=== PATIENT | female | born 1965 | race Caucasian/White ===

== ENCOUNTER 2019-03-18 19:48 | Inpatient (IN) | payer OTHER ==
[2019-03-18] MEDS ORDERED: ONDANSETRON 4 MG/2 ML VIAL IVP STA (20:11)
[2019-03-18] MEDS ORDERED: SODIUM CHLORIDE 0.9% 1,000 ML IV STA ×2 (20:11→22:42)
[2019-03-18] MEDS ORDERED: KETOROLAC 30 MG/ML 1 ML VIAL IVP STA (20:11)
--- NOTE | 2019-03-18 20:14 | ED ---
General Adult HPI - General Chief complaint: Fever Stated complaint: Fever Time Seen by Provider: 03/18/19 20:02 Source: patient, family Mode of arrival: ambulatory Limitations: no limitations - History of Present Illness Initial comments: Dictation was produced using [employer] dictation software. please excuse any grammatical, word or spelling errors. Chief Complaint: 53-year-old female past medical history of hypertension presents with right flank pain and fevers. History of Present Illness: 53-year-old female she presents today with right flank pain, fevers and shortness of breath. Patient states her symptoms of annalee vering really third to get worse today. Her symptoms slowly progress until coming to the emergency department. She complained of some mild right flank pain. Denies any abdominal surgery. Patient denies any abdominal pain. States the pain is in her right flank area. Complains of nausea however no vomiting. Patient is complaining of some urinary symptoms denies any dysuria. Denies any sore throat. No neck pain. No altered mental status. No runny nose. The ROS documented in this emergency department record has been reviewed and confirmed by me. Those systems with pertinent positive or negative responses have been documented in the HPI. All other systems are other negative and/or noncontributory. PHYSICAL EXAM: General Impression: Alert and oriented x3, not in acute distress HEENT: Normocephalic atraumatic, extra-ocular movements intact, pupils equal and reactive to light bilaterally, mucous membranes moist, no pharyngeal erythema or tonsillar exudates Cardiovascular: Heart regular rate and rhythm, S1&S2 audible, no murmurs, rubs or gallops Chest: Lungs clear to auscultation bilaterally, no rhonchi, no wheeze, no rales Abdomen: Bowel sounds present, abdomen soft, non-tender, non-distended, no organomegaly, no right lower quadrant abdominal tenderness, no tenderness. Upper quadrant, negative Cobb sign, no abdominal tenderness whatsoever Musculoskeletal: Pulses present and equal in all extremities, no peripheral edema Motor: no focal deficits noted Neurological: CN II-XII grossly intact, no focal motor or sensory deficits noted, negative Kernig's, negative Brudzinski's Skin: Intact with no visualized rashes Psych: Normal affect and mood ED course: 53-year-old female presents with fevers and right flank pain. Vital signs upon arrival shows temperature 101.8, heart rate 116, rest of vital signs are within acceptable limits. Laboratory evaluation obtained. Mild leukocytosis of 11.8. Metabolic panel shows anion gap acidosis with a lactic acidosis of 5.2. Urinalysis consistent with urinary tract infection. Clinical presentation concerning for pyelo nephritis with sepsis. Patient's blood pressure is borderline however she is not shocky. Patient given intravenous fluids. Discussed with patient that it's in her best interest to be admitted to the hospital for sepsis secondary to pyelonephritis. Patient is agreeable for admission. She requested a nicotine patch. Discussed patient case with son physician group was went except patient's care. Patient be admitted to cardiac telemetry. Patient given 1 g Rocephin. Pending urine cultures and blood cultures. - Related Data Home Medications Medication Instructions Recorded Confirmed Losartan/Hydrochlorothiazide 1 tab PO DAILY 03/18/19 03/18/19 [Losartan-Hctz 100-25 mg Tab] Multivitamins, Thera [Multivitamin 1 tab PO DAILY 03/18/19 03/18/19 (formulary)] Venlafaxine HCl ER [Effexor Xr] 37.5 mg PO DAILY 03/18/19 03/18/19 amLODIPine [Norvasc] 5 mg PO DAILY 03/18/19 03/18/19 Allergies Allergy/AdvReac Type Severity Reaction Status Date / Time Penicillins Allergy Rash/Hives Verified 03/18/19 20:14 Review of Systems ROS Statement: Those systems with pertinent positive or pertinent negative responses have been documented in the HPI. ROS Other: All systems not noted in ROS Statement are negative. Past Medical History Past Medical History: Hypertension History of Any Multi-Drug Resistant Organisms: None Reported Past Surgical History: Section, Tonsillectomy Past Psychological History: No Psychological Hx Reported Smoking Status: Current every day smoker Past Alcohol Use History: None Reported Past Drug Use History: None Reported General Exam Limitations: no limitations Course Vital Signs 03/18/19 03/18/19 03/18/19 19:52 21:39 22:24 Temperature 101.8 F H 102.3 F H 100.3 F H Pulse Rate 116 H 104 H Respiratory 24 20 Rate Blood Pressure 186/89 104/46 O2 Sat by Pulse 100 97 Oximetry Medical Decision Making - Lab Data Result diagrams: 03/18/19 20:22 03/18/19 20:22 Lab Results 03/18/19 03/18/19 03/18/19 Range/Units 20:22 20:22 20:22 WBC 11.8 H (3.8-10.6) k/uL RBC 4.91 (3.80-5.40) m/uL Hgb 15.8 (11.4-16.0) gm/dL Hct 46.3 H (34.0-46.0) % MCV 94.4 (80.0-100.0) fL MCH 32.1 (25.0-35.0) pg MCHC 34.0 (31.0-37.0) g/dL RDW 15.2 (11.5-15.5) % Plt Count 216 (150-450) k/uL Neutrophils % (Manual) 88 % Band Neutrophils % 4 % Lymphocytes % (Manual) 7 % Monocytes % (Manual) 1 % Neutrophils # (Manual) 10.80 H (1.3-7.7) k/uL Lymphocytes # (Manual) 0.83 L (1.0-4.8) k/uL Monocytes # (Manual) 0.12 (0-1.0) k/uL Nucleated RBCs 0 (0-0) /100 WBC Manual Slide Review Performed RBC Morphology Normal Sodium 135 L (137-145) mmol/L Potassium 4.3 (3.5-5.1) mmol/L Chloride 100 (98-107) mmol/L Carbon Dioxide 19 L (22-30) mmol/L Anion Gap 16 mmol/L BUN 18 H (7-17) mg/dL Creatinine 0.99 (0.52-1.04) mg/dL Est GFR (CKD-EPI)AfAm 77 (>60 ml/min/1.73 sqM) Est GFR (CKD-EPI)NonAf 66 (>60 ml/min/1.73 sqM) Glucose 165 H (74-99) mg/dL Plasma Lactic Acid Bryn (0.7-2.0) mmol/L Calcium 10.2 (8.4-10.2) mg/dL Urine Color Yellow Urine Appearance Cloudy H (Clear) Urine pH 5.5 (5.0-8.0) Ur Specific [place] 1.026 (1.001-1.035) Urine Protein 2+ H (Negative) Urine Glucose (UA) Negative (Negative) Urine Ketones Negative (Negative) Urine Blood Moderate H (Negative) Urine Nitrite Negative (Negative) Urine Bilirubin Negative (Negative) Urine Urobilinogen <2.0 (<2.0) mg/dL Ur Leukocyte Esterase Large H (Negative) Urine RBC 34 H (0-5) /hpf Urine WBC >182 H (0-5) /hpf Urine WBC Clumps Few H (None) /hpf Ur Squamous Epith Cells 9 H (0-4) /hpf Urine Bacteria Occasional H (None) /hpf Urine Mucus Occasional H (None) /hpf 03/18/19 Range/Units 20:22 WBC (3.8-10.6) k/uL RBC (3.80-5.40) m/uL Hgb (11.4-16.0) gm/dL Hct (34.0-46.0) % MCV (80.0-100.0) fL MCH (25.0-35.0) pg MCHC (31.0-37.0) g/dL RDW (11.5-15.5) % Plt Count (150-450) k/uL Neutrophils % (Manual) % Band Neutrophils % % Lymphocytes % (Manual) % Monocytes % (Manual) % Neutrophils # (Manual) (1.3-7.7) k/uL Lymphocytes # (Manual) (1.0-4.8) k/uL Monocytes # (Manual) (0-1.0) k/uL Nucleated RBCs (0-0) /100 WBC Manual Slide Review RBC Morphology Sodium (137-145) mmol/L Potassium (3.5-5.1) mmol/L Chloride (98-107) mmol/L Carbon Dioxide (22-30) mmol/L Anion Gap mmol/L BUN (7-17) mg/dL Creatinine (0.52-1.04) mg/dL Est GFR (CKD-EPI)AfAm (>60 ml/min/1.73 sqM) Est GFR (CKD-EPI)NonAf (>60 ml/min/1.73 sqM) Glucose (74-99) mg/dL Plasma Lactic Acid Bryn 5.2 H* (0.7-2.0) mmol/L Calcium (8.4-10.2) mg/dL Urine Color Urine Appearance (Clear) Urine pH (5.0-8.0) Ur Specific [place] (1.001-1.035) Urine Protein (Negative) Urine Glucose (UA) (Negative) Urine Ketones (Negative) Urine Blood (Negative) Urine Nitrite (Negative) Urine Bilirubin (Negative) Urine Urobilinogen (<2.0) mg/dL Ur Leukocyte Esterase (Negative) Urine RBC (0-5) /hpf Urine WBC (0-5) /hpf Urine WBC Clumps (None) /hpf Ur Squamous Epith Cells (0-4) /hpf Urine Bacteria (None) /hpf Urine Mucus (None) /hpf Disposition Clinical Impression: UTI (urinary tract infection), Sepsis, Sepsis secondary to UTI Disposition: ADMITTED IP TO THIS HOSP Condition: Fair Referrals: Linden Dejesus MD [Primary Care Provider] - 1-2 days Decision Time: 22:44
[2019-03-18 20:44] LABS: HCT 46.3 % (34.0-46.0); HGB 15.8 gm/dL (11.4-16.0); MCH 32.1 pg (25.0-35.0); MCV 94.4 fL (80.0-100.0); Mean Platelet Volume 9.4; Platelet Count 216 k/uL (150-450); RBC 4.91 m/uL (3.80-5.40); RDW 15.2 % (11.5-15.5); WBC 11.8 k/uL (3.8-10.6)
--- NOTE | 2019-03-18 20:48 | XR ---
EXAMINATION TYPE: XR chest 2V DATE OF EXAM: 03/18/2019 COMPARISON: 12/16/2009 HISTORY: Fever TECHNIQUE: Frontal and lateral views of the chest are obtained. FINDINGS: Heart and mediastinum are normal. Lungs are clear of infiltrate. There is no pleural effus ion. Bony thorax is intact. IMPRESSION: No active cardiopulmonary disease. Normal heart. No change.
[2019-03-18 20:50] LABS: Appearance,Urine Cloudy (Clear); Bacteria,Urine Occasional /hpf; Bilirubin,Urine Negative (Negative); Blood,Urine Moderate (Negative); Color,Urine Yellow; Glucose,Urine (UA) Negative (Negative); Ketones,Urine Negative (Negative); Leukocyte Esterase,Urine Large (Negative); Mucus,Urine Occasional /hpf; Nitrite,Urine Negative (Negative); PH, Urine 5.5 (5.0-8.0); Protein,Urine 2+ (Negative); RBC,Urine 34 /hpf (0-5); Specific Gravity,Urine 1.026 (1.001-1.035); Squamous Epithelial Cell,Urine 9 /hpf (0-4); Urobilinogen,Urine <2.0 mg/dL (<2.0); WBC,Urine >182 /hpf (0-5)
[2019-03-18 20:54] LABS: Band Neutrophils % 4 %; Lymphocytes # (M) 0.83 k/uL (1.0-4.8); Monocytes # (M) 0.12 k/uL (0-1.0); Neutrophils % (M) 88 %; Nucleated Red Blood Cells 0 /100 WBC (0-0); Total Cells Counted 100
[2019-03-18 20:56] LABS: Calcium 10.2 mg/dL (8.4-10.2); Potassium 4.3 mmol/L (3.5-5.1)
[2019-03-18] MEDS ORDERED: cefTRIAXone IN SWFI 1,000 MG/10 ML SYRINGE IVP STA (21:12)
[2019-03-18] MEDS ORDERED: ACETAMINOPHEN TAB 500 MG TAB PO STA (21:40)
[2019-03-18] MEDS ORDERED: NICOTINE 21MG/24HR PATCH TRANSDERM STA (22:41)
[2019-03-18] MEDS: SODIUM CHLORIDE 0.9% 1,000 ML IV SCH (23:13)
--- NOTE | 2019-03-19 01:41 | P.HPIM ---
History of Present Illness H&P Date: 03/19/19 Patient is a 53-year-old female with a PMH of hypertension who presented to the ED with a complaint of right flank pain. The patient notes that for the past 1 week she's been having dysuria along with some suprapubic pain which recently worsened earlier today and moved to the right flank. She notes that the pain is a 6 out of 10, radiating from the right flank to the suprapubic region, and cramping in nature. Patient also notes that she had fever and chills earlier today. She denied any prior history of UTIs. She denied any additional complaints including cough, chest pain, shortness of breath, nausea, vomiting, or diarrhea. She underwent an extensive regimen the ED with a WBC count of 11.8, lactate of 5.2, BUN 18, UA consistent with UTI, and chest x-ray unremarkable. The patient was given a dose of IV ceftriaxone along with IV fluids and is being admitted to medicine service for further management of sepsis secondary to pyelonephritis. Review of Systems Pertinent positives and negatives as discussed in HPI, a complete review of systems was performed and all other systems are negative. Past Medical History Past Medical History: Hypertension History of Any Multi-Drug Resistant Organisms: None Reported Past Surgical History: Section, Tonsillectomy Past Psychological History: No Psychological Hx Reported Smoking Status: Current every day smoker Past Alcohol Use History: None Reported Past Drug Use History: None Reported Medications and Allergies Home Medications Medication Instructions Recorded Confirmed Type Losartan/Hydrochlorothiazide 1 tab PO DAILY 03/18/19 03/18/19 History [Losartan-Hctz 100-25 mg Tab] Multivitamins, Thera [Multivitamin 1 tab PO DAILY 03/18/19 03/18/19 History (formulary)] Venlafaxine HCl ER [Effexor Xr] 37.5 mg PO DAILY 03/18/19 03/18/19 History amLODIPine [Norvasc] 5 mg PO DAILY 03/18/19 03/18/19 History Allergies Allergy/AdvReac Type Severity Reaction Status Date / Time Penicillins Allergy Rash/Hives Verified 03/18/19 20:14 Physical Exam Vitals: Vital Signs Temp Pulse Resp BP Pulse Ox 03/19/19 01:00 101.0 F H 87 16 100/51 95 03/19/19 00:00 90 18 103/55 95 03/18/19 23:00 92 18 120/63 96 03/18/19 22:24 100.3 F H 03/18/19 22:00 104/46 97 03/18/19 21:39 102.3 F H 104 H 20 104/46 97 03/18/19 21:00 125/65 97 03/18/19 20:31 97 03/18/19 19:52 101.8 F H 116 H 24 186/89 100 Intake and Output 03/18/19 03/18/19 03/19/19 14:59 22:59 06:59 Other: Weight 99.79 kg General: non toxic, no distress, appears at stated age, obese Derm: no unusual rashes/lesions no unusual ecchymoses, warm, dry Head: atraumatic, normocephalic, symmetric Eyes: EOMI, no lid lag, anicteric sclera, pupils equal round reactive to light ENT: Nose and ears atraumatic, no thrush, no pharyngeal erythema Neck: No thyromegaly, no cervical lymphadenopathy, trachea midline, supple Mouth: no lip lesion, mucus membranes moist Cardiovascular: S1S2 reg, no murmur, positive posterior tibial pulse bilateral, no edema, capillary refill less than 2 seconds Lungs: CTA bilateral, no rhonchi, no rales , no accessory muscle use Abdominal: soft, R CVA tenderness, no guarding, no appreciable organomegaly, normal bowel sounds Ext: no gross muscle atrophy, muscle strength 5 out of 5 in all 4 extremities grossly, no contractures, Neuro: CN II-XI grossly intact, light touch intact all 4 extremities, finger to nose within normal limits, Psych: Alert, oriented, appropriate affect Results CBC & Chem 7: 03/18/19 20:22 03/18/19 20:22 Labs: Abnormal Lab Results - Last 24 Hours (Table) 03/18/19 03/18/19 03/18/19 Range/Units 20:22 20:22 20:22 WBC 11.8 H (3.8-10.6) k/uL Hct 46.3 H (34.0-46.0) % Neutrophils # (Manual) 10.80 H (1.3-7.7) k/uL Lymphocytes # (Manual) 0.83 L (1.0-4.8) k/uL Sodium 135 L (137-145) mmol/L Carbon Dioxide 19 L (22-30) mmol/L BUN 18 H (7-17) mg/dL Glucose 165 H (74-99) mg/dL Plasma Lactic Acid Bryn (0.7-2.0) mmol/L Urine Appearance Cloudy H (Clear) Urine Protein 2+ H (Negative) Urine Blood Moderate H (Negative) Ur Leukocyte Esterase Large H (Negative) Urine RBC 34 H (0-5) /hpf Urine WBC >182 H (0-5) /hpf Urine WBC Clumps Few H (None) /hpf Ur Squamous Epith Cells 9 H (0-4) /hpf Urine Bacteria Occasional H (None) /hpf Urine Mucus Occasional H (None) /hpf 03/18/19 Range/Units 20:22 WBC (3.8-10.6) k/uL Hct (34.0-46.0) % Neutrophils # (Manual) (1.3-7.7) k/uL Lymphocytes # (Manual) (1.0-4.8) k/uL Sodium (137-145) mmol/L Carbon Dioxide (22-30) mmol/L BUN (7-17) mg/dL Glucose (74-99) mg/dL Plasma Lactic Acid Bryn 5.2 H* (0.7-2.0) mmol/L Urine Appearance (Clear) Urine Protein (Negative) Urine Blood (Negative) Ur Leukocyte Esterase (Negative) Urine RBC (0-5) /hpf Urine WBC (0-5) /hpf Urine WBC Clumps (None) /hpf Ur Squamous Epith Cells (0-4) /hpf Urine Bacteria (None) /hpf Urine Mucus (None) /hpf Assessment and Plan Plan: Severe sepsis secondary to pyelonephritis -Continue with IV ceftriaxone -IV fluids -Follow up cultures Lactic acidosis -Resolved Hypertension -Hold antihypertensives in setting of severe sepsis -Resume as warranted DVT prophylaxis -Heparin The patient is admitted with an anticipated less than 2 midnight stay for evaluation of pyelonephritis. CODE STATUS: Full Code Discussed with: Patient Anticipated discharge date: 03/21/[address]: Home A total of 40 minutes was spent on the care of this complex patient more than 50% of the time was spent in counseling and care coordination.
[2019-03-19] MEDS: ACETAMINOPHEN TAB 325 MG TAB PO PRN ×4 (03:04→22:09)
[2019-03-19] MEDS: SODIUM CHLORIDE 0.9% 1,000 ML IV SCH ×3 (05:38→16:10)
[2019-03-19 06:30] LABS: HCT 35.8 % (34.0-46.0); MCH 32.4 pg (25.0-35.0); MCHC 34.8 g/dL (31.0-37.0); MCV 93.3 fL (80.0-100.0); Mean Platelet Volume 8.8; Platelet Count 183 k/uL (150-450); RBC 3.84 m/uL (3.80-5.40); RDW 14.2 % (11.5-15.5)
[2019-03-19 06:40] LABS: HGB 12.4 gm/dL (11.4-16.0)
[2019-03-19 06:44] LABS: Calcium 8.5 mg/dL (8.4-10.2); Potassium 3.8 mmol/L (3.5-5.1)
[2019-03-19] MEDS: PANTOPRAZOLE 40 MG/10 ML VIAL IV SCH (08:59)
[2019-03-19] MEDS: VENLAFAXINE HCL ER 37.5 MG CAP PO SCH (08:59)
[2019-03-19] MEDS: HEPARIN SODIUM,PORCINE 5,000 UNIT/ML 1 ML VIAL SQ SCH ×3 (08:59→23:05)
--- NOTE | 2019-03-19 11:04 | P.PN ---
Subjective Progress Note Date: 03/19/19 Principal diagnosis: Fevers and right flank pain. Patient is still having intermittent fevers. Also still having right flank pain which is worse when she moves. No nausea or vomiting. Objective - Vital Signs Vital signs: Vital Signs Temp 98.6 F 03/19/19 06:29 Pulse 98 03/19/19 08:00 Resp 16 03/19/19 08:00 BP 110/64 03/19/19 04:00 Pulse Ox 99 03/19/19 04:00 Intake & Output 03/18/19 03/19/19 03/19/19 18:59 06:59 18:59 Intake Total 1100 10 Balance 1100 10 Weight 106.9 kg Intake: IV 10 Invasive Line 1 10 Intake, IV Titration 600 Amount Sodium Chloride 0.9% 1, 600 000 ml @ 150 mls/hr IV . Q6H40M [facility] Rx#:[id number] Oral 500 0 Other: Voiding Method Toilet # Voids 2 - Exam Constitutional: No acute distress, conversant, pleasant Eyes:Anicteric sclerae, moist conjunctiva, no lid-lag, PERRLA, ENMT: Oropharynx clear, no erythema, exudates Neck: Supple, FROM, no masses, or JVD, No carotid bruits, No thyromegaly Lungs: Clear to auscultation, Clear to percussion, Normal respiratory effort, no accessory muscle use Cardiovascular: Heart regular in rate and rhythm, No murmurs, gallops, or rubs, No peripheral edema Abdominal: Right flank tenderness. Soft, no guarding, rebound or rigidity, Normoactive bowel sounds, No hepatomegaly, No splenomegaly, No palpable mass Skin: Normal temperature, tone, texture, turgor, no induration, No subcutaneous nodules, No rash, lesions, No ulcers Extremities: No digital cyanosis, No clubbing, Pedal pulses intact and symmetrical, Radial pulses intact and symmetrical, No calf tenderness Psychiatric: Alert and oriented to person, place and time, appropriate affect, intact judgement Neuro: Muscles Strength 5/5 in all 4 extremities, Sensation to light touch grossly present throughout, Cranial nerves II-XII grossly intact, no focal sensory deficits - Labs CBC & Chem 7: 03/19/19 06:09 03/19/19 06:09 Labs: Abnormal Lab Results - Last 24 Hours (Table) 0803/18/19 03/18/19 Range/Units 20:22 20:22 20:22 WBC 11.8 H (3.8-10.6) k/uL Hct 46.3 H (34.0-46.0) % Neutrophils # (Manual) 10.80 H (1.3-7.7) k/uL Lymphocytes # (Manual) 0.83 L (1.0-4.8) k/uL Sodium 135 L (137-145) mmol/L Carbon Dioxide 19 L (22-30) mmol/L BUN 18 H (7-17) mg/dL Creatinine (0.52-1.04) mg/dL Glucose 165 H (74-99) mg/dL Plasma Lactic Acid Bryn (0.7-2.0) mmol/L Urine Appearance Cloudy H (Clear) Urine Protein 2+ H (Negative) Urine Blood Moderate H (Negative) Ur Leukocyte Esterase Large H (Negative) Urine RBC 34 H (0-5) /hpf Urine WBC >182 H (0-5) /hpf Urine WBC Clumps Few H (None) /hpf Ur Squamous Epith Cells 9 H (0-4) /hpf Urine Bacteria Occasional H (None) /hpf Urine Mucus Occasional H (None) /hpf 03/18/19 03/19/19 03/19/19 Range/Units 20:22 06:09 06:09 WBC 17.0 H (3.8-10.6) k/uL Hct (34.0-46.0) % Neutrophils # (Manual) (1.3-7.7) k/uL Lymphocytes # (Manual) (1.0-4.8) k/uL Sodium 136 L (137-145) mmol/L Carbon Dioxide 20 L (22-30) mmol/L BUN 23 H (7-17) mg/dL Creatinine 1.26 H (0.52-1.04) mg/dL Glucose 153 H (74-99) mg/dL Plasma Lactic Acid Bryn 5.2 H* (0.7-2.0) mmol/L Urine Appearance (Clear) Urine Protein (Negative) Urine Blood (Negative) Ur Leukocyte Esterase (Negative) Urine RBC (0-5) /hpf Urine WBC (0-5) /hpf Urine WBC Clumps (None) /hpf Ur Squamous Epith Cells (0-4) /hpf Urine Bacteria (None) /hpf Urine Mucus (None) /hpf Assessment and Plan Plan: Severe sepsis secondary to pyelonephritis -Continue with IV ceftriaxone -Continue IV fluids -Follow up cultures Hypertension -Hold antihypertensives in setting of severe sepsis DVT prophylaxis -Heparin
[2019-03-19] MEDS: HYDROmorphone 0.5 MG/0.5 ML SYRINGE IVP PRN (17:29)
[2019-03-20] MEDS: SODIUM CHLORIDE 0.9% 1,000 ML IV SCH ×4 (01:17→21:51)
[2019-03-20] MEDS: HYDROmorphone 0.5 MG/0.5 ML SYRINGE IVP PRN ×4 (01:20→21:53)
[2019-03-20] MEDS ORDERED: IBUPROFEN 600 MG TAB PO STA (03:10)
[2019-03-20 07:19] LABS: Basophils % (A) 0 %; Eosinophils # (A) 0.1 k/uL (0-0.7); Eosinophils % (A) 0 %; HCT 35.1 % (34.0-46.0); HGB 11.9 gm/dL (11.4-16.0); Lymphocytes # (A) 1.7 k/uL (1.0-4.8); Lymphocytes % (A) 12 %; MCH 32.3 pg (25.0-35.0); MCHC 33.9 g/dL (31.0-37.0); MCV 95.5 fL (80.0-100.0); Mean Platelet Volume 9.8; Monocytes # (A) 1.5 k/uL (0-1.0); Monocytes % (A) 10 %; Neutrophils # (A) 10.8 k/uL (1.3-7.7); Neutrophils % (A) 76 %; Platelet Count 152 k/uL (150-450); RBC 3.68 m/uL (3.80-5.40); RDW 14.2 % (11.5-15.5); WBC 14.4 k/uL (3.8-10.6)
[2019-03-20 07:24] LABS: Calcium 8.1 mg/dL (8.4-10.2); Potassium 3.8 mmol/L (3.5-5.1)
--- NOTE | 2019-03-20 08:42 | P.PN ---
Subjective Progress Note Date: 03/20/19 Principal diagnosis: Fevers and right flank pain. Patient still having fevers, up to 102. Still having pain in the right flank area. Pain is worse with moving. No nausea or vomiting. No diarrhea. Objective - Vital Signs Vital signs: Vital Signs Temp 98.8 F 03/20/19 04:30 Pulse 87 03/20/19 04:30 Resp 18 03/20/19 04:30 BP 106/57 03/20/19 04:30 Pulse Ox 94 L 03/20/19 04:30 Intake & Output 03/19/19 03/20/19 03/20/19 18:59 06:59 18:59 Intake Total 30 Balance 30 Weight 108.8 kg Intake: IV 30 Invasive Line 1 30 Oral 0 Other: Voiding Method Toilet Toilet # Voids 0 2 1 - Exam Constitutional: No acute distress, conversant, pleasant Eyes:Anicteric sclerae, moist conjunctiva, no lid-lag, PERRLA, ENMT: Oropharynx clear, no erythema, exudates Neck: Supple, FROM, no masses, or JVD, No carotid bruits, No thyromegaly Lungs: Clear to auscultation, Clear to percussion, Normal respiratory effort, no accessory muscle use Cardiovascular: Heart regular in rate and rhythm, No murmurs, gallops, or rubs, No peripheral edema Abdominal: Right flank tenderness. Soft, no guarding, rebound or rigidity, Normoactive bowel sounds, No hepatomegaly, No splenomegaly, No palpable mass Skin: Normal temperature, tone, texture, turgor, no induration, No subcutaneous nodules, No rash, lesions, No ulcers Extremities: No digital cyanosis, No clubbing, Pedal pulses intact and symmetrical, Radial pulses intact and symmetrical, No calf tenderness Psychiatric: Alert and oriented to person, place and time, appropriate affect, intact judgement Neuro: Muscles Strength 5/5 in all 4 extremities, Sensation to light touch grossly present throughout, Cranial nerves II-XII grossly intact, no focal sensory deficits - Labs CBC & Chem 7: 03/20/19 06:17 03/20/19 06:17 Labs: Abnormal Lab Results - Last 24 Hours (Table) 03/20/19 03/20/19 Range/Units 06:17 06:17 WBC 14.4 H (3.8-10.6) k/uL RBC 3.68 L (3.80-5.40) m/uL Sodium 136 L (137-145) mmol/L Carbon Dioxide 21 L (22-30) mmol/L Creatinine 1.09 H (0.52-1.04) mg/dL Glucose 100 H (74-99) mg/dL Calcium 8.1 L (8.4-10.2) mg/dL Microbiology - Last 24 Hours (Table) 03/18/19 20:22 Blood Culture Gram Stain - Preliminary Blood Blood Culture - Preliminary Escherichia coli 03/18/19 20:22 Blood Culture - Final Blood 03/18/19 20:22 Urine Culture - Preliminary Urine,Clean Catch Assessment and Plan Plan: Severe sepsis secondary to pyelonephritis with E. coli bacteremia -Continue with IV ceftriaxone -Continue IV fluids -Follow up sensitivities Hypertension -Hold antihypertensives in setting of severe sepsis DVT prophylaxis -Heparin Disposition: Likely home Anticipated discharge: 03/21
[2019-03-20] MEDS: HEPARIN SODIUM,PORCINE 5,000 UNIT/ML 1 ML VIAL SQ SCH ×2 (09:13→15:37)
[2019-03-20] MEDS: PANTOPRAZOLE 40 MG/10 ML VIAL IV SCH (09:13)
[2019-03-20] MEDS: VENLAFAXINE HCL ER 37.5 MG CAP PO SCH (09:13)
[2019-03-20] MEDS: NICOTINE 21MG/24HR PATCH TRANSDERM SCH (15:37)
[2019-03-20] MEDS: ACETAMINOPHEN TAB 325 MG TAB PO PRN (18:20)
[2019-03-20] MEDS ORDERED: FUROSEMIDE 10 MG/ML 4 ML VIAL IV ONE (23:03)
[2019-03-20 23:10] LABS: Glucose,Whole Blood 156 mg/dL (75-99)
[2019-03-20 23:24] LABS: Basophils % (A) 1 %; Eosinophils # (A) 0.1 k/uL (0-0.7); Eosinophils % (A) 2 %; HCT 40.5 % (34.0-46.0); HGB 13.2 gm/dL (11.4-16.0); Lymphocytes # (A) 1.8 k/uL (1.0-4.8); Lymphocytes % (A) 47 %; MCHC 32.6 g/dL (31.0-37.0); MCV 98.1 fL (80.0-100.0); Mean Platelet Volume 9.8; Monocytes % (A) 1 %; Neutrophils # (A) 1.8 k/uL (1.3-7.7); Neutrophils % (A) 46 %; Platelet Count 166 k/uL (150-450); RBC 4.13 m/uL (3.80-5.40); RDW 13.7 % (11.5-15.5); WBC 3.8 k/uL (3.8-10.6)
[2019-03-20 23:32] LABS: Calcium 8.4 mg/dL (8.4-10.2)
[2019-03-20 23:46] LABS: Glucose,Whole Blood 264 mg/dL (75-99)
[2019-03-20 23:57] LABS: ABG Base Excess -9.6 mmol/L; ABG HCO3 18 mmol/L (21-25); ABG Oxygen Saturation 81.7 % (94-97); ABG PCO2 40 mmHg (35-45); ABG PH 7.25 (7.35-7.45); ABG TCO2 19 mmol/L (19-24); Allen Test Performed? Yes
--- NOTE | 2019-03-20 23:58 | XR ---
INDICATION: Respiratory distress COMPARISON: CXR 03/18/19 FINDINGS: Portable AP view of the chest is submitted for interpretation. Endotracheal tube terminates 5.5 cm above the vinicius. Enteric tube has been placed with distal tip not clearly visualized, probably at the level of the distal esophagus. Heart size is normal. Pulmonary vascularity is increased. There are bilateral mid and lower lung airspace opacities. Small layering effusions are not excluded. There is no pneumothorax. There are no acute osseous findings. IMPRESSION: 1. Bilateral mid and lower lung airspace opacities which may represent pneumonia or alveolar edema. 2. Possible small layering pleural effusions. 3. Endotracheal tube and enteric tube are in place. The distal tip of the enteric tube is not clearly visualized, but most likely is at the level of the distal esophagus.
[2019-03-21] MEDS ORDERED: SODIUM CHLORIDE 0.9% 1,000 ML IV ONE
[2019-03-21 00:02] LABS: ABG PO2 51 mmHg (83-108)
[2019-03-21] MEDS ORDERED: ETOMIDATE 2 MG/ML 10 ML VIAL ONE (00:12)
[2019-03-21] MEDS ORDERED: SUCCINYLCHOLINE CHLORIDE VIAL 200 MG/10 ML VIAL IV ONE (00:12)
[2019-03-21] MEDS ORDERED: CHLORHEXIDINE GLUCONATE 15 ML CUP MUCOUS MEM ONE (00:12)
[2019-03-21] MEDS: fentaNYL (PF) 1,000 MCG in SODIUM CHLORIDE 0.9% 80 ML IV SCH ×2 (00:15→14:34)
[2019-03-21 00:19] LABS: INR 0.8 (<1.2); Partial Thromboplastin Time 22.4 sec (22.0-30.0); Prothrombin Time 9.3 sec (9.0-12.0)
[2019-03-21] MEDS: CISATRACURIUM 200 MG in SODIUM CHLORIDE 0.9% 180 ML IV SCH ×2 (01:09→23:21)
[2019-03-21] MEDS: PROPOFOL 1,000 MG in EMPTY BAG 1 BAG IV SCH ×8 (02:00→23:22)
[2019-03-21] MEDS: HEPARIN SODIUM,PORCINE 5,000 UNIT/ML 1 ML VIAL SQ SCH ×4 (02:13→23:47)
[2019-03-21] MEDS: NOREPINEPHRINE 4 MG in SODIUM CHLORIDE 0.9% 250 ML IV SCH ×2 (03:09→06:46)
[2019-03-21 03:59] LABS: Basophils # (A) 0.1 k/uL (0-0.2); Basophils % (A) 1 %; Eosinophils # (A) 0.1 k/uL (0-0.7); Eosinophils % (A) 1 %; HCT 38.7 % (34.0-46.0); HGB 12.3 gm/dL (11.4-16.0); Lymphocytes # (A) 0.8 k/uL (1.0-4.8); Lymphocytes % (A) 5 %; MCH 31.2 pg (25.0-35.0); MCHC 31.7 g/dL (31.0-37.0); MCV 98.3 fL (80.0-100.0); Mean Platelet Volume 9.4; Monocytes # (A) 0.4 k/uL (0-1.0); Monocytes % (A) 3 %; Neutrophils # (A) 12.9 k/uL (1.3-7.7); Neutrophils % (A) 90 %; Platelet Count 157 k/uL (150-450); RBC 3.94 m/uL (3.80-5.40); RDW 13.7 % (11.5-15.5); WBC 14.4 k/uL (3.8-10.6)
[2019-03-21 04:12] LABS: Calcium 7.7 mg/dL (8.4-10.2); Potassium 3.8 mmol/L (3.5-5.1)
[2019-03-21] MEDS: SODIUM CHLORIDE 0.9% 1,000 ML IV SCH ×2 (04:17→11:26)
[2019-03-21 04:40] LABS: Magnesium 2.1 mg/dL (1.6-2.3); Phosphorus 3.6 mg/dL (2.5-4.5)
[2019-03-21] MEDS ORDERED: Potassium Replacement Protocol 1 EACH MISC MISCELLANE PRN (05:04)
[2019-03-21] MEDS: ACETAMINOPHEN IV (For NPO) 1,000 MG in EMPTY BAG 1 BAG IVPB SCH ×4 (05:17→17:07)
[2019-03-21] MEDS: INSULIN ASPART (NovoLOG) 100 UNIT/ML VIAL SQ SCH ×4 (05:47→23:59)
[2019-03-21 05:53] LABS: Glucose,Whole Blood 236 mg/dL (75-99)
[2019-03-21] MEDS ORDERED: POTASSIUM BICARBONATE/CIT AC 20 MEQ TABLET.EFF NG-TUBE SCH (06:00)
--- NOTE | 2019-03-21 07:12 | XR ---
EXAMINATION TYPE: XR chest 1V portable DATE OF EXAM: 03/21/2019 CLINICAL HISTORY: Difficulty breathing progress study. TECHNIQUE: Single AP portable semiupright view of the chest is obtained. COMPARISON: Chest x-ray from one day earlier FINDINGS: There is persistent bilateral perihilar and lower lung opacities. Cardiac silhouette size is mildly enlarged. An endotracheal tube and orogastric tube are stable in appearance. Multilevel spu rring thoracic spine is redemonstrated. IMPRESSION: Overall stable findings, mild cardiomegaly with mid to lower lung edema and/or infiltra marivel and probable small left pleural effusion are all redemonstrated.
[2019-03-21 07:52] LABS: ABG Base Excess -11.9 mmol/L; ABG HCO3 18 mmol/L (21-25); ABG Oxygen Saturation 97.1 % (94-97); ABG PCO2 54 mmHg (35-45); ABG PO2 109 mmHg (83-108); ABG TCO2 19 mmol/L (19-24); Allen Test Performed? Yes
[2019-03-21 07:55] LABS: ABG PH 7.12 (7.35-7.45)
[2019-03-21] MEDS ORDERED: DEXTROSE 5% IN WATER 1,000 ML with SODIUM BICARB (1 MEQ/ML) 150 ML IV ONE (08:23)
[2019-03-21] MEDS ORDERED: PIPERACILLIN-TAZOBACTAM 3.375 GM in SODIUM CHLORIDE 0.9% 100 ML IVPB SCH (08:30)
[2019-03-21] MEDS ORDERED: SODIUM BICARB 8.4% 50 ML SYR (1 MEQ/ML) IV STA (08:32)
[2019-03-21] MEDS: CHLORHEXIDINE GLUCONATE 15 ML CUP MUCOUS MEM SCH ×2 (08:59→21:44)
[2019-03-21] MEDS: PANTOPRAZOLE 40 MG/10 ML VIAL IV SCH (08:59)
[2019-03-21] MEDS: NICOTINE 21MG/24HR PATCH TRANSDERM SCH (09:00)
[2019-03-21] MEDS: VENLAFAXINE HCL ER 37.5 MG CAP PO SCH (09:00)
[2019-03-21 09:46] LABS: ABG Base Excess -10.6 mmol/L; ABG HCO3 17 mmol/L (21-25); ABG Oxygen Saturation 99.1 % (94-97); ABG PCO2 39 mmHg (35-45); ABG PH 7.24 (7.35-7.45); ABG PO2 183 mmHg (83-108); ABG TCO2 18 mmol/L (19-24)
[2019-03-21 09:48] LABS: Allen Test Performed? no
--- NOTE | 2019-03-21 10:03 | US ---
EXAMINATION TYPE: US kidneys/renal and bladder DATE OF EXAM: 03/21/2019 COMPARISON: NONE CLINICAL HISTORY: pyelonephritis. UTI, exam done portable in ICU EXAM MEASUREMENTS: Right Kidney: 15.9 x 7.3 x 8.5 cm Left Kidney: 14.1 x 6.8 x 6.6 cm Right Kidney: enlarged, 0.7cm echogenic focus medial mid pole, dilated renal pelvis extending into ca lyces Left Kidney: enlarged, multiple echogenic foci superior pole with largest measuring 0.9cm, limited by rib shadowing Bladder: not fully distended, martínez catheter Gallbladder: 2.3cm echogenic stone, wall thickening Mild to moderate right-sided pyelocaliectasis with suspicion for 6 mm collecting system calculus. Inc idental large shadowing mobile gallstone. Poorly distended bladder. Martínez catheter noted. Suspect non obstructing left renal calculi without hydronephrosis. IMPRESSION: Possible bilateral nephrolithiasis. Suspect mild to moderate right-sided hydronephrosis. Consider further imaging workup.
[2019-03-21] MEDS: FUROSEMIDE 10 MG/ML 4 ML VIAL IV SCH ×3 (10:16→23:47)
--- NOTE | 2019-03-21 10:18 | ECHOF ---
Referral Reason:pulm edema MEASUREMENTS -------- HEIGHT: 182.9 cm WEIGHT: 108.4 kg BP: RVIDd: 2.2 cm (< 3.3) IVSd: 1.1 cm (0.6 - 1.1) LVIDd: 4.9 cm (3.9 - 5.3) LVPWd: 1.1 cm (0.6 - 1.1) IVSs: 1.2 cm LVIDs: 4.5 cm LVPWs: 1.1 cm Ao Diam: 3.2 cm (2.0 - 3.7) AV Cusp: 1.6 cm (1.5 - 2.6) LA Diam: 2.5 cm (2.7 - 3.8) MV EXCURSION: 14.056 mm (> 18.000) MV EF SLOPE: 62 mm/s (70 - 150) EPSS: 2.6 cm MV E Flavio: 0.67 m/s MV DecT: 232 ms MV A Flavio: 0.76 m/s MV E/A Ratio: 0.88 AR PHT: 421 ms RAP: 20.00 mmHg RVSP: 38.14 mmHg FINDINGS -------- Sinus rhythm. This was a technically good study. Pt. on a vent. The left ventricular size is normal. Left ventricular wall thickness is normal. There is severe g lobal hypokinesis of LV . Overall left ventricular systolic function is severely impaired with, an EF < 20%. The right ventricle is normal in size. The left atrial size is normal. The right atrial size is normal. Interatrial and interventricular septum intact. Aortic valve is trileaflet and is mildly thickened. There is mild aortic regurgitation. The mitral valve is normal. There is trace mitral regurgitation. The tricuspid valve appears structurally normal. Mild tricuspid regurgitation present. There is m ild pulmonary hypertension. The right ventricular systolic pressure, as measured by Doppler, is 38. 14mmHg. There is no pulmonic regurgitation present. The aortic root size is normal. The inferior vena cava is dilated with no significant inspiratory collapse which is consistent estima sarwat right atrial pressure of >20 mmHg. There is no pericardial effusion. CONCLUSIONS -------- 1. Sinus rhythm. 2. This was a technically good study. 3. Pt. on a vent. 4. The left ventricular size is normal. 5. Left ventricular wall thickness is normal. 6. There is severe global hypokinesis of LV . 7. Overall left ventricular systolic function is severely impaired with, an EF < 20%. 8. The right ventricle is normal in size. 9. The left atrial size is normal. 10. The right atrial size is normal. 11. Interatrial and interventricular septum intact. 12. Aortic valve is trileaflet and is mildly thickened. 13. There is mild aortic regurgitation. 14. The mitral valve is normal. 15. There is trace mitral regurgitation. 16. The tricuspid valve appears structurally normal. 17. Mild tricuspid regurgitation present. 18. There is mild pulmonary hypertension. 19. The right ventricular systolic pressure, as measured by Doppler, is 38.14mmHg. 20. There is no pulmonic regurgitation present. 21. The aortic root size is normal. 22. The inferior vena cava is dilated with no significant inspiratory collapse which is consistent es timated right atrial pressure of >20 mmHg. 23. There is no pericardial effusion. [employer] MANAGER: Elena Mejia RDCS
--- NOTE | 2019-03-21 10:44 | PCN ---
PROCEDURE NOTE PROCEDURE: Right radial arterial line placement. PREOPERATIVE DIAGNOSIS: Septic shock. POSTOPERATIVE DIAGNOSIS: Septic shock. ARTERIAL LINE PLACEMENT: Indications: Hemodynamic monitoring. A time-out was completed verifying correct patient, procedure, site, positioning, and implant(s) or special equipment if applicable. Guy's test was performed to ensure adequate perfusion. The patient's right wrist was prepped and draped in sterile fashion. 1% Lidocaine was used to anesthetize the area. An 18G Arrow arterial line was introduced into the right radial artery. The catheter was threaded over the guide wire and the needle was removed with appropriate pulsatile blood return. Blood loss was minimal. The catheter was then sutured in place to the skin and a sterile dressing applied. Perfusion to the extremity distal to the point of catheter insertion was checked and found to be adequate. The patient tolerated the procedure well and there were no complications. No immediate complications. Good waveform was noted. Line was flushed, sutured in place. Sterile dressing was applied. MMODL / IJN: [id number] /
[2019-03-21] MEDS ORDERED: FUROSEMIDE 10 MG/ML 4 ML VIAL IV STA ×2 (11:25)
--- NOTE | 2019-03-21 11:40 | XR ---
EXAMINATION TYPE: XR chest 1V portable DATE OF EXAM: 03/21/2019 CLINICAL HISTORY: Status post right central line placement. TECHNIQUE: Single AP portable semiupright view of the chest is obtained. COMPARISON: Chest x-ray from earlier today an older studies FINDINGS: Right internal jugular central venous catheter terminates in SVC. Stable appearance of endotracheal a nd orogastric tubes. Cardiac silhouette size is stable and mildly enlarged. Persistent perihilar and bibasilar opacities silhouetting the left hemidiaphragm. Osseous structures are intact. IMPRESSION: New right internal jugular central venous catheter terminating in SVC. No pneumothorax. S table mild cardiomegaly with mid to lower lung edema and/or infiltrates with probable small bilateral pleural effusions and perhaps more focal acute infiltrate retrocardiac region.
[2019-03-21] MEDS: NOREPINEPHRINE 32 MG in SODIUM CHLORIDE 0.9% 218 ML IV SCH (11:41)
[2019-03-21 11:43] LABS: Glucose,Whole Blood 230 mg/dL (75-99)
[2019-03-21] MEDS: ARTIFICIAL TEARS-HYPROMELLOSE DROPS 15 ML BTL BOTH EYES SCH ×4 (11:43→23:20)
--- NOTE | 2019-03-21 12:03 | P.CNPUL ---
History of Present Illness Consult date: 03/21/19 Requesting physician: Harvinder Stein Reason for consult: other (Septic shock) Chief complaint: Right flank pain History of present illness: This is a 53-year-old female with known history of hypertension, depression, presented to the ER on 03/18/2019, and she basically presented with 1 week history of right flank pain, dysuria, along with suprapubic pain. Her pain was described as 6 out of 10, it was mostly in the right flank area and in the suprapubic region. Described as cramping pain. Patient was also complaining of 1 day history of fever and chills. No previous history of urinary tract infection, upon presentation, her urinalysis was consistent with urinary tract infection. Chest x-ray was unremarkable. Patient was admitted placed on ceftriaxone, and on IV fluids. Last night, the rapid response team from the ICU responded to the patient having more shortness of breath, hypotension, and tachycardia. Patient developed worsening respiratory status and she was struggling to breathe. She was given fluid boluses for hypotension and for presumptive sepsis and septic shock, transferred to the ICU, and she was intubated immediately. Her ABG post intubation showed a pO2 of 51. PCO2 of 40 pH of 7.25. Patient was placed on mechanical ventilation, follow-up ABG showed a pO2 of 109 pCO2 of 54 pH of 7.12 early this morning. Hence the patient's respiratory rate was increased to 26, and she was also placed on sodium bicarb drip for metabolic acidosis. Chest x-ray showed evidence of pulmonary edema, felt to be cardiogenic or noncardiogenic however her CVP earlier today was 26. This is more consistent with cardiogenic pulmonary edema. Echocardiogram showed poor LV function. Hence the patient was given diuretics, and a cardiology consultation was initiated. Most recent ABG on 100% FiO2 showed pO2 of 183 pCO2 of 39 pH of 7.24. Presently patient is on mechanical ventilation, FiO2 is down to 50%, she is on tidal volume of 500 assist control rate of 26 and PEEP of 8. She is on levo fed at 0.26 mcg/kg/m, she is also on Nimbex, propofol, fentanyl at 0.5 mcg/kg/h. Considering the difficulty ventilating the patient last night, Nimbex was used. She remains on Nimbex this morning, and after reviewing the chest x-ray and reviewing her echocardiogram, Lasix was given. Antibiotics gonzales, patient is on Rocephin, her blood cultures and urine cultures are all positive for E. coli, sensitive to all antibiotics infectious disease consultation is pending ultrasound of the kidneys showed possible bilateral nephrolithiasis, and suspect mild to moderate right-sided hydronephrosis. Review of Systems ROS unobtainable: due to endotracheal tube (Could not obtain review of systems, however according to some family members, patient has been asymptomatic except for flank pain that she was complaining of and a were made aware of on the weekend.) Past Medical History Past Medical History: Hypertension History of Any Multi-Drug Resistant Organisms: None Reported Past Surgical History: Section, Tonsillectomy Past Anesthesia/Blood Transfusion Reactions: No Reported Reaction Past Psychological History: No Psychological Hx Reported Smoking Status: Heavy tobacco smoker Past Alcohol Use History: None Reported Past Drug Use History: None Reported Medications and Allergies Home Medications Medication Instructions Recorded Confirmed Type Losartan/Hydrochlorothiazide 1 tab PO DAILY 03/18/19 03/18/19 History [Losartan-Hctz 100-25 mg Tab] Multivitamins, Thera [Multivitamin 1 tab PO DAILY 03/18/19 03/18/19 History (formulary)] Venlafaxine HCl ER [Effexor Xr] 37.5 mg PO DAILY 03/18/19 03/18/19 History amLODIPine [Norvasc] 5 mg PO DAILY 03/18/19 03/18/19 History Allergies Allergy/AdvReac Type Severity Reaction Status Date / Time Penicillins Allergy Rash/Hives Verified 03/18/19 20:14 Physical Exam Vitals: Vital Signs Temp Pulse Pulse Resp BP BP Pulse Ox 03/21/19 11:15 86 27 H 100/69 92 L 03/21/19 11:00 90 26 H 100/69 90 L 03/21/19 10:45 74 26 H 100/69 96 03/21/19 10:30 73 26 H 100/69 96 03/21/19 10:15 74 26 H 100/69 96 03/21/19 10:00 75 13 107/68 95 03/21/19 09:45 73 27 H 107/68 99 03/21/19 09:30 75 12 107/68 99 03/21/19 09:15 76 26 H 107/68 99 03/21/19 09:00 78 26 H 102/70 98 03/21/19 08:45 74 26 H 84/54 99 03/21/19 08:30 77 24 87/59 98 03/21/19 08:15 80 28 H 89/63 97 03/21/19 08:00 98.3 F 80 18 93/61 97 03/21/19 07:45 82 18 93/64 97 03/21/19 07:30 83 14 90/61 96 03/21/19 07:15 83 10 L 90/59 96 03/21/19 07:10 83 14 89/59 96 03/21/19 07:00 83 18 90/59 96 03/21/19 06:50 84 18 90/62 95 03/21/19 06:40 84 19 88/60 95 03/21/19 06:30 85 18 89/63 95 03/21/19 06:20 85 18 88/63 95 03/21/19 06:10 85 18 87/61 03/21/19 06:00 86 18 91/64 94 L 03/21/19 05:50 87 18 87/63 94 L 03/21/19 05:40 89 18 95/71 94 L 03/21/19 05:30 91 18 95/67 93 L 03/21/19 05:20 92 18 96/65 93 L 03/21/19 05:10 93 18 93/66 93 L 03/21/19 05:00 92 18 92/65 93 L 03/21/19 04:50 92 18 89/64 93 L 03/21/19 04:40 93 18 91/64 92 L 03/21/19 04:30 93 18 92/65 92 L 03/21/19 04:20 97 18 95/65 92 L 03/21/19 04:10 96 18 87/63 93 L 03/21/19 04:00 98.4 F 99 96 18 87/63 93 L 03/21/19 03:50 96 18 85/62 93 L 03/21/19 03:40 99.5 F 96 18 78/55 92 L 03/21/19 03:30 96 18 73/49 93 L 03/21/19 03:20 98 18 75/51 93 L 03/21/19 03:10 105 H 18 73/49 92 L 03/21/19 03:00 101 H 18 70/49 92 L 03/21/19 02:50 102 H 18 73/46 92 L 03/21/19 02:40 104 H 18 73/50 92 L 03/21/19 02:30 107 H 18 75/53 92 L 03/21/19 02:20 115 H 18 95/68 94 L 03/21/19 02:10 122 H 18 103/69 94 L 03/21/19 02:00 121 H 18 101/68 94 L 03/21/19 01:50 120 H 18 92/65 93 L 03/21/19 01:40 117 H 18 92/63 91 L 03/21/19 01:30 120 H 18 96/68 89 L 03/21/19 01:18 99.8 F H 03/21/19 01:00 129 H 42 H 100/68 90 L 03/21/19 00:48 125 H 43 H 92 L 03/21/19 00:45 98/62 03/21/19 00:37 126 H 43 H 94 L 03/21/19 00:30 94/72 03/21/19 00:27 133 H 44 H 03/21/19 00:25 134 H 45 H 03/21/19 00:23 135 H 36 H 108/68 98 03/21/19 00:22 138 H 41 H 91 L 03/21/19 00:20 145 H 108/68 03/21/19 00:15 104/81 03/21/19 00:13 149 H 38 H 86 L 03/21/19 00:07 35 H 136/101 86 L 03/21/19 00:05 103.2 F H 165 H 40 H 79/44 85 L 03/21/19 00:00 145 H 40 H 03/20/19 23:19 123 H 148/100 89 L 03/20/19 23:14 103 H 167/95 92 L 03/20/19 23:10 162 H 166/115 92 L 03/20/19 23:08 161 H 198/104 94 L 03/20/19 23:04 156 H 203/94 88 L 03/20/19 22:58 137 H 172/120 87 L 03/20/19 22:52 122 H 24 195/102 87 L 03/20/19 22:45 101.9 F H 121 H 24 203/98 79 L 03/20/19 20:24 99.0 F 84 16 119/67 100 03/20/19 16:00 97.6 F 70 18 109/60 95 03/20/19 12:00 98.2 F 70 18 113/64 93 L Intake and Output 03/20/19 03/21/19 03/21/19 22:59 06:59 14:59 Intake Total 220 2344.219 725 Output Total 600 205 Balance 220 1744.219 520 Intake: IV 20 1900 550 Dextrose 5% in Water 1, 100 000 ml @ 100 mls/hr IV . [id number] ONE with Sodium Bicarb (1 Meq/ml) 150 ml Rx#:[id number] Invasive Line 1 20 Sodium Chloride 0.9% 1, 900 450 000 ml @ 150 mls/hr IV . Q6H40M [facility] Rx#:[id number] Sodium Chloride 0.9% 1, 1000 000 ml @ 999 mls/hr IV . Q1H1M ONE Rx#:[id number] Intake, IV Titration 444.219 175 Amount Cisatracurium 200 mg In 33.837 Sodium Chloride 0.9% 180 ml @ 1 MCG/KG/MIN 6.528 mls/hr IV .Q24H [facility] Rx#: [id number] Norepinephrine 4 mg In 250.446 Sodium Chloride 0.9% 250 ml @ 0.05 MCG/KG/MIN 20. 726 mls/hr IV .[id number] [facility] Rx#:[id number] Piperacillin-Tazobactam 3 75 .375 gm In Sodium Chloride 0.9% 100 ml @ 25 mls/hr IVPB Q8HR [facility] Rx# :[id number] Propofol 1,000 mg In 159.936 100 Empty Bag 1 bag @ Titrate IV .Q0M [facility] Rx#: [id number] Oral 200 Output: Urine 600 205 Other: Voiding Method Toilet Indwelling Catheter # Voids 2 ABP, PAP, CO, CI - Last 8 Hours Arterial Blood Pressure 130/73 Arterial Blood Pressure 137/77 Arterial Blood Pressure 102/61 Arterial Blood Pressure 101/65 Arterial Blood Pressure 97/64 Arterial Blood Pressure 97/63 Arterial Blood Pressure 98/64 Arterial Blood Pressure 95/64 Arterial Blood Pressure 78/56 Arterial Blood Pressure 100/66 Arterial Blood Pressure 93/62 General: Revealed a 53-year-old female, obese, on mechanical ventilation, sedated and paralyzed. Head: atraumatic, normocephalic, Eyes: PERRLA, EOMI, no icterus, ENT: Dry mucous membranes, short obese neck. Endotracheal tube is intact. Orogastric tube is intact. Neck: No neck masses, no JVD was appreciated, short obese neck is noted. Trachea is in midline. Mouth: No oral lesions noted. Cardiovascular: Normal S1 and S2, no S3 gallop. No murmur. Lungs: Crackles at the bases no rhonchi and no wheezes. Symmetrical chest expansion. Abdominal: Obese, soft, nontender, positive bowel sounds. Ext: No clubbing edema or cyanosis. Neuro: Cannot be assessed, patient is sedated and paralyzed on mechanical ventilation., Psych: Cannot be assessed. Derm: No rashes or erythema. No ulcers Results - Laboratory Findings CBC and BMP: 03/21/19 03:45 03/21/19 03:45 ABG ABG pH 7.24 (7.35-7.45) L 03/21/19 09:45 ABG pCO2 39 mmHg (35-45) 03/21/19 09:45 ABG pO2 183 mmHg (83-108) H 03/21/19 09:45 ABG O2 Saturation 99.1 % (94-97) H 03/21/19 09:45 PT/INR, D-dimer PT 9.3 sec (9.0-12.0) 03/20/19 23:55 INR 0.8 (<1.2) 03/20/19 23:55 Abnormal lab findings: Abnormal Labs 03/18/19 03/18/19 03/18/19 20:22 20:22 20:22 WBC 11.8 H RBC Hct 46.3 H Neutrophils # Neutrophils # (Manual) 10.80 H Lymphocytes # Lymphocytes # (Manual) 0.83 L Monocytes # ABG pH ABG pCO2 ABG pO2 ABG HCO3 ABG Total CO2 ABG O2 Saturation Sodium 135 L Chloride Carbon Dioxide 19 L BUN 18 H Creatinine Glucose 165 H POC Glucose (mg/dL) Plasma Lactic Acid Bryn Calcium Urine Appearance Cloudy H Urine Protein 2+ H Urine Blood Moderate H Ur Leukocyte Esterase Large H Urine RBC 34 H Urine WBC >182 H Urine WBC Clumps Few H Ur Squamous Epith Cells 9 H Urine Bacteria Occasional H Urine Mucus Occasional H 03/18/19 03/19/19 03/19/19 20:22 06:09 06:09 WBC 17.0 H RBC Hct Neutrophils # Neutrophils # (Manual) Lymphocytes # Lymphocytes # (Manual) Monocytes # ABG pH ABG pCO2 ABG pO2 ABG HCO3 ABG Total CO2 ABG O2 Saturation Sodium 136 L Chloride Carbon Dioxide 20 L BUN 23 H Creatinine 1.26 H Glucose 153 H POC Glucose (mg/dL) Plasma Lactic Acid Bryn 5.2 H* Calcium Urine Appearance Urine Protein Urine Blood Ur Leukocyte Esterase Urine RBC Urine WBC Urine WBC Clumps Ur Squamous Epith Cells Urine Bacteria Urine Mucus 03/20/19 03/20/19 03/20/19 06:17 06:17 22:58 WBC 14.4 H RBC 3.68 L Hct Neutrophils # 10.8 H Neutrophils # (Manual) Lymphocytes # Lymphocytes # (Manual) Monocytes # 1.5 H ABG pH ABG pCO2 ABG pO2 ABG HCO3 ABG Total CO2 ABG O2 Saturation Sodium 136 L Chloride Carbon Dioxide 21 L BUN Creatinine 1.09 H Glucose 100 H POC Glucose (mg/dL) 156 H Plasma Lactic Acid Bryn Calcium 8.1 L Urine Appearance Urine Protein Urine Blood Ur Leukocyte Esterase Urine RBC Urine WBC Urine WBC Clumps Ur Squamous Epith Cells Urine Bacteria Urine Mucus 03/20/19 03/20/19 03/20/19 23:05 23:10 23:34 WBC RBC Hct Neutrophils # Neutrophils # (Manual) Lymphocytes # Lymphocytes # (Manual) Monocytes # ABG pH ABG pCO2 ABG pO2 ABG HCO3 ABG Total CO2 ABG O2 Saturation Sodium 135 L Chloride Carbon Dioxide 16 L BUN Creatinine Glucose 208 H POC Glucose (mg/dL) 264 H Plasma Lactic Acid Bryn 2.2 H* Calcium Urine Appearance Urine Protein Urine Blood Ur Leukocyte Esterase Urine RBC Urine WBC Urine WBC Clumps Ur Squamous Epith Cells Urine Bacteria Urine Mucus 03/20/19 03/21/19 03/21/19 23:55 03:45 03:45 WBC 14.4 H RBC Hct Neutrophils # 12.9 H Neutrophils # (Manual) Lymphocytes # 0.8 L Lymphocytes # (Manual) Monocytes # ABG pH 7.25 L ABG pCO2 ABG pO2 51 L* ABG HCO3 18 L ABG Total CO2 ABG O2 Saturation 81.7 L Sodium 135 L Chloride 109 H Carbon Dioxide 16 L BUN 20 H Creatinine 1.15 H Glucose 190 H POC Glucose (mg/dL) Plasma Lactic Acid Bryn Calcium 7.7 L Urine Appearance Urine Protein Urine Blood Ur Leukocyte Esterase Urine RBC Urine WBC Urine WBC Clumps Ur Squamous Epith Cells Urine Bacteria Urine Mucus 03/21/19 03/21/19 03/21/19 05:41 07:51 09:45 WBC RBC Hct Neutrophils # Neutrophils # (Manual) Lymphocytes # Lymphocytes # (Manual) Monocytes # ABG pH 7.12 L* 7.24 L ABG pCO2 54 H ABG pO2 109 H 183 H ABG HCO3 18 L 17 L ABG Total CO2 18 L ABG O2 Saturation 97.1 H 99.1 H Sodium Chloride Carbon Dioxide BUN Creatinine Glucose POC Glucose (mg/dL) 236 H Plasma Lactic Acid Bryn Calcium Urine Appearance Urine Protein Urine Blood Ur Leukocyte Esterase Urine RBC Urine WBC Urine WBC Clumps Ur Squamous Epith Cells Urine Bacteria Urine Mucus - Diagnostic Findings Chest x-ray: image reviewed (Chest x-ray is suggestive of underlying pulmonary edema, could be cardiogenic or noncardiogenic, however considering the improvement with diuretics, this is felt to be more of a cardiogenic pulmonary edema.) Assessment and Plan Assessment: Impression: 1 acute hypoxic respiratory failure secondary to septic shock secondary to pyelonephritis. 2 acute polynephritis and urinary tract infection. Secondary to E. coli. 3 E. coli bacteremia, source is the urine. 4 severe LV dysfunction and cardiogenic pulmonary edema. This needs to be further investigated by cardiology. 5 acute congestive heart failure, systolic in nature considering her abnormal echocardiogram. 6 acute kidney injury secondary to hypotension and acute tubular necrosis secondary to sepsis and septic shock. 7 history of benign essential hypertension 8 history of depression. Recommendation: Continue ventilatory support Continue hemodynamic support Continue antibiotics Continue diuretics Continue propofol and fentanyl as well as Nimbex Continue GI and DVT prophylaxis Start the nutritional support Initiate consultation with cardiology and infectious disease in the meantime continue Rocephin and continue diuretics. Discussed her condition and her prognosis with all family members including mother and her sisters at bedside. Lines were placed including a right IJ central line and arterial line. Prognosis is definitely guarded. Discussed her condition with different consultants on the case including cardiology. And we'll discuss her condition with infectious disease. Reviewed chest x-ray, and reviewed her labs, reviewed her cultures also reviewed her ultrasound and echocardiogram. We will continue to follow. Time with Patient: Greater than 30
--- NOTE | 2019-03-21 12:08 | PCN ---
PROCEDURE NOTE OPERATIVE REPORT: Placement of a right triple-lumen internal jugular central line catheter. PREOPERATIVE DIAGNOSIS: Acute hypoxic respiratory failure and septic shock. POSTOPERATIVE DIAGNOSIS: Acute hypoxic respiratory failure and septic shock. ANESTHESIA USED: 2 mL of 1% lidocaine. PROCEDURE: The patient was placed in a Trendelenburg position, the area of the right neck was prepared in a sterile fashion and drapes were applied. Using the posterior approach, the area behind the right posterior belly of the sternocleidomastoid was anesthetized. Then a standard needle was inserted behind the posterior belly of the sternocleidomastoid, and the right IJ vein was cannulated easily. A guidewire was placed. The area around the guidewire was dilated with a dilator. Then a triple-lumen catheter was inserted over the guidewire, and the guidewire was removed. Good blood flow was noted in the 3 different ports, adequate placement was noted on the chest x- ray. No evidence of any immediate complications. The procedure was well tolerated. MMODL / IJN: [id number] /
--- NOTE | 2019-03-21 12:38 | CONS ---
CONSULTATION Mrs. Milan is a 53-year-old female who presented with flank discomfort and was diagnosed with pyelonephritis and sepsis. Cardiology consultation was requested because of cardiomyopathy noted on the echocardiogram. The patient is intubated, sedated. The history is obtained from the family. According to them, she had no prior cardiac history and is active physically. She has no significant dyspnea on exertion. No dizziness. No palpitation. No syncope. No PND, orthopnea, or peripheral edema. She has a history of hypertension and chronic tobacco use about a pack a day, but no history of diabetes. MEDICATION: Her medications at home included amlodipine 5 mg daily, venlafaxine, and losartan HCT 100-25 mg daily. She continues to be on Levophed at this time because of low blood pressure. REVIEW OF SYSTEMS: RESPIRATORY SYSTEM: According to the family, she has no documented history of recent wheezing or cough. No history of obstructive lung disease. GI SYSTEM: She has no recent GI bleed. No peptic ulcer disease. SYSTEM: She had the flank discomfort on presentation. NERVOUS SYSTEM: There is a questionable history of stroke versus Lopez's palsy. PHYSICAL EXAMINATION: She is a 53-year-old female, intubated, sedated. Blood pressure 130/70 with the heart rate in the 80s. HEAD: Normocephalic. EYES: Sclerae anicteric. NECK: Good carotid upstroke. An IJ noted on the right side. LUNGS: Clear to auscultation anteriorly. HEART: Regular rate and rhythm. S1, S2. No S3. No rub or gallop. ABDOMEN: Soft. Positive bowel sounds. No organomegaly. EXTREMITIES: No edema. Intact distal pulses. LAB DATA: Lab data revealed a peak white blood cell of 17,000. Her BUN and creatinine on admission 18 and 0.99. Her plasma lactic acid was 5.2. Her pH 7.12 with pCO2 of 54, pO2 of 109. Her NT proBNP of 4260. Her BUN and creatinine are up to 20 and 1.15. Her echocardiogram that was performed today revealed a severely impaired left ventricular systolic function with global hypokinesis with ejection fraction that is reported less than 20%. Her EKG reveals sinus tachycardia with nonspecific ST-T wave changes. Her chest x-ray after fluid resuscitation performed earlier today revealed evidence of lung congestion and pulmonary edema. Subsequent chest x-ray showed improvement in the lungs. IMPRESSION: 1. Sepsis with probable pyelonephritis. 2. Respiratory failure. 3. Septic shock. 4. Cardiomyopathy of unclear etiology. It could be related to the sepsis. According to the history, patient has no prior documented history of cardiomyopathy or ischemic heart disease and had no significant symptoms. 5. History of chronic tobacco use. 6. History of hypertension. RECOMMENDATION: From the cardiac standpoint, the patient continued to be on norepinephrine. She has been started on IV Lasix. We will follow her urine output. Once the norepinephrine is off if her pressure is stable, I will initiate treatment with beta arianna and subsequently RAKAN inhibitor. Once she recovers from her sepsis and she is extubated, then she will require further cardiac workup including probably repeating an echocardiogram to re-evaluate the left ventricular systolic function. In the meantime, we will continue present therapy. The prognosis remains guarded. Those findings were discussed with the family. Thank you for this consult. We will follow with you. CHUN / MYA: [id number] /
[2019-03-21] MEDS: CEFEPIME 2 GM in SODIUM CHLORIDE 0.9% 100 ML IVPB SCH ×2 (14:17→21:42)
--- NOTE | 2019-03-21 15:55 | P.PN ---
Subjective Progress Note Date: 03/21/19 Principal diagnosis: Fevers and right flank pain. Overnight events noted, patient went into acute respiratory failure, was intubated. Currently she is in ICU on mechanical ventilation. An arterial line was placed. Chest x-ray consistent with mid and lower lung opacities consistent with either fluid versus infection. Beginning of ARDS is possible. Objective - Vital Signs Vital signs: Vital Signs Temp 98.6 F 03/21/19 12:00 Pulse 69 03/21/19 15:00 Resp 26 H 03/21/19 15:00 BP 100/69 03/21/19 12:00 Pulse Ox 97 03/21/19 15:00 Intake & Output 03/20/19 03/21/19 03/21/19 18:59 06:59 18:59 Intake Total 580 2344.219 1540.542 Output Total 600 1680 Balance 580 1744.219 -139.458 Weight 108.8 kg Intake: IV 60 1900 1050 Dextrose 5% in Water 1, 600 000 ml @ 100 mls/hr IV . [id number] ONE with Sodium Bicarb (1 Meq/ml) 150 ml Rx#:[id number] Invasive Line 1 60 Sodium Chloride 0.9% 1, 900 450 000 ml @ 150 mls/hr IV . Q6H40M [facility] Rx#:[id number] Sodium Chloride 0.9% 1, 1000 000 ml @ 999 mls/hr IV . Q1H1M ONE Rx#:[id number] Intake, IV Titration 444.219 490.542 Amount Cefepime 2 gm In Sodium 100 Chloride 0.9% 100 ml @ 200 mls/hr IVPB Q12HR [facility] Rx#:[id number] Cisatracurium 200 mg In 33.837 Sodium Chloride 0.9% 180 ml @ 1 MCG/KG/MIN 6.528 mls/hr IV .Q24H [facility] Rx#: [id number] Norepinephrine 32 mg In 29.75 Sodium Chloride 0.9% 218 ml @ 0.05 MCG/KG/MIN 2.55 mls/hr IV .Q24H [facility] Rx#: [id number] Norepinephrine 4 mg In 250.446 Sodium Chloride 0.9% 250 ml @ 0.05 MCG/KG/MIN 20. 726 mls/hr IV .[id number] [facility] Rx#:[id number] Piperacillin-Tazobactam 3 125 .375 gm In Sodium Chloride 0.9% 100 ml @ 25 mls/hr IVPB Q8HR [facility] Rx# :[id number] Propofol 1,000 mg In 159.936 200 Empty Bag 1 bag @ Titrate IV .Q0M [facility] Rx#: [id number] fentaNYL (PF) 1,000 mcg 35.792 In Sodium Chloride 0.9% 80 ml @ 25 MCG/HR 2.5 mls /hr IV .Q24H [facility] Rx#: [id number] Oral 520 Output: Urine 600 1680 Other: Voiding Method Toilet Indwelling Catheter Indwelling Catheter # Voids 2 ABP, PAP, CO, CI - Last Documented Arterial Blood Pressure 95/53 - Exam Constitutional: Intubated, on mechanical ventilation, sedated Eyes:Anicteric sclerae, moist conjunctiva, no lid-lag, PERRLA, ENMT: Oropharynx clear, no erythema, exudates Neck: Supple, FROM, no masses, or JVD, No carotid bruits, No thyromegaly Lungs: Mechanical breath sounds, Clear to percussion, Normal respiratory effort, no accessory muscle use Cardiovascular: Heart regular in rate and rhythm, No murmurs, gallops, or rubs, No peripheral edema Abdominal: Soft, no guarding, rebound or rigidity, Normoactive bowel sounds, No hepatomegaly, No splenomegaly, No palpable mass Skin: Normal temperature, tone, texture, turgor, no induration, No subcutaneous nodules, No rash, lesions, No ulcers Extremities: No digital cyanosis, No clubbing, Pedal pulses intact and symmetrical, Radial pulses intact and symmetrical, No calf tenderness Neuro: Sedated. No focal deficits - Labs CBC & Chem 7: 03/21/19 03:45 03/21/19 03:45 Labs: Abnormal Lab Results - Last 24 Hours (Table) 03/20/19 03/20/19 03/20/19 Range/Units 22:58 23:05 23:10 WBC (3.8-10.6) k/uL Neutrophils # (1.3-7.7) k/uL Lymphocytes # (1.0-4.8) k/uL ABG pH (7.35-7.45) ABG pCO2 (35-45) mmHg ABG pO2 (83-108) mmHg ABG HCO3 (21-25) mmol/L ABG Total CO2 (19-24) mmol/L ABG O2 Saturation (94-97) % Sodium 135 L (137-145) mmol/L Chloride (98-107) mmol/L Carbon Dioxide 16 L (22-30) mmol/L BUN (7-17) mg/dL Creatinine (0.52-1.04) mg/dL Glucose 208 H (74-99) mg/dL POC Glucose (mg/dL) 156 H (75-99) mg/dL Plasma Lactic Acid Bryn 2.2 H* (0.7-2.0) mmol/L Calcium (8.4-10.2) mg/dL 03/20/19 03/20/19 03/21/19 Range/Units 23:34 23:55 03:45 WBC 14.4 H (3.8-10.6) k/uL Neutrophils # 12.9 H (1.3-7.7) k/uL Lymphocytes # 0.8 L (1.0-4.8) k/uL ABG pH 7.25 L (7.35-7.45) ABG pCO2 (35-45) mmHg ABG pO2 51 L* (83-108) mmHg ABG HCO3 18 L (21-25) mmol/L ABG Total CO2 (19-24) mmol/L ABG O2 Saturation 81.7 L (94-97) % Sodium (137-145) mmol/L Chloride (98-107) mmol/L Carbon Dioxide (22-30) mmol/L BUN (7-17) mg/dL Creatinine (0.52-1.04) mg/dL Glucose (74-99) mg/dL POC Glucose (mg/dL) 264 H (75-99) mg/dL Plasma Lactic Acid Bryn (0.7-2.0) mmol/L Calcium (8.4-10.2) mg/dL 03/21/19 03/21/19 03/21/19 Range/Units 03:45 05:41 07:51 WBC (3.8-10.6) k/uL Neutrophils # (1.3-7.7) k/uL Lymphocytes # (1.0-4.8) k/uL ABG pH 7.12 L* (7.35-7.45) ABG pCO2 54 H (35-45) mmHg ABG pO2 109 H (83-108) mmHg ABG HCO3 18 L (21-25) mmol/L ABG Total CO2 (19-24) mmol/L ABG O2 Saturation 97.1 H (94-97) % Sodium 135 L (137-145) mmol/L Chloride 109 H (98-107) mmol/L Carbon Dioxide 16 L (22-30) mmol/L BUN 20 H (7-17) mg/dL Creatinine 1.15 H (0.52-1.04) mg/dL Glucose 190 H (74-99) mg/dL POC Glucose (mg/dL) 236 H (75-99) mg/dL Plasma Lactic Acid Bryn (0.7-2.0) mmol/L Calcium 7.7 L (8.4-10.2) mg/dL 03/21/19 03/21/19 Range/Units 09:45 11:30 WBC (3.8-10.6) k/uL Neutrophils # (1.3-7.7) k/uL Lymphocytes # (1.0-4.8) k/uL ABG pH 7.24 L (7.35-7.45) ABG pCO2 (35-45) mmHg ABG pO2 183 H (83-108) mmHg ABG HCO3 17 L (21-25) mmol/L ABG Total CO2 18 L (19-24) mmol/L ABG O2 Saturation 99.1 H (94-97) % Sodium (137-145) mmol/L Chloride (98-107) mmol/L Carbon Dioxide (22-30) mmol/L BUN (7-17) mg/dL Creatinine (0.52-1.04) mg/dL Glucose (74-99) mg/dL POC Glucose (mg/dL) 230 H (75-99) mg/dL Plasma Lactic Acid Bryn (0.7-2.0) mmol/L Calcium (8.4-10.2) mg/dL Microbiology - Last 24 Hours (Table) 03/21/19 00:25 Gram Stain - Preliminary Sputum Sputum Culture - Preliminary 03/18/19 20:22 Urine Culture - Final Urine,Clean Catch Escherichia coli 03/18/19 20:22 Blood Culture Gram Stain - Final Blood Blood Culture - Final Escherichia coli Assessment and Plan Plan: Severe sepsis secondary to pyelonephritis with E. coli bacteremia -Antibiotics coverage expanded to cefepime although the E. coli is sensitive to all antibiotics tested. -On norepinephrine to support blood pressure Acute hypoxic respiratory failure Could be secondary to pulmonary edema versus sepsis/ARDS Would try to keep on the dry side with Lasix 40 mg IV every 8 hours. Severe metabolic acidosis Likely combination of renal failure, respiratory failure and sepsis On bicarb drip Follow bicarbonate daily Acute severe congestive heart failure Ejection fraction 20% Seen by cardiology No history of heart disease We'll need cardiac workup once recovered DVT prophylaxis -Heparin Disposition: Likely home Anticipated discharge: 03/26 D/W family in details
[2019-03-21 17:59] LABS: Glucose,Whole Blood 165 mg/dL (75-99)
[2019-03-21] MEDS ORDERED: DEXTROSE 5% IN WATER 1,000 ML with SODIUM BICARB (1 MEQ/ML) 150 ML IV SCH (20:15)
[2019-03-21] MEDS ORDERED: fentaNYL (PF) 1,000 MCG in SODIUM CHLORIDE 0.9% 80 ML IV SCH (21:30)
--- NOTE | 2019-03-21 22:36 | P.CONS ---
History of Present Illness - Reason for Consult Consult date: 03/21/19 Sepsis Requesting physician: Lita Holliday - Chief Complaint Right flank pain and respiratory distress - History of Present Illness Patient is a 53-year-old female presenting to the ER at [facility] on 03/18/2019 with right flank pain fevers chills and urinary symptoms, on presentation hospital patient was febrile with a temperature of 10 2F patient was tachycardic with heart rate of 115, she did have a positive UA with the diagnoses of urinary tract infection patient blood and urine culture showing E. coli and the patient will was treated empirically with Rocephin last 1 and the patient become hypotensive short of breath and less responsive, a team was called and the patient was subsequently transferred to the ICU patient did receive fluid boluses for her hypotension and a BiPAP for respiratory distress and hypoxemia the patient ended up getting intubated and is currently being managed by cardiology and pulmonary services patient did received a dose of Zosyn for underlying sepsis however because of her penicillin ALLERGY infectious disease was consulted for further recommendation regarding antibiotic, most information has been obtained from chart review of the chart and talking to the family at the bedside as the patient is currently sedated intubated on the vent and unable to provide any history, patient predominantly has pink frothy sputum at the time of intubation per the RN and no significant purulent secretion through the ET, patient is currently requiring low-dose pressor support to maintain her blood pressure and no diarrhea has been reported by the nursing staff Review of Systems Positive points has been mentioned in HPI complete review could not be obtained because of the patient mental status Past Medical History Past Medical History: Hypertension History of Any Multi-Drug Resistant Organisms: None Reported Past Surgical History: Section, Tonsillectomy Past Anesthesia/Blood Transfusion Reactions: No Reported Reaction Past Psychological History: No Psychological Hx Reported Smoking Status: Heavy tobacco smoker Past Alcohol Use History: None Reported Past Drug Use History: None Reported Medications and Allergies Home Medications Medication Instructions Recorded Confirmed Type Losartan/Hydrochlorothiazide 1 tab PO DAILY 03/18/19 03/18/19 History [Losartan-Hctz 100-25 mg Tab] Multivitamins, Thera [Multivitamin 1 tab PO DAILY 03/18/19 03/18/19 History (formulary)] Venlafaxine HCl ER [Effexor Xr] 37.5 mg PO DAILY 03/18/19 03/18/19 History amLODIPine [Norvasc] 5 mg PO DAILY 03/18/19 03/18/19 History Allergies Allergy/AdvReac Type Severity Reaction Status Date / Time Penicillins Allergy Rash/Hives Verified 03/18/19 20:14 Physical Exam Vitals: Vital Signs Temp Pulse Pulse Resp BP BP Pulse Ox 03/21/19 11:15 86 27 H 100/69 92 L 03/21/19 11:00 90 26 H 100/69 90 L 03/21/19 10:45 74 26 H 100/69 96 03/21/19 10:30 73 26 H 100/69 96 03/21/19 10:15 74 26 H 100/69 96 03/21/19 10:00 75 13 107/68 95 03/21/19 09:45 73 27 H 107/68 99 03/21/19 09:30 75 12 107/68 99 03/21/19 09:15 76 26 H 107/68 99 03/21/19 09:00 78 26 H 102/70 98 03/21/19 08:45 74 26 H 84/54 99 03/21/19 08:30 77 24 87/59 98 03/21/19 08:15 80 28 H 89/63 97 03/21/19 08:00 98.3 F 80 18 93/61 97 03/21/19 07:45 82 18 93/64 97 03/21/19 07:30 83 14 90/61 96 03/21/19 07:15 83 10 L 90/59 96 03/21/19 07:10 83 14 89/59 96 03/21/19 07:00 83 18 90/59 96 03/21/19 06:50 84 18 90/62 95 03/21/19 06:40 84 19 88/60 95 03/21/19 06:30 85 18 89/63 95 03/21/19 06:20 85 18 88/63 95 03/21/19 06:10 85 18 87/61 03/21/19 06:00 86 18 91/64 94 L 03/21/19 05:50 87 18 87/63 94 L 03/21/19 05:40 89 18 95/71 94 L 03/21/19 05:30 91 18 95/67 93 L 03/21/19 05:20 92 18 96/65 93 L 03/21/19 05:10 93 18 93/66 93 L 03/21/19 05:00 92 18 92/65 93 L 03/21/19 04:50 92 18 89/64 93 L 03/21/19 04:40 93 18 91/64 92 L 03/21/19 04:30 93 18 92/65 92 L 03/21/19 04:20 97 18 95/65 92 L 03/21/19 04:10 96 18 87/63 93 L 03/21/19 04:00 98.4 F 99 96 18 87/63 93 L 03/21/19 03:50 96 18 85/62 93 L 03/21/19 03:40 99.5 F 96 18 78/55 92 L 03/21/19 03:30 96 18 73/49 93 L 03/21/19 03:20 98 18 75/51 93 L 03/21/19 03:10 105 H 18 73/49 92 L 03/21/19 03:00 101 H 18 70/49 92 L 03/21/19 02:50 102 H 18 73/46 92 L 03/21/19 02:40 104 H 18 73/50 92 L 03/21/19 02:30 107 H 18 75/53 92 L 03/21/19 02:20 115 H 18 95/68 94 L 03/21/19 02:10 122 H 18 103/69 94 L 03/21/19 02:00 121 H 18 101/68 94 L 03/21/19 01:50 120 H 18 92/65 93 L 03/21/19 01:40 117 H 18 92/63 91 L 03/21/19 01:30 120 H 18 96/68 89 L 03/21/19 01:18 99.8 F H 03/21/19 01:00 129 H 42 H 100/68 90 L 03/21/19 00:48 125 H 43 H 92 L 03/21/19 00:45 98/62 03/21/19 00:37 126 H 43 H 94 L 03/21/19 00:30 94/72 03/21/19 00:27 133 H 44 H 03/21/19 00:25 134 H 45 H 03/21/19 00:23 135 H 36 H 108/68 98 03/21/19 00:22 138 H 41 H 91 L 03/21/19 00:20 145 H 108/68 03/21/19 00:15 104/81 03/21/19 00:13 149 H 38 H 86 L 03/21/19 00:07 35 H 136/101 86 L 03/21/19 00:05 103.2 F H 165 H 40 H 79/44 85 L 03/21/19 00:00 145 H 40 H 03/20/19 23:19 123 H 148/100 89 L 03/20/19 23:14 103 H 167/95 92 L 03/20/19 23:10 162 H 166/115 92 L 03/20/19 23:08 161 H 198/104 94 L 03/20/19 23:04 156 H 203/94 88 L 03/20/19 22:58 137 H 172/120 87 L 03/20/19 22:52 122 H 24 195/102 87 L 03/20/19 22:45 101.9 F H 121 H 24 203/98 79 L 03/20/19 20:24 99.0 F 84 16 119/67 100 03/20/19 16:00 97.6 F 70 18 109/60 95 Intake and Output 03/20/19 03/21/19 03/21/19 22:59 06:59 14:59 Intake Total 220 2344.219 725 Output Total 600 205 Balance 220 1744.219 520 Intake: IV 20 1900 550 Dextrose 5% in Water 1, 100 000 ml @ 100 mls/hr IV . [id number] ONE with Sodium Bicarb (1 Meq/ml) 150 ml Rx#:[id number] Invasive Line 1 20 Sodium Chloride 0.9% 1, 900 450 000 ml @ 150 mls/hr IV . Q6H40M [facility] Rx#:[id number] Sodium Chloride 0.9% 1, 1000 000 ml @ 999 mls/hr IV . Q1H1M [facility] Rx#:[id number] Intake, IV Titration 444.219 175 Amount Cisatracurium 200 mg In 33.837 Sodium Chloride 0.9% 180 ml @ 1 MCG/KG/MIN 6.528 mls/hr IV .Q24H [facility] Rx#: [id number] Norepinephrine 4 mg In 250.446 Sodium Chloride 0.9% 250 ml @ 0.05 MCG/KG/MIN 20. 726 mls/hr IV .[id number] [facility] Rx#:[id number] Piperacillin-Tazobactam 3 75 .375 gm In Sodium Chloride 0.9% 100 ml @ 25 mls/hr IVPB Q8HR [facility] Rx# :[id number] Propofol 1,000 mg In 159.936 100 Empty Bag 1 bag @ Titrate IV .Q0M [facility] Rx#: [id number] Oral 200 Output: Urine 600 205 Other: Voiding Method Toilet Indwelling Catheter # Voids 2 ABP, PAP, CO, CI - Last 8 Hours Arterial Blood Pressure 130/73 Arterial Blood Pressure 137/77 Arterial Blood Pressure 102/61 Arterial Blood Pressure 101/65 Arterial Blood Pressure 97/64 Arterial Blood Pressure 97/63 Arterial Blood Pressure 98/64 Arterial Blood Pressure 95/64 Arterial Blood Pressure 78/56 Arterial Blood Pressure 100/66 Arterial Blood Pressure 93/62 GENERAL DESCRIPTION: Middle-aged female intubated on the vent. No tachypnea or accessory muscle of respiration use. HEENT: Shows Pallor , no scleral icterus. Orally intubated limiting examination of oral cavity NECK: Trachea central, no thyromegaly. LUNGS: Unlabored breathing. Decreased breath sound at the base. No wheeze or crackle. HEART: S1, S2, regular rate and rhythm. No loud murmur ABDOMEN: Soft, no tenderness , guarding or rigidity, no organomegaly EXTREMITIES: No edema of feet. SKIN: No rash, no masses palpable. NEUROLOGICAL: The patient is sedated on the vent Results CBC & Chem 7: 03/21/19 03:45 03/21/19 03:45 Labs: Abnormal Lab Results - Last 24 Hours (Table) 03/20/19 03/20/19 03/20/19 Range/Units 22:58 23:05 23:10 WBC (3.8-10.6) k/uL Neutrophils # (1.3-7.7) k/uL Lymphocytes # (1.0-4.8) k/uL ABG pH (7.35-7.45) ABG pCO2 (35-45) mmHg ABG pO2 (83-108) mmHg ABG HCO3 (21-25) mmol/L ABG Total CO2 (19-24) mmol/L ABG O2 Saturation (94-97) % Sodium 135 L (137-145) mmol/L Chloride (98-107) mmol/L Carbon Dioxide 16 L (22-30) mmol/L BUN (7-17) mg/dL Creatinine (0.52-1.04) mg/dL Glucose 208 H (74-99) mg/dL POC Glucose (mg/dL) 156 H (75-99) mg/dL Plasma Lactic Acid Bryn 2.2 H* (0.7-2.0) mmol/L Calcium (8.4-10.2) mg/dL 03/20/19 03/20/19 03/21/19 Range/Units 23:34 23:55 03:45 WBC 14.4 H (3.8-10.6) k/uL Neutrophils # 12.9 H (1.3-7.7) k/uL Lymphocytes # 0.8 L (1.0-4.8) k/uL ABG pH 7.25 L (7.35-7.45) ABG pCO2 (35-45) mmHg ABG pO2 51 L* (83-108) mmHg ABG HCO3 18 L (21-25) mmol/L ABG Total CO2 (19-24) mmol/L ABG O2 Saturation 81.7 L (94-97) % Sodium (137-145) mmol/L Chloride (98-107) mmol/L Carbon Dioxide (22-30) mmol/L BUN (7-17) mg/dL Creatinine (0.52-1.04) mg/dL Glucose (74-99) mg/dL POC Glucose (mg/dL) 264 H (75-99) mg/dL Plasma Lactic Acid Bryn (0.7-2.0) mmol/L Calcium (8.4-10.2) mg/dL 03/21/19 03/21/19 03/21/19 Range/Units 03:45 05:41 07:51 WBC (3.8-10.6) k/uL Neutrophils # (1.3-7.7) k/uL Lymphocytes # (1.0-4.8) k/uL ABG pH 7.12 L* (7.35-7.45) ABG pCO2 54 H (35-45) mmHg ABG pO2 109 H (83-108) mmHg ABG HCO3 18 L (21-25) mmol/L ABG Total CO2 (19-24) mmol/L ABG O2 Saturation 97.1 H (94-97) % Sodium 135 L (137-145) mmol/L Chloride 109 H (98-107) mmol/L Carbon Dioxide 16 L (22-30) mmol/L BUN 20 H (7-17) mg/dL Creatinine 1.15 H (0.52-1.04) mg/dL Glucose 190 H (74-99) mg/dL POC Glucose (mg/dL) 236 H (75-99) mg/dL Plasma Lactic Acid Bryn (0.7-2.0) mmol/L Calcium 7.7 L (8.4-10.2) mg/dL 03/21/19 03/21/19 Range/Units 09:45 11:30 WBC (3.8-10.6) k/uL Neutrophils # (1.3-7.7) k/uL Lymphocytes # (1.0-4.8) k/uL ABG pH 7.24 L (7.35-7.45) ABG pCO2 (35-45) mmHg ABG pO2 183 H (83-108) mmHg ABG HCO3 17 L (21-25) mmol/L ABG Total CO2 18 L (19-24) mmol/L ABG O2 Saturation 99.1 H (94-97) % Sodium (137-145) mmol/L Chloride (98-107) mmol/L Carbon Dioxide (22-30) mmol/L BUN (7-17) mg/dL Creatinine (0.52-1.04) mg/dL Glucose (74-99) mg/dL POC Glucose (mg/dL) 230 H (75-99) mg/dL Plasma Lactic Acid Bryn (0.7-2.0) mmol/L Calcium (8.4-10.2) mg/dL Microbiology - Last 24 Hours (Table) 03/21/19 00:25 Gram Stain - Preliminary Sputum Sputum Culture - Preliminary 03/18/19 20:22 Urine Culture - Final Urine,Clean Catch Escherichia coli 03/18/19 20:22 Blood Culture Gram Stain - Final Blood Blood Culture - Final Escherichia coli Assessment and Plan Assessment: 1-patient admitted to the hospital with sepsis in this patient did have a fever tachycardia and elevated white count and a positive associated likely urinary tract infection in this patient who did have evidence of complicated UTI with evidence of moderate right-sided hydronephrosis with subsequent worsening respiratory distress questionably related to sepsis versus cardiac etiology underlying pneumonia less likely but not entirely excluded 2-patient with penicillin ALLERGY limiting the number of antibiotic safe to use (1) Pyelonephritis Current Visit: Yes Status: Acute Code(s): N12 - TUBULO-INTERSTITIAL NEPHRITIS, NOT SPCF ACUTE OR CHRONIC SNOMED Code(s): 88270968 (2) Sepsis Current Visit: Yes Status: Acute Code(s): A41.9 - SEPSIS, UNSPECIFIED ORG ANISM SNOMED Code(s): 92479958 Plan: 1-patient will be treated with cefepime 2 g every 12 hours, in view of worsening while on Rocephin and new infiltrate in the right lower lobe with a question of possible gram-negative pneumonitis we will follow on clinical condition and culture to further adjust medication if needed Thank you for this consultation will follow this patient along with you
[2019-03-22 00:01] LABS: Glucose,Whole Blood 204 mg/dL (75-99)
[2019-03-22] MEDS: PROPOFOL 1,000 MG in EMPTY BAG 1 BAG IV SCH ×9 (02:03→19:43)
[2019-03-22] MEDS: ARTIFICIAL TEARS-HYPROMELLOSE DROPS 15 ML BTL BOTH EYES SCH ×4 (03:56→15:29)
[2019-03-22 04:25] LABS: Basophils % (A) 0 %; Eosinophils # (A) 0.1 k/uL (0-0.7); Eosinophils % (A) 1 %; HCT 33.9 % (34.0-46.0); HGB 11.1 gm/dL (11.4-16.0); Lymphocytes # (A) 1.4 k/uL (1.0-4.8); Lymphocytes % (A) 16 %; MCH 30.5 pg (25.0-35.0); MCHC 32.6 g/dL (31.0-37.0); MCV 93.6 fL (80.0-100.0); Mean Platelet Volume 9.4; Monocytes # (A) 0.5 k/uL (0-1.0); Monocytes % (A) 6 %; Neutrophils # (A) 6.4 k/uL (1.3-7.7); Neutrophils % (A) 74 %; Platelet Count 166 k/uL (150-450); RBC 3.62 m/uL (3.80-5.40); RDW 13.7 % (11.5-15.5); WBC 8.6 k/uL (3.8-10.6)
[2019-03-22 04:43] LABS: African American GFR (CKD) >90 (>60 ml/min/1.73 sqM); Anion Gap 8 mmol/L; Blood Urea Nitrogen 19 mg/dL (7-17); Calcium 7.6 mg/dL (8.4-10.2); Carbon Dioxide 25 mmol/L (22-30); Chloride 106 mmol/L (98-107); Glucose 198 mg/dL (74-99); Potassium 3.1 mmol/L (3.5-5.1); Sodium 139 mmol/L (137-145)
[2019-03-22] MEDS: POTASSIUM BICARBONATE/CIT AC 20 MEQ TABLET.EFF NG-TUBE SCH ×6 (05:06→21:44)
[2019-03-22] MEDS: INSULIN ASPART (NovoLOG) 100 UNIT/ML VIAL SQ SCH (06:19)
[2019-03-22 06:26] LABS: Glucose,Whole Blood 224 mg/dL (75-99)
--- NOTE | 2019-03-22 06:59 | XR ---
EXAMINATION TYPE: XR chest 1V portable DATE OF EXAM: 03/22/2019 COMPARISON: 03/21/2019 INDICATION: Tube placement TECHNIQUE: Single frontal view of the chest is obtained. FINDINGS: The heart size is normal. The pulmonary vasculature is normal. Mild left lower lobe infiltrate is present. Small left pleural effusion is present. Endotracheal tube tip is above the vinicius. Nasogastric tube transverses the thorax with tip in left u pper quadrant of the abdomen. Right central venous catheter is present with the tip in the right atri um. EKG leads overlie the chest. IMPRESSION: 1. Small left pleural effusion and a left lower lobe infiltrate. 2. Lines and catheters discussed above.
[2019-03-22 07:08] LABS: ABG Base Excess 3.5 mmol/L; ABG HCO3 27 mmol/L (21-25); ABG Oxygen Saturation 98.4 % (94-97); ABG PCO2 38 mmHg (35-45); ABG PH 7.47 (7.35-7.45); ABG PO2 105 mmHg (83-108); ABG TCO2 28 mmol/L (19-24)
[2019-03-22 07:10] LABS: Allen Test Performed? no
[2019-03-22] MEDS ORDERED: INSULIN REGULAR 100 UNIT in SODIUM CHLORIDE 0.9% 100 ML IV SCH (08:00)
--- NOTE | 2019-03-22 08:30 | PN ---
PROGRESS NOTE Mrs. Milan is a 53-year-old female who presented with sepsis with pyelonephritis requiring mechanical ventilation. Cardiology consultation was requested because of evidence of severe cardiomyopathy on the echocardiogram of unknown etiology or duration. She remains intubated and sedated. Receiving Nimbex. Tolerating feeding tube. She is diuresing well with the intravenous diuretics. Hemodynamically, she remains on low-dose norepinephrine. She has no evidence of atrial tachycardia. She continues to be otherwise on Lasix 40 mg IV q.8 hours. PHYSICAL EXAMINATION: Blood pressure running in the one teens with the heart rate in the 60s. LUNGS: No wheezes appreciated. HEART: Regular rate and rhythm S1, S2. No S3. No rub. ABDOMEN: Soft, obese. Positive bowel sounds. EXTREMITIES: No significant edema. LAB DATA: Lab data revealed a BUN and creatinine of 19 and 0.7, potassium 3.1. The pH 7.47, pO2 of 105. Hemoglobin of 11.1. Her white blood cells are 8.6. IMPRESSION: 1. Urosepsis with septic shock. 2. Cardiomyopathy of unclear etiology and duration. 3. Prior history of smoking. 4. Prior history of hypertension. RECOMMENDATION: I will cut down the dose of her diuretics. I will add to her regimen a beta arianna and low-dose RAKAN inhibitor. Follow her renal function. Once she is stabilized, further cardiac workup will be needed. MMODL / IJN: [id number] /
[2019-03-22] MEDS: CEFEPIME 2 GM in SODIUM CHLORIDE 0.9% 100 ML IVPB SCH ×2 (08:45→21:32)
[2019-03-22] MEDS: CHLORHEXIDINE GLUCONATE 15 ML CUP MUCOUS MEM SCH ×2 (08:48→21:32)
[2019-03-22] MEDS: HEPARIN SODIUM,PORCINE 5,000 UNIT/ML 1 ML VIAL SQ SCH ×2 (08:48→15:18)
[2019-03-22] MEDS: PANTOPRAZOLE 40 MG/10 ML VIAL IV SCH (08:48)
[2019-03-22] MEDS: NICOTINE 21MG/24HR PATCH TRANSDERM SCH (08:50)
[2019-03-22] MEDS: VENLAFAXINE HCL ER 37.5 MG CAP PO SCH ×2 (08:51→09:11)
[2019-03-22] MEDS ORDERED: FUROSEMIDE 10 MG/ML 4 ML VIAL IV SCH (09:00)
[2019-03-22] MEDS ORDERED: LISINOPRIL 2.5 MG TAB PO SCH (09:00)
--- NOTE | 2019-03-22 09:15 | P.PN ---
Subjective Progress Note Date: 03/22/19 Principal diagnosis: Fevers and right flank pain. Patient is still on the ventilator. According to nursing patient was agitated, biting the tube last night and acquired more sedation. Objective - Vital Signs Vital signs: Vital Signs Temp 98.3 F 03/22/19 08:00 Pulse 62 03/22/19 08:15 Resp 26 H 03/22/19 08:15 BP 100/69 03/21/19 12:00 Pulse Ox 97 03/22/19 08:15 Intake & Output 03/21/19 03/22/19 03/22/19 18:59 06:59 18:59 Intake Total 2038.542 2613.976 412 Output Total 1980 2350 180 Balance 58.542 263.976 232 Weight 108.8 kg Intake: IV 1350 1266 206 Dextrose 5% in Water 1, 900 1200 200 000 ml @ 100 mls/hr IV . [id number] ONE with Sodium Bicarb (1 Meq/ml) 150 ml Rx#:[id number] Sodium Chloride 0.9% 1, 450 000 ml @ 150 mls/hr IV . Q6H40M [facility] Rx#:[id number] pressure bags 66 6 Intake, IV Titration 490.542 697.976 100 Amount Cefepime 2 gm In Sodium 100 Chloride 0.9% 100 ml @ 200 mls/hr IVPB Q12HR [facility] Rx#:[id number] Cisatracurium 200 mg In 141.657 Sodium Chloride 0.9% 180 ml @ 1 MCG/KG/MIN 6.528 mls/hr IV .Q24H [facility] Rx#: [id number] Norepinephrine 32 mg In 29.75 125.256 Sodium Chloride 0.9% 218 ml @ 0.05 MCG/KG/MIN 2.55 mls/hr IV .Q24H [facility] Rx#: [id number] Piperacillin-Tazobactam 3 125 .375 gm In Sodium Chloride 0.9% 100 ml @ 25 mls/hr IVPB Q8HR [facility] Rx# :[id number] Propofol 1,000 mg In 200 414.771 100 Empty Bag 1 bag @ Titrate IV .Q0M [facility] Rx#: [id number] fentaNYL (PF) 1,000 mcg 35.792 16.292 In Sodium Chloride 0.9% 80 ml @ 25 MCG/HR 2.5 mls /hr IV .Q24H [facility] Rx#: [id number] Tube Feeding 168 560 76 Other 30 90 30 Output: Urine 1980 2350 180 Other: Voiding Method Indwelling Catheter Indwelling Catheter ABP, PAP, CO, CI - Last Documented Arterial Blood Pressure 101/50 - Exam Constitutional: Intubated, on mechanical ventilation, sedated Eyes:Anicteric sclerae, moist conjunctiva, no lid-lag, PERRLA, ENMT: Oropharynx clear, no erythema, exudates Neck: Supple, FROM, no masses, or JVD, No carotid bruits, No thyromegaly Lungs: Mechanical breath sounds, Clear to percussion, Normal respiratory effort, no accessory muscle use Cardiovascular: Heart regular in rate and rhythm, No murmurs, gallops, or rubs, No peripheral edema Abdominal: Soft, no guarding, rebound or rigidity, Normoactive bowel sounds, No hepatomegaly, No splenomegaly, No palpable mass Skin: Normal temperature, tone, texture, turgor, no induration, No subcutaneous nodules, No rash, lesions, No ulcers Extremities: No digital cyanosis, No clubbing, Pedal pulses intact and symmetrical, Radial pulses intact and symmetrical, No calf tenderness Neuro: Sedated. No focal deficits - Labs CBC & Chem 7: 03/22/19 04:00 03/22/19 08:20 Labs: Abnormal Lab Results - Last 24 Hours (Table) 03/21/19 03/21/19 03/21/19 Range/Units 09:45 11:30 17:47 RBC (3.80-5.40) m/uL Hgb (11.4-16.0) gm/dL Hct (34.0-46.0) % ABG pH 7.24 L (7.35-7.45) ABG pO2 183 H (83-108) mmHg ABG HCO3 17 L (21-25) mmol/L ABG Total CO2 18 L (19-24) mmol/L ABG O2 Saturation 99.1 H (94-97) % Potassium (3.5-5.1) mmol/L BUN (7-17) mg/dL Glucose (74-99) mg/dL POC Glucose (mg/dL) 230 H 165 H (75-99) mg/dL Calcium (8.4-10.2) mg/dL 03/21/19 03/22/19 03/22/19 Range/Units 23:49 04:00 04:00 RBC 3.62 L (3.80-5.40) m/uL Hgb 11.1 L (11.4-16.0) gm/dL Hct 33.9 L (34.0-46.0) % ABG pH (7.35-7.45) ABG pO2 (83-108) mmHg ABG HCO3 (21-25) mmol/L ABG Total CO2 (19-24) mmol/L ABG O2 Saturation (94-97) % Potassium 3.1 L (3.5-5.1) mmol/L BUN 19 H (7-17) mg/dL Glucose 198 H (74-99) mg/dL POC Glucose (mg/dL) 204 H (75-99) mg/dL Calcium 7.6 L (8.4-10.2) mg/dL 03/22/19 03/22/19 03/22/19 Range/Units 06:15 07:05 08:20 RBC (3.80-5.40) m/uL Hgb (11.4-16.0) gm/dL Hct (34.0-46.0) % ABG pH 7.47 H (7.35-7.45) ABG pO2 (83-108) mmHg ABG HCO3 27 H (21-25) mmol/L ABG Total CO2 28 H (19-24) mmol/L ABG O2 Saturation 98.4 H (94-97) % Potassium 3.2 L (3.5-5.1) mmol/L BUN (7-17) mg/dL Glucose (74-99) mg/dL POC Glucose (mg/dL) 224 H (75-99) mg/dL Calcium (8.4-10.2) mg/dL Microbiology - Last 24 Hours (Table) 03/20/19 23:55 Blood Culture - Preliminary Blood No Growth after 24 hours 03/21/19 00:25 Gram Stain - Preliminary Sputum Sputum Culture - Preliminary 03/18/19 20:22 Urine Culture - Final Urine,Clean Catch Escherichia coli Assessment and Plan Plan: Severe sepsis secondary to pyelonephritis with E. coli bacteremia -Antibiotics coverage expanded to cefepime although the E. coli is sensitive to all antibiotics tested. -On norepinephrine Acute hypoxic respiratory failure Could be secondary to pulmonary edema versus sepsis/ARDS Weaning down lasix today Severe metabolic acidosis Likely combination of renal failure, respiratory failure and sepsis On bicarb drip Follow bicarbonate daily Acute severe congestive heart failure Ejection fraction 20% Seen by cardiology No history of heart disease We'll need cardiac workup once recovered Starting lisinopril and metoprolol per cardio. Hyperglycemia: Start insulin gtt. Hypokalemia: Replace and recheck DVT prophylaxis -Heparin Disposition: Likely home Anticipated discharge: 03/26 D/W family in details
[2019-03-22 09:42] LABS: Glucose,Whole Blood 175 mg/dL (75-99)
[2019-03-22] MEDS: METOPROLOL TARTRATE 25 MG TAB PO SCH ×2 (10:22→21:28)
--- NOTE | 2019-03-22 10:26 | XR ---
EXAMINATION TYPE: XR chest 1V DATE OF EXAM: 03/22/2019 COMPARISON: 03/22/2019 INDICATION: Tube placement TECHNIQUE: Single frontal view of the chest is obtained. FINDINGS: The heart size is normal. The pulmonary vasculature is normal. Bibasilar infiltrates are present. This is increasing from comparison. Correlate for atelectasis. Pne umonia could be considered. Endotracheal tube tip is above the vinicius. Nasogastric tube transverses the thorax. Patient is rotate d to the left. A central venous catheter is on the right. The distal tip is not identified. IMPRESSION: 1. Lines and catheters discussed above. The right central venous catheter tip cannot be evaluated on this exam. 2. Developing bibasilar infiltrates. Correlate for atelectasis. Other etiologies are not excluded. Fo llow-up is recommended.
[2019-03-22 10:30] LABS: Glucose,Whole Blood 142 mg/dL (75-99)
[2019-03-22] MEDS ORDERED: POTASSIUM CHLORIDE ER 20 MEQ TAB.ER PO SCH (11:00)
--- NOTE | 2019-03-22 11:28 | P.PN ---
Subjective Progress Note Date: 03/22/19 Principal diagnosis: Septic shock and acute hypoxic respiratory failure This is a 53-year-old female with known history of hypertension, depression, presented to the ER on 03/18/2019, and she basically presented with 1 week history of right flank pain, dysuria, along with suprapubic pain. Her pain was described as 6 out of 10, it was mostly in the right flank area and in the s uprapubic region. Described as cramping pain. Patient was also complaining of 1 day history of fever and chills. No previous history of urinary tract infection, upon presentation, her urinalysis was consistent with urinary tract infection. Chest x-ray was unremarkable. Patient was admitted placed on ceftriaxone, and on IV fluids. Last night, the rapid response team from the ICU responded to the patient having more shortness of breath, hypotension, and tachycardia. Patient developed worsening respiratory status and she was struggling to breathe. She was given fluid boluses for hypotension and for presumptive sepsis and septic shock, transferred to the ICU, and she was intubated immediately. Her ABG post intubation showed a pO2 of 51. PCO2 of 40 pH of 7.25. Patient was placed on mechanical ventilation, follow-up ABG showed a pO2 of 109 pCO2 of 54 pH of 7.12 early this morning. Hence the patient's respiratory rate was increased to 26, and she was also placed on sodium bicarb d rip for metabolic acidosis. Chest x-ray showed evidence of pulmonary edema, felt to be cardiogenic or noncardiogenic however her CVP earlier today was 26. This is more consistent with cardiogenic pulmonary edema. Echocardiogram showed poor LV function. Hence the patient was given diuretics, and a cardiology consultation was initiated. Most recent ABG on 100% FiO2 showed pO2 of 183 pCO2 of 39 pH of 7.24. Presently patient is on mechanical ventilation, FiO2 is down to 50%, she is on tidal volume of 500 assist control rate of 26 and PEEP of 8. She is on levo fed at 0.26 mcg/kg/m, she is also on Nimbex, propofol, fentanyl at 0.5 mcg/kg/h. Considering the difficulty ventilating the patient last night, Nimbex was used. She remains on Nimbex this morning, and after reviewing the chest x-ray and reviewing her echocardiogram, Lasix was given. Antibiotics gonzales, patient is on Rocephin, her blood cultures and urine cultures are all positive for E. coli, sensitive to all antibiotics infectious disease consultation is pending ultrasound of the kidneys showed possible bilateral nephrolithiasis, and suspect mild to moderate right-sided hydronephrosis. Patient was reevaluated today on 03/22/2019, remains on mechanical ventilation, in the intensive care unit. Her ventilator settings presently are tidal volume of 500, assist control rate of 26, FiO2 of 50%, and PEEP of 8. Patient remains on norepinephrine at 0.08 mcg/kg/m, Nimbex which I have just discontinued, fentanyl which I have also discontinued, and propofol at 50 mcg/kg/m. Patient had some cough leak earlier this morning and was not able to ventilate properly, hence I went ahead and changed her endotracheal tube to another endotracheal tube uneventfully. Then patient was placed back on the same ventilator settings. She is off sodium bicarb drip. She remains on Lasix at 40 mg IV push every 8 hours. She was noted to follow simple instructions, and she had an earlier assessment off Nimbex, and a lower dose of fentanyl and propofol. And her mental status was noted to be intact. Hence placed back on propofol, and I went ahead and kept her off Nimbex and kept her off fentanyl for now. Chest x- ray clearly shows evidence of pulmonary edema and she seems to be responding well to Lasix, may even consider a Lasix drip on this patient if she continues to have pulmonary edema. Her airway mechanics was noted, her peak airway pressure is in the 30 range, and plateau pressure is in the 24 range which speaks against noncardiogenic pulmonary edema, this is most likely cardiogenic pulmonary edema and not ARDS. Antibiotics gonzales she is on cefepime, and she was on Rocephin earlier. Objective - Vital Signs Vital signs: Vital Signs Temp 98.3 F 03/22/19 08:00 Pulse 62 03/22/19 11:00 Resp 26 H 03/22/19 11:00 BP 152/89 03/22/19 10:30 Pulse Ox 96 03/22/19 11:00 Intake & Output 03/21/19 03/22/19 03/22/19 18:59 06:59 18:59 Intake Total 2038.542 2613.976 796.054 Output Total 1980 2350 1155 Balance 58.542 263.976 -358.946 Weight 108.8 kg Intake: IV 1350 1266 206 Dextrose 5% in Water 1, 900 1200 200 000 ml @ 100 mls/hr IV . [id number] ONE with Sodium Bicarb (1 Meq/ml) 150 ml Rx#:[id number] Sodium Chloride 0.9% 1, 450 000 ml @ 150 mls/hr IV . Q6H40M [facility] Rx#:[id number] pressure bags 66 6 Intake, IV Titration 490.542 697.976 408.054 Amount Cefepime 2 gm In Sodium 100 100 Chloride 0.9% 100 ml @ 200 mls/hr IVPB Q12HR [facility] Rx#:[id number] Cisatracurium 200 mg In 141.657 95.526 Sodium Chloride 0.9% 180 ml @ 1 MCG/KG/MIN 6.528 mls/hr IV .Q24H [facility] Rx#: [id number] Insulin Regular 100 unit 2.062 In Sodium Chloride 0.9% 100 ml @ Per Protocol IV .Q0M [facility] Rx#:[id number] Norepinephrine 32 mg In 29.75 125.256 18.530 Sodium Chloride 0.9% 218 ml @ 0.05 MCG/KG/MIN 2.55 mls/hr IV .Q24H [facility] Rx#: [id number] Piperacillin-Tazobactam 3 125 .375 gm In Sodium Chloride 0.9% 100 ml @ 25 mls/hr IVPB Q8HR [facility] Rx# :[id number] Propofol 1,000 mg In 200 414.771 191.936 Empty Bag 1 bag @ Titrate IV .Q0M [facility] Rx#: [id number] fentaNYL (PF) 1,000 mcg 35.792 16.292 In Sodium Chloride 0.9% 80 ml @ 25 MCG/HR 2.5 mls /hr IV .Q24H [facility] Rx#: [id number] Tube Feeding 168 560 152 Other 30 90 30 Output: Urine 1979 2350 1155 Other: Voiding Method Indwelling Catheter Indwelling Catheter Indwelling Catheter ABP, PAP, CO, CI - Last Documented Arterial Blood Pressure 116/72 - Exam General: Revealed a 53-year-old female, obese, on mechanical ventilation, sedated, but mental status was assessed off sedation and seems to be intact earlier today. Head: atraumatic, normocephalic, Eyes: PERRLA, EOMI, no icterus, ENT: Moist mucous membranes, short obese neck. Endotracheal tube is intact. Orogastric tube is intact. Neck: No neck masses, no JVD was appreciated, short obese neck is noted. Trachea is in midline. Mouth: No oral lesions noted. Cardiovascular: Normal S1 and S2, no S3 gallop. No murmur. Lungs: Crackles at the bases scattered rhonchi noted, symmetrical chest expansion. Abdominal: Obese, soft, nontender, positive bowel sounds. Ext: No clubbing edema or cyanosis. Neuro: Off propofol, patient was noted to be appropriate, followed simple instructions, no gross focal deficits. Psych: Normal mood, flat affect, overall mental status seems to be intact. And followed instructions Derm: No rashes or erythema. No ulcers - Labs CBC & Chem 7: 03/22/19 04:00 03/22/19 08:20 Labs: Abnormal Lab Results - Last 24 Hours (Table) 03/21/19 03/21/19 03/21/19 Range/Units 11:30 17:47 23:49 RBC (3.80-5.40) m/uL Hgb (11.4-16.0) gm/dL Hct (34.0-46.0) % ABG pH (7.35-7.45) ABG HCO3 (21-25) mmol/L ABG Total CO2 (19-24) mmol/L ABG O2 Saturation (94-97) % Potassium (3.5-5.1) mmol/L BUN (7-17) mg/dL Glucose (74-99) mg/dL POC Glucose (mg/dL) 230 H 165 H 204 H (75-99) mg/dL Calcium (8.4-10.2) mg/dL 03/22/19 03/22/19 03/22/19 Range/Units 04:00 04:00 06:15 RBC 3.62 L (3.80-5.40) m/uL Hgb 11.1 L (11.4-16.0) gm/dL Hct 33.9 L (34.0-46.0) % ABG pH (7.35-7.45) ABG HCO3 (21-25) mmol/L ABG Total CO2 (19-24) mmol/L ABG O2 Saturation (94-97) % Potassium 3.1 L (3.5-5.1) mmol/L BUN 19 H (7-17) mg/dL Glucose 198 H (74-99) mg/dL POC Glucose (mg/dL) 224 H (75-99) mg/dL Calcium 7.6 L (8.4-10.2) mg/dL 03/22/19 03/22/19 03/22/19 Range/Units 07:05 08:20 09:30 RBC (3.80-5.40) m/uL Hgb (11.4-16.0) gm/dL Hct (34.0-46.0) % ABG pH 7.47 H (7.35-7.45) ABG HCO3 27 H (21-25) mmol/L ABG Total CO2 28 H (19-24) mmol/L ABG O2 Saturation 98.4 H (94-97) % Potassium 3.2 L (3.5-5.1) mmol/L BUN (7-17) mg/dL Glucose (74-99) mg/dL POC Glucose (mg/dL) 175 H (75-99) mg/dL Calcium (8.4-10.2) mg/dL 03/22/19 Range/Units 10:19 RBC (3.80-5.40) m/uL Hgb (11.4-16.0) gm/dL Hct (34.0-46.0) % ABG pH (7.35-7.45) ABG HCO3 (21-25) mmol/L ABG Total CO2 (19-24) mmol/L ABG O2 Saturation (94-97) % Potassium (3.5-5.1) mmol/L BUN (7-17) mg/dL Glucose (74-99) mg/dL POC Glucose (mg/dL) 142 H (75-99) mg/dL Calcium (8.4-10.2) mg/dL Microbiology - Last 24 Hours (Table) 03/20/19 23:55 Blood Culture - Preliminary Blood No Growth after 24 hours 03/21/19 00:25 Gram Stain - Preliminary Sputum Sputum Culture - Preliminary 03/18/19 20:22 Urine Culture - Final Urine,Clean Catch Escherichia coli Assessment and Plan Assessment: Impression: 1 acute hypoxic respiratory failure secondary to septic shock secondary to pyelonephritis. Presently on cefepime. 2 acute polynephritis and urinary tract infection. Secondary to E. coli. 3 E. coli bacteremia, source is the urine. 4 severe LV dysfunction and cardiogenic pulmonary edema. Cardiology was consulted. 5 acute congestive heart failure, systolic in nature considering her abnormal echocardiogram. 6 acute kidney injury secondary to hypotension and acute tubular necrosis secondary to sepsis and septic shock. Improving based on the labs today. 7 history of benign essential hypertension 8 history of depression. 9 cough leak requiring reintubation and the changing of the endotracheal tube which was done today. Recommendation: Continue ventilatory support Continue hemodynamic support Continue antibiotics Continue diuretics Continue propofol discontinue Nimbex and fentanyl for now. Continue GI and DVT prophylaxis Continue nutritional support. Continue enteral feeding well tolerated. Discussed her condition and her prognosis with her daughter today, and updated her on her condition. Prognosis is definitely guarded. We'll continue to follow in the ICU. Not ready for any weaning trials at this point, chest x-ray remains quite abnormal. I believe it will likely improve with diuretics and continuation of antibiotics. Critical care time is 40 minutes not including the time spent on procedures/reintubation. Time with Patient: Greater than 30
[2019-03-22 11:32] LABS: Glucose,Whole Blood 159 mg/dL (75-99)
[2019-03-22 12:35] LABS: Glucose,Whole Blood 169 mg/dL (75-99)
--- NOTE | 2019-03-22 12:45 | PCN ---
PROCEDURE NOTE OPERATIVE PROCEDURE: Re-intubation, changing endotracheal tube. PREOPERATIVE DIAGNOSIS: Acute respiratory failure, cuff leak, and significant volume loss through the endotracheal tube. POSTOPERATIVE DIAGNOSIS: Acute respiratory failure, cuff leak, and significant volume loss through the endotracheal tube. ANESTHESIA USED: Patient was already on propofol drip and she was on fentanyl drip. PROCEDURE: Patient was placed in a supine position, she was disconnected from mechanical ventilation and a tube changer was placed in the present endotracheal tube. Over the tube changer, the old endotracheal tube was removed, and a new size 8.0 endotracheal tube was advanced over the changer via Seldinger technique. Then the tube changer was removed, the endotracheal tube was advanced to 24 cm at the lip. Cuff was inflated, and it was connected back to mechanical ventilation. Chest x-ray showed adequate placement of the endotracheal tube. Procedure was well tolerated, and no evidence of any complications. MMODL / IJN: [id number] /
[2019-03-22] MEDS: fentaNYL (PF) 1,000 MCG in SODIUM CHLORIDE 0.9% 80 ML IV SCH (13:43)
[2019-03-22 13:45] LABS: Glucose,Whole Blood 157 mg/dL (75-99)
[2019-03-22] MEDS ORDERED: Potassium Replacement Protocol 1 EACH MISC MISCELLANE PRN (14:37)
[2019-03-22 14:47] LABS: Glucose,Whole Blood 147 mg/dL (75-99)
[2019-03-22] MEDS ORDERED: POTASSIUM BICARBONATE/CIT AC 20 MEQ TABLET.EFF NG-TUBE SCH (15:00)
[2019-03-22] MEDS: FUROSEMIDE 10 MG/ML 4 ML VIAL IV SCH (15:19)
[2019-03-22 15:47] LABS: Glucose,Whole Blood 150 mg/dL (75-99)
[2019-03-22] MEDS: HYDROmorphone 0.5 MG/0.5 ML SYRINGE IVP PRN (16:12)
--- NOTE | 2019-03-22 16:21 | PN ---
PROGRESS NOTE DATE OF SERVICE: 03/22/2019 REASON FOR FOLLOWUP: E coli sepsis secondary to urinary source and possible aspiration pneumonitis. INTERVAL HISTORY: The patient is currently afebrile. The patient's sedation has been slowly cut back. The patient's blood pressure is slightly improved and the pressor is currently being cut back on. Currently on 50% FiO2. No diarrhea reported by the nursing staff. The patient is currently sedated on the vent, unable to provide any history. PHYSICAL EXAMINATION: Blood pressure 119/59 with a pulse of 60, temperature of 99.1. She is 98% on 50% FiO2. General description is a middle-aged female lying in bed in no distress. RESPIRATORY SYSTEM: Unlabored breathing with decreased breath sounds at the base. HEART: S1, S2. Regular rate and rhythm. ABDOMEN: Soft. No tenderness. EXTREMITIES: No edema of the feet. LABS/IMAGING: Hemoglobin is 11.1, white count 8.6. Blood and sputum repeat so far pending. Patient did have a chest x-ray with developing bibasilar infiltrate; correlate for atelectasis. DIAGNOSTIC IMPRESSION AND PLAN: Patient with acute respiratory failure, vent-dependent, in this patient admitted to hospital with Escherichia coli sepsis secondary to urinary source. Ultrasound shows evidence of bilateral nephrolithiasis, moderate right-sided hydronephrosis. Patient with a possible component of aspiration pneumonitis. She is currently covered with cefepime. Will wait for the culture to finalize and monitor clinical course closely. Continue with supportive care. MMODL / IJN: [id number] /
[2019-03-22 16:53] LABS: Glucose,Whole Blood 148 mg/dL (75-99)
[2019-03-22 17:52] LABS: Glucose,Whole Blood 145 mg/dL (75-99)
[2019-03-22 19:28] LABS: Glucose,Whole Blood 143 mg/dL (75-99)
[2019-03-22] MEDS: NOREPINEPHRINE 32 MG in SODIUM CHLORIDE 0.9% 218 ML IV SCH (19:44)
[2019-03-22] MEDS: VENLAFAXINE HCL 37.5 MG TAB PO SCH ×2 (21:32→21:46)
[2019-03-22 21:45] LABS: Glucose,Whole Blood 151 mg/dL (75-99)
[2019-03-22 22:27] LABS: Glucose,Whole Blood 146 mg/dL (75-99)
[2019-03-22 23:12] LABS: Glucose,Whole Blood 129 mg/dL (75-99)
[2019-03-23 00:17] LABS: Glucose,Whole Blood 138 mg/dL (75-99)
[2019-03-23] MEDS: POTASSIUM BICARBONATE/CIT AC 20 MEQ TABLET.EFF NG-TUBE SCH ×3 (01:00→09:20)
[2019-03-23] MEDS: FUROSEMIDE 10 MG/ML 4 ML VIAL IV SCH (01:00)
[2019-03-23] MEDS: HEPARIN SODIUM,PORCINE 5,000 UNIT/ML 1 ML VIAL SQ SCH ×3 (01:01→16:40)
[2019-03-23 01:36] LABS: Glucose,Whole Blood 145 mg/dL (75-99)
[2019-03-23] MEDS: fentaNYL (PF) 1,000 MCG in SODIUM CHLORIDE 0.9% 80 ML IV SCH ×2 (01:37→22:16)
[2019-03-23 02:23] LABS: Glucose,Whole Blood 164 mg/dL (75-99)
[2019-03-23 03:26] LABS: Glucose,Whole Blood 139 mg/dL (75-99)
[2019-03-23 04:25] LABS: Glucose,Whole Blood 128 mg/dL (75-99)
[2019-03-23 04:41] LABS: Basophils # (A) 0.1 k/uL (0-0.2); Basophils % (A) 1 %; Eosinophils # (A) 0.2 k/uL (0-0.7); Eosinophils % (A) 2 %; HCT 31.6 % (34.0-46.0); HGB 10.7 gm/dL (11.4-16.0); Lymphocytes # (A) 2.6 k/uL (1.0-4.8); Lymphocytes % (A) 30 %; MCH 31.6 pg (25.0-35.0); MCHC 33.9 g/dL (31.0-37.0); MCV 93.3 fL (80.0-100.0); Mean Platelet Volume 8.8; Monocytes # (A) 0.4 k/uL (0-1.0); Monocytes % (A) 5 %; Neutrophils # (A) 5.2 k/uL (1.3-7.7); Neutrophils % (A) 60 %; Platelet Count 218 k/uL (150-450); RBC 3.38 m/uL (3.80-5.40); RDW 13.7 % (11.5-15.5); WBC 8.6 k/uL (3.8-10.6)
[2019-03-23 05:11] LABS: Glucose,Whole Blood 140 mg/dL (75-99)
[2019-03-23 05:20] LABS: African American GFR (CKD) >90 (>60 ml/min/1.73 sqM); Anion Gap 7 mmol/L; Blood Urea Nitrogen 19 mg/dL (7-17); Calcium 7.9 mg/dL (8.4-10.2); Carbon Dioxide 30 mmol/L (22-30); Chloride 102 mmol/L (98-107); Glucose 120 mg/dL (74-99); Magnesium 1.8 mg/dL (1.6-2.3); Potassium 3.4 mmol/L (3.5-5.1); Sodium 139 mmol/L (137-145)
[2019-03-23 06:35] LABS: Glucose,Whole Blood 147 mg/dL (75-99)
[2019-03-23] MEDS: MAGNESIUM SULFATE-D5W PMX 1 GM in DEXTROSE/WATER 1 100ML.BAG IVPB SCH ×2 (06:41→08:10)
[2019-03-23 07:12] LABS: Glucose,Whole Blood 153 mg/dL (75-99)
--- NOTE | 2019-03-23 07:52 | XR ---
EXAMINATION TYPE: XR chest 1V portable DATE OF EXAM: 03/23/2019 COMPARISON: 03/22/2019 INDICATION: Tube placement TECHNIQUE: Single frontal view of the chest is obtained. FINDINGS: The heart size is normal. The pulmonary vasculature is normal. Bibasilar infiltrates are present. Left perihilar infiltrate may be present. Follow-up is recommended . Endotracheal tube tip is above the vinicius. Nasogastric tube transverses the thorax. Right central maia ous catheter is present with the tip in the proximal right atrium. IMPRESSION: 1. Bibasilar and left perihilar infiltrates. Follow-up is recommended. 2. Lines and catheters discussed above.
[2019-03-23 07:56] LABS: ABG Base Excess 9.6 mmol/L; ABG HCO3 32 mmol/L (21-25); ABG Oxygen Saturation 98.6 % (94-97); ABG PCO2 36 mmHg (35-45); ABG PO2 112 mmHg (83-108); ABG TCO2 33 mmol/L (19-24); Allen Test Performed? Yes
[2019-03-23 07:58] LABS: ABG PH 7.56 (7.35-7.45)
[2019-03-23] MEDS: PROPOFOL 1,000 MG in EMPTY BAG 1 BAG IV SCH (08:01)
--- NOTE | 2019-03-23 08:07 | PN ---
PROGRESS NOTE Mrs. Milan is a 53-year-old female with history of chronic tobacco use, history of hypertension who presented with a septic shock and pyelonephritis. She has respiratory failure requiring mechanical ventilation. She remains intubated and sedated. She is on low-dose norepinephrine. She continues to be in sinus mechanism. There is no evidence of tachyarrhythmia. Her echocardiogram reveals severe cardiomyopathy. She has no evidence of atrial or ventricular tachyarrhythmia. Her urine output remains stable and she continued to be on Lasix 40 mg IV q.8 hours, metoprolol tartrate 25 mg twice a day, and potassium supplementation. PHYSICAL EXAMINATION: Blood pressure running in the [id number] with the heart rate in the 60s. LUNGS: Clear anteriorly. HEART: Regular rate and rhythm S1, S2. No S3 with a systolic murmur. No diastolic murmur. No rub. ABDOMEN: Soft, obese. Positive bowel sounds. No organomegaly. EXTREMITIES: No significant edema. IMPRESSION: 1. Urosepsis with septic shock requiring mechanical ventilation. The patient continues to be on norepinephrine at a low dose. 2. Severe cardiomyopathy of unclear etiology or duration. 3. Prior history of hypertension. 4. Prior history of smoking. RECOMMENDATION: From the cardiac standpoint, we will continue on the low-dose beta arianna. I am hopeful that we can stop the norepinephrine today and if her pressure remains stable, then add an RAKAN inhibitor. We will continue on the respiratory support. Depending her progress and once she is stable and extubated, then further adjustment of her medical regimen will be done. The patient would require further evaluation of her cardiac status once her infectious process is stabilized. MMODL / IJN: [id number] /
[2019-03-23 08:33] LABS: Glucose,Whole Blood 122 mg/dL (75-99)
[2019-03-23] MEDS: CEFEPIME 2 GM in SODIUM CHLORIDE 0.9% 100 ML IVPB SCH ×2 (09:20→21:47)
--- NOTE | 2019-03-23 09:20 | P.PN ---
Subjective Progress Note Date: 03/23/19 Principal diagnosis: Fevers and right flank pain. Patient is currently weaned off sedation. She was alert and talking during my encounter with her. She was complaining from right flank pain. Her FiO2 on the vent was 70%, blood gases was looking good so this was weaned to 60%. Objective - Vital Signs Vital signs: Vital Signs Temp 98.1 F 03/23/19 08:00 Pulse 68 03/23/19 09:00 Resp 26 H 03/23/19 09:00 BP 122/69 03/23/19 08:30 Pulse Ox 99 03/23/19 09:00 Intake & Output 03/22/19 03/23/19 03/23/19 18:59 06:59 18:59 Intake Total 1629.076 960.749 466.114 Output Total 2805 1285 115 Balance -1175.924 -324.251 351.114 Intake: IV 402 318 242 Cefepime 2 gm In Sodium 100 100 Chloride 0.9% 100 ml @ 200 mls/hr IVPB Q12HR [facility] Rx#:[id number] Dextrose 5% in Water 1, 200 000 ml @ 100 mls/hr IV . [id number] ONE with Sodium Bicarb (1 Meq/ml) 150 ml Rx#:[id number] Magnesium Sulfate-D5w Pmx 100 1 gm In Dextrose/Water 1 100ml.bag @ 100 mls/hr IVPB Q1H [facility] Rx#: [id number] Sodium Chloride 0.9% 130 140 30 carrier pressure bags 72 78 12 Intake, IV Titration 739.076 286.749 58.114 Amount Cefepime 2 gm In Sodium 100 Chloride 0.9% 100 ml @ 200 mls/hr IVPB Q12HR [facility] Rx#:[id number] Cisatracurium 200 mg In 95.526 Sodium Chloride 0.9% 180 ml @ 1 MCG/KG/MIN 6.528 mls/hr IV .Q24H [facility] Rx#: [id number] Insulin Regular 100 unit 16.059 12.465 3.872 In Sodium Chloride 0.9% 100 ml @ Per Protocol IV .Q0M [facility] Rx#:[id number] Norepinephrine 32 mg In 55.913 14.076 25.628 Sodium Chloride 0.9% 218 ml @ 0.05 MCG/KG/MIN 2.55 mls/hr IV .Q24H [facility] Rx#: [id number] Propofol 1,000 mg In 471.578 195.472 28.614 Empty Bag 1 bag @ Titrate IV .Q0M [facility] Rx#: [id number] fentaNYL (PF) 1,000 mcg 64.736 In Sodium Chloride 0.9% 80 ml @ 1 MCG/KG/HR 10.88 mls/hr IV .Q9H12M [facility] Rx #:[id number] Tube Feeding 398 266 76 Other 90 90 90 Output: Urine 2805 1285 115 Other: Voiding Method Indwelling Catheter Indwelling Catheter ABP, PAP, CO, CI - Last Documented Arterial Blood Pressure 115/48 - Exam Constitutional: Intubated, on mechanical ventilation, sedated Eyes:Anicteric sclerae, moist conjunctiva, no lid-lag, PERRLA, ENMT: Oropharynx clear, no erythema, exudates Neck: Supple, FROM, no masses, or JVD, No carotid bruits, No thyromegaly Lungs: Mechanical breath sounds, Clear to percussion, Normal respiratory effort, no accessory muscle use Cardiovascular: Heart regular in rate and rhythm, No murmurs, gallops, or rubs, No peripheral edema Abdominal: Soft, no guarding, rebound or rigidity, Normoactive bowel sounds, No hepatomegaly, No splenomegaly, No palpable mass Skin: Normal temperature, tone, texture, turgor, no induration, No subcutaneous nodules, No rash, lesions, No ulcers Extremities: No digital cyanosis, No clubbing, Pedal pulses intact and symmetrical, Radial pulses intact and symmetrical, No calf tenderness Neuro: Sedated. No focal deficits - Labs CBC & Chem 7: 03/23/19 04:05 03/23/19 04:05 Labs: Abnormal Lab Results - Last 24 Hours (Table) 03/22/19 03/22/19 03/22/19 Range/Units 09:30 10:19 11:21 RBC (3.80-5.40) m/uL Hgb (11.4-16.0) gm/dL Hct (34.0-46.0) % ABG pH (7.35-7.45) ABG pO2 (83-108) mmHg ABG HCO3 (21-25) mmol/L ABG Total CO2 (19-24) mmol/L ABG O2 Saturation (94-97) % Potassium (3.5-5.1) mmol/L BUN (7-17) mg/dL Glucose (74-99) mg/dL POC Glucose (mg/dL) 175 H 142 H 159 H (75-99) mg/dL Calcium (8.4-10.2) mg/dL 03/22/19 03/22/19 03/22/19 Range/Units 12:24 13:33 14:36 RBC (3.80-5.40) m/uL Hgb (11.4-16.0) gm/dL Hct (34.0-46.0) % ABG pH (7.35-7.45) ABG pO2 (83-108) mmHg ABG HCO3 (21-25) mmol/L ABG Total CO2 (19-24) mmol/L ABG O2 Saturation (94-97) % Potassium (3.5-5.1) mmol/L BUN (7-17) mg/dL Glucose (74-99) mg/dL POC Glucose (mg/dL) 169 H 157 H 147 H (75-99) mg/dL Calcium (8.4-10.2) mg/dL 03/22/19 03/22/19 03/22/19 Range/Units 15:36 16:42 17:35 RBC (3.80-5.40) m/uL Hgb (11.4-16.0) gm/dL Hct (34.0-46.0) % ABG pH (7.35-7.45) ABG pO2 (83-108) mmHg ABG HCO3 (21-25) mmol/L ABG Total CO2 (19-24) mmol/L ABG O2 Saturation (94-97) % Potassium 3.3 L (3.5-5.1) mmol/L BUN (7-17) mg/dL Glucose (74-99) mg/dL POC Glucose (mg/dL) 150 H 148 H (75-99) mg/dL Calcium (8.4-10.2) mg/dL 03/22/19 03/22/19 03/22/19 Range/Units 17:41 19:05 21:33 RBC (3.80-5.40) m/uL Hgb (11.4-16.0) gm/dL Hct (34.0-46.0) % ABG pH (7.35-7.45) ABG pO2 (83-108) mmHg ABG HCO3 (21-25) mmol/L ABG Total CO2 (19-24) mmol/L ABG O2 Saturation (94-97) % Potassium (3.5-5.1) mmol/L BUN (7-17) mg/dL Glucose (74-99) mg/dL POC Glucose (mg/dL) 145 H 143 H 151 H (75-99) mg/dL Calcium (8.4-10.2) mg/dL 03/22/19 03/22/19 03/23/19 Range/Units 22:16 23:00 00:06 RBC (3.80-5.40) m/uL Hgb (11.4-16.0) gm/dL Hct (34.0-46.0) % ABG pH (7.35-7.45) ABG pO2 (83-108) mmHg ABG HCO3 (21-25) mmol/L ABG Total CO2 (19-24) mmol/L ABG O2 Saturation (94-97) % Potassium (3.5-5.1) mmol/L BUN (7-17) mg/dL Glucose (74-99) mg/dL POC Glucose (mg/dL) 146 H 129 H 138 H (75-99) mg/dL Calcium (8.4-10.2) mg/dL 03/23/19 03/23/19 03/23/19 Range/Units 01:14 02:11 03:13 RBC (3.80-5.40) m/uL Hgb (11.4-16.0) gm/dL Hct (34.0-46.0) % ABG pH (7.35-7.45) ABG pO2 (83-108) mmHg ABG HCO3 (21-25) mmol/L ABG Total CO2 (19-24) mmol/L ABG O2 Saturation (94-97) % Potassium (3.5-5.1) mmol/L BUN (7-17) mg/dL Glucose (74-99) mg/dL POC Glucose (mg/dL) 145 H 164 H 139 H (75-99) mg/dL Calcium (8.4-10.2) mg/dL 03/23/19 03/23/19 03/23/19 Range/Units 04:05 04:05 04:13 RBC 3.38 L (3.80-5.40) m/uL Hgb 10.7 L (11.4-16.0) gm/dL Hct 31.6 L (34.0-46.0) % ABG pH (7.35-7.45) ABG pO2 (83-108) mmHg ABG HCO3 (21-25) mmol/L ABG Total CO2 (19-24) mmol/L ABG O2 Saturation (94-97) % Potassium 3.4 L (3.5-5.1) mmol/L BUN 19 H (7-17) mg/dL Glucose 120 H (74-99) mg/dL POC Glucose (mg/dL) 128 H (75-99) mg/dL Calcium 7.9 L (8.4-10.2) mg/dL 03/23/19 03/23/19 03/23/19 Range/Units 05:00 06:14 06:59 RBC (3.80-5.40) m/uL Hgb (11.4-16.0) gm/dL Hct (34.0-46.0) % ABG pH (7.35-7.45) ABG pO2 (83-108) mmHg ABG HCO3 (21-25) mmol/L ABG Total CO2 (19-24) mmol/L ABG O2 Saturation (94-97) % Potassium (3.5-5.1) mmol/L BUN (7-17) mg/dL Glucose (74-99) mg/dL POC Glucose (mg/dL) 140 H 147 H 153 H (75-99) mg/dL Calcium (8.4-10.2) mg/dL 03/23/19 03/23/19 Range/Units 07:54 08:22 RBC (3.80-5.40) m/uL Hgb (11.4-16.0) gm/dL Hct (34.0-46.0) % ABG pH 7.56 H* (7.35-7.45) ABG pO2 112 H (83-108) mmHg ABG HCO3 32 H (21-25) mmol/L ABG Total CO2 33 H (19-24) mmol/L ABG O2 Saturation 98.6 H (94-97) % Potassium (3.5-5.1) mmol/L BUN (7-17) mg/dL Glucose (74-99) mg/dL POC Glucose (mg/dL) 122 H (75-99) mg/dL Calcium (8.4-10.2) mg/dL Microbiology - Last 24 Hours (Table) 03/21/19 00:25 Gram Stain - Final Sputum Sputum Culture - Final 03/20/19 23:55 Blood Culture - Preliminary Blood No Growth after 48 hours Assessment and Plan Plan: Severe sepsis secondary to pyelonephritis with E. coli bacteremia -Antibiotics coverage expanded to cefepime although the E. coli is sensitive to all antibiotics tested. -On norepinephrine Acute hypoxic respiratory failure Could be secondary to pulmonary edema versus sepsis/ARDS Keep on the dry side with lasix, decrease dose to 40mg daily Severe metabolic acidosis Likely combination of renal failure, respiratory failure and sepsis Bicarb drip discontinued Acute severe congestive heart failure Ejection fraction 20% Lasix as above Seen by cardiology No history of heart disease We'll need cardiac workup once recovered On metoprolol per cardio. Hyperglycemia: Controlled, on insulin gtt. Hypokalemia: Replace and recheck DVT prophylaxis -Heparin Disposition: Likely home Anticipated discharge: 03/26 D/W family in details
[2019-03-23] MEDS: VENLAFAXINE HCL 37.5 MG TAB PO SCH ×2 (09:21→21:48)
[2019-03-23] MEDS: PANTOPRAZOLE 40 MG/10 ML VIAL IV SCH (09:21)
[2019-03-23] MEDS: NICOTINE 21MG/24HR PATCH TRANSDERM SCH (09:21)
[2019-03-23] MEDS: METOPROLOL TARTRATE 25 MG TAB PO SCH ×2 (09:21→21:47)
[2019-03-23] MEDS: CHLORHEXIDINE GLUCONATE 15 ML CUP MUCOUS MEM SCH (09:21)
[2019-03-23 09:28] LABS: Glucose,Whole Blood 131 mg/dL (75-99)
[2019-03-23 10:36] LABS: Glucose,Whole Blood 124 mg/dL (75-99)
[2019-03-23] MEDS: NOREPINEPHRINE 32 MG in SODIUM CHLORIDE 0.9% 218 ML IV SCH (12:11)
[2019-03-23] MEDS: INSULIN ASPART (NovoLOG) 100 UNIT/ML VIAL SQ SCH ×3 (12:17→21:53)
[2019-03-23 12:26] LABS: Glucose,Whole Blood 163 mg/dL (75-99)
--- NOTE | 2019-03-23 12:54 | P.PN ---
Subjective Progress Note Date: 03/23/19 Principal diagnosis: Septic shock and acute hypoxic respiratory failure This is a 53-year-old female with known history of hypertension, depression, presented to the ER on 03/18/2019, and she basically presented with 1 week history of right flank pain, dysuria, along with suprapubic pain. Her pain was described as 6 out of 10, it was mostly in the right flank area and in the s uprapubic region. Described as cramping pain. Patient was also complaining of 1 day history of fever and chills. No previous history of urinary tract infection, upon presentation, her urinalysis was consistent with urinary tract infection. Chest x-ray was unremarkable. Patient was admitted placed on ceftriaxone, and on IV fluids. Last night, the rapid response team from the ICU responded to the patient having more shortness of breath, hypotension, and tachycardia. Patient developed worsening respiratory status and she was struggling to breathe. She was given fluid boluses for hypotension and for presumptive sepsis and septic shock, transferred to the ICU, and she was intubated immediately. Her ABG post intubation showed a pO2 of 51. PCO2 of 40 pH of 7.25. Patient was placed on mechanical ventilation, follow-up ABG showed a pO2 of 109 pCO2 of 54 pH of 7.12 early this morning. Hence the patient's respiratory rate was increased to 26, and she was also placed on sodium bicarb d rip for metabolic acidosis. Chest x-ray showed evidence of pulmonary edema, felt to be cardiogenic or noncardiogenic however her CVP earlier today was 26. This is more consistent with cardiogenic pulmonary edema. Echocardiogram showed poor LV function. Hence the patient was given diuretics, and a cardiology consultation was initiated. Most recent ABG on 100% FiO2 showed pO2 of 183 pCO2 of 39 pH of 7.24. Presently patient is on mechanical ventilation, FiO2 is down to 50%, she is on tidal volume of 500 assist control rate of 26 and PEEP of 8. She is on levo fed at 0.26 mcg/kg/m, she is also on Nimbex, propofol, fentanyl at 0.5 mcg/kg/h. Considering the difficulty ventilating the patient last night, Nimbex was used. She remains on Nimbex this morning, and after reviewing the chest x-ray and reviewing her echocardiogram, Lasix was given. Antibiotics gonzales, patient is on Rocephin, her blood cultures and urine cultures are all positive for E. coli, sensitive to all antibiotics infectious disease consultation is pending ultrasound of the kidneys showed possible bilateral nephrolithiasis, and suspect mild to moderate right-sided hydronephrosis. Patient was reevaluated today on 03/22/2019, remains on mechanical ventilation, in the intensive care unit. Her ventilator settings presently are tidal volume of 500, assist control rate of 26, FiO2 of 50%, and PEEP of 8. Patient remains on norepinephrine at 0.08 mcg/kg/m, Nimbex which I have just discontinued, fentanyl which I have also discontinued, and propofol at 50 mcg/kg/m. Patient had some cough leak earlier this morning and was not able to ventilate properly, hence I went ahead and changed her endotracheal tube to another endotracheal tube uneventfully. Then patient was placed back on the same ventilator settings. She is off sodium bicarb drip. She remains on Lasix at 40 mg IV push every 8 hours. She was noted to follow simple instructions, and she had an earlier assessment off Nimbex, and a lower dose of fentanyl and propofol. And her mental status was noted to be intact. Hence placed back on propofol, and I went ahead and kept her off Nimbex and kept her off fentanyl for now. Chest x- ray clearly shows evidence of pulmonary edema and she seems to be responding well to Lasix, may even consider a Lasix drip on this patient if she continues to have pulmonary edema. Her airway mechanics was noted, her peak airway pressure is in the 30 range, and plateau pressure is in the 24 range which speaks against noncardiogenic pulmonary edema, this is most likely cardiogenic pulmonary edema and not ARDS. Antibiotics gonzales she is on cefepime, and she was on Rocephin earlier. Reevaluated today on 03/23/2019, patient remains in the ICU, she is off pressors, not requiring any pressors. She is off propofol, remains on a small tiny dose of fentanyl, patient was awakened, and she seems to be completely appropriate. Chest x-ray continues to show some mild pulmonary edema, however her ABG was reviewed and seems to be adequate, as I stated at the bedside, and after examining the patient, I recommended a short trial of pressure support and CPAP. This was done, the portion was noted to have good tidal volumes, excellent nif, normal respiratory rate, then the patient was noted to be doing extremely well on pressure support and CPAP. Hence short trial of pressure support and CPAP were given at a pressure support of 8, and I proceeded to extubating the patient shortly after. All labs were reviewed including ABG, basic metabolic profile, renal profile, chest x-ray, and CBC. And then proceeded to x-ray the patient Objective - Vital Signs Vital signs: Vital Signs Temp 98 F 03/23/19 12:00 Pulse 80 03/23/19 12:00 Resp 15 03/23/19 12:00 BP 120/60 03/23/19 12:00 Pulse Ox 93 L 03/23/19 12:00 Intake & Output 03/22/19 03/23/19 03/23/19 18:59 06:59 18:59 Intake Total 1629.076 294.701 1211.722 Output Total 2805 1285 1495 Balance -1175.924 -324.251 -481.278 Intake: IV 402 318 430 Cefepime 2 gm In Sodium 100 200 Chloride 0.9% 100 ml @ 200 mls/hr IVPB Q12HR [facility] Rx#:[id number] Dextrose 5% in Water 1, 200 000 ml @ 100 mls/hr IV . [id number] ONE with Sodium Bicarb (1 Meq/ml) 150 ml Rx#:[id number] Magnesium Sulfate-D5w Pmx 100 1 gm In Dextrose/Water 1 100ml.bag @ 100 mls/hr IVPB Q1H [facility] Rx#: [id number] Sodium Chloride 0.9% 130 140 100 carrier pressure bags 72 78 30 Intake, IV Titration 739.076 286.749 129.722 Amount Cefepime 2 gm In Sodium 100 Chloride 0.9% 100 ml @ 200 mls/hr IVPB Q12HR [facility] Rx#:[id number] Cisatracurium 200 mg In 95.526 Sodium Chloride 0.9% 180 ml @ 1 MCG/KG/MIN 6.528 mls/hr IV .Q24H [facility] Rx#: [id number] Insulin Regular 100 unit 16.059 12.465 3.872 In Sodium Chloride 0.9% 100 ml @ Per Protocol IV .Q0M [facility] Rx#:[id number] Norepinephrine 32 mg In 55.913 14.076 25.628 Sodium Chloride 0.9% 218 ml @ 0.05 MCG/KG/MIN 2.55 mls/hr IV .Q24H [facility] Rx#: [id number] Propofol 1,000 mg In 471.578 195.472 40.473 Empty Bag 1 bag @ Titrate IV .Q0M [facility] Rx#: [id number] fentaNYL (PF) 1,000 mcg 64.736 59.749 In Sodium Chloride 0.9% 80 ml @ 1 MCG/KG/HR 10.88 mls/hr IV .Q9H12M [facility] Rx #:[id number] Oral 250 Tube Feeding 398 266 114 Other 90 90 90 Output: Urine 2805 1285 1495 Other: Voiding Method Indwelling Catheter Indwelling Catheter Indwelling Catheter ABP, PAP, CO, CI - Last Documented Arterial Blood Pressure 154/75 - Exam General: Revealed a 53-year-old female, obese, on mechanical ventilation, awake, responsive, follows all instructions, in no distress. Head: atraumatic, normocephalic, Eyes: PERRLA, EOMI, no icterus, ENT: Moist mucous membranes, short obese neck. Endotracheal tube is intact. Orogastric tube is intact. Neck: No neck masses, no JVD was appreciated, short obese neck is noted. Trachea is in midline. Mouth: No oral lesions noted. Cardiovascular: Normal S1 and S2, no S3 gallop. No murmur. Lungs: Crackles at the bases scattered rhonchi noted, symmetrical chest expansion. Abdominal: Obese, soft, nontender, positive bowel sounds. Ext: No clubbing edema or cyanosis. Neuro: Off propofol, patient was noted to be appropriate, followed simple instructions, no gross focal deficits. Psych: Normal mood, normal affect and normal mental status examination. Derm: No rashes or erythema. No ulcers - Labs CBC & Chem 7: 03/23/19 04:05 03/23/19 04:05 Labs: Abnormal Lab Results - Last 24 Hours (Table) 03/22/19 03/22/19 03/22/19 Range/Units 13:33 14:36 15:36 RBC (3.80-5.40) m/uL Hgb (11.4-16.0) gm/dL Hct (34.0-46.0) % ABG pH (7.35-7.45) ABG pO2 (83-108) mmHg ABG HCO3 (21-25) mmol/L ABG Total CO2 (19-24) mmol/L ABG O2 Saturation (94-97) % Potassium (3.5-5.1) mmol/L BUN (7-17) mg/dL Glucose (74-99) mg/dL POC Glucose (mg/dL) 157 H 147 H 150 H (75-99) mg/dL Calcium (8.4-10.2) mg/dL 03/22/19 03/22/19 03/22/19 Range/Units 16:42 17:35 17:41 RBC (3.80-5.40) m/uL Hgb (11.4-16.0) gm/dL Hct (34.0-46.0) % ABG pH (7.35-7.45) ABG pO2 (83-108) mmHg ABG HCO3 (21-25) mmol/L ABG Total CO2 (19-24) mmol/L ABG O2 Saturation (94-97) % Potassium 3.3 L (3.5-5.1) mmol/L BUN (7-17) mg/dL Glucose (74-99) mg/dL POC Glucose (mg/dL) 148 H 145 H (75-99) mg/dL Calcium (8.4-10.2) mg/dL 03/22/19 03/22/19 03/22/19 Range/Units 19:05 21:33 22:16 RBC (3.80-5.40) m/uL Hgb (11.4-16.0) gm/dL Hct (34.0-46.0) % ABG pH (7.35-7.45) ABG pO2 (83-108) mmHg ABG HCO3 (21-25) mmol/L ABG Total CO2 (19-24) mmol/L ABG O2 Saturation (94-97) % Potassium (3.5-5.1) mmol/L BUN (7-17) mg/dL Glucose (74-99) mg/dL POC Glucose (mg/dL) 143 H 151 H 146 H (75-99) mg/dL Calcium (8.4-10.2) mg/dL 03/22/19 03/23/19 03/23/19 Range/Units 23:00 00:06 01:14 RBC (3.80-5.40) m/uL Hgb (11.4-16.0) gm/dL Hct (34.0-46.0) % ABG pH (7.35-7.45) ABG pO2 (83-108) mmHg ABG HCO3 (21-25) mmol/L ABG Total CO2 (19-24) mmol/L ABG O2 Saturation (94-97) % Potassium (3.5-5.1) mmol/L BUN (7-17) mg/dL Glucose (74-99) mg/dL POC Glucose (mg/dL) 129 H 138 H 145 H (75-99) mg/dL Calcium (8.4-10.2) mg/dL 03/23/19 03/23/19 03/23/19 Range/Units 02:11 03:13 04:05 RBC 3.38 L (3.80-5.40) m/uL Hgb 10.7 L (11.4-16.0) gm/dL Hct 31.6 L (34.0-46.0) % ABG pH (7.35-7.45) ABG pO2 (83-108) mmHg ABG HCO3 (21-25) mmol/L ABG Total CO2 (19-24) mmol/L ABG O2 Saturation (94-97) % Potassium (3.5-5.1) mmol/L BUN (7-17) mg/dL Glucose (74-99) mg/dL POC Glucose (mg/dL) 164 H 139 H (75-99) mg/dL Calcium (8.4-10.2) mg/dL 03/23/19 03/23/19 03/23/19 Range/Units 04:05 04:13 05:00 RBC (3.80-5.40) m/uL Hgb (11.4-16.0) gm/dL Hct (34.0-46.0) % ABG pH (7.35-7.45) ABG pO2 (83-108) mmHg ABG HCO3 (21-25) mmol/L ABG Total CO2 (19-24) mmol/L ABG O2 Saturation (94-97) % Potassium 3.4 L (3.5-5.1) mmol/L BUN 19 H (7-17) mg/dL Glucose 120 H (74-99) mg/dL POC Glucose (mg/dL) 128 H 140 H (75-99) mg/dL Calcium 7.9 L (8.4-10.2) mg/dL 03/23/19 03/23/19 03/23/19 Range/Units 06:14 06:59 07:54 RBC (3.80-5.40) m/uL Hgb (11.4-16.0) gm/dL Hct (34.0-46.0) % ABG pH 7.56 H* (7.35-7.45) ABG pO2 112 H (83-108) mmHg ABG HCO3 32 H (21-25) mmol/L ABG Total CO2 33 H (19-24) mmol/L ABG O2 Saturation 98.6 H (94-97) % Potassium (3.5-5.1) mmol/L BUN (7-17) mg/dL Glucose (74-99) mg/dL POC Glucose (mg/dL) 147 H 153 H (75-99) mg/dL Calcium (8.4-10.2) mg/dL 03/23/19 03/23/19 03/23/19 Range/Units 08:22 09:16 10:24 RBC (3.80-5.40) m/uL Hgb (11.4-16.0) gm/dL Hct (34.0-46.0) % ABG pH (7.35-7.45) ABG pO2 (83-108) mmHg ABG HCO3 (21-25) mmol/L ABG Total CO2 (19-24) mmol/L ABG O2 Saturation (94-97) % Potassium (3.5-5.1) mmol/L BUN (7-17) mg/dL Glucose (74-99) mg/dL POC Glucose (mg/dL) 122 H 131 H 124 H (75-99) mg/dL Calcium (8.4-10.2) mg/dL 03/23/19 Range/Units 12:15 RBC (3.80-5.40) m/uL Hgb (11.4-16.0) gm/dL Hct (34.0-46.0) % ABG pH (7.35-7.45) ABG pO2 (83-108) mmHg ABG HCO3 (21-25) mmol/L ABG Total CO2 (19-24) mmol/L ABG O2 Saturation (94-97) % Potassium (3.5-5.1) mmol/L BUN (7-17) mg/dL Glucose (74-99) mg/dL POC Glucose (mg/dL) 163 H (75-99) mg/dL Calcium (8.4-10.2) mg/dL Microbiology - Last 24 Hours (Table) 03/21/19 00:25 Gram Stain - Final Sputum Sputum Culture - Final 03/20/19 23:55 Blood Culture - Preliminary Blood No Growth after 48 hours Assessment and Plan Assessment: Impression: 1 acute hypoxic respiratory failure secondary to septic shock secondary to pyelonephritis. Presently on cefepime. 2 acute polynephritis and urinary tract infection. Secondary to E. coli. 3 E. coli bacteremia, source is the urine. 4 severe LV dysfunction and cardiogenic pulmonary edema. Cardiology was consulted. 5 acute congestive heart failure, systolic in nature considering her abnormal echocardiogram. 6 acute kidney injury secondary to hypotension and acute tubular necrosis secondary to sepsis and septic shock. Improving based on the labs today. 7 history of benign essential hypertension 8 history of depression. 9 cough leak requiring reintubation and the changing of the endotracheal tube which was done today. Recommendation: After reviewing her chest x-ray, labs, ABG, and after observing the patient closely on pressure support and CPAP, I felt it would be time to go ahead and proceed with extubating the patient. Patient tolerated the weaning well with a pressure support and CPAP, and she was extubated to a nasal cannula. In the meantime I plan to continue all her meds including diuretics, antibiotics, bronchodilators, and we'll continue to monitor at least for the next 24 hours in the ICU. Critical care time is 32 minutes family was updated on her condition on family members at bedside giving the extubation process Time with Patient: Greater than 30
[2019-03-23] MEDS ORDERED: LISINOPRIL 2.5 MG TAB PO SCH (13:15)
--- NOTE | 2019-03-23 17:22 | PN ---
PROGRESS NOTE DATE OF SERVICE: 03/23/2019 REASON FOR FOLLOWUP: 1. E coli bacteremia secondary to urinary source. 2. Possible aspiration pneumonitis. INTERVAL HISTORY: The patient has been extubated. The patient is currently breathing comfortably. The patient did have some occasional cough but was unable to bring up any sputum. No chest pain. The patient's right-sided flank pain has improved. No nausea, no vomiting and no diarrhea. PHYSICAL EXAMINATION: Blood pressure 133/58 with a pulse of 70, temperature 98. She is 95% on 5 L nasal cannula. General description is a middle-aged female up in the chair in no distress. RESPIRATORY SYSTEM: Unlabored breathing with decreased breath sounds at the base. No wheeze. HEART: S1, S2. Regular rate and rhythm. ABDOMEN: Soft. No tenderness. LABS: Hemoglobin is 10.7, white count of 8.6, BUN of 19, creatinine 0.60. Sputum has been usual respiratory carl. DIAGNOSTIC IMPRESSION AND PLAN: Patient with acute respiratory failure with a component of possible aspiration pneumonitis. This patient did have a complicated UTI with evidence of hydronephrosis. The patient may benefit from a urology evaluation. Patient is currently covered with cefepime; hopefully finish therapy with oral antibiotic on discharge. Family at the bedside. Questions were answered. MMODL / IJN: [id number] /
[2019-03-23 17:38] LABS: Glucose,Whole Blood 96 mg/dL (75-99)
[2019-03-23 20:36] LABS: Glucose,Whole Blood 125 mg/dL (75-99)
[2019-03-24 05:59] LABS: African American GFR (CKD) >90 (>60 ml/min/1.73 sqM); Anion Gap 8 mmol/L; Blood Urea Nitrogen 17 mg/dL (7-17); Carbon Dioxide 28 mmol/L (22-30); Chloride 99 mmol/L (98-107); Glucose 99 mg/dL (74-99); Potassium 3.4 mmol/L (3.5-5.1); Sodium 135 mmol/L (137-145)
[2019-03-24] MEDS: HEPARIN SODIUM,PORCINE 5,000 UNIT/ML 1 ML VIAL SQ SCH ×3 (06:43→17:00)
[2019-03-24] MEDS: INSULIN ASPART (NovoLOG) 100 UNIT/ML VIAL SQ SCH ×4 (06:49→21:05)
[2019-03-24 06:59] LABS: Glucose,Whole Blood 113 mg/dL (75-99)
[2019-03-24] MEDS: POTASSIUM CHLORIDE ER 20 MEQ TAB.ER PO SCH ×2 (06:59→08:57)
--- NOTE | 2019-03-24 07:40 | XR ---
EXAMINATION TYPE: XR chest 1V portable DATE OF EXAM: 03/24/2019 COMPARISON: 03/23/2019 INDICATION: Tube placement TECHNIQUE: Single frontal view of the chest is obtained. FINDINGS: The heart size is mildly prominent. The pulmonary vasculature is normal. There are increasing bibasilar infiltrates present. A right central venous catheter is present. Dista l tip is within the right atrium. No pneumothorax is evident. IMPRESSION: 1. Increasing bibasilar infiltrates. Correlate for atelectasis and pneumonia. 2. Right central venous catheter tip right atrium.
[2019-03-24] MEDS: PANTOPRAZOLE 40 MG/10 ML VIAL IV SCH (08:56)
[2019-03-24] MEDS: LISINOPRIL 2.5 MG TAB PO SCH ×2 (08:56→21:06)
[2019-03-24] MEDS: SPIRONOLACTONE 25 MG TAB PO SCH (08:56)
[2019-03-24] MEDS: METOPROLOL TARTRATE 25 MG TAB PO SCH ×2 (08:57→21:06)
[2019-03-24] MEDS: VENLAFAXINE HCL 37.5 MG TAB PO SCH ×2 (08:57→21:30)
[2019-03-24] MEDS: CEFEPIME 2 GM in SODIUM CHLORIDE 0.9% 100 ML IVPB SCH ×2 (08:58→21:04)
[2019-03-24] MEDS ORDERED: FUROSEMIDE 10 MG/ML 4 ML VIAL IV SCH (09:00)
[2019-03-24] MEDS: NICOTINE 21MG/24HR PATCH TRANSDERM SCH (09:01)
[2019-03-24] MEDS ORDERED: ACETAMINOPHEN IV (For NPO) 1,000 MG in EMPTY BAG 1 BAG IVPB ONE (09:28)
--- NOTE | 2019-03-24 09:30 | P.PN ---
Subjective Progress Note Date: 03/24/19 Principal diagnosis: Fevers and right flank pain. Patient was extubated to nasal cannula, currently doing well. She is still on high flow nasal cannula. No shortness of breath or cough. No abdominal pain nausea or vomiting. Objective - Vital Signs Vital signs: Vital Signs Temp 98.5 F 03/24/19 04:00 Pulse 77 03/24/19 07:00 Resp 12 03/24/19 07:00 BP 104/57 03/24/19 07:00 Pulse Ox 95 03/24/19 07:10 Intake & Output 03/23/19 03/24/19 03/24/19 18:59 06:59 18:59 Intake Total 1136.722 253 Output Total 2310 920 Balance -1173.278 -667 Weight 114.3 kg Intake: IV 553 253 Cefepime 2 gm In Sodium 200 Chloride 0.9% 100 ml @ 200 mls/hr IVPB Q12HR [facility] Rx#:[id number] Magnesium Sulfate-D5w Pmx 100 1 gm In Dextrose/Water 1 100ml.bag @ 100 mls/hr IVPB Q1H [facility] Rx#: [id number] Sodium Chloride 0.9% 190 250 carrier pressure bags 63 3 Intake, IV Titration 129.722 Amount Insulin Regular 100 unit 3.872 In Sodium Chloride 0.9% 100 ml @ Per Protocol IV .Q0M [facility] Rx#:[id number] Norepinephrine 32 mg In 25.628 Sodium Chloride 0.9% 218 ml @ 0.05 MCG/KG/MIN 2.55 mls/hr IV .Q24H [facility] Rx#: [id number] Propofol 1,000 mg In 40.473 Empty Bag 1 bag @ Titrate IV .Q0M [facility] Rx#: [id number] fentaNYL (PF) 1,000 mcg 59.749 In Sodium Chloride 0.9% 80 ml @ 1 MCG/KG/HR 10.88 mls/hr IV .Q9H12M [facility] Rx #:[id number] Oral 250 Tube Feeding 114 Other 90 Output: Urine 2310 920 Other: Voiding Method Indwelling Catheter Indwelling Catheter # Bowel Movements 1 1 ABP, PAP, CO, CI - Last Documented Arterial Blood Pressure 126/47 - Exam Constitutional: Comfortable Eyes:Anicteric sclerae, moist conjunctiva, no lid-lag, PERRLA, ENMT: Oropharynx clear, no erythema, exudates Neck: Supple, FROM, no masses, or JVD, No carotid bruits, No thyromegaly Lungs: Clear to auscultation and percussion, Normal respiratory effort, no accessory muscle use Cardiovascular: Heart regular in rate and rhythm, No murmurs, gallops, or rubs, No peripheral edema Abdominal: Soft, no guarding, rebound or rigidity, Normoactive bowel sounds, No hepatomegaly, No splenomegaly, No palpable mass Skin: Normal temperature, tone, texture, turgor, no induration, No subcutaneous nodules, No rash, lesions, No ulcers Extremities: No digital cyanosis, No clubbing, Pedal pulses intact and symmetrical, Radial pulses intact and symmetrical, No calf tenderness Neuro: Alert and oriented 3, No focal deficits - Labs CBC & Chem 7: 03/23/19 04:05 03/24/19 04:31 Labs: Abnormal Lab Results - Last 24 Hours (Table) 03/23/19 03/23/19 03/23/19 Range/Units 09:16 10:24 12:15 Sodium (137-145) mmol/L Potassium (3.5-5.1) mmol/L POC Glucose (mg/dL) 131 H 124 H 163 H (75-99) mg/dL Calcium (8.4-10.2) mg/dL 03/23/19 03/24/19 03/24/19 Range/Units 20:25 04:31 06:48 Sodium 135 L (137-145) mmol/L Potassium 3.4 L (3.5-5.1) mmol/L POC Glucose (mg/dL) 125 H 113 H (75-99) mg/dL Calcium 8.0 L (8.4-10.2) mg/dL Microbiology - Last 24 Hours (Table) 03/20/19 23:55 Blood Culture - Preliminary Blood No Growth after 72 hours 03/21/19 00:25 Gram Stain - Final Sputum Sputum Culture - Final Assessment and Plan Plan: Severe sepsis secondary to pyelonephritis with E. coli bacteremia Resolved Continue cefepime Acute hypoxic respiratory failure Could be secondary to pulmonary edema versus sepsis/ARDS Resolved Nephrolithiasis with bilateral hydronephrosis Shown on ultrasound We'll investigate further his CT of the abdomen and pelvis Acute severe congestive heart failure Ejection fraction 20% Lasix as above Seen by cardiology No history of heart disease We'll need cardiac workup once recovered Started on Lasix, lisinopril, metoprolol and Aldactone Hyperglycemia: Sliding scale insulin DVT prophylaxis -Heparin Disposition: Likely home Anticipated discharge: 03/26
--- NOTE | 2019-03-24 10:46 | P.PN ---
Subjective Progress Note Date: 03/24/19 Principal diagnosis: Septic shock and acute hypoxic respiratory failure This is a 53-year-old female with known history of hypertension, depression, presented to the ER on 03/18/2019, and she basically presented with 1 week history of right flank pain, dysuria, along with suprapubic pain. Her pain was described as 6 out of 10, it was mostly in the right flank area and in the s uprapubic region. Described as cramping pain. Patient was also complaining of 1 day history of fever and chills. No previous history of urinary tract infection, upon presentation, her urinalysis was consistent with urinary tract infection. Chest x-ray was unremarkable. Patient was admitted placed on ceftriaxone, and on IV fluids. Last night, the rapid response team from the ICU responded to the patient having more shortness of breath, hypotension, and tachycardia. Patient developed worsening respiratory status and she was struggling to breathe. She was given fluid boluses for hypotension and for presumptive sepsis and septic shock, transferred to the ICU, and she was intubated immediately. Her ABG post intubation showed a pO2 of 51. PCO2 of 40 pH of 7.25. Patient was placed on mechanical ventilation, follow-up ABG showed a pO2 of 109 pCO2 of 54 pH of 7.12 early this morning. Hence the patient's respiratory rate was increased to 26, and she was also placed on sodium bicarb d rip for metabolic acidosis. Chest x-ray showed evidence of pulmonary edema, felt to be cardiogenic or noncardiogenic however her CVP earlier today was 26. This is more consistent with cardiogenic pulmonary edema. Echocardiogram showed poor LV function. Hence the patient was given diuretics, and a cardiology consultation was initiated. Most recent ABG on 100% FiO2 showed pO2 of 183 pCO2 of 39 pH of 7.24. Presently patient is on mechanical ventilation, FiO2 is down to 50%, she is on tidal volume of 500 assist control rate of 26 and PEEP of 8. She is on levo fed at 0.26 mcg/kg/m, she is also on Nimbex, propofol, fentanyl at 0.5 mcg/kg/h. Considering the difficulty ventilating the patient last night, Nimbex was used. She remains on Nimbex this morning, and after reviewing the chest x-ray and reviewing her echocardiogram, Lasix was given. Antibiotics gonzales, patient is on Rocephin, her blood cultures and urine cultures are all positive for E. coli, sensitive to all antibiotics infectious disease consultation is pending ultrasound of the kidneys showed possible bilateral nephrolithiasis, and suspect mild to moderate right-sided hydronephrosis. Patient was reevaluated today on 03/22/2019, remains on mechanical ventilation, in the intensive care unit. Her ventilator settings presently are tidal volume of 500, assist control rate of 26, FiO2 of 50%, and PEEP of 8. Patient remains on norepinephrine at 0.08 mcg/kg/m, Nimbex which I have just discontinued, fentanyl which I have also discontinued, and propofol at 50 mcg/kg/m. Patient had some cough leak earlier this morning and was not able to ventilate properly, hence I went ahead and changed her endotracheal tube to another endotracheal tube uneventfully. Then patient was placed back on the same ventilator settings. She is off sodium bicarb drip. She remains on Lasix at 40 mg IV push every 8 hours. She was noted to follow simple instructions, and she had an earlier assessment off Nimbex, and a lower dose of fentanyl and propofol. And her mental status was noted to be intact. Hence placed back on propofol, and I went ahead and kept her off Nimbex and kept her off fentanyl for now. Chest x- ray clearly shows evidence of pulmonary edema and she seems to be responding well to Lasix, may even consider a Lasix drip on this patient if she continues to have pulmonary edema. Her airway mechanics was noted, her peak airway pressure is in the 30 range, and plateau pressure is in the 24 range which speaks against noncardiogenic pulmonary edema, this is most likely cardiogenic pulmonary edema and not ARDS. Antibiotics gonzales she is on cefepime, and she was on Rocephin earlier. Reevaluated today on 03/23/2019, patient remains in the ICU, she is off pressors, not requiring any pressors. She is off propofol, remains on a small tiny dose of fentanyl, patient was awakened, and she seems to be completely appropriate. Chest x-ray continues to show some mild pulmonary edema, however her ABG was reviewed and seems to be adequate, as I stated at the bedside, and after examining the patient, I recommended a short trial of pressure support and CPAP. This was done, the portion was noted to have good tidal volumes, excellent nif, normal respiratory rate, then the patient was noted to be doing extremely well on pressure support and CPAP. Hence short trial of pressure support and CPAP were given at a pressure support of 8, and I proceeded to extubating the patient shortly after. All labs were reviewed including ABG, basic metabolic profile, renal profile, chest x-ray, and CBC. And then proceeded to x-ray the patient Reevaluated today on 03/24/2019, patient remains in the ICU, extubated yesterday uneventfully, however last night she had episodes of shortness of breath, and she had to be placed on nonrebreather mask, now she is back to nasal cannula at high flow. Chest x-ray continues to show evidence of interstitial edema, and bilateral airspace disease. This is felt to be systolic congestive heart failure unless proven otherwise. When the patient was on mechanical ventilation, her plateau pressures were actually normal. And clearly that speaks against ARDS. Patient remains on diuretics, I have increased the dose again to 40 mg IV push every 12 hours, and I have kept her on antibiotics, I have also added Solu-Medrol, and bronchodilators in the form of DuoNeb. On physical examination today she had some rhonchi and wheezes bilaterally. Hence she would benefit from steroids and from bronchodilators. Basic metabolic profile today is normal except for low potassium of 3.4, renal profile is normal. Objective - Vital Signs Vital signs: Vital Signs Temp 101.0 F H 03/24/19 08:00 Pulse 73 03/24/19 10:00 Resp 34 H 03/24/19 10:00 BP 113/63 03/24/19 10:00 Pulse Ox 98 03/24/19 10:00 Intake & Output 03/23/19 03/24/19 03/24/19 18:59 06:59 18:59 Intake Total 1136.722 253 240 Output Total 6640 920 585 Balance -1173.278 -667 -345 Weight 114.3 kg Intake: IV 553 253 240 ACETAMINOPHEN IV (For NPO 100 ) 1,000 mg In Empty Bag 1 bag @ 400 mls/hr IVPB ONCE ONE Rx#:[id number] Cefepime 2 gm In Sodium 200 100 Chloride 0.9% 100 ml @ 200 mls/hr IVPB Q12HR [facility] Rx#:[id number] Magnesium Sulfate-D5w Pmx 100 1 gm In Dextrose/Water 1 100ml.bag @ 100 mls/hr IVPB Q1H [facility] Rx#: [id number] Sodium Chloride 0.9% 190 250 40 carrier pressure bags 63 3 Intake, IV Titration 129.722 Amount Insulin Regular 100 unit 3.872 In Sodium Chloride 0.9% 100 ml @ Per Protocol IV .Q0M [facility] Rx#:[id number] Norepinephrine 32 mg In 25.628 Sodium Chloride 0.9% 218 ml @ 0.05 MCG/KG/MIN 2.55 mls/hr IV .Q24H [facility] Rx#: [id number] Propofol 1,000 mg In 40.473 Empty Bag 1 bag @ Titrate IV .Q0M [facility] Rx#: [id number] fentaNYL (PF) 1,000 mcg 59.749 In Sodium Chloride 0.9% 80 ml @ 1 MCG/KG/HR 10.88 mls/hr IV .Q9H12M [facility] Rx #:[id number] Oral 250 Tube Feeding 114 Other 90 Output: Urine 2310 920 585 Other: Voiding Method Indwelling Catheter Indwelling Catheter # Bowel Movements 1 1 ABP, PAP, CO, CI - Last Documented Arterial Blood Pressure 126/47 - Exam General: Revealed a 53-year-old female, on high flow nasal cannula, feeling better today compared to last night. Head: atraumatic, normocephalic, Eyes: PERRLA, EOMI, no icterus, ENT: Moist mucous membranes, short obese neck. Neck: No neck masses, no JVD was appreciated, short obese neck is noted. Trachea is in midline. Mouth: No oral lesions noted. Cardiovascular: Normal S1 and S2, no S3 gallop. No murmur. Lungs: Symmetrical chest expansion, crackles or rhonchi and wheezes noted bilaterally. Abdominal: Obese, soft, nontender, positive bowel sounds. Ext: No clubbing edema or cyanosis. Neuro: Alert and oriented 3, no gross focal neurologic deficits. Psych: Normal mood, normal affect and normal mental status examination. Derm: No rashes or erythema. No ulcers - Labs CBC & Chem 7: 03/23/19 04:05 03/24/19 04:31 Labs: Abnormal Lab Results - Last 24 Hours (Table) 03/23/19 03/23/19 03/24/19 Range/Units 12:15 20:25 04:31 Sodium 135 L (137-145) mmol/L Potassium 3.4 L (3.5-5.1) mmol/L POC Glucose (mg/dL) 163 H 125 H (75-99) mg/dL Calcium 8.0 L (8.4-10.2) mg/dL 03/24/19 Range/Units 06:48 Sodium (137-145) mmol/L Potassium (3.5-5.1) mmol/L POC Glucose (mg/dL) 113 H (75-99) mg/dL Calcium (8.4-10.2) mg/dL Microbiology - Last 24 Hours (Table) 03/20/19 23:55 Blood Culture - Preliminary Blood No Growth after 72 hours 03/21/19 00:25 Gram Stain - Final Sputum Sputum Culture - Final Assessment and Plan Assessment: Impression: 1 acute hypoxic respiratory failure secondary to septic shock secondary to pyelonephritis. 2 acute polynephritis and urinary tract infection. Secondary to E. coli. 3 E. coli bacteremia, source is the urine. Proper antibiotics are still on board. 4 severe LV dysfunction and cardiogenic pulmonary edema. Remains on Lasix at 40 mg IV push every 12 hours. 5 acute congestive heart failure, systolic in nature considering her abnormal echocardiogram. 6 acute kidney injury secondary to hypotension and acute tubular necrosis secondary to sepsis and septic shock. Improving based on the labs today. 7 history of benign essential hypertension 8 history of depression. 9cuff leak requiring reintubation and the changing of the endotracheal tube 10 acute hypoxic respiratory failure secondary to septic shock requiring intubation and mechanical ventilation, patient was successfully extubated on 03/23/2019. Recommendation: Continue to monitor the patient in the ICU. Continue antibiotics as given by infectious disease on the case. Continue diuretics Lasix 40 mg IV push every 12 hours. Continue GI and DVT prophylaxis. Continue bronchodilators/DuoNeb. Continue Solu-Medrol 60 mg every 6 hours. Advanced feeding as tolerated. Titrate FiO2 down to keep O2 saturation above 90%. Continue cardiac meds for her systolic congestive heart failure as ordered by cardiology. Discussed and updated the patient and her family members/daughter at bedside about her condition and the plan over the next couple of days. Time with Patient: Less than 30
[2019-03-24] MEDS: IPRATROPIUM-ALBUTEROL 3 ML NEB INHALATION SCH ×3 (10:52→19:56)
--- NOTE | 2019-03-24 11:33 | PN ---
PROGRESS NOTE Mrs. Milan is a 53-year-old female who presented with urosepsis and septic shock requiring mechanical ventilation. She was noted to have evidence of severe cardiomyopathy of unknown duration or etiology. She was extubated yesterday. She is awake, alert. Hemodynamically stable on no vasopressors. She has mild congestion. No chest pain. She denies any dizziness palpitation. She denies any nausea. She is in sinus mechanism without any evidence of tachyarrhythmia or bradyarrhythmia. She has good urine output. She continues to be on metoprolol 25 mg twice a day, lisinopril 2.5 mg daily, Lasix 40 mg IV daily. PHYSICAL EXAMINATION: Blood pressure 104/50 with the heart rate in the 70s. LUNGS: A few crackles at the bases. HEART: Regular rate and rhythm. S1, S2. No S3. No rub appreciated. ABDOMEN: Soft, nontender, obese. EXTREMITIES: No edema. LAB DATA: Lab data revealed BUN and creatinine 17 and 0.53, potassium 3.4. Chest x-ray revealed mild congestion. IMPRESSION: 1. Urosepsis with septic shock. 2. Respiratory failure, improved. 3. Cardiomyopathy of unclear etiology or duration. 4. History of hypertension. 5. History of chronic tobacco use. RECOMMENDATION: I will continue with the beta arianna. I will increase the dose of her RAKAN inhibitor and add Aldactone to her regimen. We will continue to increase her level activity, follow her renal function. Once she is stabilized, further cardiac workup will be needed. MMODL / IJN: [id number] /
[2019-03-24 12:08] LABS: Glucose,Whole Blood 127 mg/dL (75-99)
--- NOTE | 2019-03-24 12:14 | CT ---
EXAMINATION TYPE: CT abdomen pelvis w con DATE OF EXAM: 03/24/2019 COMPARISON: None HISTORY: Pain CONTRAST: CT scan of the abdomen and pelvis is performed with Oral Contrast and with IV Contrast, patient injec sarwat with 100 mL of Isovue 300. FINDINGS: LUNG BASES-: Moderate sized area of left lower lobe atelectasis with small right lower lobe atelectas is. Small bilateral effusions right greater than left. LIVER/GB: There is evidence of cholelithiasis. No space occupying hepatic lesion. Biliary tree is of normal caliber. PANCREAS: No inflammation. No distinct mass. SPLEEN: No splenic enlargement. No lesion seen. ADRENALS: No nodule. No thickening. KIDNEYS/BLADDER: Solid lobulated mass upper pole left kidney measures approximately 4.8 x 6.1 cm. The re is an additional less solid exophytic mass mid pole left kidney medially measuring 4.4 x 3 cm. The findings are suspicious for renal cell carcinoma. Exophytic cyst lower pole left kidney measures 5.1 cm. 7 mm right UPJ calculus resulting in mild right-sided hydronephrosis. Additional nonobstructing calculi seen bilaterally. BOWEL: Normal appendix. Normal bowel caliber. No inflammation. GENITAL ORGANS: Small amount of free fluid in the pelvis. Uterus and ovaries are unremarkable. LYMPH NODES: No greater than 1cm abdominal or pelvic lymph nodes are appreciated. AORTA: No significant abnormality. OSSEOUS STRUCTURES: No significant abnormality is seen. OTHER: No significant additional abnormality is seen. IMPRESSION: 1. 2 solid masses as discussed above involving the left kidney felt to reflect a renal cell carcinoma until proven otherwise. 2. 7 mm right UPJ calculus resulting in mild right-sided hydronephrosis. 3. Basilar pleural effusions and compressive atelectasis.
[2019-03-24] MEDS: methylPREDNISolone SOD SUCCI 125 MG/2 ML VIAL IV SCH ×2 (12:26→16:59)
[2019-03-24] MEDS: NOREPINEPHRINE 32 MG in SODIUM CHLORIDE 0.9% 218 ML IV SCH (13:01)
[2019-03-24] MEDS ORDERED: VANCOMYCIN IV PER PHARMACY 1 EACH MISC MISCELLANE PRN (16:28)
[2019-03-24 16:57] LABS: Glucose,Whole Blood 147 mg/dL (75-99)
[2019-03-24] MEDS: POTASSIUM CHLORIDE 10 MEQ in WATER FOR INJECTION 1 100ML.BAG IVPB SCH ×2 (17:00→21:03)
[2019-03-24] MEDS: VANCOMYCIN 1,750 MG in SODIUM CHLORIDE 0.9% 500 ML 500 ML IVPB SCH (17:31)
--- NOTE | 2019-03-24 17:32 | P.GSCN ---
History of Present Illness Consult date: 03/24/19 Reason for Consult: Right hydronephrosis, left renal masses Requesting physician: Lita Holliday History of present illness: The patient is a 53-year-old white female admitted 03/19/2019 with primary complaints of right flank pain, fever, and chills. She has been treated for sepsis. Both urine and blood cultures have shown E. coli. She is receiving IV antibiotics and was extubated yesterday. She denies any prior history of UTIs or urolithiasis. A renal ultrasound performed on March 21 showed evidence of right hydronephrosis. A computed tomography scan performed earlier today revealed mild right hydronephrosis due to a 7 mm right UPJ calculus. The computed tomography scan also showed 2 left solid renal masses suspicious for renal cell carcinoma. Review of Systems - Constitutional Reports chills, Reports fever - Genitourinary Genitourinary: Reports flank pain, Denies hematuria Past Medical History Past Medical History: Hypertension History of Any Multi-Drug Resistant Organisms: None Reported Past Surgical History: Section, Tonsillectomy Past Anesthesia/Blood Transfusion Reactions: No Reported Reaction Past Psychological History: No Psychological Hx Reported Smoking Status: Heavy tobacco smoker Past Alcohol Use History: None Reported Past Drug Use History: None Reported Medications and Allergies Home Medications Medication Instructions Recorded Confirmed Type Losartan/Hydrochlorothiazide 1 tab PO DAILY 03/18/19 03/18/19 History [Losartan-Hctz 100-25 mg Tab] Multivitamins, Thera [Multivitamin 1 tab PO DAILY 03/18/19 03/18/19 History (formulary)] Venlafaxine HCl ER [Effexor Xr] 37.5 mg PO DAILY 03/18/19 03/18/19 History amLODIPine [Norvasc] 5 mg PO DAILY 03/18/19 03/18/19 History Allergies Allergy/AdvReac Type Severity Reaction Status Date / Time Penicillins Allergy Rash/Hives Verified 03/18/19 20:14 Surgical - Exam Vital Signs Temp Pulse Resp BP Pulse Ox 101.8 F H 116 H 24 186/89 100 03/18/19 19:52 03/18/19 19:52 03/18/19 19:52 03/18/19 19:52 03/18/19 19:52 - General well developed, well nourished, no distress - Neck no masses, trachea midline - Abdomen Abdomen: soft, non tender, no guarding, no rigid, no rebound - Psychiatric oriented to time, oriented to person, oriented to place, speech is normal, memory intact Results - Labs 03/23/19 04:05 03/24/19 12:51 Abnormal Lab Results - Last 24 Hours (Table) 03/23/19 03/24/19 03/24/19 Range/Units 20:25 04:31 06:48 Sodium 135 L (137-145) mmol/L Potassium 3.4 L (3.5-5.1) mmol/L POC Glucose (mg/dL) 125 H 113 H (75-99) mg/dL Calcium 8.0 L (8.4-10.2) mg/dL 03/24/19 Range/Units 11:57 Sodium (137-145) mmol/L Potassium (3.5-5.1) mmol/L POC Glucose (mg/dL) 127 H (75-99) mg/dL Calcium (8.4-10.2) mg/dL Microbiology - Last 24 Hours (Table) 03/20/19 23:55 Blood Culture - Preliminary Blood No Growth after 72 hours Diabetes panel 03/24/19 03/24/19 Range/Units 04:31 12:51 Sodium 135 L (137-145) mmol/L Potassium 3.4 L 3.6 (3.5-5.1) mmol/L Chloride 99 (98-107) mmol/L Carbon Dioxide 28 (22-30) mmol/L BUN 17 (7-17) mg/dL Creatinine 0.53 (0.52-1.04) mg/dL Glucose 99 (74-99) mg/dL Calcium 8.0 L (8.4-10.2) mg/dL Calcium panel 03/24/19 Range/Units 04:31 Calcium 8.0 L (8.4-10.2) mg/dL Pituitary panel 03/24/19 03/24/19 Range/Units 04:31 12:51 Sodium 135 L (137-145) mmol/L Potassium 3.4 L 3.6 (3.5-5.1) mmol/L Chloride 99 (98-107) mmol/L Carbon Dioxide 28 (22-30) mmol/L BUN 17 (7-17) mg/dL Creatinine 0.53 (0.52-1.04) mg/dL Glucose 99 (74-99) mg/dL Calcium 8.0 L (8.4-10.2) mg/dL Adrenal panel 03/24/19 03/24/19 Range/Units 04:31 12:51 Sodium 135 L (137-145) mmol/L Potassium 3.4 L 3.6 (3.5-5.1) mmol/L Chloride 99 (98-107) mmol/L Carbon Dioxide 28 (22-30) mmol/L BUN 17 (7-17) mg/dL Creatinine 0.53 (0.52-1.04) mg/dL Glucose 99 (74-99) mg/dL Calcium 8.0 L (8.4-10.2) mg/dL - Imaging CT scan - abdomen: report reviewed, image reviewed US - kidney/bladder: report reviewed Assessment and Plan (1) Pyelonephritis Current Visit: Yes Status: Acute Code(s): N12 - TUBULO-INTERSTITIAL NEP HRITIS, NOT SPCF ACUTE OR CHRONIC SNOMED Code(s): 07689847 (2) Calculus of ureter Current Visit: Yes Status: Acute Code(s): N20.1 - CALCULUS OF URETER SNOMED Code(s): 96801552 (3) Hydronephrosis with renal and ureteral calculus obstruction Current Visit: Yes Status: Acute Code(s): N13.2 - HYDRONEPHROSIS WITH RENAL AND URETERAL CALCULOUS OBSTRUCTION SNOMED Code(s): 462389860 (4) Left renal mass Current Visit: Yes Status: Acute Code(s): N28.89 - OTHER SPECIFIED DISORDERS OF KIDNEY AND URETER SNOMED Code(s): 283584256 Plan: I had a lengthy discussion with the patient and her family. Both urine and blood cultures have shown E. coli. She had appears to have acute right pyelonephritis complicated by a 7 mm right UPJ calculus, causing right hydronephrosis. The computed tomography scan also shows 2 left renal masses suspicious for renal cell carcinoma. I have suggested she undergo cystoscopy with right ureteral stent insertion, as relief of the right hydronephrosis should improve her recovery from the pyelonephritis. Once the UTI has cleared, she will require elective removal of the right UPJ calculus. She will then likely be advised to undergo a left radical nephrectomy, as the larger of the 2 left renal masses (6.1 cm upper pole) does not appear amenable to a partial nephrectomy. Time with Patient: Greater than 30
[2019-03-24] MEDS ORDERED: fentaNYL (PF) 50 MCG/ML 2 ML AMP ONE (17:52)
[2019-03-24] MEDS ORDERED: KETAMINE 10 MG/ML 20 ML VIAL ONE (17:52)
[2019-03-24] MEDS ORDERED: MIDAZOLAM 2 MG/2 ML VIAL ONE (17:52)
[2019-03-24] MEDS ORDERED: ETOMIDATE 2 MG/ML 10 ML VIAL ONE (17:52)
[2019-03-24] MEDS ORDERED: LIDOCAINE URO-JET JELLY 2% 5 ML KIT URETHRAL ONE (18:24)
--- NOTE | 2019-03-24 18:42 | P.OP ---
Date of Procedure: 03/24/19 Preoperative Diagnosis: Right hydronephrosis secondary to UPJ calculus Postoperative Diagnosis: Same Procedure(s) Performed: Cystoscopy, right ureteral stent insertion Anesthesia: MAC Surgeon: Jose Ibarra Estimated Blood Loss (ml): 0 IV fluids (ml): 100 Pathology: none sent Condition: stable Disposition: PACU Indications for Procedure: The patient is a 53-year-old white female admitted 03/19/2019 with primary complaints of right flank pain, fever, and chills. She has been treated for sepsis. Both urine and blood cultures have shown E. coli. She is receiving IV antibiotics and was extubated yesterday. She denies any prior history of UTIs or urolithiasis. A renal ultrasound performed on March 21 showed evidence of right hydronephrosis. A CT scan performed earlier today revealed mild right hydronephrosis due to a 7 mm right UPJ calculus, and she now comes for stent placement. The computed tomography scan also showed 2 left solid renal masses suspicious for renal cell carcinoma. Operative Findings: No abnormalities noted. Description of Procedure: The patient was taken to the operating room and placed in the dorsolithotomy position, with legs supported in Guy stirrups. The external genitalia was prepped and draped sterilely. 2% lidocaine gel was administered intraurethrally. The 30 lens was used to introduce the 22-Slovak Stortz cystoscopic sheath through the urethra and into the bladder under direct vision. The bladder was examined in its entirety. Both ureteral orifices were of normal anatomic location and configuration, and clear urine effluxed from the left ureteral orifice. No urine was seen to reflux from the right ureteral orifice. No tumors or foreign bodies were seen. A 0.035 inch Glidewire was passed through the cystoscope. The right ureteral orifice was cannulated, and the Glidewire was slowly advanced up to the renal pelvis. A hydronephrotic bee was noted, as abundant clear urine effluxed from the right ureteral orifice alongside the Glidewire. A 28 cm, 6-Slovak double-J ureteral stent was placed over the wire. Proper stent positioning was verified fluoroscopically and endoscopically. The bladder was emptied and the cystoscope removed. The patient tolerated the procedure well was taken to the recovery room in stable condition.
--- NOTE | 2019-03-24 19:06 | PN ---
PROGRESS NOTE DATE OF SERVICE: 03/24/2019. REASON FOR FOLLOWUP: Complicated E coli UTI with bacteremia. INTERVAL HISTORY: The patient did spike a fever of 101 degrees Fahrenheit this morning. The patient afebrile since then. The patient is still complaining of some shortness of breath and she did have a cough, bringing up some sputum. Denies having any nausea, vomiting or abdominal pain. No diarrhea. PHYSICAL EXAMINATION: Blood pressure is 106/54 with a pulse of 75, temperature of 98, T-max is 101. She is 96% on high-flow oxygen. General description is a middle-aged female up in the bed in no distress. HEENT exam is slight pallor. No scleral icterus. Oral mucous membranes are dry. LUNGS unlabored breathing. Coarse breath sounds bilaterally in the bases. Heart S1, S2. Regular rate and rhythm. ABDOMEN: Soft, no tenderness. EXTREMITIES: No edema of the feet. LABS: BUN of 17, creatinine 0.53. DIAGNOSTIC IMPRESSION AND PLAN: Patient with E coli bacteremia secondary to urinary source in this patient who did have acute respiratory failure requiring intubation. Patient successfully extubated. X-ray this morning showing a worsening bibasilar infiltrate and the patient did have a new fever. We will repeat sputum and add vancomycin empirically. Blood culture has been repeated as well. Overall prognosis guarded. Family at the bedside. Questions were answered. MMODL / IJN: [id number] /
[2019-03-24 20:30] LABS: Glucose,Whole Blood 169 mg/dL (75-99)
[2019-03-24] MEDS: FUROSEMIDE 10 MG/ML 4 ML VIAL IV SCH (21:05)
[2019-03-24 23:28] LABS: Appearance,Urine Clear (Clear); Bacteria,Urine Rare /hpf; Bilirubin,Urine Negative (Negative); Blood,Urine Small (Negative); Color,Urine Light Yellow; Glucose,Urine (UA) Negative (Negative); Ketones,Urine Negative (Negative); Leukocyte Esterase,Urine Negative (Negative); Nitrite,Urine Negative (Negative); PH, Urine 6.5 (5.0-8.0); Protein,Urine Negative (Negative); RBC,Urine 12 /hpf (0-5); Specific Gravity,Urine 1.008 (1.001-1.035); Urobilinogen,Urine <2.0 mg/dL (<2.0)
[2019-03-25] MEDS: methylPREDNISolone SOD SUCCI 125 MG/2 ML VIAL IV SCH ×5 (00:15→23:46)
[2019-03-25] MEDS: VANCOMYCIN 1,750 MG in SODIUM CHLORIDE 0.9% 500 ML 500 ML IVPB SCH ×4 (00:15→23:46)
[2019-03-25] MEDS: HEPARIN SODIUM,PORCINE 5,000 UNIT/ML 1 ML VIAL SQ SCH ×4 (00:16→23:45)
[2019-03-25 06:24] LABS: HCT 31.2 % (34.0-46.0); HGB 10.4 gm/dL (11.4-16.0); MCH 31.9 pg (25.0-35.0); MCHC 33.4 g/dL (31.0-37.0); MCV 95.4 fL (80.0-100.0); Mean Platelet Volume 9.4; Platelet Count 251 k/uL (150-450); RBC 3.27 m/uL (3.80-5.40); RDW 14.3 % (11.5-15.5); WBC 12.8 k/uL (3.8-10.6)
[2019-03-25 06:55] LABS: African American GFR (CKD) >90 (>60 ml/min/1.73 sqM); Anion Gap 11 mmol/L; Blood Urea Nitrogen 22 mg/dL (7-17); Calcium 8.4 mg/dL (8.4-10.2); Carbon Dioxide 25 mmol/L (22-30); Chloride 102 mmol/L (98-107); Glucose 153 mg/dL (74-99); Potassium 4.1 mmol/L (3.5-5.1); Sodium 138 mmol/L (137-145)
[2019-03-25 07:52] LABS: Glucose,Whole Blood 139 mg/dL (75-99)
[2019-03-25] MEDS: INSULIN ASPART (NovoLOG) 100 UNIT/ML VIAL SQ SCH ×4 (07:59→20:57)
[2019-03-25] MEDS: IPRATROPIUM-ALBUTEROL 3 ML NEB INHALATION SCH ×4 (08:00→19:53)
--- NOTE | 2019-03-25 09:13 | P.PN ---
Subjective Progress Note Date: 03/25/19 Principal diagnosis: Fevers and right flank pain. Getting better, no fevers overnight. No shortness of breath, chest pain. No abdominal pain. Objective - Vital Signs Vital signs: Vital Signs Temp 98.4 F 03/25/19 04:00 Pulse 75 03/25/19 08:16 Resp 18 03/25/19 08:00 BP 108/62 03/25/19 08:00 Pulse Ox 95 03/25/19 09:03 Intake & Output 03/24/19 03/25/19 03/25/19 18:59 06:59 18:59 Intake Total 767 220 Output Total 1290 1850 Balance -523 -1630 Weight 114.3 kg 110.5 kg Intake: IV 767 220 ACETAMINOPHEN IV (For NPO 200 ) 1,000 mg In Empty Bag 1 bag @ 400 mls/hr IVPB ONCE ONE Rx#:[id number] Cefepime 2 gm In Sodium 100 Chloride 0.9% 100 ml @ 200 mls/hr IVPB Q12HR [facility] Rx#:[id number] Potassium Chloride 10 meq 100 In Water For Injection 1 100ml.bag @ 100 mls/hr IVPB Q1H [facility] Rx#: [id number] Sodium Chloride 0.9% 200 220 carrier Vancomycin 1,750 mg In 167 Sodium Chloride 0.9% 500 ml 500 ml @ 167 mls/hr IVPB Q8HR [facility] Rx#: [id number] Output: Urine 1290 1850 Estimated Blood Loss 0 Other: Voiding Method Indwelling Catheter Indwelling Catheter # Bowel Movements 1 1 ABP, PAP, CO, CI - Last Documented Arterial Blood Pressure 126/47 - Exam Constitutional: Comfortable Eyes:Anicteric sclerae, moist conjunctiva, no lid-lag, PERRLA, ENMT: Oropharynx clear, no erythema, exudates Neck: Supple, FROM, no masses, or JVD, No carotid bruits, No thyromegaly Lungs: Clear to auscultation and percussion, Normal respiratory effort, no accessory muscle use Cardiovascular: Heart regular in rate and rhythm, No murmurs, gallops, or rubs, No peripheral edema Abdominal: Soft, no guarding, rebound or rigidity, Normoactive bowel sounds, No hepatomegaly, No splenomegaly, No palpable mass Skin: Normal temperature, tone, texture, turgor, no induration, No subcutaneous nodules, No rash, lesions, No ulcers Extremities: No digital cyanosis, No clubbing, Pedal pulses intact and symmetrical, Radial pulses intact and symmetrical, No calf tenderness Neuro: Alert and oriented 3, No focal deficits - Labs CBC & Chem 7: 03/25/19 05:30 03/25/19 05:30 Labs: Abnormal Lab Results - Last 24 Hours (Table) 03/24/19 03/24/19 03/24/19 Range/Units 11:57 16:44 20:19 WBC (3.8-10.6) k/uL RBC (3.80-5.40) m/uL Hgb (11.4-16.0) gm/dL Hct (34.0-46.0) % BUN (7-17) mg/dL Creatinine (0.52-1.04) mg/dL Glucose (74-99) mg/dL POC Glucose (mg/dL) 127 H 147 H 169 H (75-99) mg/dL Urine Blood (Negative) Urine RBC (0-5) /hpf Urine Bacteria (None) /hpf 03/24/19 03/25/19 03/25/19 Range/Units 23:16 05:30 05:30 WBC 12.8 H (3.8-10.6) k/uL RBC 3.27 L (3.80-5.40) m/uL Hgb 10.4 L (11.4-16.0) gm/dL Hct 31.2 L (34.0-46.0) % BUN 22 H (7-17) mg/dL Creatinine 0.51 L (0.52-1.04) mg/dL Glucose 153 H (74-99) mg/dL POC Glucose (mg/dL) (75-99) mg/dL Urine Blood Small H (Negative) Urine RBC 12 H (0-5) /hpf Urine Bacteria Rare H (None) /hpf 03/25/19 Range/Units 07:40 WBC (3.8-10.6) k/uL RBC (3.80-5.40) m/uL Hgb (11.4-16.0) gm/dL Hct (34.0-46.0) % BUN (7-17) mg/dL Creatinine (0.52-1.04) mg/dL Glucose (74-99) mg/dL POC Glucose (mg/dL) 139 H (75-99) mg/dL Urine Blood (Negative) Urine RBC (0-5) /hpf Urine Bacteria (None) /hpf Microbiology - Last 24 Hours (Table) 03/20/19 23:55 Blood Culture - Preliminary Blood No Growth after 96 hours Assessment and Plan Plan: Severe sepsis secondary to pyelonephritis with E. coli bacteremia Resolved Continue cefepime Acute hypoxic respiratory failure Could be secondary to pulmonary edema versus sepsis/ARDS Currently off mechanical ventilation post surgery requiring high FiO2 Continue Lasix, nebs, and steroids Nephrolithiasis with bilateral hydronephrosis Shown on ultrasound CT of the abdomen and pelvis showed 7 mm stone in the right UPJ, urology consulted, patient underwent stent placement on 03/24 Computed tomography scan also showed 2 tumors in the left kidney, planning radical left nephrectomy outpatient Acute severe congestive heart failure Ejection fraction 20% Lasix as above Seen by cardiology No history of heart disease We'll need cardiac workup once recovered Started on Lasix, lisinopril, metoprolol and Aldactone Hyperglycemia: Sliding scale insulin DVT prophylaxis -Heparin Disposition: Likely home Anticipated discharge: 03/28
[2019-03-25] MEDS: CEFEPIME 2 GM in SODIUM CHLORIDE 0.9% 100 ML IVPB SCH ×2 (09:17→20:24)
[2019-03-25] MEDS: NICOTINE 21MG/24HR PATCH TRANSDERM SCH (09:25)
[2019-03-25] MEDS: FUROSEMIDE 10 MG/ML 4 ML VIAL IV SCH (09:26)
[2019-03-25] MEDS: PANTOPRAZOLE 40 MG TABLET PO SCH (09:26)
[2019-03-25] MEDS: METOPROLOL TARTRATE 25 MG TAB PO SCH ×2 (09:26→20:24)
[2019-03-25] MEDS: LISINOPRIL 2.5 MG TAB PO SCH ×2 (09:26→20:24)
[2019-03-25] MEDS: SPIRONOLACTONE 25 MG TAB PO SCH (09:26)
[2019-03-25] MEDS: VENLAFAXINE HCL 37.5 MG TAB PO SCH ×2 (09:27→20:24)
--- NOTE | 2019-03-25 09:40 | PN ---
PROGRESS NOTE Mrs. Milan is a 53-year-old female with a history of chronic tobacco use, who presented with urosepsis and septic shock, was found to have severe cardiomyopathy. She is feeling better today. Her energy is better. She denies any chest pain. She continues to be in sinus mechanism. Hemodynamically, she is stable. She denies any dizziness or palpitation. She denies any nausea. She continues to be on Lasix 40 mg IV q.12 hours, lisinopril 2.5 mg twice a day, metoprolol tartrate 25 mg twice a day and spironolactone 25 mg daily. PHYSICAL EXAMINATION: Blood pressure 108/60 with a heart rate in the 70s. Lungs a few crackles at bases. No wheezes. HEART: Regular rate and rhythm, S1, S2. No S3. No rub. ABDOMEN: Soft, obese and nontender. EXTREMITIES: No edema. LAB DATA: Potassium 4.1, BUN and creatinine 22 and 0.51, hemoglobin of 10.4. IMPRESSION: 1. Urosepsis with septic shock, hemodynamically better. 2. Severe cardiomyopathy of unclear etiology with no clear evidence of fluid overload at this time. 3. Prior history of smoking. 4. Prior history of hypertension. RECOMMENDATIONS: I will continue present therapy. If she is stable, I would expect we should be able to switch her to oral diuretic in the next 24 hours. Continue to increase her level of activity. Once she is stable, then she will require reevaluation of the etiology of her cardiomyopathy. The patient was noted to have mild right hydronephrosis and 2 left solid renal mass that are suspicious for renal cell carcinoma. It is possible that she require left radical nephrectomy down the road and she would require surgical intervention prior to that. She was seen by Dr. Ibarra yesterday and underwent a right ureteral stent insertion for the hydronephrosis. MMODL / IJN: [id number] /
--- NOTE | 2019-03-25 10:14 | FL ---
Fluoroscopy INDICATION: Right ureteral stent FINDINGS: Fluoroscopy time: 18 seconds. Images obtained: 1. IMPRESSIONS: 1. Documentation of fluoroscopy.
--- NOTE | 2019-03-25 10:35 | XR ---
EXAMINATION TYPE: XR chest 1V portable DATE OF EXAM: 03/25/2019 COMPARISON: 03/24/2019 INDICATION: Tube placement TECHNIQUE: Single frontal view of the chest is obtained. FINDINGS: The heart size is mildly prominent. The pulmonary vasculature is normal. Right basilar infiltrates are present. Silhouetting the left diaphragm is present. Small left pleural effusion is not excluded. IMPRESSION: 1. Basilar infiltrates. Small left pleural effusion may be present. 2. Right central venous catheter remains present with the tip in the right atrium. 3. Mild cardiomegaly
--- NOTE | 2019-03-25 11:55 | P.PN ---
Progress Note - Text Progress Note Date: 03/25/19 Ms. Milan is feeling much better today. She is much more alert. I had a lengthy discussion with her and her assistant foreman, Frederick, regarding her condition. I explained that the plan is to eradicate the infection, then to perform elective removal of her right UPJ calculus, likely via ureteroscopy with laser lithotripsy. I explained to her that she has two left renal masses suspicious for renal cell carcinoma. The larger of the tumors is located within the upper pole and extends into the kidney enough that a partial nephrectomy does not appear to be feasible. She will thus be advised to undergo a left radical nephrectomy after removing the right renal calculus.
[2019-03-25] MEDS: NOREPINEPHRINE 32 MG in SODIUM CHLORIDE 0.9% 218 ML IV SCH (12:02)
[2019-03-25 12:06] LABS: Glucose,Whole Blood 199 mg/dL (75-99)
--- NOTE | 2019-03-25 12:17 | P.PN ---
Subjective Progress Note Date: 03/25/19 Principal diagnosis: Septic shock and acute hypoxic respiratory failure This is a 53-year-old female with known history of hypertension, depression, presented to the ER on 03/18/2019, and she basically presented with 1 week history of right flank pain, dysuria, along with suprapubic pain. Her pain was described as 6 out of 10, it was mostly in the right flank area and in the s uprapubic region. Described as cramping pain. Patient was also complaining of 1 day history of fever and chills. No previous history of urinary tract infection, upon presentation, her urinalysis was consistent with urinary tract infection. Chest x-ray was unremarkable. Patient was admitted placed on ceftriaxone, and on IV fluids. Last night, the rapid response team from the ICU responded to the patient having more shortness of breath, hypotension, and tachycardia. Patient developed worsening respiratory status and she was struggling to breathe. She was given fluid boluses for hypotension and for presumptive sepsis and septic shock, transferred to the ICU, and she was intubated immediately. Her ABG post intubation showed a pO2 of 51. PCO2 of 40 pH of 7.25. Patient was placed on mechanical ventilation, follow-up ABG showed a pO2 of 109 pCO2 of 54 pH of 7.12 early this morning. Hence the patient's respiratory rate was increased to 26, and she was also placed on sodium bicarb d rip for metabolic acidosis. Chest x-ray showed evidence of pulmonary edema, felt to be cardiogenic or noncardiogenic however her CVP earlier today was 26. This is more consistent with cardiogenic pulmonary edema. Echocardiogram showed poor LV function. Hence the patient was given diuretics, and a cardiology consultation was initiated. Most recent ABG on 100% FiO2 showed pO2 of 183 pCO2 of 39 pH of 7.24. Presently patient is on mechanical ventilation, FiO2 is down to 50%, she is on tidal volume of 500 assist control rate of 26 and PEEP of 8. She is on levo fed at 0.26 mcg/kg/m, she is also on Nimbex, propofol, fentanyl at 0.5 mcg/kg/h. Considering the difficulty ventilating the patient last night, Nimbex was used. She remains on Nimbex this morning, and after reviewing the chest x-ray and reviewing her echocardiogram, Lasix was given. Antibiotics gonzales, patient is on Rocephin, her blood cultures and urine cultures are all positive for E. coli, sensitive to all antibiotics infectious disease consultation is pending ultrasound of the kidneys showed possible bilateral nephrolithiasis, and suspect mild to moderate right-sided hydronephrosis. Patient was reevaluated today on 03/22/2019, remains on mechanical ventilation, in the intensive care unit. Her ventilator settings presently are tidal volume of 500, assist control rate of 26, FiO2 of 50%, and PEEP of 8. Patient remains on norepinephrine at 0.08 mcg/kg/m, Nimbex which I have just discontinued, fentanyl which I have also discontinued, and propofol at 50 mcg/kg/m. Patient had some cough leak earlier this morning and was not able to ventilate properly, hence I went ahead and changed her endotracheal tube to another endotracheal tube uneventfully. Then patient was placed back on the same ventilator settings. She is off sodium bicarb drip. She remains on Lasix at 40 mg IV push every 8 hours. She was noted to follow simple instructions, and she had an earlier assessment off Nimbex, and a lower dose of fentanyl and propofol. And her mental status was noted to be intact. Hence placed back on propofol, and I went ahead and kept her off Nimbex and kept her off fentanyl for now. Chest x- ray clearly shows evidence of pulmonary edema and she seems to be responding well to Lasix, may even consider a Lasix drip on this patient if she continues to have pulmonary edema. Her airway mechanics was noted, her peak airway pressure is in the 30 range, and plateau pressure is in the 24 range which speaks against noncardiogenic pulmonary edema, this is most likely cardiogenic pulmonary edema and not ARDS. Antibiotics gonzales she is on cefepime, and she was on Rocephin earlier. Reevaluated today on 03/23/2019, patient remains in the ICU, she is off pressors, not requiring any pressors. She is off propofol, remains on a small tiny dose of fentanyl, patient was awakened, and she seems to be completely appropriate. Chest x-ray continues to show some mild pulmonary edema, however her ABG was reviewed and seems to be adequate, as I stated at the bedside, and after examining the patient, I recommended a short trial of pressure support and CPAP. This was done, the portion was noted to have good tidal volumes, excellent nif, normal respiratory rate, then the patient was noted to be doing extremely well on pressure support and CPAP. Hence short trial of pressure support and CPAP were given at a pressure support of 8, and I proceeded to extubating the patient shortly after. All labs were reviewed including ABG, basic metabolic profile, renal profile, chest x-ray, and CBC. And then proceeded to x-ray the patient Reevaluated today on 03/24/2019, patient remains in the ICU, extubated yesterday uneventfully, however last night she had episodes of shortness of breath, and she had to be placed on nonrebreather mask, now she is back to nasal cannula at high flow. Chest x-ray continues to show evidence of interstitial edema, and bilateral airspace disease. This is felt to be systolic congestive heart failure unless proven otherwise. When the patient was on mechanical ventilation, her plateau pressures were actually normal. And clearly that speaks against ARDS. Patient remains on diuretics, I have increased the dose again to 40 mg IV push every 12 hours, and I have kept her on antibiotics, I have also added Solu-Medrol, and bronchodilators in the form of DuoNeb. On physical examination today she had some rhonchi and wheezes bilaterally. Hence she would benefit from steroids and from bronchodilators. Basic metabolic profile today is normal except for low potassium of 3.4, renal profile is normal. Reevaluated today on 03/21/2019, patient remains extubated, tolerated the extuba tion well over the last 48 hours. Yesterday, she underwent ureteral stent placement by urology, and she will eventually require elective removal of her right UPJ calculus likely via ureteroscopy with laser lithotripsy. Patient was also made aware that she has renal masses on the left kidney strongly suspicious for renal cell carcinoma. She may eventually require nephrectomy of the left kidney and eventually will require right renal calculus removal. Repeat blood cultures from 03/20/2019, have been negative. Patient remains in the ICU, but she is presently off all pressors and she remains on antibiotics. Chest x-ray continues to show bibasilar atelectasis, and small left pleural effusion. CVP is about 7. WBC count today is 12.8 hemoglobin is 10.4 electrolytes and renal profile are normal. Objective - Vital Signs Vital signs: Vital Signs Temp 98.4 F 03/25/19 04:00 Pulse 66 03/25/19 12:04 Resp 18 03/25/19 08:00 BP 108/62 03/25/19 08:00 Pulse Ox 95 03/25/19 09:03 Intake & Output 03/24/19 03/25/19 03/25/19 18:59 06:59 18:59 Intake Total 767 220 160 Output Total 1290 1850 225 Balance -523 -1630 -65 Weight 114.3 kg 110.5 kg Intake: IV 767 220 160 ACETAMINOPHEN IV (For NPO 200 ) 1,000 mg In Empty Bag 1 bag @ 400 mls/hr IVPB ONCE ONE Rx#:[id number] Cefepime 2 gm In Sodium 100 100 Chloride 0.9% 100 ml @ 200 mls/hr IVPB Q12HR [facility] Rx#:[id number] Potassium Chloride 10 meq 100 In Water For Injection 1 100ml.bag @ 100 mls/hr IVPB Q1H [facility] Rx#: [id number] Sodium Chloride 0.9% 200 220 60 carrier Vancomycin 1,750 mg In 167 Sodium Chloride 0.9% 500 ml 500 ml @ 167 mls/hr IVPB Q8HR [facility] Rx#: [id number] Output: Urine 1290 1850 225 Estimated Blood Loss 0 Other: Voiding Method Indwelling Catheter Indwelling Catheter # Bowel Movements 1 1 ABP, PAP, CO, CI - Last Documented Arterial Blood Pressure 126/47 - Exam General: Revealed a 53-year-old female, on few liters nasal cannula. Asymptomatic. Head: atraumatic, normocephalic, Eyes: PERRLA, EOMI, no icterus, ENT: Moist mucous membranes, short obese neck. Neck: No neck masses, no JVD was appreciated, short obese neck noted. Trachea is in midline. Mouth: No oral lesions noted. Cardiovascular: Normal S1 and S2, no S3 gallop. No murmur. Lungs: Symmetrical chest expansion, minimal crackles persist at the bases, di minished breath sounds at the left base. Abdominal: Obese, soft, nontender, positive bowel sounds. Ext: No clubbing edema or cyanosis. Neuro: Alert and oriented 3, no gross focal neurologic deficits. Psych: Normal mood, normal affect and normal mental status examination. Derm: No rashes or erythema. No ulcers - Labs CBC & Chem 7: 03/25/19 05:30 03/25/19 05:30 Labs: Abnormal Lab Results - Last 24 Hours (Table) 03/24/19 03/24/19 03/24/19 Range/Units 11:57 16:44 20:19 WBC (3.8-10.6) k/uL RBC (3.80-5.40) m/uL Hgb (11.4-16.0) gm/dL Hct (34.0-46.0) % BUN (7-17) mg/dL Creatinine (0.52-1.04) mg/dL Glucose (74-99) mg/dL POC Glucose (mg/dL) 127 H 147 H 169 H (75-99) mg/dL Urine Blood (Negative) Urine RBC (0-5) /hpf Urine Bacteria (None) /hpf 03/24/19 03/25/19 03/25/19 Range/Units 23:16 05:30 05:30 WBC 12.8 H (3.8-10.6) k/uL RBC 3.27 L (3.80-5.40) m/uL Hgb 10.4 L (11.4-16.0) gm/dL Hct 31.2 L (34.0-46.0) % BUN 22 H (7-17) mg/dL Creatinine 0.51 L (0.52-1.04) mg/dL Glucose 153 H (74-99) mg/dL POC Glucose (mg/dL) (75-99) mg/dL Urine Blood Small H (Negative) Urine RBC 12 H (0-5) /hpf Urine Bacteria Rare H (None) /hpf 03/25/19 03/25/19 Range/Units 07:40 11:54 WBC (3.8-10.6) k/uL RBC (3.80-5.40) m/uL Hgb (11.4-16.0) gm/dL Hct (34.0-46.0) % BUN (7-17) mg/dL Creatinine (0.52-1.04) mg/dL Glucose (74-99) mg/dL POC Glucose (mg/dL) 139 H 199 H (75-99) mg/dL Urine Blood (Negative) Urine RBC (0-5) /hpf Urine Bacteria (None) /hpf Microbiology - Last 24 Hours (Table) 03/20/19 23:55 Blood Culture - Preliminary Blood No Growth after 96 hours Assessment and Plan Assessment: Impression: 1 acute hypoxic respiratory failure secondary to septic shock secondary to pyelonephritis. 2 acute polynephritis and urinary tract infection. Secondary to E. coli. 3 E. coli bacteremia, source is the urine. Proper antibiotics are still on board. 4 severe LV dysfunction and cardiogenic pulmonary edema. Remains on Lasix at 40 mg IV push every 12 hours. 5 acute congestive heart failure, systolic in nature considering her abnormal echocardiogram. 6 acute kidney injury secondary to hypotension and acute tubular necrosis secondary to sepsis and septic shock. Improving based on the labs today. 7 history of benign essential hypertension 8 history of depression. 9cuff leak requiring reintubation and the changing of the endotracheal tube 10 acute hypoxic respiratory failure secondary to septic shock requiring intubation and mechanical ventilation, patient was successfully extubated on 03/23/2019. 11 status post right ureteral stent placement for mild to moderate hydronephrosis. With this was initially seen on the ultrasound, patient was not stable enough to have stent placement. Since then the patient has made a significant improvement and she underwent stent placement on 03/24/2019. Her blood cultures have actually cleared since 03/20/2019. Patient has been all along on appropriate antibiotics for her E. coli urosepsis and bacteremia. [address] of the left kidney, strongly suspicious for renal cell carcinoma, patient will eventually require nephrectomy. Recommendation: Continue to monitor the patient in the ICU. For the next 24 hours. Continue antibiotics as given by infectious disease on the case. Switch Lasix to oral and cut down on the dose. Continue GI and DVT prophylaxis. Continue bronchodilators/DuoNeb. Continue decrease Solu-Medrol to 40 mg IV push every 8 hours. Advance feeding as tolerated. Titrate FiO2 down to keep O2 saturation above 90%. Continue cardiac meds for her systolic congestive heart failure as ordered by cardiology. Discussed her condition with her and her daughter today, and discussed her condition with the urologist. We'll continue to follow. Time with Patient: Less than 30
[2019-03-25 17:06] LABS: Glucose,Whole Blood 232 mg/dL (75-99)
[2019-03-25] MEDS: FUROSEMIDE 40 MG TAB PO SCH (17:11)
[2019-03-25 20:35] LABS: Glucose,Whole Blood 253 mg/dL (75-99)
[2019-03-25] MEDS: INSULIN DETEMIR (LEVEMIR) 100 UNIT/ML SYR SQ SCH (20:57)
[2019-03-26 05:41] LABS: Basophils % (A) 0 %; Eosinophils # (A) 0.1 k/uL (0-0.7); Eosinophils % (A) 1 %; HCT 31.9 % (34.0-46.0); HGB 10.4 gm/dL (11.4-16.0); Lymphocytes # (A) 1.6 k/uL (1.0-4.8); Lymphocytes % (A) 12 %; MCH 31.3 pg (25.0-35.0); MCHC 32.7 g/dL (31.0-37.0); MCV 95.9 fL (80.0-100.0); Mean Platelet Volume 8.8; Monocytes # (A) 0.7 k/uL (0-1.0); Monocytes % (A) 5 %; Neutrophils # (A) 10.9 k/uL (1.3-7.7); Neutrophils % (A) 81 %; Platelet Count 319 k/uL (150-450); RBC 3.32 m/uL (3.80-5.40); RDW 13.9 % (11.5-15.5); WBC 13.5 k/uL (3.8-10.6)
[2019-03-26 05:48] LABS: African American GFR (CKD) >90 (>60 ml/min/1.73 sqM); Anion Gap 7 mmol/L; Blood Urea Nitrogen 31 mg/dL (7-17); Calcium 8.9 mg/dL (8.4-10.2); Carbon Dioxide 26 mmol/L (22-30); Chloride 105 mmol/L (98-107); Glucose 163 mg/dL (74-99); Potassium 4.4 mmol/L (3.5-5.1); Sodium 138 mmol/L (137-145)
[2019-03-26] MEDS ORDERED: VANCOMYCIN TROUGH DUE 1 EACH MISC MISCELLANE ONE (07:00)
[2019-03-26] MEDS: INSULIN ASPART (NovoLOG) 100 UNIT/ML VIAL SQ SCH ×4 (07:04→20:28)
[2019-03-26 07:10] LABS: Glucose,Whole Blood 165 mg/dL (75-99)
--- NOTE | 2019-03-26 07:15 | XR ---
EXAMINATION TYPE: XR chest 1V portable DATE OF EXAM: 03/26/2019 CLINICAL HISTORY: Difficulty breathing progress study. TECHNIQUE: Single AP portable upright view of the chest is obtained. COMPARISON: Chest x-ray from one day earlier and older studies. FINDINGS: Stable right internal jugular central venous catheter. Persistent bibasilar opacities with some improvement in the left lung base. Cardiac silhouette size is stable and mildly enlarged. Upper lungs remain clear without pneumothorax. IMPRESSION: Mild cardiomegaly with right greater than left bibasilar acute infiltrate and/or atelecta sis. Some improvement left lung base noted from prior.
[2019-03-26] MEDS: VANCOMYCIN 1,750 MG in SODIUM CHLORIDE 0.9% 500 ML 500 ML IVPB SCH (07:43)
[2019-03-26] MEDS: NICOTINE 21MG/24HR PATCH TRANSDERM SCH (07:48)
[2019-03-26] MEDS: IPRATROPIUM-ALBUTEROL 3 ML NEB INHALATION SCH ×4 (07:48→19:21)
[2019-03-26] MEDS: methylPREDNISolone SOD SUCCI 125 MG/2 ML VIAL IV SCH (07:50)
[2019-03-26] MEDS: HEPARIN SODIUM,PORCINE 5,000 UNIT/ML 1 ML VIAL SQ SCH ×3 (07:50→23:20)
[2019-03-26] MEDS: LISINOPRIL 2.5 MG TAB PO SCH (07:51)
[2019-03-26] MEDS: PANTOPRAZOLE 40 MG TABLET PO SCH (07:51)
[2019-03-26] MEDS: FUROSEMIDE 40 MG TAB PO SCH (07:51)
[2019-03-26] MEDS: SPIRONOLACTONE 25 MG TAB PO SCH (07:51)
[2019-03-26] MEDS: VENLAFAXINE HCL 37.5 MG TAB PO SCH ×2 (07:52→20:38)
[2019-03-26] MEDS: CEFEPIME 2 GM in SODIUM CHLORIDE 0.9% 100 ML IVPB SCH ×2 (07:57→20:27)
[2019-03-26] MEDS: METOPROLOL TARTRATE 25 MG TAB PO SCH ×3 (07:57→20:27)
[2019-03-26] MEDS ORDERED: LISINOPRIL 2.5 MG TAB PO ONE (09:00)
--- NOTE | 2019-03-26 09:12 | PN ---
PROGRESS NOTE Mrs. Milan is a 53-year-old female who presented with septic shock and urosepsis with pyelonephritis requiring mechanical ventilation. She is extubated, sitting up in the chair, feeling well. Hemodynamically, she is stable. She denies any chest pain. No dizziness. No palpitation. She denies any nausea. She was found to have a mass in her kidney and may represent a malignancy. Her echocardiogram revealed evidence of cardiomyopathy of unclear etiology or duration. She continues to be on Lasix 40 mg daily orally, insulin, lisinopril 2.5 mg twice a day, metoprolol tartrate 25 mg twice a day and spironolactone 25 mg daily. PHYSICAL EXAMINATION: Blood pressure 132/70 with a heart rate in the 70s. LUNGS: Clear. Heart regular rate and rhythm S1, S2. No S3. No rub appreciated. ABDOMEN: Soft, obese, nontender. EXTREMITIES: No edema. LAB DATA: Lab data revealed BUN and creatinine 31 and 0.53, potassium 4.4, hemoglobin 10.4, white blood cells 13.5. IMPRESSION: 1. Urosepsis with pyelonephritis improving. 2. Renal mass, probable malignancy may require surgical intervention with evidence of right kidney calculus. 3. Cardiomyopathy of unclear etiology. 4. Prior history of smoking. RECOMMENDATION: From the cardiac standpoint, we will continue on the present dose of oral diuretic. I will increase the dose of her RAKAN inhibitor. The patient would require coronary angiography to assess her cardiac status specially with possible upcoming surgery but would like to wait another day or 2 until her infectious process stabilizes. Depending on her progress, further recommendations will be made. I have discussed those finding with the patient and she is in full understanding and agreement. MMODL / IJN: [id number] /
--- NOTE | 2019-03-26 10:04 | P.PN ---
Subjective Progress Note Date: 03/26/19 Principal diagnosis: Septic shock and acute hypoxic respiratory failure This is a 53-year-old female with known history of hypertension, depression, presented to the ER on 03/18/2019, and she basically presented with 1 week history of right flank pain, dysuria, along with suprapubic pain. Her pain was described as 6 out of 10, it was mostly in the right flank area and in the s uprapubic region. Described as cramping pain. Patient was also complaining of 1 day history of fever and chills. No previous history of urinary tract infection, upon presentation, her urinalysis was consistent with urinary tract infection. Chest x-ray was unremarkable. Patient was admitted placed on ceftriaxone, and on IV fluids. Last night, the rapid response team from the ICU responded to the patient having more shortness of breath, hypotension, and tachycardia. Patient developed worsening respiratory status and she was struggling to breathe. She was given fluid boluses for hypotension and for presumptive sepsis and septic shock, transferred to the ICU, and she was intubated immediately. Her ABG post intubation showed a pO2 of 51. PCO2 of 40 pH of 7.25. Patient was placed on mechanical ventilation, follow-up ABG showed a pO2 of 109 pCO2 of 54 pH of 7.12 early this morning. Hence the patient's respiratory rate was increased to 26, and she was also placed on sodium bicarb d rip for metabolic acidosis. Chest x-ray showed evidence of pulmonary edema, felt to be cardiogenic or noncardiogenic however her CVP earlier today was 26. This is more consistent with cardiogenic pulmonary edema. Echocardiogram showed poor LV function. Hence the patient was given diuretics, and a cardiology consultation was initiated. Most recent ABG on 100% FiO2 showed pO2 of 183 pCO2 of 39 pH of 7.24. Presently patient is on mechanical ventilation, FiO2 is down to 50%, she is on tidal volume of 500 assist control rate of 26 and PEEP of 8. She is on levo fed at 0.26 mcg/kg/m, she is also on Nimbex, propofol, fentanyl at 0.5 mcg/kg/h. Considering the difficulty ventilating the patient last night, Nimbex was used. She remains on Nimbex this morning, and after reviewing the chest x-ray and reviewing her echocardiogram, Lasix was given. Antibiotics gonzales, patient is on Rocephin, her blood cultures and urine cultures are all positive for E. coli, sensitive to all antibiotics infectious disease consultation is pending ultrasound of the kidneys showed possible bilateral nephrolithiasis, and suspect mild to moderate right-sided hydronephrosis. Patient was reevaluated today on 03/22/2019, remains on mechanical ventilation, in the intensive care unit. Her ventilator settings presently are tidal volume of 500, assist control rate of 26, FiO2 of 50%, and PEEP of 8. Patient remains on norepinephrine at 0.08 mcg/kg/m, Nimbex which I have just discontinued, fentanyl which I have also discontinued, and propofol at 50 mcg/kg/m. Patient had some cough leak earlier this morning and was not able to ventilate properly, hence I went ahead and changed her endotracheal tube to another endotracheal tube uneventfully. Then patient was placed back on the same ventilator settings. She is off sodium bicarb drip. She remains on Lasix at 40 mg IV push every 8 hours. She was noted to follow simple instructions, and she had an earlier assessment off Nimbex, and a lower dose of fentanyl and propofol. And her mental status was noted to be intact. Hence placed back on propofol, and I went ahead and kept her off Nimbex and kept her off fentanyl for now. Chest x- ray clearly shows evidence of pulmonary edema and she seems to be responding well to Lasix, may even consider a Lasix drip on this patient if she continues to have pulmonary edema. Her airway mechanics was noted, her peak airway pressure is in the 30 range, and plateau pressure is in the 24 range which speaks against noncardiogenic pulmonary edema, this is most likely cardiogenic pulmonary edema and not ARDS. Antibiotics gonzales she is on cefepime, and she was on Rocephin earlier. Reevaluated today on 03/23/2019, patient remains in the ICU, she is off pressors, not requiring any pressors. She is off propofol, remains on a small tiny dose of fentanyl, patient was awakened, and she seems to be completely appropriate. Chest x-ray continues to show some mild pulmonary edema, however her ABG was reviewed and seems to be adequate, as I stated at the bedside, and after examining the patient, I recommended a short trial of pressure support and CPAP. This was done, the portion was noted to have good tidal volumes, excellent nif, normal respiratory rate, then the patient was noted to be doing extremely well on pressure support and CPAP. Hence short trial of pressure support and CPAP were given at a pressure support of 8, and I proceeded to extubating the patient shortly after. All labs were reviewed including ABG, basic metabolic profile, renal profile, chest x-ray, and CBC. And then proceeded to x-ray the patient Reevaluated today on 03/24/2019, patient remains in the ICU, extubated yesterday uneventfully, however last night she had episodes of shortness of breath, and she had to be placed on nonrebreather mask, now she is back to nasal cannula at high flow. Chest x-ray continues to show evidence of interstitial edema, and bilateral airspace disease. This is felt to be systolic congestive heart failure unless proven otherwise. When the patient was on mechanical ventilation, her plateau pressures were actually normal. And clearly that speaks against ARDS. Patient remains on diuretics, I have increased the dose again to 40 mg IV push every 12 hours, and I have kept her on antibiotics, I have also added Solu-Medrol, and bronchodilators in the form of DuoNeb. On physical examination today she had some rhonchi and wheezes bilaterally. Hence she would benefit from steroids and from bronchodilators. Basic metabolic profile today is normal except for low potassium of 3.4, renal profile is normal. Reevaluated today on 03/25/2019, patient remains extubated, tolerated the extuba tion well over the last 48 hours. Yesterday, she underwent ureteral stent placement by urology, and she will eventually require elective removal of her right UPJ calculus likely via ureteroscopy with laser lithotripsy. Patient was also made aware that she has renal masses on the left kidney strongly suspicious for renal cell carcinoma. She may eventually require nephrectomy of the left kidney and eventually will require right renal calculus removal. Repeat blood cultures from 03/20/2019, have been negative. Patient remains in the ICU, but she is presently off all pressors and she remains on antibiotics. Chest x-ray continues to show bibasilar atelectasis, and small left pleural effusion. CVP is about 7. WBC count today is 12.8 hemoglobin is 10.4 electrolytes and renal profile are normal. Reevaluated today on 03/26/2019, patient remains in the ICU, she is doing extremely well. She is not requiring any pressors. Remains on antibiotics, but I went ahead and discontinued her empiric vancomycin. Patient denies any shortness of breath no cough no wheezing, no nausea no vomiting no abdominal pain. She is going to be transferred today out of the ICU and cardiology is planning cardiac catheterization on the patient next Wednesday. This would be done by Dr. Horowitz to evaluate for possible ischemic cardiomyopathy and LV dysfunction. She will eventually require lithotripsy and she will eventually require left nephrectomy but that is to be done later on outpatient basis. But before discharging the patient home, it would be worth while evaluating her for possible underlying coronary artery disease. And decision may have to be made whether the patient will require AICD placement. Labs today were reviewed, all noted to be relatively unremarkable. And clinically the patient is doing fairly well. Hence I plan to transfer the patient out of the ICU to a monitor bed on . Objective - Vital Signs Vital signs: Vital Signs Temp 98.8 F 03/26/19 04:00 Pulse 68 03/26/19 08:02 Resp 16 03/26/19 06:00 BP 132/75 03/26/19 06:00 Pulse Ox 94 L 03/26/19 06:00 Intake & Output 03/25/19 03/26/19 03/26/19 18:59 06:59 18:59 Intake Total 1272 720 10 Output Total 800 1245 0 Balance 472 -525 10 Weight 112.8 kg Intake: IV 1272 720 10 Cefepime 2 gm In Sodium 100 100 Chloride 0.9% 100 ml @ 200 mls/hr IVPB Q12HR [facility] Rx#:[id number] Sodium Chloride 0.9% 170 120 10 carrier Vancomycin 1,750 mg In 1002 500 Sodium Chloride 0.9% 500 ml 500 ml @ 167 mls/hr IVPB Q8HR [facility] Rx#: [id number] Output: Urine 800 1245 0 Other: Voiding Method Indwelling Catheter Indwelling Catheter # Bowel Movements 2 ABP, PAP, CO, CI - Last Documented Arterial Blood Pressure 126/47 - Exam General: Revealed a 53-year-old female, on room air. Head: atraumatic, normocephalic, Eyes: PERRLA, EOMI, no icterus, ENT: Moist mucous membranes, short obese neck. Right IJ central line is in place. Neck: No neck masses, no JVD was appreciated, short obese neck noted. Trachea is in midline. Mouth: No oral lesions noted. Cardiovascular: Normal S1 and S2, no S3 gallop. No murmur. Lungs: Symmetrical chest expansion, diminished at the bases no crackles or rhonchi or wheezes. Abdominal: Obese, soft, nontender, positive bowel sounds. Ext: No clubbing edema or cyanosis. Neuro: Alert and oriented 3, no gross focal neurologic deficits. Psych: Normal mood, normal affect and normal mental status examination. Derm: No rashes or erythema. No ulcers - Labs CBC & Chem 7: 03/26/19 05:10 03/26/19 05:10 Labs: Abnormal Lab Results - Last 24 Hours (Table) 03/25/19 03/25/19 03/25/19 Range/Units 11:54 16:54 20:22 WBC (3.8-10.6) k/uL RBC (3.80-5.40) m/uL Hgb (11.4-16.0) gm/dL Hct (34.0-46.0) % Neutrophils # (1.3-7.7) k/uL BUN (7-17) mg/dL Glucose (74-99) mg/dL POC Glucose (mg/dL) 199 H 232 H 253 H (75-99) mg/dL 03/26/19 03/26/19 03/26/19 Range/Units 05:10 05:10 06:58 WBC 13.5 H (3.8-10.6) k/uL RBC 3.32 L (3.80-5.40) m/uL Hgb 10.4 L (11.4-16.0) gm/dL Hct 31.9 L (34.0-46.0) % Neutrophils # 10.9 H (1.3-7.7) k/uL BUN 31 H (7-17) mg/dL Glucose 163 H (74-99) mg/dL POC Glucose (mg/dL) 165 H (75-99) mg/dL Microbiology - Last 24 Hours (Table) 03/20/19 23:55 Blood Culture - Preliminary Blood No Growth after 120 hours 03/25/19 02:30 Gram Stain - Preliminary Sputum 03/24/19 13:40 Blood Culture - Preliminary Blood No Growth after 24 hours Assessment and Plan Assessment: Impression: 1 acute hypoxic respiratory failure secondary to septic shock secondary to pyelonephritis. 2 acute polynephritis and urinary tract infection. Secondary to E. coli. 3 E. coli bacteremia, source is the urine. Proper antibiotics are still on board. 4 severe LV dysfunction and cardiogenic pulmonary edema. Remains on Lasix at 40 mg IV push every 12 hours. 5 acute congestive heart failure, systolic in nature considering her abnormal echocardiogram. 6 acute kidney injury secondary to hypotension and acute tubular necrosis secondary to sepsis and septic shock. Improving based on the labs today. 7 history of benign essential hypertension 8 history of depression. 9cuff leak requiring reintubation and the changing of the endotracheal tube 10 acute hypoxic respiratory failure secondary to septic shock requiring intubation and mechanical ventilation, patient was successfully extubated on 03/23/2019. 11 status post right ureteral stent placement for mild to moderate hydronephro sis. With this was initially seen on the ultrasound, patient was not stable enough to have stent placement. Since then the patient has made a significant improvement and she underwent stent placement on 03/24/2019. Her blood cultures have actually cleared since 03/20/2019. Patient has been all along on appropriate antibiotics for her E. coli urosepsis and bacteremia. [address] of the left kidney, strongly suspicious for renal cell carcinoma, patient will eventually require nephrectomy. Recommendation: Transfer patient out of the ICU to a monitor bed on selective Continue antibiotics, however will discontinue vancomycin since it was given empirically, and the cultures have were all positive for E. coli. Continue oral Lasix. Continue GI and DVT prophylaxis. Continue bronchodilators/DuoNeb. Discontinue Solu-Medrol and start the patient on oral prednisone Continue to advance diet. Discontinue oxygen at this point. Continue cardiac meds for her systolic congestive heart failure as ordered by cardiology. Discussed her condition with cardiology and with urology, patient will likely undergo cardiac catheterization next Wednesday by Dr. Horowitz. We'll continue to follow. Time with Patient: Less than 30
[2019-03-26] MEDS ORDERED: methylPREDNISolone 4 MG TAB TAPER PO SCH (10:30)
[2019-03-26 12:34] LABS: Glucose,Whole Blood 188 mg/dL (75-99)
[2019-03-26] MEDS: methylPREDNISolone 4 MG TAB TAPER PO SCH (12:58)
--- NOTE | 2019-03-26 12:59 | P.PN ---
Subjective Progress Note Date: 03/26/19 The patient is seen and examined follow-up with daughter at bedside doing well today, currently on IV antibiotics with cefepime and vancomycin discontinued earlier. Denies any significant shortness of breath, wheezing or lower extremity swelling. Cardiology planning for left heart catheterization on Wed. No acute events overnight Objective - Vital Signs Vital signs: Vital Signs Temp 98.3 F 03/26/19 08:00 Pulse 65 03/26/19 11:33 Resp 18 03/26/19 10:00 BP 125/67 03/26/19 10:00 Pulse Ox 91 L 03/26/19 10:00 Intake & Output 03/25/19 03/26/19 03/26/19 18:59 06:59 18:59 Intake Total 1272 720 931 Output Total 800 1245 250 Balance 472 -525 681 Weight 112.8 kg Intake: IV 1272 720 631 Cefepime 2 gm In Sodium 100 100 100 Chloride 0.9% 100 ml @ 200 mls/hr IVPB Q12HR [facility] Rx#:[id number] Sodium Chloride 0.9% 170 120 30 carrier Vancomycin 1,750 mg In 1002 500 501 Sodium Chloride 0.9% 500 ml 500 ml @ 167 mls/hr IVPB Q8HR [facility] Rx#: [id number] Oral 300 Output: Urine 800 1245 250 Other: Voiding Method Indwelling Catheter Indwelling Catheter # Bowel Movements 2 ABP, PAP, CO, CI - Last Documented Arterial Blood Pressure 126/47 - Exam Constitutional: No acute distress, conversant, pleasant Eyes: Anicteric sclerae, moist conjunctiva, no lid-lag, PERRLA ENMT: NC/AT,Oropharynx clear, no erythema, exudates Neck:Supple, FROM, no masses, or JVD, No carotid bruits; No thyromegaly Lungs: Clear to auscultation, Clear to percussion, Normal respiratory effort, no accessory muscle use Cardiovascular: Heart regular in rate and rhythm, No murmurs, gallops, or rubs no peripheral edema Abdominal: Soft Nontender, nom distended, no guarding, no rebound or rigidity, Normoactive bowel sounds No hepatomegaly, No splenomegaly, No palpable mass No abdominal wall hernia noted Skin: Normal temperature, tone, texture, turgor, No induration No subcutaneous nodules, No rash, lesions, No ulcers Extremities:No digital cyanosis No clubbing, Pedal pulses intact and symmetrical Radial pulses intact and symmetrical Normal gait and station, No calf tenderness Psychiatric: Alert and oriented to person, place and time, Appropriate affect Intact judgement Neuro: Muscles Strength 5/5 in all 4 extremities, Sensation to light touch grossly present throughout, Cranial nerves II-XII grossly intact. No focal sensory deficits - Labs CBC & Chem 7: 03/26/19 05:10 03/26/19 05:10 Labs: Abnormal Lab Results - Last 24 Hours (Table) 03/25/19 03/25/19 03/26/19 Range/Units 16:54 20:22 05:10 WBC (3.8-10.6) k/uL RBC (3.80-5.40) m/uL Hgb (11.4-16.0) gm/dL Hct (34.0-46.0) % Neutrophils # (1.3-7.7) k/uL BUN 31 H (7-17) mg/dL Glucose 163 H (74-99) mg/dL POC Glucose (mg/dL) 232 H 253 H (75-99) mg/dL 03/26/19 03/26/19 03/26/19 Range/Units 05:10 06:58 12:22 WBC 13.5 H (3.8-10.6) k/uL RBC 3.32 L (3.80-5.40) m/uL Hgb 10.4 L (11.4-16.0) gm/dL Hct 31.9 L (34.0-46.0) % Neutrophils # 10.9 H (1.3-7.7) k/uL BUN (7-17) mg/dL Glucose (74-99) mg/dL POC Glucose (mg/dL) 165 H 188 H (75-99) mg/dL Microbiology - Last 24 Hours (Table) 03/20/19 23:55 Blood Culture - Preliminary Blood No Growth after 120 hours 03/25/19 02:30 Gram Stain - Preliminary Sputum 03/24/19 13:40 Blood Culture - Preliminary Blood No Growth after 24 hours Assessment and Plan Plan: Septic shock secondary to pyelonephritis with E. coli bacteremia * Patient afebrile leukocytosis 13.5 (likely due to steroids) * Resolved repeat blood cultures were negative * Continue cefepime Acute hypoxic respiratory failure * Multifactorial due to acute systolic CHF with pulmonary edema superimposed on severe sepsis * Currently off mechanical ventilation doing well on room air * Continue Lasix, nebs, and steroids Nephrolithiasis with bilateral hydronephrosis Shown on ultrasound CT of the abdomen and pelvis showed 7 mm stone in the right UPJ, urology consulted, patient underwent stent placement on 03/24 Computed tomography scan also showed 2 tumors in the left kidney, planning radical left nephrectomy outpatient Acute systolic congestive heart failure exacerbation Ejection fraction 20% Lasix as above Seen by cardiology No history of heart disease We'll need cardiac workup once recovered Continued on Lasix, lisinopril, metoprolol and Aldactone Hyperglycemia: * Likely steroid-induced * Sliding scale insulin Renal mass * Computed tomography scan also showed 2 tumors in the left kidney, planning radical left nephrectomy outpatient DVT prophylaxis -Heparin Disposition: Patient improving can be transitioned from ICU to the medical floor Anticipated discharge: 03/28
[2019-03-26] MEDS ORDERED: ALPRAZolam 1 MG TAB PO PRN (15:00)
[2019-03-26 17:02] LABS: Glucose,Whole Blood 176 mg/dL (75-99)
[2019-03-26] MEDS: LISINOPRIL 5 MG TAB PO SCH (20:27)
[2019-03-26] MEDS: INSULIN DETEMIR (LEVEMIR) 100 UNIT/ML SYR SQ SCH (20:28)
[2019-03-26 20:32] LABS: Glucose,Whole Blood 225 mg/dL (75-99)
[2019-03-27] MEDS ORDERED: diphenhydrAMINE 50 MG CAP PO PRN (00:01)
[2019-03-27] MEDS ORDERED: diphenhydrAMINE 25 MG CAP PO PRN (00:05)
--- NOTE | 2019-03-27 01:21 | PN ---
PROGRESS NOTE REASON FOR FOLLOWUP: 1. E coli bacteremia secondary to MRSA. 2. Question of pneumonia. INTERVAL HISTORY: The patient is currently afebrile. The patient has been breathing comfortably. The patient is status post placement 03/24 by Urology. Currently denies having any nausea, no vomiting. No abdominal pain or any diarrhea. PHYSICAL EXAMINATION: Blood pressure is 143/85 with a pulse of 56, temperature 98.4. She is 94% on room air. General description is a middle aged female lying in bed in no distress. Respiratory system: Unlabored breathing with decreased breath sounds in the bases. Heart S1, S2. Regular rate and rhythm. Abdomen soft, no tenderness. EXTREMITIES: No edema of the feet. LABS: Hemoglobin is 10.4, white count 13.4, BUN of 31, creatinine 0.53. Repeat blood and sputum have been negative. DIAGNOSTIC IMPRESSION AND PLAN: 1. Patient with a complicated urinary tract infection with secondary bacteremia, status post right ureteral stent placement. Patient currently covered with cefepime, hopefully finish therapy with oral antibiotics once his condition stabilizes. 2. The patient with new fever with concern for possible pneumonitis. Vancomycin was added, which has been discontinued by pulmonary. Sputum culture currently pending. Blood culture so far negative. We will monitor clinical course closely. Family at the bedside, questions and concerns answered. MMODL / IJN: [id number] /
[2019-03-27 04:45] LABS: Basophils % (A) 0 %; Eosinophils % (A) 0 %; HCT 31.8 % (34.0-46.0); HGB 10.4 gm/dL (11.4-16.0); Lymphocytes # (A) 3.7 k/uL (1.0-4.8); Lymphocytes % (A) 28 %; MCH 31.6 pg (25.0-35.0); MCHC 32.7 g/dL (31.0-37.0); MCV 96.5 fL (80.0-100.0); Mean Platelet Volume 8.3; Monocytes # (A) 0.8 k/uL (0-1.0); Monocytes % (A) 6 %; Neutrophils # (A) 8.3 k/uL (1.3-7.7); Neutrophils % (A) 63 %; Platelet Count 322 k/uL (150-450); RBC 3.29 m/uL (3.80-5.40); RDW 13.9 % (11.5-15.5); WBC 13.1 k/uL (3.8-10.6)
[2019-03-27 04:58] LABS: African American GFR (CKD) >90 (>60 ml/min/1.73 sqM); Anion Gap 7 mmol/L; Blood Urea Nitrogen 31 mg/dL (7-17); Calcium 8.7 mg/dL (8.4-10.2); Carbon Dioxide 24 mmol/L (22-30); Chloride 108 mmol/L (98-107); Glucose 102 mg/dL (74-99); Potassium 4.1 mmol/L (3.5-5.1); Sodium 139 mmol/L (137-145)
[2019-03-27] MEDS: INSULIN ASPART (NovoLOG) 100 UNIT/ML VIAL SQ SCH ×4 (06:50→21:18)
[2019-03-27] MEDS: IPRATROPIUM-ALBUTEROL 3 ML NEB INHALATION SCH ×5 (06:56→20:24)
[2019-03-27 06:58] LABS: Glucose,Whole Blood 111 mg/dL (75-99)
[2019-03-27] MEDS ORDERED: ALPRAZolam 0.25 MG TAB PO PRN (08:13)
[2019-03-27] MEDS ORDERED: ALPRAZolam 0.5 MG TAB PO PRN (08:13)
[2019-03-27] MEDS ORDERED: ASPIRIN 325 MG TAB PO STA (08:13)
[2019-03-27] MEDS ORDERED: NITROGLYCERIN SL TABS 0.4 MG TAB SUBLINGUAL PRN (08:13)
[2019-03-27] MEDS ORDERED: SODIUM CHLORIDE 0.9% 1,000 ML in EMPTY BAG 1 BAG IV ONE (08:13)
[2019-03-27] MEDS ORDERED: ATORVASTATIN 80 MG TAB PO STA (08:13)
--- NOTE | 2019-03-27 08:58 | PN ---
PROGRESS NOTE Mrs. Milan is a 53-year-old female who presented with urosepsis and pyelonephritis, was found to have evidence of severe cardiomyopathy. She was intubated subsequently extubated. She is doing well this morning, feeling well. She has been ambulating in the unit without difficulty. She denies any chest pain. No dizziness. No palpitation. She denies any nausea. She continues to be at this time on furosemide 40 mg daily, insulin, lisinopril 5 mg twice a day, metoprolol tartrate 25 mg 3 times a day, spironolactone 25 mg daily. PHYSICAL EXAMINATION: Blood pressure 133/70 with the heart rate in 70s. LUNGS: Clear. HEART: Regular rate and rhythm. S1, S2. No S3. No rub. ABDOMEN: Soft, obese, nontender. EXTREMITIES: No edema. LAB DATA: Lab data revealed BUN and creatinine 31 and 0.58, potassium 4.1, sodium of 139, hemoglobin of 10.4. IMPRESSION: 1. Urosepsis with septic shock and respiratory failure improved. 2. Cardiomyopathy of unclear etiology or duration. 3. Evidence of kidney mass requiring surgery. 4. Prior history of smoking. RECOMMENDATION: From the cardiac standpoint, we will increase the dose of her beta arianna. I will proceed with cardiac catheterization tomorrow to further evaluate her coronary anatomy and guide her treatment. Depending on her progress, further recommendation will be made. MMODL / IJN: [id number] /
--- NOTE | 2019-03-27 10:13 | PN ---
PROGRESS NOTE PULMONARY/CRITICAL CARE PROGRESS NOTE: DATE OF SERVICE: March 27, 2019 This is a 53-year-old female who was admitted back on March 19 with sepsis secondary to urinary tract infection and pyelonephritis. She had a ureteral stent placed on the right side on Wednesday last. She has a history of acute hypoxemic respiratory failure secondary to septic shock from her pyelonephritis and E coli urinary tract infection/sepsis/bacteremia. Currently also, she has a history of LV dysfunction and cardiogenic pulmonary edema and is scheduled for a catheterization over the next day or two. The patient remains on IV Lasix therapy. 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 Currently, the patient is doing reasonably well. She is anxious to move on with the catheterization. She is currently not receiving any supplemental oxygen. She is not receiving any IVs other than a saline IV at 20 mL an hour. She remains on cefepime for her infection. She was discovered to have E coli both in the urine and in the blood. In addition, the cardiac issue is yet to be resolved. She is apparently scheduled for a catheterization over the next 1 or 2 days. The patient apparently has had problems with ventricular tachycardia and also low ejection fraction. Currently, she is resting comfortably without major complaints. PHYSICAL EXAMINATION: VITAL SIGNS: Current vital signs are reviewed. Her temperature is 97.8, heart rate 74, respiratory rate 18, blood pressure 133/75, mean 94, saturations are 96% on room air. GENERAL: Appears in no acute distress. HEENT: Examination is grossly unremarkable. No supplemental oxygen noted. NECK: Supple. Full range of motion. No adenopathy, thyromegaly or neck vein distention. CARDIOVASCULAR: Examination reveals distant heart sounds. S1, S2 normal. Heart rate in mid 70s. No distinct murmur. LUNGS: Reveal mostly clear breath sounds. A few scattered mild rhonchi. Some mild crackles at the bases. No wheezes. Breath sounds equal. ABDOMEN: Soft. Bowel sounds are heard. EXTREMITIES: Are intact. Minimal edema. SKIN: Without rash. NEUROLOGIC: Examination is brief but nonfocal. No recent x-ray to report. Microbiology showing urine cultures positive for E coli as well as blood cultures also positive for Escherichia coli. LABORATORY DATA: Laboratory data is reviewed. White count 13.1, hemoglobin 10.4, hematocrit 31.8, platelet count 322,000. Sodium 139, potassium 4.1, chloride 108, CO2 of 24. Anion gap 7. BUN and creatinine were 31 and 0.58. The rest of the labs look okay. MEDICATIONS: Medications are reviewed. As mentioned, she remains on cefepime for her infection. ASSESSMENT: 1. Hypoxemic respiratory failure requiring intubation and mechanical ventilation with successful extubation on March 23 secondary to septic shock and sepsis from a kidney/bladder source secondary to Escherichia coli, which was found both in the urine and in the blood. 2. Acute pyelonephritis. 3. Status post right ureteral stent. 4. Severe left ventricular dysfunction and cardiogenic pulmonary edema. 5. Ventricular tachycardia. 6. Severely impaired left ventricular function. 7. Acute tubular necrosis. 8. Benign essential hypertension. 9. History of depression. 10.Abnormal CT scan of the left kidney suggesting hypernephroma, with anticipated left nephrectomy down the road. 11.Rule out coronary artery disease. PLAN: The patient is relatively stable at this time. She is awaiting heart catheterization which will apparently take place either today, tomorrow or the following day. The patient is an overflow patient could be stepped down to [place]. Currently, from the respiratory standpoint, she is stable. Not requiring any supplemental oxygen. The patient otherwise is doing reasonably well. She remains on cefepime for her Escherichia coli urinary tract infection/bacteremia. Blood pressure is currently stable. We will continue to follow. Prognosis is guarded. MMODL / IJN: [id number] /
[2019-03-27] MEDS: VENLAFAXINE HCL 37.5 MG TAB PO SCH ×2 (10:21→20:38)
[2019-03-27] MEDS: NICOTINE 21MG/24HR PATCH TRANSDERM SCH (10:22)
[2019-03-27] MEDS: SPIRONOLACTONE 25 MG TAB PO SCH (10:23)
[2019-03-27] MEDS: FUROSEMIDE 40 MG TAB PO SCH (10:23)
[2019-03-27] MEDS: HEPARIN SODIUM,PORCINE 5,000 UNIT/ML 1 ML VIAL SQ SCH ×2 (10:23→17:16)
[2019-03-27] MEDS: methylPREDNISolone 4 MG TAB TAPER PO SCH (10:23)
[2019-03-27] MEDS: PANTOPRAZOLE 40 MG TABLET PO SCH (10:24)
[2019-03-27] MEDS: LISINOPRIL 5 MG TAB PO SCH ×2 (10:24→20:38)
[2019-03-27] MEDS: METOPROLOL TARTRATE 50 MG TAB PO SCH ×2 (10:24→20:38)
[2019-03-27] MEDS: CEFEPIME 2 GM in SODIUM CHLORIDE 0.9% 100 ML IVPB SCH ×2 (11:29→20:37)
[2019-03-27 11:56] LABS: Glucose,Whole Blood 158 mg/dL (75-99)
[2019-03-27 17:13] LABS: Glucose,Whole Blood 189 mg/dL (75-99)
[2019-03-27 20:43] LABS: Glucose,Whole Blood 137 mg/dL (75-99)
[2019-03-27] MEDS: INSULIN DETEMIR (LEVEMIR) 100 UNIT/ML SYR SQ SCH (21:19)
--- NOTE | 2019-03-27 22:25 | PN ---
PROGRESS NOTE DATE OF SERVICE: 03/27/2019 REASON FOR FOLLOWUP: E coli complicated UTI with secondary bacteremia. INTERVAL HISTORY: The patient is currently afebrile. The patient has been breathing comfortably. Denies having any chest pain. Occasional cough. No nausea, no vomiting, no abdominal pain or diarrhea. PHYSICAL EXAMINATION: Blood pressure 125/83 with a pulse of 63, temperature 97.8. She is 95% on room air. General description is a middle-aged female up in the bed in no distress. RESPIRATORY SYSTEM: Unlabored breathing with decreased breath sounds at the base. No wheeze. HEART: S1, S2. Regular rate and rhythm. ABDOMEN: Soft. No tenderness. LABS: Hemoglobin is 10.4, white count 13.1. BUN of 31, creatinine 0.58. Blood and sputum cultures have been negative. DIAGNOSTIC IMPRESSION AND PLAN: Patient with an Escherichia coli urinary tract infection with secondary bacteremia complicated urinary tract infection in this patient who is status post ureteral stent placement on the right side. Currently on cefepime. As no resistant gram-negative has been grown, antibiotic will be switched over to Rocephin with a plan to finish therapy with oral antibiotics. Continue with supportive care. MMODL / IJN: [id number] /
--- NOTE | 2019-03-27 23:21 | P.PN ---
Progress Note - Text Progress Note Date: 03/27/19 Presenting complaint: Tired Interval history: Patient admitted with UTI with bacteremia with E. coli. Patient also had acute hypoxic respiratory failure secondary to septic shock. Also went into cardiogenic pulmonary edema found to have a low EF. Also had acute kidney injury from acute tubular necrosis. Patient was extubated on March 23. Also had a right ureteral stent placed for hydronephrosis. This was done on March 24. Also found to have abnormal CT of the left kidney suspicious of renal cell carcinoma. Today-patient remains in the ICU. Did tolerate her diet. Making urine. Telemetry shows sinus rhythm. Awaiting cardiac catheterization. No chest pain. Breathing stable. Review of systems: Was done for constitutional, cardiovascular, GI, pulmonary. relevant finding as above Active Medications Acetaminophen (Tylenol Tab) 650 mg PO Q6H PRN PRN Reason: Fever Last Admin: 03/20/19 18:20 Dose: 650 mg Documented by: Albuterol/Ipratropium (Duoneb 0.5 Mg-3 Mg/3 Ml Soln) 3 ml INHALATION RT-QID [facility] Last Admin: 03/27/19 20:24 Dose: 3 ml Documented by: Alprazolam (Xanax) 0.25 mg PO Q6HR PRN PRN Reason: Mild Anxiety Alprazolam (Xanax) 0.5 mg PO Q6HR PRN PRN Reason: Moderate Anxiety Diphenhydramine HCl (Benadryl) 50 mg PO BID PRN PRN Reason: Itching Last Admin: 03/27/19 00:10 Dose: 50 mg Documented by: Furosemide (Lasix) 40 mg PO DAILY [facility] Last Admin: 03/27/19 10:23 Dose: 40 mg Documented by: Heparin Sodium (Porcine) (Heparin) 5,000 unit SQ Q8HR [facility] Last Admin: 03/27/19 17:16 Dose: 5,000 unit Documented by: Cefepime HCl 2 gm/ Sodium (Chloride) 100 mls @ 200 mls/hr IVPB Q12HR [facility] Last Admin: 03/27/19 20:37 Dose: 200 mls/hr Documented by: Insulin Aspart (Novolog) 0 unit SQ ACHS [facility]; Protocol Last Admin: 03/27/19 21:18 Dose: Not Given Documented by: Insulin Detemir (Levemir) 5 unit SQ HS [facility] Last Admin: 03/27/19 21:19 Dose: 5 unit Documented by: Lisinopril (Zestril) 5 mg PO BID [facility] Last Admin: 03/27/19 20:38 Dose: 5 mg Documented by: Methylprednisolone (Medrol Dose Pack) 20 mg PO DAILY [facility]; Taper Stop: 04/01/19 08:59 Last Admin: 03/27/19 10:23 Dose: 20 mg Documented by: Metoprolol Tartrate (Lopressor) 50 mg PO BID [facility] Last Admin: 03/27/19 20:38 Dose: 50 mg Documented by: Miscellaneous Information (Potassium Per Protocol) 1 each MISCELLANE DAILY PRN; Protocol PRN Reason: Per Protocol Nicotine (Habitrol 21mg/24hr Patch) 1 patch TRANSDERM DAILY [facility] Last Admin: 03/27/19 10:22 Dose: 1 patch Documented by: Nitroglycerin (Nitrostat) 0.4 mg SUBLINGUAL Q5M PRN PRN Reason: Chest Pain Pantoprazole Sodium (Protonix) 40 mg PO DAILY [facility] Last Admin: 03/27/19 10:24 Dose: 40 mg Documented by: Spironolactone (Aldactone) 25 mg PO DAILY [facility] Last Admin: 03/27/19 10:23 Dose: 25 mg Documented by: Venlafaxine HCl (Effexor) 18.75 mg PO BID [facility] Last Admin: 03/27/19 20:38 Dose: 18.75 mg Documented by: On examination: VITAL SIGNS: 98.1, 56, 21, 1 33 x 67, 95% room air GENERAL APPEARANCE: Sitting upon bed, comfortable watching television HEENT: Normal external appearance of nose and ear. Oral cavity normal EYES: Pupils equal. Conjunctiva normal. NECK: JVD not raised. Mass not palpable. RESPIRATORY: Respiratory effort normal. Lungs clear to auscultation. CARDIOVASCULAR: First and second sounds normal. No edema. ABDOMEN: Soft. Liver and spleen not palpable. No tenderness. No mass palpable. PSYCHIATRY: Alert and oriented x3. Mood and affect normal. Investigations: White count 13.1, hemoglobin 10.4, potassium 4.1, creatinine 0.58 Urine and blood culture from March 18 growing E. coli with negative blood cultures from the Previous test: Computed tomography scan abdomen and pelvis with contrast-solid lobulated mass left upper pole kidney measuring 4.86.1 cm additional less solid exophytic mass midpole left kidney measuring 4.4 x 3 cm exophytic cyst lower pole kidney 5.1 cm times. 7 mm right UPJ calculus resulting in mild right-sided hydronephrosis. Nonobstructing calculi seen bilaterally Assessment: -Acute severe UTI with sepsis secondary to pyelonephritis, probable obstructive right ureteral stone, with bacteremia with cultures positive for E. coli -Right ureteral stent -Septic shock improved -Obesity BMI 34.7 -solid lobulated mass left upper pole kidney measuring 4.86.1 cm additional less solid exophytic mass midpole left kidney measuring 4.4 x 3 cm exophytic cyst lower pole kidney 5.1 cm times. 7 mm right UPJ calculus resulting in mild right-sided hydronephrosis -Bilateral nephrolithiasis -Acute, Severe cardiomyopathy with congestive heart failure exacerbation EF less than 20%, present time cause unknown -Acute hypoxic respiratory failure from septic shock, status post ventilator support -Acute kidney injury from ATN from sepsis, resolved -Essential hypertension -Chronic nicotine dependence patient cigarette smoker Plan: Care was discussed with the patient and daughter the bedside. Continue current medication treatment plan. Patient is awaiting a cardiac catheterization tomorrow. Patient is on IV cefepime. Prognosis guarded
[2019-03-28] MEDS: HEPARIN SODIUM,PORCINE 5,000 UNIT/ML 1 ML VIAL SQ SCH ×4 (00:03→23:57)
[2019-03-28 06:17] LABS: African American GFR (CKD) >90 (>60 ml/min/1.73 sqM); Anion Gap 9 mmol/L; Blood Urea Nitrogen 24 mg/dL (7-17); Calcium 8.6 mg/dL (8.4-10.2); Carbon Dioxide 22 mmol/L (22-30); Chloride 108 mmol/L (98-107); Glucose 96 mg/dL (74-99); Potassium 4.2 mmol/L (3.5-5.1); Sodium 139 mmol/L (137-145)
[2019-03-28 07:10] LABS: Glucose,Whole Blood 114 mg/dL (75-99)
[2019-03-28] MEDS: IPRATROPIUM-ALBUTEROL 3 ML NEB INHALATION SCH ×4 (07:14→20:02)
--- NOTE | 2019-03-28 07:57 | PN ---
PROGRESS NOTE DATE OF SERVICE: March 28, 2019 A 53-year-old female with a history of hypoxemic respiratory failure secondary to septic shock and sepsis from E coli urinary tract infection/pyelonephritis. The patient was successfully extubated from mechanical ventilation on March 23. Today, she is going to the catheterization laboratory for a cath. She is currently not receiving any supplemental oxygen. Her IV is 0.9 at 100 mL an hour. In addition, she has a history of acute pyelonephritis, status post right ureteral stent, severe left ventricular dysfunction with cardiogenic pulmonary edema, ventricular tachycardia, ATN, benign essential hypertension, depression, possible hypernephroma of the left kidney and possible underlying CAD. Currently, the patient is resting comfortably. No particular issues last night. Again, not receiving any supplemental oxygen. The patient's IV is saline at 100 mL an hour. She was discovered to have E coli both in the urine and in the blood. She is receiving appropriate antibiotics for that. PHYSICAL EXAMINATION: VITAL SIGNS: Current vital signs are reviewed. Temperature is 98.3, heart rate 64, respiratory rate 14, blood pressure 146/76, mean 99, and room air saturations 95%. She appears in no acute distress. HEENT: Examination is grossly unremarkable. Mucous membranes are moist. No oral lesions. NECK: Supple. Full range of motion. No adenopathy or thyromegaly. Neck veins are flat. CARDIOVASCULAR: Examination reveals regular rhythm and rate. Heart rate in mid 60s. S1, S2 normal. Heart sounds are distant. No distinct murmur noted. LUNGS: Reveal mostly clear breath sounds. No wheezes or rhonchi or crackles. ABDOMEN: Soft. Bowel sounds are heard. EXTREMITIES: Are intact. No edema. SKIN: Without rash. NEUROLOGIC: Examination is nonfocal. LABS: Labs are reviewed. Currently, sodium 139, potassium 4.2 chloride 108, CO2 of 22. Anion gap is normal at 9. BUN and creatinine were 24 and 0.58. Microbiologic studies show E coli both in the urine and in the blood from March 18. No recent x-ray reported. MEDICATIONS: Medications are reviewed. They are appropriate. She is receiving cefepime for her urinary tract infection as recommended by Infectious Disease. ASSESSMENT: 1. Hypoxemic respiratory failure requiring intubation and mechanical ventilation with successful extubation on March 23, secondary to Escherichia coli urinary tract infection/pyelonephritis with septic shock and sepsis. 2. Escherichia coli bacteremia and urosepsis. 3. Acute pyelonephritis. 4. Status post right ureteral stent. 5. Severe left ventricular dysfunction with cardiogenic pulmonary edema and runs of ventricular tachycardia. 6. Severely impaired left ventricular function. 7. Acute tubular necrosis. 8. Benign essential hypertension. 9. History of depression. 10.Possible hypernephroma involving the left kidney. 11.Rule out coronary artery disease. PLAN: Currently, the patient remains on good antibiotics for her infection, that is cefepime. She is going for cardiac catheterization today. Not requiring any supplemental oxygen. Her IV is 0.9 at 100 mL an hour. Renal function is normal. We will continue to follow. Prognosis is guarded. The patient has had an uneventful night. MMODL / IJN: [id number] /
[2019-03-28] MEDS ORDERED: fentaNYL (PF) 50 MCG/ML 2 ML AMP IVP ONE (09:10)
[2019-03-28] MEDS ORDERED: MIDAZOLAM (PF) 2 MG/2 ML VIAL IVP ONE (09:12)
[2019-03-28] MEDS ORDERED: LIDOCAINE 1% INJ 10MG/ML (20 ML MDV) SQ ONE (09:12)
[2019-03-28] MEDS ORDERED: VERAPAMIL SYRINGE (5 MG/10 ML) INTRAARTER ONE (09:13)
[2019-03-28] MEDS ORDERED: HEPARIN SODIUM 1,000 UN/ML (10ML VL) IV ONE ×3 (09:23→09:47)
[2019-03-28] MEDS: INSULIN ASPART (NovoLOG) 100 UNIT/ML VIAL SQ SCH ×4 (09:24→21:00)
[2019-03-28] MEDS ORDERED: IOPAMIDOL-370 50ML BTL INJ ONE (09:26)
[2019-03-28] MEDS ORDERED: CLOPIDOGREL 75 MG TAB PO ONE (09:33)
[2019-03-28] MEDS ORDERED: IOPAMIDOL-370 100ML BTL INJ ONE ×2 (09:34→09:50)
[2019-03-28] MEDS ORDERED: IV FLUID CONTINUATION 1,000 ML IV ONE (09:34)
[2019-03-28] MEDS ORDERED: NITROGLYCERIN 1000MCG/10ML SYRINGE INTRACORON ONE (09:44)
[2019-03-28] MEDS ORDERED: ZOLPIDEM 5 MG TAB PO PRN (10:16)
[2019-03-28] MEDS ORDERED: RX INFO: IV CONTRAST WAS GIVEN 1 EACH MISC MISCELLANE PRN (10:16)
[2019-03-28] MEDS ORDERED: NITROGLYCERIN SL TABS 0.4 MG TAB SUBLINGUAL PRN (10:16)
[2019-03-28] MEDS ORDERED: ATROPINE SULFATE 0.1 MG/ML 10ML SYRINGE IV PRN (10:16)
[2019-03-28] MEDS ORDERED: MAG HYDROX/AL HYDROX/SIMETH 30 ML CUP PO PRN (10:16)
[2019-03-28] MEDS ORDERED: SODIUM CHLORIDE 0.9% 1,000 ML IV SCH (10:30)
[2019-03-28] MEDS: CEFEPIME 2 GM in SODIUM CHLORIDE 0.9% 100 ML IVPB SCH (10:38)
[2019-03-28] MEDS: methylPREDNISolone 4 MG TAB TAPER PO SCH (10:39)
[2019-03-28] MEDS: NICOTINE 21MG/24HR PATCH TRANSDERM SCH (10:39)
[2019-03-28] MEDS: SPIRONOLACTONE 25 MG TAB PO SCH (10:40)
[2019-03-28] MEDS: VENLAFAXINE HCL 37.5 MG TAB PO SCH ×2 (10:40→20:51)
[2019-03-28] MEDS: LISINOPRIL 5 MG TAB PO SCH ×2 (10:40→20:52)
[2019-03-28] MEDS: FUROSEMIDE 40 MG TAB PO SCH (10:40)
[2019-03-28] MEDS: METOPROLOL TARTRATE 50 MG TAB PO SCH ×2 (10:40→20:52)
[2019-03-28] MEDS: PANTOPRAZOLE 40 MG TABLET PO SCH (10:40)
--- NOTE | 2019-03-28 10:56 | PTCA ---
PERCUTANEOUSTRANS CORORONARY ANGIOGRAPHY Mrs. Milan is a 53-year-old female with known history of chronic tobacco use, who presented with septic shock, was found to have severe cardiomyopathy after stabilizing status, underwent cardiac catheterization, was found to have critical stenosis involving the LAD and the right coronary artery. In view of that, recommendation was made regarding angioplasty and stenting. The procedure as well as the risks and complication were discussed with the patient who is in full understanding and agreement. PROCEDURE: A 6-Kenyan FR4 guiding catheter introduced in the system. After cannulating the right coronary ostium a 0.014 balanced medium weight J-wire was advanced and positioned in the distal RCA. Subsequently a 3.5 x 23 mm Xience Loree stent was deployed postdilated at 16 atmospheres. After the last inflation, after appropriate wait, the balloon and the guidewire were withdrawn back in the guiding catheter. Images were obtained, repeated. Those images reveal stable successful stenting. At that point, the guiding catheter, the balloon and the guidewire were removed and a 6-Kenyan FL3.5 guiding catheter introduced in the system. After cannulating the left main, a 0.014 balanced medium weight J-wire was advanced and positioned in the distal LAD. Subsequently a 3.5 x 23 mm Xience Loree stent was deployed postdilated at 16 atmospheres and distal to that stent another 3.5 x 12 mm Xience Loree stent was deployed postdilated at 16 atmospheres. After the last inflation, after appropriate wait, the balloon and the guidewire were withdrawn back in the guiding catheter. Images were obtained, repeated. Those images reveal stable successful stenting. At that point, the guiding catheter, the balloon and the guidewire were removed. The sheath was removed. Hemostasis was obtained with deployment of a TR band. There was no immediate complication. Patient is returned to room in stable condition. Of note, the patient received 16,000 units of intravenous heparin throughout the procedure. Her ACT was monitored and she received intra-arterial verapamil. She had EKG changes with the inflation without significant chest discomfort. RESULTS: 1. Successful stenting of the mid right coronary artery with reduction in stenosis from 70% to 0%. 2. Successful stenting of the proximal and mid left anterior descending artery with reduction of stenosis from 70% to 0%. RECOMMENDATION: Patient will be continued on aspirin, Plavix, beta blockers,RAKAN-I and statin. She will be re-evaluated regarding the need to undergo percutaneous revascularization of her obtuse marginal branch 1. Those findings and recommendations were discussed with the patient and her family and are in full understanding and agreement. Duration of procedure is 52 minutes. CHUN / MYA: [id number] / MTDD
--- NOTE | 2019-03-28 11:08 | CC ---
CARDIAC CATHETERIZATION REPORT Mrs. Milan is a 53-year-old female with known history of chronic tobacco use, who presented with urosepsis and pyelonephritis requiring mechanical ventilation. An echocardiogram revealed severe cardiomyopathy. After stabilizing the patient, extubating the patient and controlling the infection, and because of the finding of a mass in the kidneys, recommendation made regarding cardiac catheterization the procedures, risks and complication were discussed with the patient who is in full understanding and agreement. PROCEDURE: Patient was brought to recyclable materials distributor in a fasting state after receiving fentanyl and Benadryl and achieving moderate conscious sedated state. Using Xylocaine anesthesia and Seldinger technique, a 6-Malagasy sheath was introduced in the right radial artery. Selective right and left colon angiography lupus form were performed using car 5-Malagasy 3.5 bend right and left Nic catheter, multiple views of coronary artery including hemiaxial views obtained. Following that, 5-Malagasy tight pigtail catheter was introduced in the left ventricle and a 30 degree BHATTI view of the left ventricle was obtained. Following that, catheter was removed, images were reviewed. FINDINGS: LEFT MAIN: This is a large-sized vessel, bifurcating into left circumflex, left anterior descending artery. Left main coronary artery has no evidence of high-grade stenosis. LEFT ANTERIOR DESCENDING ARTERY: This is a large-sized vessel, reaching toward the apex with a wraparound apex segment, giving rise to 2 diagonal branches. The first one is large in caliber. The left anterior descending artery at the takeoff of the first major septal plate and frame filter operator has a 70% stenosis. There is intimal disease beyond that and in the mid segment. There is another tubular lesion of 67% stenosis. The second diagonal branch is diffusely diseased and it is small in caliber. LEFT CIRCUMFLEX: This is a nondominant vessel, giving rise to 3 obtuse marginal branches, the first one is very proximal the left. The first obtuse marginal branch has an 89% stenosis in the mid segment. The rest of the vessel has intimal disease without any evidence of high-grade stenosis. RIGHT CORONARY ARTERY: This is a large dominant vessel bifurcating distally PDA and posterolateral segment branches the mid right coronary artery at the takeoff of the acute marginal branch has a 30% to 40% plaque. Beyond that there is another area of 70% plaque. The rest of the vessel has no high-grade stenosis. LEFT VENTRICULOGRAM: Left ventriculogram is performed in 30 degree BHATTI view and revealed a mid anterior wall hypokinesis. The ejection fraction is estimated at 45%-50%. There was no significant mitral regurgitation. HEMODYNAMICS: There was no gradient across the aortic valve. The left ventricular-diastolic pressure was 24 mmHg. CONCLUSION: 1. Critical stenosis involving the right coronary artery and the left anterior descending. 2. Significant stenosis in the first obtuse marginal branch. 3. Mildly impaired left ventricular systolic function. RECOMMENDATION: In view of finding anatomy, I recommend proceeding with angioplasty and stenting of the LAD and the right coronary artery. The procedures, risks, and complication were discussed with the patient who is in full understanding and agreement. MMODL / IJN: [id number] /
[2019-03-28 12:05] LABS: Glucose,Whole Blood 130 mg/dL (75-99)
[2019-03-28 14:11] VITALS: BMI 34.9
[2019-03-28 16:52] LABS: Glucose,Whole Blood 137 mg/dL (75-99)
[2019-03-28 20:42] LABS: Glucose,Whole Blood 107 mg/dL (75-99)
[2019-03-28] MEDS: INSULIN DETEMIR (LEVEMIR) 100 UNIT/ML SYR SQ SCH (20:50)
--- NOTE | 2019-03-28 22:39 | P.PN ---
Progress Note - Text Progress Note Date: 03/28/19 Presenting complaint: Tired Interval history: Patient admitted with UTI with bacteremia with E. coli. Patient also had acute hypoxic respiratory failure secondary to septic shock. Also went into cardiogenic pulmonary edema found to have a low EF. Also had acute kidney injury from acute tubular necrosis. Patient was extubated on March 23. Also had a right ureteral stent placed for hydronephrosis. This was done on March 24. Also found to have abnormal CT of the left kidney suspicious of renal cell carcinoma. Today-patient remains in the ICU. Underwent a cardiac catheterization today. Had successful stenting of the mid RCA and proximal admitted LAD. Obtuse marginal branch may need to be intervened in the future. Sitting up in a chair. Comfortable. Several family members are present. Review of systems: Was done for constitutional, cardiovascular, GI, pulmonary. relevant finding as above Active Medications Acetaminophen (Tylenol Tab) 650 mg PO Q6H PRN PRN Reason: Fever Last Admin: 03/20/19 18:20 Dose: 650 mg Documented by: Al Hydroxide/Mg Hydroxide (Maalox) 30 ml PO Q4HR PRN PRN Reason: Heartburn Albuterol/Ipratropium (Duoneb 0.5 Mg-3 Mg/3 Ml Soln) 3 ml INHALATION RT-QID [facility] Last Admin: 03/28/19 20:02 Dose: 3 ml Documented by: Alprazolam (Xanax) 0.25 mg PO Q6HR PRN PRN Reason: Mild Anxiety Alprazolam (Xanax) 0.5 mg PO Q6HR PRN PRN Reason: Moderate Anxiety Aspirin (Aspirin) 81 mg PO DAILY [facility] Atorvastatin Calcium (Lipitor) 40 mg PO DAILY [facility] Atropine Sulfate (Atropine) 0.5 mg IV ONCE PRN PRN Reason: Symptomatic Bradycardia Clopidogrel Bisulfate (Plavix) 75 mg PO DAILY [facility] Diphenhydramine HCl (Benadryl) 50 mg PO BID PRN PRN Reason: Itching Last Admin: 03/27/19 00:10 Dose: 50 mg Documented by: Furosemide (Lasix) 40 mg PO DAILY [facility] Last Admin: 03/28/19 10:40 Dose: 40 mg Documented by: Heparin Sodium (Porcine) (Heparin) 5,000 unit SQ Q8HR [facility] Last Admin: 03/28/19 16:24 Dose: 5,000 unit Documented by: Ceftriaxone Sodium 2 gm/ (Sodium Chloride) 50 mls @ 100 mls/hr IVPB Q24HR [facility] Last Admin: 03/28/19 18:11 Dose: 100 mls/hr Documented by: Insulin Aspart (Novolog) 0 unit SQ ACHS [facility]; Protocol Last Admin: 03/28/19 21:00 Dose: Not Given Documented by: Insulin Detemir (Levemir) 5 unit SQ HS [facility] Last Admin: 03/28/19 20:50 Dose: 5 unit Documented by: Lisinopril (Zestril) 5 mg PO BID [facility] Last Admin: 03/28/19 20:52 Dose: 5 mg Documented by: Methylprednisolone (Medrol Dose Pack) 16 mg PO DAILY [facility]; Taper Stop: 04/01/19 08:59 Last Admin: 03/28/19 10:39 Dose: 16 mg Documented by: Metoprolol Tartrate (Lopressor) 50 mg PO BID [facility] Last Admin: 03/28/19 20:52 Dose: 50 mg Documented by: Miscellaneous Information (Potassium Per Protocol) 1 each MISCELLANE DAILY PRN; Protocol PRN Reason: Per Protocol Miscellaneous Information (Rx Info: Iv Contrast Was Given) 1 each MISCELLANE DAILY PRN PRN Reason: Per Protocol Stop: 03/30/19 10:16 Nicotine (Habitrol 21mg/24hr Patch) 1 patch TRANSDERM DAILY [facility] Last Admin: 03/28/19 10:39 Dose: 1 patch Documented by: Nitroglycerin (Nitrostat) 0.4 mg SUBLINGUAL Q5M PRN PRN Reason: Chest Pain Pantoprazole Sodium (Protonix) 40 mg PO DAILY [facility] Last Admin: 03/28/19 10:40 Dose: 40 mg Documented by: Spironolactone (Aldactone) 25 mg PO DAILY [facility] Last Admin: 03/28/19 10:40 Dose: 25 mg Documented by: Venlafaxine HCl (Effexor) 18.75 mg PO BID [facility] Last Admin: 03/28/19 20:51 Dose: 18.75 mg Documented by: Zolpidem Tartrate (Ambien) 5 mg PO HS PRN PRN Reason: Insomnia On examination: VITAL SIGNS: 98.3, 57, 20, 135/72, 95% room air GENERAL APPEARANCE: Sitting up in a chair, comfortable HEENT: Normal external appearance of nose and ear. Oral cavity normal EYES: Pupils equal. Conjunctiva normal. NECK: JVD not raised. Mass not palpable. RESPIRATORY: Respiratory effort normal. Lungs clear to auscultation. CARDIOVASCULAR: First and second sounds normal. No edema. ABDOMEN: Soft. Liver and spleen not palpable. No tenderness. No mass palpable. PSYCHIATRY: Alert and oriented x3. Mood and affect normal. Investigations: Potassium 4.2 BUN 24 creatinine 0.58 Urine and blood culture from March 18 growing E. coli with negative blood cultures from the Previous test: Computed tomography scan abdomen and pelvis with contrast-solid lobulated mass left upper pole kidney measuring 4.86.1 cm additional less solid exophytic mass midpole left kidney measuring 4.4 x 3 cm exophytic cyst lower pole kidney 5.1 cm times. 7 mm right UPJ calculus resulting in mild right-sided hydronephrosis. Nonobstructing calculi seen bilaterally Assessment: -Acute severe UTI with sepsis secondary to pyelonephritis, probable obstructive right ureteral stone, with bacteremia with cultures positive for E. coli -Coronary artery disease with stenting of the mid RCA and proximal admitted LAD. Obtuse marginal branch may need to be intervened in the future. -Right ureteral stent -Septic shock improved -Obesity BMI 34.7 -solid lobulated mass left upper pole kidney measuring 4.86.1 cm additional less solid exophytic mass midpole left kidney measuring 4.4 x 3 cm exophytic cyst lower pole kidney 5.1 cm times. 7 mm right UPJ calculus resulting in mild right-sided hydronephrosis -Bilateral nephrolithiasis -Acute, Severe cardiomyopathy with congestive heart failure exacerbation EF less than 20%, present time cause unknown -Acute hypoxic respiratory failure from septic shock, status post ventilator sup port -Acute kidney injury from ATN from sepsis, resolved -Essential hypertension -Chronic nicotine dependence patient cigarette smoker Plan: Care was discussed with the patient and family. Further intervention of the obtuse marginal will be decided by cardiology.. Otherwise patient is stable. Continue with antibiotics. As per ID.
--- NOTE | 2019-03-28 23:57 | PN ---
PROGRESS NOTE DATE OF SERVICE: 03/28/2019 REASON FOR FOLLOWUP: E coli bacteremia and UTI. INTERVAL HISTORY: The patient is currently afebrile. The patient has been breathing comfortably. Denies having any chest pain. Occasional cough. No nausea, no vomiting. No abdominal pain and no diarrhea. PHYSICAL EXAMINATION: Blood pressure is 125/68 with a pulse of 57, temperature 98.5. She is 95% on room air. General description is a middle-aged female up in the chair in no distress. RESPIRATORY SYSTEM: Unlabored breathing with decreased breath sounds at the base. No wheeze. HEART: S1, S2. Regular rate and rhythm. ABDOMEN: Soft. No tenderness. EXTREMITIES: No edema of feet. LABS: BUN of 24, creatinine 0.58. Repeat blood and sputum cultures have been negative. DIAGNOSTIC IMPRESSION AND PLAN: Patient with an Escherichia coli bacteremia secondary to urinary source. The patient is currently afebrile, hemodynamically stable. Antibiotic has been adjusted to Rocephin 2 grams daily. Questions and concerns were answered, with a plan to finish therapy with oral antibiotics. Continue with supportive care. MMODL / IJN: [id number] /
[2019-03-29 05:36] LABS: African American GFR (CKD) >90 (>60 ml/min/1.73 sqM); Anion Gap 8 mmol/L; Blood Urea Nitrogen 16 mg/dL (7-17); Calcium 8.7 mg/dL (8.4-10.2); Carbon Dioxide 23 mmol/L (22-30); Chloride 105 mmol/L (98-107); Glucose 97 mg/dL (74-99); Potassium 4.3 mmol/L (3.5-5.1); Sodium 136 mmol/L (137-145)
[2019-03-29] MEDS: IPRATROPIUM-ALBUTEROL 3 ML NEB INHALATION SCH ×3 (06:58→15:51)
[2019-03-29] MEDS: INSULIN ASPART (NovoLOG) 100 UNIT/ML VIAL SQ SCH ×3 (07:07→17:15)
[2019-03-29 07:09] LABS: Glucose,Whole Blood 116 mg/dL (75-99)
[2019-03-29] MEDS ORDERED: CLOPIDOGREL 75 MG TAB PO SCH (09:00)
[2019-03-29] MEDS ORDERED: ATORVASTATIN 40 MG TAB PO SCH (09:00)
[2019-03-29] MEDS ORDERED: ASPIRIN 81 MG PO SCH (09:00)
[2019-03-29] MEDS: NICOTINE 21MG/24HR PATCH TRANSDERM SCH (10:18)
[2019-03-29] MEDS: HEPARIN SODIUM,PORCINE 5,000 UNIT/ML 1 ML VIAL SQ SCH ×2 (10:18→17:15)
[2019-03-29] MEDS: METOPROLOL TARTRATE 50 MG TAB PO SCH (10:20)
[2019-03-29] MEDS: methylPREDNISolone 4 MG TAB TAPER PO SCH (10:20)
[2019-03-29] MEDS: PANTOPRAZOLE 40 MG TABLET PO SCH (10:20)
[2019-03-29] MEDS: LISINOPRIL 5 MG TAB PO SCH (10:20)
[2019-03-29] MEDS: VENLAFAXINE HCL 37.5 MG TAB PO SCH (10:22)
[2019-03-29] MEDS: SPIRONOLACTONE 25 MG TAB PO SCH (10:22)
[2019-03-29] MEDS: FUROSEMIDE 40 MG TAB PO SCH (10:34)
--- NOTE | 2019-03-29 11:13 | PN ---
PROGRESS NOTE DATE OF SERVICE: 03/29/2019 This is a 53-year-old female who was admitted back on March 19. She has a history of hypoxemic respiratory failure secondary to septic shock and sepsis or E coli, urinary tract infection, pyelonephritis. The patient was successfully extubated from mechanical ventilation on March 23. Yesterday, she went to the catheterization laboratory. She had 2 stents to the LAD and 1 stent to the RCA. The patient has a history of E. coli urinary tract infection and E coli bacteremia for that is on Rocephin. Anyway, the patient is doing much better. She remains just on room air. She is not requiring any IV fluids. She mentioned to us today that she might be able to be discharged, but we are not sure about that. She has a history of acute pyelonephritis, status post right ureteral stent, severe left ventricular dysfunction with cardiogenic pulmonary edema, ventricular tachycardia, ATN, benign essential hypertension, depression, and possible hypernephroma of the left kidney. She also clearly has CAD as she required stents in both the LAD and RCA yesterday. Currently, her vital signs are stable, temperature 98.2, heart rate 61, respiratory rate 22, blood pressure 129/65 mean 86, room air saturation 97%. Appears in no acute distress. HEENT: Examination is grossly unremarkable. Mucous membranes are moist. No oral lesions. No supplemental oxygen noted. Neck is supple. Full range of motion. No adenopathy. CARDIOVASCULAR examination reveals regular rhythm rate. S1, S2 normal. LUNGS: Reveal mostly clear breath sounds. Maybe a few scattered mild rhonchi. No wheezes or crackles. ABDOMEN: Soft. Bowel sounds are heard. No masses or tenderness. EXTREMITIES: Intact. No cyanosis, clubbing, or edema. SKIN: Without rash. NEUROLOGIC: Nonfocal. LABS: Reviewed. Sodium 136, potassium 4.3, chloride is 105, CO2 is 23, anion gap 8. BUN and creatinine were 16 and 0.53. Microbiologic studies have been noted. Blood in urine from March 18 were both positive for E coli. No new chest x-ray to report. ASSESSMENT: 1. Hypoxemic respiratory failure requiring intubation and mechanical ventilation with successful extubation on March 23, secondary to Escherichia coli urinary tract infection/pyelonephritis with septic shock and sepsis. 2. Escherichia coli bacteremia/urosepsis. 3. Status post catheterization on March 28, with stenting of the LAD x2 and the right coronary artery x1. 4. Status post right ureteral stent. 5. Severe left ventricular dysfunction with cardiogenic pulmonary edema and runs of ventricular tachycardia. 6. Severely impaired left ventricular function. 7. Acute tubular necrosis. 8. History of depression. 9. Possible hypernephroma involving the left kidney. PLAN: Patient is doing well. She remains on Rocephin for her E. coli urinary tract infection/pyelonephritis/bacteremia. She went to the laborer rags yesterday, had 2 stents to the LAD one stent to the RCA. She is not on any IV fluids. She is not receiving any supplemental oxygen. Overall, she is doing better. Overall prognosis though remains very guarded. Will continue to follow. MARGIEL / GION: [id number] /
--- NOTE | 2019-03-29 11:28 | PN ---
PROGRESS NOTE Ms. Milan is a 53-year-old female who presented with urosepsis and septic shock, was found to have severe cardiomyopathy. Subsequently underwent cardiac catheterization yesterday and was found to have significant stenosis involving the mid right coronary artery, the LAD as well as the first obtuse marginal branch, underwent stenting of the LAD and her right coronary artery. She is doing well this morning. She denies any chest pain, her breathing has been stable. She denies any dizziness or palpitation. She denies any nausea. She continues to be on aspirin once a day, Lipitor 40 mg daily, Plavix 75 mg daily, Lasix 40 mg daily, lisinopril 5 mg twice a day, metoprolol tartrate 50 mg twice a day and spironolactone 25 mg daily. PHYSICAL EXAMINATION: Blood pressure 129/60 with a heart rate in the 60s. LUNGS: Clear. HEART: Regular rate and rhythm, S1, S2. No S3. No rub with a systolic murmur. ABDOMEN: Soft, obese, nontender. EXTREMITIES: No edema, right radial pulse intact. EKG with sinus mechanism with T-wave inversion anteriorly. BUN and creatinine 16 and 0.53. Potassium 4.3. IMPRESSION: 1. Status post stenting of the left anterior descending coronary artery and the right coronary artery. 2. A combination of ischemic and nonischemic cardiomyopathy, improving. 3. Septic shock, resolved. 4. Urosepsis. 5. Left renal mass, scheduled for possible surgical intervention down the road. RECOMMENDATION: From the cardiac standpoint she is stable. Will increase her level of activity. I would expect that she should be able to be discharged home soon and followed as an outpatient. Her obtuse marginal branch stenosis will be treated medically at this time and depending on her progress, further recommendation will be made. MMODL / IJN: [id number] /
[2019-03-29 12:08] LABS: Glucose,Whole Blood 110 mg/dL (75-99)
[2019-03-29 16:05] VITALS: PULSE 60
[2019-03-29 17:15] VITALS: BP 134/68; RESP 12; TEMP 98.3
[2019-03-29 17:24] LABS: Glucose,Whole Blood 122 mg/dL (75-99)
--- NOTE | 2019-03-29 17:31 | PN ---
PROGRESS NOTE DATE OF SERVICE: 03/29/2019 REASON FOR FOLLOWUP: E coli urinary tract infection with bacteremia. INTERVAL HISTORY: The patient is currently afebrile. The patient has been breathing comfortably. Denies having any chest pain or shortness of breath. Occasional cough. No nausea, no vomiting, no abdominal pain or diarrhea. PHYSICAL EXAMINATION: Blood pressure 128/70 with pulse of 63, temperature 98.2. She is 95% on room air. General description is a middle-aged female up in the chair in no distress. RESPIRATORY SYSTEM: Unlabored breathing. Clear to auscultation anteriorly. HEART: S1, S2. Regular rate and rhythm. ABDOMEN: Soft. No tenderness. LABS: BUN of 16, creatinine 0.53. DIAGNOSTIC IMPRESSION AND PLAN: Patient with Escherichia coli bacteremia secondary to urinary source with a complicated urinary tract infection, status post ureteral stent placement. The patient will finish therapy with oral Cipro mg twice a day for 10 days with close outpatient followup. Plan of care was discussed with the discharging physician. Family's questions were answered. MMODL / IJN: [id number] /
--- NOTE | 2019-03-30 00:43 | P.DS ---
Providers Date of admission: 03/19/19 12:44 Expected date of discharge: 03/29/19 Attending physician: Alton Conway Consults: 03/21/19 04:01 Consult Physician Stat Consulting Provider: Audra May Consult Reason/Comments: ICU management Do you want consulting provider notified?: Already Contacted 03/21/19 08:28 Consult Physician Stat Consulting Provider: Thai López Consult Reason/Comments: bactermia Do you want consulting provider notified?: Yes 03/21/19 10:09 Consult Physician Routine Consulting Provider: Gideon Horowitz Consult Reason/Comments: lv dysfunction,pulm edema Do you want consulting provider notified?: Yes 03/24/19 13:19 Consult Physician Routine Consulting Provider: Jose Ibarra Consult Reason/Comments: CT showed two masses on left kidney Do you want consulting provider notified?: Already Contacted 03/28/19 10:16 Consult Physician Routine Consulting Provider: [facility] Consult Reason/Comments: Post Interventional patient Do you want consulting provider notified?: Already Contacted Primary care physician: Linden Dejesus [facility] Course: Hospital course: Patient admitted with UTI with bacteremia with E. coli. Patient also had acute hypoxic respiratory failure secondary to septic shock. Also went into cardiogenic pulmonary edema found to have a low EF. Also had acute kidney injury from acute tubular necrosis. Patient was extubated on March 23. Also had a right ureteral stent placed for hydronephrosis. This was done on March 24. Also found to have abnormal CT of the left kidney suspicious of renal cell carcinoma. underwent a cardiac catheterization . Had successful stenting of the mid RCA and proximal admitted LAD. Obtuse marginal branch may need to be intervened in the future. Lifestyle changes were discussed With the patient and today. Patient was cleared by all the consultants to be discharged. Discussion and discharge planning more than 35 minutes Consultations: Dr. lópez from ID Dr. Horowitz from cardiorenal Dr. Nino from pulmonary Dr. Sanchez from urology On examination: VITAL SIGNS: 98.3, 59, 12, 134/68, 97% room air GENERAL APPEARANCE: Sitting up in a chair, comfortable HEENT: Normal external appearance of nose and ear. Oral cavity normal EYES: Pupils equal. Conjunctiva normal. NECK: JVD not raised. Mass not palpable. RESPIRATORY: Respiratory effort normal. Lungs clear to auscultation. CARDIOVASCULAR: First and second sounds normal. No edema. ABDOMEN: Soft. Liver and spleen not palpable. No tenderness. No mass palpable. PSYCHIATRY: Alert and oriented x3. Mood and affect normal. Investigations: Potassium 4.3 creatinine 0.53. Creatinine had gone up to 1.26 Urine and blood culture from March 18 growing E. coli with negative blood cultures from the Previous test: Computed tomography scan abdomen and pelvis with contrast-solid lobulated mass left upper pole kidney measuring 4.86.1 cm additional less solid exophytic mass midpole left kidney measuring 4.4 x 3 cm exophytic cyst lower pole kidney 5.1 cm times. 7 mm right UPJ calculus resulting in mild right-sided hydronephrosis. Nonobstructing calculi seen bilaterally Discharge diagnosis: -Acute severe UTI with sepsis secondary to pyelonephritis, probable obstructive right ureteral stone, with bacteremia with cultures positive for E. coli -Coronary artery disease with stenting of the mid RCA and proximal admitted LAD. Obtuse marginal branch may need to be intervened in the future. -Right ureteral stent -Septic shock improved -Obesity BMI 34.7 -solid lobulated mass left upper pole kidney measuring 4.86.1 cm additional less solid exophytic mass midpole left kidney measuring 4.4 x 3 cm exophytic cyst lower pole kidney 5.1 cm times. 7 mm right UPJ calculus resulting in mild right-sided hydronephrosis -Bilateral nephrolithiasis -Acute, Severe cardiomyopathy with congestive heart failure exacerbation EF less than 20%, secondary to coronary artery disease -Acute hypoxic respiratory failure from septic shock, status post ventilator support -Acute kidney injury from ATN from sepsis, resolved -Essential hypertension -Chronic nicotine dependence patient cigarette smoker Disposition: Home Patient Condition at Discharge: Stable Plan - Discharge Summary Discharge Rx Participant: Yes New Discharge Prescriptions: New Spironolactone [Aldactone] 25 mg PO DAILY #90 tab Furosemide [Lasix] 20 mg PO DAILY #90 tab Atorvastatin [Lipitor] 40 mg PO DAILY #90 tab Metoprolol Tartrate [Lopressor] 50 mg PO BID #180 tab Nitroglycerin Sl Tabs [Nitrostat] 0.4 mg SUBLINGUAL Q5M PRN #25 tab PRN Reason: Chest Pain Clopidogrel [Plavix] 75 mg PO DAILY #90 tab Acetaminophen Tab [Tylenol] 650 mg PO Q6H PRN tab PRN Reason: Fever Lisinopril [Zestril] 5 mg PO BID #180 tab Aspirin 81 mg PO DAILY chew Ciprofloxacin HCl [Cipro] 500 mg PO Q12HR #20 tablet Nicotine 21Mg/24Hr Patch [Habitrol] 1 patch TRANSDERM DAILY #14 patch predniSONE 10 mg PO DAILY #30 tab Albuterol Inhaler [Ventolin Hfa Inhaler] 1 - 2 puff INHALATION Q6HR PRN #1 inhaler PRN Reason: Wheezing Continue Venlafaxine HCl ER [Effexor XR] 37.5 mg PO DAILY Multivitamins, Thera [Multivitamin (formulary)] 1 tab PO DAILY Discontinued amLODIPine [Norvasc] 5 mg PO DAILY Losartan/Hydrochlorothiazide [Losartan-Hctz 100-25 mg Tab] 1 tab PO DAILY Discharge Medication List Multivitamins, Thera [Multivitamin (formulary)] 1 tab PO DAILY 03/18/19 [History] Venlafaxine HCl ER [Effexor XR] 37.5 mg PO DAILY 03/18/19 [History] Acetaminophen Tab [Tylenol] 650 mg PO Q6H PRN tab 03/29/19 [Rx] Albuterol Inhaler [Ventolin Hfa Inhaler] 1 - 2 puff INHALATION Q6HR PRN #1 inhaler 03/29/19 [Rx] Aspirin 81 mg PO DAILY chew 03/29/19 [Rx] Atorvastatin [Lipitor] 40 mg PO DAILY #90 tab 03/29/19 [Rx] Ciprofloxacin HCl [Cipro] 500 mg PO Q12HR #20 tablet 03/29/19 [Rx] Clopidogrel [Plavix] 75 mg PO DAILY #90 tab 03/29/19 [Rx] Furosemide [Lasix] 20 mg PO DAILY #90 tab 03/29/19 [Rx] Lisinopril [Zestril] 5 mg PO BID #180 tab 03/29/19 [Rx] Metoprolol Tartrate [Lopressor] 50 mg PO BID #180 tab 03/29/19 [Rx] Nicotine 21Mg/24Hr Patch [Habitrol] 1 patch TRANSDERM DAILY #14 patch 03/29/19 [Rx] Nitroglycerin Sl Tabs [Nitrostat] 0.4 mg SUBLINGUAL Q5M PRN #25 tab 03/29/19 [Rx] Spironolactone [Aldactone] 25 mg PO DAILY #90 tab 03/29/19 [Rx] predniSONE 10 mg PO DAILY #30 tab 03/29/19 [Rx] Follow up Appointment(s)/Referral(s): Linden Dejesus MD [Primary Care Provider] - 03/30/19 3:30 pm (With Karrie KRAMER) Lita Holliday MD [STAFF PHYSICIAN] - 04/12/19 2:45 pm (With Stefany Laughlin NP) Gideon Horowitz MD [STAFF PHYSICIAN] - 1 Week (Staff from the cardiology office will contact you. If you have not heard from them regarding a Dr appointment by WednesdayMarch 31 please call the listed number.) Jose Ibarra MD [STAFF PHYSICIAN] - 1 Week (Staff from the Urology office will contact you with a Dr. appointment. If you have not heard from them by WednesdayMarch 31, please contact the office using the listed phone number. ) [facility], [NON-STAFF] - 1-2 Days Thai óLpez MD [STAFF PHYSICIAN] - 04/10/19 9:30 am Patient Instructions/Handouts: *Surgery [facility] - After Heart Catheterization - [facility] Tech Instructions, How to Stop Smoking (DC), Urinary Tract Infection in Women (GEN), Cigarette Smoking and Your Health (GEN), Low-Sodium Diet (DC), Coronary Intravascular Stent Placement (DC), Bacteremia (GEN) Activity/Diet/Wound Care/Special Instructions: cardiac low sodium diet Do not lift anything heavier than 5 pounds with right arm until directed by physician Do not push or pull with right arm No vigorous activity for 48 hours No smoking Discharge Disposition: HOME SELF-CARE
[2019-03-30] MEDS ORDERED: FUROSEMIDE 20 MG TAB PO SCH (09:00)
== END 2019-03-29 18:25 | disposition home health service (06) | DRG 853 ==
LOC: EC 19:48 → UNDOADMOB 22:44 → 3SCARD 22:44 → OBSVTOIN 03-19 12:44 → 3SCARD 03-19 12:44 → 2SICU 03-21 00:23
PROVIDERS: ADMIT Hospitalist; ATTEND Hospitalist
PROC: 5A1945Z Respiratory Ventilation, 24-96 Consecutive Hours (ICD-10-PCS; 2019-03-20)
PROC: 0BH17EZ Insertion of Endotracheal Airway into Trachea, Via Natural or Artificial Opening (ICD-10-PCS; 2019-03-20)
PROC: 0D9670Z Drainage of Stomach with Drainage Device, Via Natural or Artificial Opening (ICD-10-PCS; 2019-03-20)
PROC: 02HV33Z Insertion of Infusion Device into Superior Vena Cava, Percutaneous Approach (ICD-10-PCS; 2019-03-21)
PROC: 03HY32Z Insertion of Monitoring Device into Upper Artery, Percutaneous Approach (ICD-10-PCS; 2019-03-21)
PROC: 4A133B1 Monitoring of Arterial Pressure, Peripheral, Percutaneous Approach (ICD-10-PCS; 2019-03-21)
PROC: 4A133J1 Monitoring of Arterial Pulse, Peripheral, Percutaneous Approach (ICD-10-PCS; 2019-03-21)
PROC: 5A09357 Assistance with Respiratory Ventilation, Less than 24 Consecutive Hours, Continuous Positive Airway Pressure (ICD-10-PCS; 2019-03-21)
PROC: 0B21XEZ Change Endotracheal Airway in Trachea, External Approach (ICD-10-PCS; 2019-03-22)
PROC: 0T768DZ Dilation of Right Ureter with Intraluminal Device, Via Natural or Artificial Opening Endoscopic (ICD-10-PCS; 2019-03-24)
PROC: B2111ZZ Fluoroscopy of Multiple Coronary Arteries using Low Osmolar Contrast (ICD-10-PCS; 2019-03-28)
PROC: B2151ZZ Fluoroscopy of Left Heart using Low Osmolar Contrast (ICD-10-PCS; 2019-03-28)
PROC: 027136Z Dilation of Coronary Artery, Two Arteries with Three Drug-eluting Intraluminal Devices, Percutaneous Approach (ICD-10-PCS; principal; 2019-03-28 08:35)
PROC: 4A023N7 Measurement of Cardiac Sampling and Pressure, Left Heart, Percutaneous Approach (ICD-10-PCS; 2019-03-28 08:35)
DX: A41.51 Sepsis due to Escherichia coli [E. coli] (principal); R65.21 Severe sepsis with septic shock; J96.01 Acute respiratory failure with hypoxia; I50.21 Acute systolic (congestive) heart failure; N17.0 Acute kidney failure with tubular necrosis; N13.6 Pyonephrosis; E87.2 Acidosis; I42.9 Cardiomyopathy, unspecified; J98.11 Atelectasis; I47.2 Ventricular tachycardia; C64.2 Malignant neoplasm of left kidney, except renal pelvis; I11.0 Hypertensive heart disease with heart failure; I25.5 Ischemic cardiomyopathy; I25.10 Atherosclerotic heart disease of native coronary artery without angina pectoris; E87.6 Hypokalemia; R73.9 Hyperglycemia, unspecified; F32.9 Major depressive disorder, single episode, unspecified; E66.9 Obesity, unspecified; Z68.33 Body mass index [BMI] 33.0-33.9, adult; F17.210 Nicotine dependence, cigarettes, uncomplicated; Z71.6 Tobacco abuse counseling; Z79.899 Other long term (current) drug therapy; Z71.3 Dietary counseling and surveillance; Z98.891 History of uterine scar from previous surgery; Z98.890 Other specified postprocedural states; Z88.0 Allergy status to penicillin
CPT/HCPCS: 36415; 36600; 71045; 71046; 74177; 76770; 80048; 81001; 82805; 83605; 83735; 83880; 84100; 84132; 85025; 85027; 85347; 85610; 85730; 87040; 87070; 87077; 87086; 87186; 87205; 93306; 93458; 94002; 94003; 94640; 94660; 96361; 96374; 96375; 99284; C1874

== ENCOUNTER → 2019-04-20 | Outpatient (CLI) | payer SELFPAY ==
[2019-04-20 12:50] LABS: Basophils # (A) 0.1 k/uL (0-0.2); Basophils % (A) 1 %; Eosinophils # (A) 0.4 k/uL (0-0.7); Eosinophils % (A) 5 %; HCT 42.6 % (34.0-46.0); Lymphocytes # (A) 2.1 k/uL (1.0-4.8); Lymphocytes % (A) 25 %; MCH 31.6 pg (25.0-35.0); MCHC 32.7 g/dL (31.0-37.0); MCV 96.7 fL (80.0-100.0); Mean Platelet Volume 7.8; Monocytes # (A) 0.7 k/uL (0-1.0); Monocytes % (A) 8 %; Neutrophils # (A) 4.9 k/uL (1.3-7.7); Neutrophils % (A) 58 %; Platelet Count 306 k/uL (150-450); RBC 4.41 m/uL (3.80-5.40); RDW 14.1 % (11.5-15.5); WBC 8.3 k/uL (3.8-10.6)
[2019-04-20 12:55] LABS: HGB 13.9 gm/dL (11.4-16.0)
[2019-04-20 13:01] LABS: African American GFR (CKD) >90 (>60 ml/min/1.73 sqM); Anion Gap 10 mmol/L; Blood Urea Nitrogen 20 mg/dL (7-17); Calcium 9.9 mg/dL (8.4-10.2); Carbon Dioxide 25 mmol/L (22-30); Chloride 104 mmol/L (98-107); Glucose 207 mg/dL (74-99); Potassium 4.7 mmol/L (3.5-5.1); Sodium 139 mmol/L (137-145)
== END | disposition home or self-care (01) ==
LOC: LABPAT 12:13
PROVIDERS: ATTEND Urology
DX: Z01.812 Encounter for preprocedural laboratory examination (principal); N20.1 Calculus of ureter; R31.0 Gross hematuria; Z79.899 Other long term (current) drug therapy
CPT/HCPCS: 36415; 80048; 85025; 87086

== ENCOUNTER 2019-04-27 06:09 | Day surgery (SDC) | payer OTHER ==
--- NOTE | 2019-04-24 07:11 | P.GSHP ---
History of Present Illness H&P Date: 04/24/19 The patient is a 53-year-old white female admitted 03/19/2019 with primary complaints of right flank pain, fever, and chills. She was treated for sepsis. Both urine and blood cultures showed E. coli. She denies any prior history of UTIs or urolithiasis. A renal ultrasound showed evidence of right hydronephrosis, and a CT scan revealed mild right hydronephrosis due to a 7 mm right UPJ calculus. The CT scan also showed 2 left solid renal masses suspicious for renal cell carcinoma. She underwent placement of a right ureteral stent and has been treated with antibiotics. She also underwent PTCA with stenting, and is currently receiving antiplatelet therapy. She now comes for removal of her stent and ureteroscopic removal of the right UPJ calculus. She will subsequently require a left radical nephrectomy. - Constitutional Constitutional: Denies chills, Denies fever - Genitourinary (Male) Genitourinary: Reports flank pain, Reports kidney stones, Denies dysuria, Denies hematuria Past Medical History Past Medical History: Hypertension History of Any Multi-Drug Resistant Organisms: None Reported Past Surgical History: Section, Tonsillectomy Past Anesthesia/Blood Transfusion Reactions: No Reported Reaction Past Psychological History: No Psychological Hx Reported Smoking Status: Heavy tobacco smoker Past Alcohol Use History: None Reported Past Drug Use History: None Reported Medications and Allergies Home Medications Medication Instructions Recorded Confirmed Type Multivitamins, Thera [Multivitamin 1 tab PO DAILY 03/18/19 03/18/19 History (formulary)] Venlafaxine HCl ER [Effexor XR] 37.5 mg PO DAILY 03/18/19 03/18/19 History Acetaminophen Tab [Tylenol] 650 mg PO Q6H PRN tab 03/29/19 Rx Albuterol Inhaler [Ventolin Hfa 1 - 2 puff INHALATION Q6HR PRN #1 03/29/19 Rx Inhaler] inhaler Aspirin 81 mg PO DAILY chew 03/29/19 Rx Atorvastatin [Lipitor] 40 mg PO DAILY #90 tab 03/29/19 Rx Ciprofloxacin HCl [Cipro] 500 mg PO Q12HR #20 tablet 03/29/19 Rx Clopidogrel [Plavix] 75 mg PO DAILY #90 tab 03/29/19 Rx Furosemide [Lasix] 20 mg PO DAILY #90 tab 03/29/19 Rx Lisinopril [Zestril] 5 mg PO BID #180 tab 03/29/19 Rx Metoprolol Tartrate [Lopressor] 50 mg PO BID #180 tab 03/29/19 Rx Nicotine 21Mg/24Hr Patch [Habitrol] 1 patch TRANSDERM DAILY #14 patch 03/29/19 Rx Nitroglycerin Sl Tabs [Nitrostat] 0.4 mg SUBLINGUAL Q5M PRN #25 tab 03/29/19 Rx Spironolactone [Aldactone] 25 mg PO DAILY #90 tab 03/29/19 Rx predniSONE 10 mg PO DAILY #30 tab 03/29/19 Rx Allergies Allergy/AdvReac Type Severity Reaction Status Date / Time Penicillins Allergy Rash/Hives Verified 03/18/19 20:14 Surgical - Exam - General well developed, well nourished, no distress - Neck no masses, trachea midline - Respiratory normal respiratory effort, clear to auscultation - Cardiovascular Rhythm: regular Abnormal Heart Sounds: systolic murmur, diastolic murmur, rub, S3 Gallop, S4 Gallop, click, other - Abdomen Abdomen: soft, non tender, no guarding, no rigid, no rebound - Psychiatric oriented to time, oriented to person, oriented to place, speech is normal, memory intact Results - Imaging CT scan - abdomen: report reviewed, image reviewed Assessment and Plan (1) Hydronephrosis with renal and ureteral calculus obstruction Status: Acute Code(s): N13.2 - HYDRONEPHROSIS WITH RENAL AND URETERAL CALCULOUS OBSTRUCTION SNOMED Code(s): 847597198 (2) Calculus of ureter Status: Acute Code(s): N20.1 - CALCULUS OF URETER SNOMED Code(s): 36014142 Plan: Cystoscopy, right ureteral stent removal, right ureteroscopy with Holmium laser lithotripsy. The procedure has been reviewed in detail with the patient. Potential risks have been explained, which include anesthesia, bleeding, infection, ureteral injury, and incomplete removal of the calculus.
[2019-04-26 10:41] VITALS: BMI 32.1
[~2019-04-27 06:09] MED LIST: DEXAMETHASONE SOD PHOSPHATE 10 MG/ML 1 ML VIAL IV ONE; HYDROmorphone 0.5 MG/0.5 ML SYRINGE IVP PRN; LACTATED RINGERS 1,000 ML IV SCH; LEVOFLOXACIN 500MG-D5W PMX 500 MG in DEXTROSE/WATER 1 100ML.BAG IVPB ONE; LIDOCAINE 1% 20 ML VIAL (10MG/ML) FOR IV START INTRADERMA PRN; MIDAZOLAM 2 MG/2 ML VIAL IV PRN; ONDANSETRON 4 MG/2 ML VIAL IVP ONE; fentaNYL (PF) 50 MCG/ML 2 ML AMP IV PRN
--- NOTE | 2019-04-27 06:46 | XR ---
EXAMINATION TYPE: XR KUB DATE OF EXAM: 04/27/2019 COMPARISON: CT abdomen 03/24/2019 HISTORY: Kidney stone. Preop. TECHNIQUE: 2 views supine FINDINGS: There is right-sided ureteral stent. There is a single large calcified gallstone. There is 9 mm calcification at the right renal pelvis. Bowel gas pattern is nonacute. IMPRESSION: Right renal calculus unchanged. Large gallstone unchanged.
[2019-04-27] MEDS ORDERED: LIDOCAINE 1% INJ 10MG/ML (20 ML MDV) ONE (07:32)
[2019-04-27] MEDS ORDERED: ROCURONIUM BROMIDE 10 MG/ML 10 ML VIAL IV ONE (07:32)
[2019-04-27] MEDS ORDERED: NEOSTIGMINE 1 MG/ML 10 ML VIAL ONE (07:32)
[2019-04-27] MEDS ORDERED: GLYCOPYRROLATE 0.2 MG/ML 2 ML VIAL ONE (07:32)
[2019-04-27] MEDS ORDERED: fentaNYL (PF) 50 MCG/ML 2 ML AMP ONE (07:32)
[2019-04-27] MEDS ORDERED: ePHEDrine SULFATE/0.9% NACL/PF 50 MG/5 ML SYRINGE IV ONE (07:32)
[2019-04-27] MEDS ORDERED: PROPOFOL 10 MG/ML 20 ML VIAL IV ONE (07:32)
[2019-04-27] MEDS ORDERED: MIDAZOLAM 2 MG/2 ML VIAL ONE (07:32)
[2019-04-27] MEDS ORDERED: SUCCINYLCHOLINE CHLORIDE 100 MG/5 ML SYR IV ONE (07:32)
[2019-04-27] MEDS ORDERED: LACTATED RINGERS 1,000 ML IV ONE (08:58)
[2019-04-27 09:15] VITALS: TEMP 97.8
--- NOTE | 2019-04-27 09:18 | P.OP ---
Date of Procedure: 04/27/19 Preoperative Diagnosis: Right renal calculus Postoperative Diagnosis: Same Procedure(s) Performed: Cystoscopy, right ureteral stent removal, right ureteroscopy with Holmium laser lithotripsy and stone basketing Anesthesia: DEBRA Surgeon: Jose Ibarra Estimated Blood Loss (ml): 10 IV fluids (ml): 900 Pathology: other (Calculus fragment, sent for chemical analysis) Condition: stable Disposition: PACU Indications for Procedure: The patient is a 53-year-old white female admitted 03/19/2019 with primary complaints of right flank pain, fever, and chills. She was treated for sepsis. Both urine and blood cultures showed E. coli. She denies any prior history of UTIs or urolithiasis. A renal ultrasound showed evidence of right hydronephrosis, and a CT scan revealed mild right hydronephrosis due to a 7 mm right UPJ calculus. The CT scan also showed 2 left solid renal masses suspicious for renal cell carcinoma. She underwent placement of a right ureteral stent and has been treated with antibiotics. She also underwent PTCA with stenting, and is currently receiving antiplatelet therapy. She now comes for removal of her stent and ureteroscopic removal of the right UPJ calculus. Operative Findings: Right renal pelvic calculus, fragmented completely. Description of Procedure: The patient was taken to the operating room and placed in the dorsolithotomy position, with legs supported in Guy stirrups. The external genitalia was prepped and draped sterilely. The 30 lens was used to introduce the 22-Qatari Stortz cystoscopic sheath through the urethra and into the bladder under direct vision. The bladder was examined in its entirety. No tumors or foreign bodies were seen. Grasping forceps were used to grasp the distal end of the right ureteral stent, which was removed along with the cystoscope. A 0.038 inch Glidewire was passed through the stent and up to the right renal pelvis. The stent was removed, and an 11/13-Qatari ureteral access catheter was passed over the wire, up to the proximal ureter. The mini flexible ureteroscope was passed through the ureteral access catheter sheath and advanced under direct vision, up to the right renal pelvis. The 200 micron Holmium laser probe was passed through the ureteroscope, and lithotripsy was performed. A testing technique was utilized, until the calculus began to fragment. One fragment refluxed into an upper pole calyx, while another refluxed into a midpole calyx. Fragmentation was completed within these calyces. The largest remaining fragment was basketed using a 1.9-Qatari nitinol basket. This fragment measured only 1-2 mm in size, and was sent for chemical analysis. The remaining fragments were all less than 1 mm in size. The ureteroscope was withdrawn along with the ureteral access catheter sheath. There was no evidence of ureteral trauma. The patient tolerated the procedure well and was taken to the recovery room in stable condition. [facility] Report: Procedure Acuity: Elective Stone Size and Location: 7 mm, right renal pelvis Ureteral Dilation: No Ureteral Access Sheath Used: Yes Stone Sent for Analysis: Yes All Stones/Fragments Were Removed with a Basket: No Complications: No Preoperative Antibiotics Given: Yes Stent Placed: No If Stent Placed, Was String Left Attached: N/A Discharge Medications: None
[2019-04-27 10:14] VITALS: RESP 18
[2019-04-27 10:38] VITALS: BP 128/78; PULSE 78
--- NOTE | 2019-04-27 11:13 | FL ---
EXAMINATION TYPE: FL guidance operating room DATE OF EXAM: 04/27/2019 CLINICAL HISTORY: Nephrolithiasis. TECHNIQUE: Fluoroscopy. COMPARISON: None. FINDINGS: Fluoroscopic guidance was provided during procedure performed by Dr. Ibarra. A total of 5 seconds of fluoroscopic time was utilized during the procedure and 1 spot images was acquired during ureteroscopy. IMPRESSION: As Above.
== END 2019-04-27 10:47 | disposition home or self-care (01) ==
LOC: OR 06:09
PROVIDERS: ATTEND Urology
DX: N13.2 Hydronephrosis with renal and ureteral calculous obstruction (principal); I10 Essential (primary) hypertension; I25.10 Atherosclerotic heart disease of native coronary artery without angina pectoris; K21.9 Gastro-esophageal reflux disease without esophagitis; F17.210 Nicotine dependence, cigarettes, uncomplicated; Z90.89 Acquired absence of other organs; Z79.02 Long term (current) use of antithrombotics/antiplatelets; Z86.19 Personal history of other infectious and parasitic diseases; Z79.82 Long term (current) use of aspirin; Z79.899 Other long term (current) drug therapy; Z79.52 Long term (current) use of systemic steroids; Z88.0 Allergy status to penicillin
CPT/HCPCS: 81025; 88300; 74018; 52353; C1769; J2250; J1100; J2710; J2405; J1956; J2001; J3010; J0330; J2704

== ENCOUNTER → 2019-05-08 | Outpatient (CLI) | payer OTHER ==
[2019-05-08 20:25] LABS: African American GFR (CKD) 98.9 (60.0-200.0); Albumin 4.8 g/dL (3.80-4.90); Anion Gap 11.5 mmol/L (4.00-12.00); BUN/Creat Ratio 27.5 Ratio (12.00-20.00); Calcium 10.1 mg/dL (8.7-10.3); Carbon Dioxide 23.5 mmol/L (21.6-31.8); Chol/HDL Ratio 6.13; Globulin 2.4 g/dL (1.6-3.3); LDL Cholesterol,Calculated 66.2 mg/dL (0.0-131.0); Total Bilirubin 0.3 mg/dL (0.3-1.2); Total Protein 7.2 g/dL (6.2-8.2); VLDL Calculation 128.8 mg/dL (5.00-40.00)
== END | disposition home or self-care (01) ==
LOC: LABWHC1 12:36
PROVIDERS: ATTEND Internal Medicine Interventional Cardiology
DX: E78.2 Mixed hyperlipidemia (principal)
CPT/HCPCS: 36415; 80053; 80061

== ENCOUNTER → 2019-05-31 | Outpatient (CLI) | payer OTHER ==
--- NOTE | 2019-05-31 17:03 | CT ---
EXAMINATION TYPE: CT chest w con DATE OF EXAM: 05/31/2019 COMPARISON: None HISTORY: Neoplasm of uncertain behavior, left kidney CT DLP: 422.1 mGycm, Automated exposure control for dose reduction was used. CONTRAST: Performed injected with 100 mL of Isovue 300. TECHNIQUE: Axial images were obtained at 5 mm thick sections. Reconstructed images are reviewed on In[employer]Pad computer in the coronal plane. FINDINGS: Portion of the thyroid visualized is normal. There are numerous bilateral pulmonary nodules. These vary between 2 and 7 mm the larger nodules are as follows: A 0.5 cm nodule within the right mid lung. Series 4 image 25. There is a 0.7 cm nodule wi thin the posterior right lung. Series 4 image 31. At the same level there is a 0.5 cm nodule. Series 4 image 31. A 0.7 cm nodule, series 4 image 38 right middle lobe. There is an enlarged peripheral pulmonic window lymph node measuring 1.0 cm. Additional shotty lymph adenopathy is the mediastinum and 1.2 cm lymph node is at the vinicius. Additional smaller shotty lymph adenopathy in the pretracheal space. The ascending aorta diameter at the level of the main pulmonary artery is 3.7 cm. The main pulmonary artery diameter at the bifurcation is 3.[address] sections are obtained through the upper abdomen. There is heterogeneity to the superior po le left kidney which can be compatible with the patient's reported neoplasm. Some thickening of the l eft adrenal gland with a transverse dimension of 1.5 cm is present. Note is made of a 1.5 cm nodule within the left breast. This may be adjacent to a calcification or a prior biopsy marker. Correlation with diagnostic mammography is recommended. IMPRESSIONS: 1. Multiple bilateral nodules, largest in the right lower lobe measures oral 0.7 cm. 2. Enlarged mediastinal lymph nodes discussed above. 3. Left breast nodule, correlation with diagnostic mammography is recommended. Neoplasm is not exclud ed on the basis of this examination. 4. Superior pole left renal mass
== END | disposition home or self-care (01) ==
LOC: RADCTMAIN 15:10
PROVIDERS: ATTEND Urology
DX: R91.8 Other nonspecific abnormal finding of lung field (principal); R59.0 Localized enlarged lymph nodes; D41.02 Neoplasm of uncertain behavior of left kidney; Z88.0 Allergy status to penicillin
CPT/HCPCS: 82565; 84520; 71260; 36415; Q9967

== ENCOUNTER → 2019-07-28 | Outpatient (CLI) | payer OTHER ==
[2019-07-28 18:54] LABS: African American GFR (CKD) 98.9 (60.0-200.0); Albumin 4.5 g/dL (3.80-4.90); Albumin/Globulin Ratio 2.37 (1.60-3.17); Anion Gap 6.2 mmol/L (4.00-12.00); BUN/Creat Ratio 33.75 Ratio (12.00-20.00); Calcium 9.8 mg/dL (8.7-10.3); Carbon Dioxide 22.8 mmol/L (21.6-31.8); Chol/HDL Ratio 6.87; Globulin 1.9 g/dL (1.6-3.3); Non-African American GFR(CKD) 85.4 (60.0-200.0); Potassium 4.7 mmol/L (3.5-5.5); Total Bilirubin 0.2 mg/dL (0.3-1.2); Total Protein 6.4 g/dL (6.2-8.2)
== END | disposition home or self-care (01) ==
LOC: LABWHC1 14:10
PROVIDERS: ATTEND Internal Medicine Interventional Cardiology
DX: E78.2 Mixed hyperlipidemia (principal)
CPT/HCPCS: 36415; 80053; 80061; 83721

== ENCOUNTER → 2019-08-21 | Outpatient (CLI) | payer OTHER ==
[2019-08-21 13:23] LABS: African American GFR (CKD) >90 (>60 ml/min/1.73 sqM); Blood Urea Nitrogen 25 mg/dL (7-17); Non-African American GFR(CKD) 89 (>60 ml/min/1.73 sqM)
--- NOTE | 2019-08-22 08:09 | CT ---
EXAMINATION TYPE: CT ChestAbdPelvis w con DATE OF EXAM: 08/21/2019 COMPARISON: CT abdomen and pelvis March 24, [address] chest May 31, 2019 HISTORY: Left renal mass suspected cancer. CT DLP: 2036.4 mGycm. Automated Exposure Control for Dose Reduction was Utilized. CONTRAST: CT scan of the thorax, abdomen and pelvis is performed with IV Contrast, patient injected with 100 mL of Isovue M300. FINDINGS: LUNGS: Background mild to moderate underlying emphysematous change redemonstrated with scattered smal l nodules bilaterally more prominent in the lower lungs largest redemonstrated right middle lobe larry uring roughly 10 x 8 mm axial image 39 versus 9 x 7 mm prior study image 38 not significantly changed in size or appearance accounting for technical differences. Scattered smaller nodules for reference laterally axial image 37 and right lower lobe 7 mm nodule axial image 35 are stable. No new nodules o r masses. No pleural effusion or pneumothorax bilaterally. MEDIASTINUM: There are no new greater than 1 cm hilar or mediastinal lymph nodes. Prominent but subc entimeter lymph nodes on short axis are stable. No pericardial effusion is seen. Stable mild cardiom egaly. Coronary artery calcification and/or stents redemonstrated which is noted marker for underlyin g coronary artery disease. OTHER: Stable 1.5 cm left breast mass axial image 19 near calcification or clip left superior margin axial image 18. LIVER/GB: Large rim calcified 2.6 cm gallstone in contracted gallbladder. Liver remains low dense con sistent with diffuse fatty infiltration. PANCREAS: No significant abnormality is seen. SPLEEN: No significant abnormality is seen. ADRENALS: Nonspecific nodular thickening to both adrenal glands is stable. KIDNEYS: Large heterogeneous enhancing lobulated exophytic mass upper pole of the left kidney with so me calcification measuring approximately 7.3 x 7.2 x 6.5 cm axial image 65 and coronal image 73 with additional posterior inferior exophytic component or second area of involvement measuring 4.8 x 4.1 c m axial image 71 redemonstrated. A few simple-appearing thin-walled cysts throughout both kidneys are also redemonstrated. Exophytic thinwall cyst or cystic lesion medially lower pole of the left kidney measures 2.4 x 2.0 cm current study image 86 diminished in size from prior study. There is nonspecif ic 1.4 cm hypodense lesion anteriorly mid to lower pole of the left kidney image 39 that is more prom inent from prior study. Coronal images redemonstrate tiny bilateral nonobstructing renal calculi larry uring under 2 mm in size. There is nonvisualization of prior 7 mm right UPJ calculus suggesting inter kyle successful treatment and/or passage. Patent left renal vein noted. BOWEL: Oral contrast does level of the left colon. No suspicious small or large bowel dilatation. Nor mal-appearing appendix from cecum in the right upper pelvis. GENITAL ORGANS: Anteverted uterus projects to right of midline. Both ovaries seen and not suspiciousl y enlarged. Interval resolution of fluid in pelvic cul-de-sac LYMPH NODES: No greater than 1cm abdominal or pelvic lymph nodes are appreciated. There are prominent but subcentimeter lymph nodes along course of the left renal artery axial image 66 redemonstrated. OSSEOUS STRUCTURES: No suspicious new focal lytic or sclerotic lesion. OTHER: No significant additional abnormality is seen. IMPRESSION: Stable large left renal neoplasm or 2 adjacent neoplasms, latter is favored. Stable nons pecific pulmonary nodularity more prominent in the lower lungs in which hematogenous metastatic disea se cannot be excluded. Nonspecific nodularity to both adrenal glands redemonstrated and stable. Canno t rule out metastatic disease. Interval resolution of pleural effusions and ascites along with soft t issue anasarca. Stable left breast lesion which should be correlated clinically.
== END | disposition home or self-care (01) ==
LOC: RADCTMAIN 12:50
PROVIDERS: ATTEND Urology
DX: D41.02 Neoplasm of uncertain behavior of left kidney (principal); E27.8 Other specified disorders of adrenal gland; N64.9 Disorder of breast, unspecified; R10.9 Unspecified abdominal pain; R91.8 Other nonspecific abnormal finding of lung field; Z88.0 Allergy status to penicillin
CPT/HCPCS: 82565; 84520; 71260; 74177; 36415; Q9967 ×2

== ENCOUNTER → 2019-09-05 | Outpatient (CLI) | payer OTHER ==
[2019-09-05 14:06] LABS: Basophils # (A) 0.1 k/uL (0-0.2); Basophils % (A) 1 %; Eosinophils # (A) 0.4 k/uL (0-0.7); Eosinophils % (A) 4 %; HGB 14.5 gm/dL (11.4-16.0); Lymphocytes # (A) 2.7 k/uL (1.0-4.8); Lymphocytes % (A) 26 %; MCH 30.9 pg (25.0-35.0); MCHC 32.9 g/dL (31.0-37.0); MCV 94.1 fL (80.0-100.0); Mean Platelet Volume 9.7; Monocytes # (A) 0.6 k/uL (0-1.0); Monocytes % (A) 6 %; Neutrophils # (A) 6.4 k/uL (1.3-7.7); Neutrophils % (A) 62 %; Platelet Count 290 k/uL (150-450); RBC 4.67 m/uL (3.80-5.40); RDW 12.8 % (11.5-15.5); WBC 10.4 k/uL (3.8-10.6)
[2019-09-05 14:13] LABS: ALT 16 U/L (4-34); AST 18 U/L (14-36); African American GFR (CKD) >90 (>60 ml/min/1.73 sqM); Albumin 4.6 g/dL (3.5-5.0); Alkaline Phosphatase 38 U/L (38-126); Anion Gap 9 mmol/L; Blood Urea Nitrogen 23 mg/dL (7-17); Calcium 10.4 mg/dL (8.4-10.2); Carbon Dioxide 25 mmol/L (22-30); Chloride 104 mmol/L (98-107); Glucose 195 mg/dL (74-99); Non-African American GFR(CKD) 88 (>60 ml/min/1.73 sqM); Potassium 4.9 mmol/L (3.5-5.1); Sodium 138 mmol/L (137-145); Total Bilirubin 0.5 mg/dL (0.2-1.3); Total Protein 7.5 g/dL (6.3-8.2)
== END | disposition home or self-care (01) ==
LOC: LABWHC1 12:57
PROVIDERS: ATTEND Urology
DX: Z01.812 Encounter for preprocedural laboratory examination (principal); D41.02 Neoplasm of uncertain behavior of left kidney
CPT/HCPCS: 36415; 80053; 85025

== ENCOUNTER 2019-09-14 10:58 | Inpatient (IN) | payer OTHER ==
[2019-09-08 15:47] VITALS: BMI 32.8
--- NOTE | 2019-09-13 06:58 | P.GSHP ---
History of Present Illness H&P Date: 09/13/19 Chief Complaint: Left renal mass The patient is a 54-year-old white female admitted 03/19/2019 with primary complaints of right flank pain, fever, and chills. She was treated for sepsis. Both urine and blood cultures showed E. coli. She denies any prior history of UTIs or urolithiasis. A renal ultrasound showed evidence of right hydronephrosis, and a CT scan revealed mild right hydronephrosis due to a 7 mm right UPJ calculus. The CT scan also showed 2 left solid renal masses suspicious for renal cell carcinoma. The largest measures 7.3 cm in maximal diameter. She underwent placement of a right ureteral stent and was treated with antibiotics. She also underwent PTCA with stenting, and subsequently underwent removal of her stent and ureteroscopic removal of the right UPJ calculus. She has been cleared by cardiology and now comes for a left radical nephrectomy. A recent computed tomography scan of the chest, abdomen, and pelvis showed no metastases. The computed tomography scan also showed that the renal masses were stable in size. - Constitutional Constitutional: Denies weight loss - Cardiovascular Cardiovascular: Denies chest pain - Respiratory Respiratory: Denies dyspnea - Genitourinary (Female) Genitourinary: Reports kidney stones, Denies flank pain, Denies hematuria Past Medical History Past Medical History: Coronary Artery Disease (CAD), Cancer, CVA/TIA, Hypertension Additional Past Medical History / Comment(s): states hx of facial numbness unsure of diagnosis. Hospitalized 03/2019-pylonephritis, kidney stone, uti with sepsis and diagnosed with left renal mass (underwent ureteroscopic removal of right ureteral calculus). PTCA with stents. History of Any Multi-Drug Resistant Organisms: None Reported Past Surgical History: Section, Heart Catheterization With Stent, Tonsillectomy Additional Past Surgical History / Comment(s): BREAST BX WITH TITANIUM MARKER., HEART CATH WITH STENTS (MAR 2019), CYSTOSCOPY & LITHOTRIPSY, RENAL STENT. Past Anesthesia/Blood Transfusion Reactions: Previous Problems w/ Anesthesia, Postoperative Nausea & Vomiting (PONV) Additional Past Anesthesia/Blood Transfusion Reaction / Comment(s): STATES SHE WAS TOLD THEY HAD DIFFICULTY SEDATING HER-HAD TO GIVE HER A LOT OF MEDICATION Date of Last Stent Placement:: 03/2019 Past Psychological History: Anxiety, Depression Smoking Status: Current every day smoker Past Alcohol Use History: None Reported Additional Past Alcohol Use History / Comment(s): SMOKES <1PPD, STARTED SMOKING AGE 22 Past Drug Use History: None Reported - Past Family History Mother Family Medical History: Unable to Obtain Additional Family Medical History / Comment(s): PATIENT ADOPTED Medications and Allergies Home Medications Medication Instructions Recorded Confirmed Type Aspirin 81 mg PO DAILY chew 03/29/19 09/08/19 Rx Atorvastatin [Lipitor] 40 mg PO DAILY #90 tab 03/29/19 09/08/19 Rx Clopidogrel [Plavix] 75 mg PO DAILY #90 tab 03/29/19 09/08/19 Rx Lisinopril [Zestril] 5 mg PO BID #180 tab 03/29/19 09/08/19 Rx Metoprolol Tartrate [Lopressor] 50 mg PO BID #180 tab 03/29/19 09/08/19 Rx Nitroglycerin Sl Tabs [Nitrostat] 0.4 mg SUBLINGUAL Q5M PRN #25 tab 03/29/19 09/08/19 Rx Spironolactone [Aldactone] 25 mg PO DAILY #90 tab 03/29/19 09/08/19 Rx Furosemide [Lasix] 20 mg PO DAILY 04/26/19 09/08/19 History hydrOXYzine HCL [Atarax] 50 mg PO HS 04/26/19 09/08/19 History Ezetimibe [Zetia] 10 mg PO DAILY 09/08/19 09/08/19 History Fenofibrate Nanocrystallized 145 mg PO DAILY 09/08/19 09/08/19 History [Fenofibrate] Venlafaxine HCl [Effexor] 37.5 mg PO DAILY@1200 09/08/19 09/08/19 History Allergies Allergy/AdvReac Type Severity Reaction Status Date / Time Penicillins Allergy Unknown Verified 09/08/19 14:45 Childhood Surgical - Exam - General well developed, well nourished, no distress - Neck no masses, trachea midline, no lymphadectomy - Respiratory normal respiratory effort, clear to auscultation - Cardiovascular Rhythm: regular Abnormal Heart Sounds: no systolic murmur, no diastolic murmur - Abdomen Diastases recti is noted. Abdomen: soft, non tender, no guarding, no rigid, no rebound - Psychiatric oriented to time, oriented to person, oriented to place, speech is normal, memory intact Results - Imaging CT scan - abdomen: report reviewed, image reviewed Assessment and Plan (1) Left renal mass Status: Acute Code(s): N28.89 - OTHER SPECIFIED DISORDERS OF KIDNEY AND URETER SNOMED Code(s): 984466582 Plan: The patient was advised that the majority of renal masses are malignant. Renal mass biopsy is usually discouraged. Standard treatment of renal masses is a radical nephrectomy. Her masses not amenable to a partial nephrectomy. We discussed this with the planned procedure, a left radical nephrectomy, in great detail. She was made aware potential risks, which include anesthesia, bleeding, infection, bowel injury, splenic injury (which may require splenectomy), chylous ascites, postoperative paralytic ileus, bowel obstruction, and incisional hernia.
[~2019-09-14 10:58] MED LIST changes: -LACTATED RINGERS 1,000 ML IV SCH; -LEVOFLOXACIN 500MG-D5W PMX 500 MG in DEXTROSE/WATER 1 100ML.BAG IVPB ONE
[2019-09-14] MEDS: LACTATED RINGERS 1,000 ML IV SCH (11:32)
[2019-09-14] MEDS ORDERED: PHENYLEPHRINE-0.9% NACL SYG 1 MG/10 ML SYRINGE ONE (12:59)
[2019-09-14] MEDS ORDERED: ALBUMIN HUMAN 5% (12.5gm) 250 ML BOTTLE IVPB ONE (12:59)
[2019-09-14] MEDS ORDERED: NEOSTIGMINE 1 MG/ML 10 ML VIAL ONE (12:59)
[2019-09-14] MEDS ORDERED: LIDOCAINE 1% INJ 10MG/ML (20 ML MDV) ONE (12:59)
[2019-09-14] MEDS ORDERED: MIDAZOLAM 2 MG/2 ML VIAL ONE (12:59)
[2019-09-14] MEDS ORDERED: fentaNYL (PF) 50 MCG/ML 2 ML AMP ONE (12:59)
[2019-09-14] MEDS ORDERED: GLYCOPYRROLATE 0.2 MG/ML 2 ML VIAL ONE (12:59)
[2019-09-14] MEDS ORDERED: PROPOFOL 10 MG/ML 20 ML VIAL IV ONE (12:59)
[2019-09-14] MEDS ORDERED: ePHEDrine SULFATE/0.9% NACL/PF 50 MG/5 ML SYRINGE IV ONE (12:59)
[2019-09-14] MEDS ORDERED: SUCCINYLCHOLINE CHLORIDE 100 MG/5 ML SYR IV ONE (12:59)
[2019-09-14] MEDS ORDERED: ROCURONIUM BROMIDE 10 MG/ML 5 ML VIAL IV ONE (12:59)
[2019-09-14] MEDS ORDERED: ROPIVACAINE 250 MG, HYDROMORPHONE (PF) 5 MG in SODIUM CHLORIDE 0.9% 200 ML EPIDURAL PRN (13:47)
[2019-09-14] MEDS ORDERED: NALOXONE 0.4 MG/ML 1 ML VIAL IV PRN (13:47)
[2019-09-14] MEDS ORDERED: LACTATED RINGERS 1,000 ML IV ONE ×2 (15:21→16:04)
[2019-09-14 16:28] LABS: HCT 21.8 % (34.0-46.0); MCH 31.9 pg (25.0-35.0); MCHC 33.1 g/dL (31.0-37.0); MCV 96.6 fL (80.0-100.0); Mean Platelet Volume 10.4; Platelet Count 147 k/uL (150-450); RBC 2.26 m/uL (3.80-5.40); RDW 12.8 % (11.5-15.5); WBC 6.4 k/uL (3.8-10.6)
[2019-09-14 16:34] LABS: HGB 7.2 gm/dL (11.4-16.0)
[2019-09-14] MEDS ORDERED: NITROGLYCERIN SL TABS 0.4 MG TAB SUBLINGUAL PRN (17:11)
--- NOTE | 2019-09-14 17:33 | P.OP ---
Date of Procedure: 09/14/19 Preoperative Diagnosis: Left renal mass Postoperative Diagnosis: Same Procedure(s) Performed: Left radical nephrectomy Anesthesia: GETA, epidural Surgeon: Jose Ibarra [employer]1: Conner Hillman Estimated Blood Loss (ml): 1,500 IV fluids (ml): 3,500 Pathology: other (Left kidney and adrenal gland) Condition: stable Disposition: PACU Indications for Procedure: The patient is a 54-year-old white female admitted 03/19/2019 with primary complaints of right flank pain, fever, and chills. She was treated for sepsis. Both urine and blood cultures showed E. coli. She denies any prior history of UTIs or urolithiasis. A renal ultrasound showed evidence of right hydronephrosis, and a CT scan revealed mild right hydronephrosis due to a 7 mm right UPJ calculus. The CT scan also showed 2 left solid renal masses suspicious for renal cell carcinoma. The largest measures 7.3 cm in maximal diameter. She underwent placement of a right ureteral stent and was treated with antibiotics. She also underwent PTCA with stenting, and subsequently underwent removal of her stent and ureteroscopic removal of the right UPJ calculus. She has been cleared by cardiology and now comes for a left radical nephrectomy. A recent computed tomography scan of the chest, abdomen, and pelvis showed no metastases. The computed tomography scan also showed that the renal masses were stable in size. Operative Findings: Large left renal mass. No evidence of extrarenal disease. Description of Procedure: The patient was taken to the operating room and placed in the supine position. After being given general anesthesia, the abdomen was prepped and draped sterilely. A left sided chevron incision was made using the scalpel. The Bovie electrocautery was used to incise the subcutaneous tissues and muscular layers of the abdominal wall down to the peritoneum. The peritoneum was then carefully entered, and opened the full length of the incision. The abdomen was examined, and no abnormalities were noted other than the renal mass. Specifically, there was no evidence of malignancy elsewhere within the abdomen. The Bookwalter retractor was used for exposure. The peritoneum was incised at the line of Toldt, allowing the left hemicolon to be mobilized medially off of Gerota's fascia. The splenocolic ligament was carefully divided. This allowed the colon to be reflected medially until the aorta was exposed anteriorly. The dissection was then performed inferiorly at the tail of Gerota's fascia. The plane posterior to the kidney along the posterior abdominal wall was developed via blunt dissection. The dissection was then continued in a cephalad direction along the lateral aspect of the aorta. The tissue within the left renal hilum was clipped and divided immediately alongside the lateral aspect of the aorta. There was no evidence of adenopathy. The left renal vein was identified. There were 2 left renal arteries, and each were ligated using a 2-0 silk tie. The adrenal vein was isolated, ligated, and divided at its inserted into the left renal vein. The left renal vein was then ligated twice, proximally and distally. A suture ligature was placed through the proximal aspect of the vein prior to dividing it. The left renal arteries were then ligated 2 additional times, such that they were ligated twice proximally and once distally prior to dividing them. The remaining hilar tissues were clipped and divided at this time. Once the hilar dissection had been completed, the inferior aspect of the dissection was completed. Both the ureter and gonadal vein were clipped and divided. Blunt dissection was then performed to complete the posterior dissection. Superiorly, the peritoneum was incised. Superior attachments were clipped and divided, allowing removal of the surgical specimen along with the adrenal gland. There are no specific times during the procedure were significant blood loss was noted, but some oozing was noted throughout the procedure and this may be attributed to her aspirin use. After removing the specimen, the surgical field was examined and hemostasis was noted to be excellent. Surgicel was placed over the superior attachments. The Bookwalter retractor was removed. The abdominal contents were allowed to return to their normal location. Each individual muscle layer of the anterior abdominal wall was closed using #1 Vicryl suture in a running fashion. Hemostasis within the subcutaneous tissues was excellent. The skin was closed using ailyn. A sterile gauze dressing was applied over the incision. All sponge and needle counts were correct. The patient tolerated the procedure well was taken to the recovery room in stable condition.
[2019-09-14] MEDS ORDERED: ONDANSETRON 4 MG/2 ML VIAL IVP ONE (18:45)
[2019-09-14] MEDS ORDERED: diphenhydrAMINE 50 MG/ML 1 ML VIAL IVP ONE (19:20)
[2019-09-14] MEDS ORDERED: ePHEDrine 50 MG/ML 1 ML AMP IVP ONE (19:41)
[2019-09-14] MEDS: ePHEDrine 50 MG/ML 1 ML AMP IVP ONE ×2 (19:49→20:47)
[2019-09-14 20:57] LABS: HCT 36.8 % (34.0-46.0); MCHC 33.9 g/dL (31.0-37.0); MCV 94.2 fL (80.0-100.0); Mean Platelet Volume 10.2; Platelet Count 218 k/uL (150-450); RDW 13.4 % (11.5-15.5); WBC 18.6 k/uL (3.8-10.6)
[2019-09-14 21:00] LABS: HGB 12.5 gm/dL (11.4-16.0)
[2019-09-14] MEDS ORDERED: ALBUMIN HUMAN 5% 500 ML in EMPTY BAG 1 BAG IVPB STA (21:03)
[2019-09-14 21:18] LABS: HCT 36.2 % (34.0-46.0); HGB 11.9 gm/dL (11.4-16.0); MCH 30.8 pg (25.0-35.0); MCV 93.5 fL (80.0-100.0); Mean Platelet Volume 9.7; Platelet Count 193 k/uL (150-450); RBC 3.87 m/uL (3.80-5.40); RDW 13.6 % (11.5-15.5); WBC 17.5 k/uL (3.8-10.6)
[2019-09-14] MEDS ORDERED: SODIUM CHLORIDE 0.9% 1,000 ML IV ONE (22:14)
[2019-09-14] MEDS ORDERED: SODIUM CHLORIDE 0.9% 500 ML 500 ML IV ONE ×2 (22:37→23:12)
[2019-09-14 23:44] LABS: Basophils % (A) 0 %; Eosinophils % (A) 0 %; HCT 34.3 % (34.0-46.0); HGB 11.3 gm/dL (11.4-16.0); Lymphocytes # (A) 1.5 k/uL (1.0-4.8); Lymphocytes % (A) 10 %; MCH 30.6 pg (25.0-35.0); MCHC 32.9 g/dL (31.0-37.0); MCV 93.2 fL (80.0-100.0); Monocytes % (A) 7 %; Neutrophils # (A) 12.1 k/uL (1.3-7.7); Neutrophils % (A) 81 %; Platelet Count 187 k/uL (150-450); RBC 3.68 m/uL (3.80-5.40); RDW 13.8 % (11.5-15.5); WBC 14.9 k/uL (3.8-10.6)
[2019-09-15] MEDS: METOPROLOL TARTRATE 50 MG TAB PO SCH ×3 (00:28→19:30)
[2019-09-15] MEDS: LISINOPRIL 5 MG TAB PO SCH ×3 (00:28→19:42)
[2019-09-15] MEDS: DEXTROSE 5%-0.45% NACL 1,000 ML IV SCH ×3 (00:29→21:46)
[2019-09-15 04:02] LABS: Basophils % (A) 0 %; Eosinophils # (A) 0.1 k/uL (0-0.7); Eosinophils % (A) 1 %; HCT 33.3 % (34.0-46.0); Lymphocytes # (A) 2.1 k/uL (1.0-4.8); Lymphocytes % (A) 16 %; MCH 30.6 pg (25.0-35.0); MCHC 32.9 g/dL (31.0-37.0); Mean Platelet Volume 9.7; Monocytes # (A) 0.9 k/uL (0-1.0); Monocytes % (A) 7 %; Neutrophils # (A) 9.4 k/uL (1.3-7.7); Neutrophils % (A) 74 %; Platelet Count 188 k/uL (150-450); RBC 3.58 m/uL (3.80-5.40); WBC 12.6 k/uL (3.8-10.6)
[2019-09-15 04:12] LABS: ALT 12 U/L (4-34); AST 23 U/L (14-36); African American GFR (CKD) 53 (>60 ml/min/1.73 sqM); Alkaline Phosphatase <20 U/L (38-126); Anion Gap 8 mmol/L; Blood Urea Nitrogen 25 mg/dL (7-17); Calcium 7.8 mg/dL (8.4-10.2); Carbon Dioxide 19 mmol/L (22-30); Chloride 107 mmol/L (98-107); Glucose 150 mg/dL (74-99); Non-African American GFR(CKD) 46 (>60 ml/min/1.73 sqM); Potassium 4.9 mmol/L (3.5-5.1); Sodium 134 mmol/L (137-145); Total Bilirubin 0.3 mg/dL (0.2-1.3)
[2019-09-15] MEDS: LACTATED RINGERS 1,000 ML IV SCH (05:18)
[2019-09-15] MEDS ORDERED: MORPHINE SULFATE 2 MG/ML SYRINGE IVP PRN (06:15)
--- NOTE | 2019-09-15 06:26 | P.PN ---
Progress Note - Text Progress Note Date: 09/15/19 This is a 54-year-old female postop day #1 status post left radical nephrectomy due to kidney carcinoma. The patient's blood pressure was in the left side during her stay in the recovery room. After resuscitation think her with 2 units of packed red cells and 500 MLS of albumin 5% + crystalloids her pressure improved to the mid 90s systolic and lower 100s. Her urine output also improved with that. The patient then was sent to the floor. Because of her labile blood pressure the epidural infusion was stopped during her stay in the recovery room. The patient went to the floor and the epidural infusion stayed off. The patient was not complaining of any pain. This morning the patient is alert oriented 3 in no apparent distress. She does not complain of any pain at rest however when she taps she complains of mild pain. The epidural infusion still off. The patient was more fluid resuscitated overnight on the floor under the supervision of Dr. Ibarra. The patient denies any weakness or any numbness or tingling in the lower extremities. She used to be on Plavix but it was felt 3 days before her surgery and she has orders only for oral aspirin at this point with no other anticoagulants on board. At this point it looks like the patient's pain is well controlled but I would ad d an order for 2 mg of morphine IV every 4 hours when necessary pain in case her pain gets worse. It seems that her epidural affects her blood pressure significantly and that's why the infusion should stay off for now. If patient's pain is gets worse and if her blood pressure is getting better then we can restart the epidural infusion at a low rate. For now continue with IV morphine for pain control. If the patient's pain is easily controlled by IV morphine then the epidural catheter can be removed. Anyway the patient should be observed for the next 6-12 hours before we make a decision about the epidural infusion.
--- NOTE | 2019-09-15 08:25 | P.PN ---
Subjective Progress Note Date: 09/15/19 Principal diagnosis: POD #1, s/p left radical nephrectomy The patient received fluid boluses overnight due to hypotension. She was somewhat dizzy at that time. Her blood pressure is now improved. She reports incisional discomfort and a sore throat but otherwise feels well. Objective - Vital Signs Vital signs: Vital Signs Temp 98.2 F 09/15/19 07:00 Pulse 85 09/15/19 07:00 Resp 14 09/15/19 07:00 BP 93/51 09/15/19 07:00 Pulse Ox 96 09/15/19 07:00 Intake & Output 09/14/19 09/15/19 09/15/19 18:59 06:59 18:59 Intake Total 4050 800 Output Total 1710 450 Balance 2340 350 Weight 109.679 kg 109.679 kg Intake: IV 4050 800 Blood Product 0 0 Rc As-1 Unit 0 [id number] Rc As-1 Unit 0 [id number] Output: Urine 210 450 Estimated Blood Loss 1500 Other: Voiding Method Indwelling Catheter - Constitutional General appearance: Present: cooperative, no acute distress - Gastrointestinal Gastrointestinal Comment(s): Soft, non-distended. Dressing dry and intact. - Psychiatric Psychiatric: Present: A&O x's 3, appropriate affect - Labs CBC & Chem 7: 09/15/19 03:43 09/15/19 03:43 Labs: Abnormal Lab Results - Last 24 Hours (Table) 09/05/19 09/14/19 09/14/19 Range/Units 13:31 15:48 19:57 WBC 18.6 H (3.8-10.6) k/uL RBC 2.26 L (3.80-5.40) m/uL Hgb 7.2 L D (11.4-16.0) gm/dL Hct 21.8 L (34.0-46.0) % Plt Count 147 L (150-450) k/uL Neutrophils # (1.3-7.7) k/uL Sodium (137-145) mmol/L Carbon Dioxide (22-30) mmol/L BUN (7-17) mg/dL Creatinine (0.52-1.04) mg/dL Glucose (74-99) mg/dL Plasma Lactic Acid Bryn (0.7-2.0) mmol/L Calcium (8.4-10.2) mg/dL Alkaline Phosphatase (38-126) U/L Total Protein (6.3-8.2) g/dL Albumin (3.5-5.0) g/dL Crossmatch See Detail 09/14/19 09/14/19 09/14/19 Range/Units 21:08 23:27 23:29 WBC 17.5 H 14.9 H (3.8-10.6) k/uL RBC 3.68 L (3.80-5.40) m/uL Hgb 11.3 L (11.4-16.0) gm/dL Hct (34.0-46.0) % Plt Count (150-450) k/uL Neutrophils # 12.1 H (1.3-7.7) k/uL Sodium (137-145) mmol/L Carbon Dioxide (22-30) mmol/L BUN (7-17) mg/dL Creatinine (0.52-1.04) mg/dL Glucose (74-99) mg/dL Plasma Lactic Acid Bryn 2.8 H* (0.7-2.0) mmol/L Calcium (8.4-10.2) mg/dL Alkaline Phosphatase (38-126) U/L Total Protein (6.3-8.2) g/dL Albumin (3.5-5.0) g/dL Crossmatch 09/15/19 09/15/19 09/15/19 Range/Units 03:43 03:43 03:43 WBC 12.6 H (3.8-10.6) k/uL RBC 3.58 L (3.80-5.40) m/uL Hgb 11.0 L (11.4-16.0) gm/dL Hct 33.3 L (34.0-46.0) % Plt Count (150-450) k/uL Neutrophils # 9.4 H (1.3-7.7) k/uL Sodium 134 L (137-145) mmol/L Carbon Dioxide 19 L (22-30) mmol/L BUN 25 H (7-17) mg/dL Creatinine 1.34 H (0.52-1.04) mg/dL Glucose 150 H (74-99) mg/dL Plasma Lactic Acid Bryn 2.6 H* (0.7-2.0) mmol/L Calcium 7.8 L (8.4-10.2) mg/dL Alkaline Phosphatase <20 L (38-126) U/L Total Protein 5.0 L (6.3-8.2) g/dL Albumin 3.0 L (3.5-5.0) g/dL Crossmatch Assessment and Plan (1) Left renal mass Current Visit: No Status: Acute Code(s): N28.89 - OTHER SPECIFIED DISORDERS OF KIDNEY AND URETER SNOMED Code(s): 299178243 Plan: Continue to monitor blood pressure. Resume epidural catheter if blood pressure increases to the desired degree. The importance of ambulation and pulmonary toilet was stressed.
[2019-09-15] MEDS: ASPIRIN 81 MG PO SCH (08:57)
[2019-09-15] MEDS: ATORVASTATIN 40 MG TAB PO SCH (08:57)
[2019-09-15] MEDS: EZETIMIBE 10 MG TAB PO SCH ×2 (09:01→11:23)
[2019-09-15] MEDS: SPIRONOLACTONE 25 MG TAB PO SCH (11:23)
[2019-09-15] MEDS: FUROSEMIDE 20 MG TAB PO SCH (11:23)
[2019-09-15] MEDS: VENLAFAXINE HCL 37.5 MG TAB PO SCH (12:22)
--- NOTE | 2019-09-15 14:24 | CDI ---
Documentation Clarification Form Date: 09/15/2019 CDS: Zaida Christopher, CCS, CCDS Admit Date: 09/14/2019 Patient Name: Adelina Milan Discharge Date: ATTENTION: The Clinical Documentation Specialists (CDI) and [facility] Coding Staff appreciate your assistance in clarifying documentation. Please respond to the clarification below the line at the bottom and electronically sign. The CDI & [facility] Coding staff will review the response and follow-up if needed. Please note: Queries are made part of the Legal Health Record. If you have any questions, please contact the author of this message via ITS. Dear Dr. Jose Ibarra: Per the Urology Progress Note on 09/15: the patient received fluid boluses overnight secondary to hypotension. The patient had surgery on 09/14: left radical nephrectomy for suspected renal carcinoma. Patients Admitting Diagnosis: Left renal mass, possible renal carcinoma Post-Operative Diagnosis: Same Procedure performed: Left radical nephrectomy, anesthesia: GETA, epidural. History/Risk Factors: CAD with stents, Hypertension, Hyperlipidemia, Smoker. History of kidney stones, UTI with sepsis & right ureteral calculus requiring a stent. Clinical Indicators: Presented for elective surgery, no surgical complications noted. Progress notes on 09/15 by Anesthesiologist & Urology note patient's low blood pressure & need for fluid resuscitation. Blood Pressure 09/14 q15 minutes average: 17/56 - 83/41 - 86/48 - 75/39 - 87/44 - 91/52 - 76/39 - 90/51. Blood Pressure 09/15 q15 minutes average: 92/53 - 80/44 - 88/50 - 85/47 - 90/52 - 93/51 Treatment 09/14: Transfused 2 units PRBCs in recovery room, resuscitated overnight on med/surg floor with IV fluids for hypotension. Patient's epidural stopped in recovery, on IV Morphine. IV Cefazolin, IV Decadron, IV Zofran, IV Lactated ringers, IV Dextrose 5%/Na Cl, IV Benadryl, IV Ephedrine, IV Albumin Human 500 ml, IV fluid bolus 500 mls @ 999 mls/hr x2. Monitoring of blood pressure. In order to accurately reflect this patients severity of illness, please clarify the significance of the documented hypotension occurring postoperatively & if the post-operative diagnosis is: An unexpected post-procedural or post-surgical condition related to surgical care (a complication of care), please specify: Patient underwent surgical removal of a large left renal mass. Because of coronary artery disease and a recently placed stent, her aspirin could not be held perioperatively. This combined with the complicated surgical procedure resulted in blood loss with subsequent hypotension. (Last Revision: October 2018) ____ MTDD
[2019-09-16] MEDS: DEXTROSE 5%-0.45% NACL 1,000 ML IV SCH ×3 (06:49→23:34)
[2019-09-16 07:43] LABS: Basophils # (A) 0.1 k/uL (0-0.2); Basophils % (A) 1 %; Eosinophils # (A) 0.2 k/uL (0-0.7); Eosinophils % (A) 2 %; HCT 31.4 % (34.0-46.0); HGB 10.6 gm/dL (11.4-16.0); Lymphocytes # (A) 2.3 k/uL (1.0-4.8); Lymphocytes % (A) 22 %; MCH 31.6 pg (25.0-35.0); MCHC 33.9 g/dL (31.0-37.0); Mean Platelet Volume 9.9; Monocytes # (A) 0.8 k/uL (0-1.0); Monocytes % (A) 8 %; Neutrophils # (A) 6.9 k/uL (1.3-7.7); Neutrophils % (A) 66 %; Platelet Count 174 k/uL (150-450); RBC 3.37 m/uL (3.80-5.40); RDW 13.8 % (11.5-15.5); WBC 10.6 k/uL (3.8-10.6)
[2019-09-16 07:57] LABS: Calcium 8.1 mg/dL (8.4-10.2); Potassium 4.1 mmol/L (3.5-5.1)
[2019-09-16] MEDS: ASPIRIN 81 MG PO SCH (08:48)
[2019-09-16] MEDS: VENLAFAXINE HCL 37.5 MG TAB PO SCH (08:48)
[2019-09-16] MEDS: EZETIMIBE 10 MG TAB PO SCH (08:48)
[2019-09-16] MEDS: FUROSEMIDE 20 MG TAB PO SCH (08:50)
[2019-09-16] MEDS: SPIRONOLACTONE 25 MG TAB PO SCH (08:50)
[2019-09-16] MEDS: LISINOPRIL 5 MG TAB PO SCH ×2 (08:50→20:36)
[2019-09-16] MEDS: METOPROLOL TARTRATE 50 MG TAB PO SCH (08:50)
[2019-09-16] MEDS: ATORVASTATIN 40 MG TAB PO SCH (08:53)
--- NOTE | 2019-09-16 13:20 | P.PN ---
Subjective Progress Note Date: 09/16/19 Principal diagnosis: POD #2, s/p left radical nephrectomy The patient's blood pressure has normalized. She denies nausea and vomiting but has no appetite. She is not passing flatus. She has ambulated within her room, but reports that her legs are weak. She epidural catheter is currently being used and she denies incisional pain. Objective - Vital Signs Vital signs: Vital Signs Temp 100.6 F H 09/16/19 08:04 Pulse 95 09/16/19 08:04 Resp 12 09/16/19 08:04 BP 110/56 09/16/19 08:04 Pulse Ox 92 L 09/16/19 08:04 Intake & Output 09/15/19 09/16/19 09/16/19 18:59 06:59 18:59 Intake Total 700 Output Total 800 900 950 Balance -100 -900 -950 Intake: Intake, IV Titration 700 Amount Dextrose 5%-0.45% NaCl 1, 700 000 ml @ 100 mls/hr IV . Q10H [facility] Rx#:[id number] Output: Urine 800 900 950 Other: Voiding Method Indwelling Catheter Indwelling Catheter Indwelling Catheter - Constitutional General appearance: Present: no acute distress - Gastrointestinal Gastrointestinal Comment(s): Soft, non-distended. Incision clean, dry, and intact. - Psychiatric Psychiatric: Present: A&O x's 3 - Labs CBC & Chem 7: 09/16/19 07:19 09/16/19 07:19 Labs: Abnormal Lab Results - Last 24 Hours (Table) 09/05/19 09/15/19 09/16/19 Range/Units 13:31 16:00 07:19 RBC 3.37 L (3.80-5.40) m/uL Hgb 10.6 L (11.4-16.0) gm/dL Hct 31.4 L (34.0-46.0) % Sodium (137-145) mmol/L Carbon Dioxide (22-30) mmol/L Creatinine (0.52-1.04) mg/dL Glucose (74-99) mg/dL Plasma Lactic Acid Bryn 2.1 H* (0.7-2.0) mmol/L Calcium (8.4-10.2) mg/dL Crossmatch See Detail 09/16/19 Range/Units 07:19 RBC (3.80-5.40) m/uL Hgb (11.4-16.0) gm/dL Hct (34.0-46.0) % Sodium 130 L (137-145) mmol/L Carbon Dioxide 19 L (22-30) mmol/L Creatinine 1.23 H (0.52-1.04) mg/dL Glucose 145 H (74-99) mg/dL Plasma Lactic Acid Bryn (0.7-2.0) mmol/L Calcium 8.1 L (8.4-10.2) mg/dL Crossmatch Assessment and Plan (1) Left renal mass Current Visit: No Status: Acute Code(s): N28.89 - OTHER SPECIFIED DISORDERS OF KIDNEY AND URETER SNOMED Code(s): 842411674 Plan: The epidural catheter will remain in place for an additional 24 hours. The Munoz catheter will be removed, and full liquid diet has been ordered. The importance of ambulation and pulmonary toilet was stressed, as I explained to her that her low-grade fever is likely the result of atelectasis.
--- NOTE | 2019-09-16 15:41 | P.CRDCN ---
History of Present Illness Consult date: 09/16/19 Reason for Consult (text): Hypotension / Recent RCA and LAD stenting Consult reason: hypotension Chief complaint: Hypotension History of present illness: HISTORY OF PRESENT ILLNESS AND PLAN: This is a 54-year-old female with history of smoking one pack per day, CVA/TIA, cardiomyopathy with EF less than 20%, CAD s/p PCI to RCA/LAD, hyperlipidemia, hypertension, renal failure with septic shock, sepsis, pyelonephritis and recent diagnosis of renal cell cancer. Patient is currently s/p right nephrectomy postop day #3. Cardiology is consulted for hypotension and recent stenting of RCA and LAD on 03/28/2019. Patient currently resting in bed comfortably with no current complaints of chest pain, chest pressure, shortness of breath or palpitations. Patient does have complaints of incisional pain but is tolerating as well as can be expected. Patient currently tolerating oral fluids without nausea. Patient most recent echo on 03/2019 shows EF less than 20%. Patient follows with Dr. Horowitz in office. VSS and saturating well on room air. Pt has no lower extremity edema and has been up to the chair as well. Belly does have good bowel sounds but remain hypoactive. Patient is not on telemetry. Auscultation reveals regular rate and rhythm, lungs CTA. Lactic acid is elevated at 2.5, 2.1. 0.7. Pt has mild fever at 100.6. Pt continues with ASA 81 daily. SIGNIFICANT PAST MEDICAL HISTORY: Smoking one pack per day, CVA/TIA, cardiomyopathy with EF less than 20%, CAD s/p PCI to RCA/LAD, hyperlipidemia, hypertension, renal failure with septic shock, sepsis, pyelonephritis and recent diagnosis of renal cell cancer. PAST SURGICAL HISTORY: See list. EKG = NONE. WILL ORDER SIGNIFICANT LABORATORY VALUES: hemoglobin 10.6, hematocrit 31.4. Sodium 130. BUN 16, CR 1.23. most recent lactic acid 0.7. REVIEW OF SYSTEMS: CONSTITUTIONAL: Denies fever. Denies chills. EYES: Denies blurred vision. Denies blurred vision or vision changes. Denies eye pain. EARS, NOSE, MOUTH & THROAT: Denies headache. Denies sore throat. Denies ear pain Denies hemoptysis. CARDIOVASCULAR: Denies chest pain. Denies shortness of breath. Denies orthopnea. Denies PND. Denies palpitations. RESPIRATORY: Denies cough. Denies shortness of breath. GASTROINTESTINAL: C/O abdominal pain or distention. Denies diarrhea. Denies constipation. Denies nausea. Denies vomiting. MUSCULOSKELETAL: Denies myalgias. INTEGUMENTARY: Denies pruitis. Denies rash. ENDOCRINE: C/O fatigue. Denies weight change. Denies polydipsia. Denies polyurina Denies heat/cold intolerance. GENITOURINARY: Denies burning, hematuria or urgency with micturation. HEMATOLOGIC: Denies history of anemia. Denies bleeding. NEUROLOGIC: Denies numbness. Denies tingling. Denies weakness. PSYCHIATRIC: Denies anxiety. Denies depression. PHYSICAL EXAM: GENERAL: Well developed, in no acute distress. HEENT: Head is atraumatic, normocephalic. Pupils are equal, round. Extra ocular movements intact. Mucous membranes moist. Neck supple. No JVD. No carotid bruit. No thyromegaly. LUNGS: Diminished/clear to auscultation. No wheezes, rales or rhonchi. No chest wall tenderness on palpation or with deep breathing. HEART: Regular rate and rhythm, no rubs or gallops. S1 and S2 heard. No murmur. ABDOMEN: Abdominal exam, WNL. Bowel sounds x4 quads. Soft, non-tender, without masses, organomegaly, or abdominal aorta enlargement. EXTREMITIES/VASCULAR: Extremities have easily palpable radial, femoral, dorsalis pedis and posterior tibial pulses. No cyanosis, calf tenderness. No BLE edema. NEUROLOGIC: Patient is awake, alert and oriented x3. No focal neurologic abnormalities. FINAL IMPRESSION: 1. S/P right radical nephrectomy 2. CAD s/p PCI to LAD 3. Cardiomyopathy 4. HTN 5. Transient Hypotension 6. Volume depletion\ 7. Lactic Acid elecvation PLAN: Repeat echocardiogram. EKG and telemetry ordered. Decrease metoprolol tartrate to 25 mg twice daily. Cautious BP and IV fluid monitoring advised. continue same all other medical/medication regime. Diet as advised by surgery. Nurse Practitioner note has been reviewed by the Physician. Signing provider agrees with the documented findings, assessment and plan of care. Past Medical History Past Medical History: Coronary Artery Disease (CAD), Cancer, CVA/TIA, Hypertension Additional Past Medical History / Comment(s): states hx of facial numbness unsu re of diagnosis. Hospitalized 03/2019-pylonephritis, kidney stone, uti with sepsis and diagnosed with left renal mass (underwent ureteroscopic removal of right ureteral calculus). PTCA with stents. History of Any Multi-Drug Resistant Organisms: None Reported Past Surgical History: Section, Heart Catheterization With Stent, Tonsillectomy Additional Past Surgical History / Comment(s): BREAST BX WITH TITANIUM MARKER., HEART CATH WITH STENTS x2 (MAR 2019), CYSTOSCOPY & LITHOTRIPSY, RENAL STENT. Past Anesthesia/Blood Transfusion Reactions: Previous Problems w/ Anesthesia, Postoperative Nausea & Vomiting (PONV) Additional Past Anesthesia/Blood Transfusion Reaction / Comment(s): STATES SHE WAS TOLD THEY HAD DIFFICULTY SEDATING HER-HAD TO GIVE HER A LOT OF MEDICATION Date of Last Stent Placement:: 03/2019 Past Psychological History: Anxiety, Depression Smoking Status: Current every day smoker Past Alcohol Use History: None Reported Additional Past Alcohol Use History / Comment(s): SMOKES 1PPD, STARTED SMOKING IN 1987 Past Drug Use History: None Reported - Past Family History Mother Family Medical History: Unable to Obtain Additional Family Medical History / Comment(s): adopted Medications and Allergies Home Medications Medication Instructions Recorded Confirmed Type Aspirin 81 mg PO DAILY chew 03/29/19 09/14/19 Rx Atorvastatin [Lipitor] 40 mg PO DAILY #90 tab 03/29/19 09/14/19 Rx Clopidogrel [Plavix] 75 mg PO DAILY #90 tab 03/29/19 09/14/19 Rx Lisinopril [Zestril] 5 mg PO BID #180 tab 03/29/19 09/14/19 Rx Metoprolol Tartrate [Lopressor] 50 mg PO BID #180 tab 03/29/19 09/14/19 Rx Nitroglycerin Sl Tabs [Nitrostat] 0.4 mg SUBLINGUAL Q5M PRN #25 tab 03/29/19 09/14/19 Rx Spironolactone [Aldactone] 25 mg PO DAILY #90 tab 03/29/19 09/14/19 Rx Furosemide [Lasix] 20 mg PO DAILY 04/26/19 09/14/19 History hydrOXYzine HCL [Atarax] 50 mg PO HS 04/26/19 09/14/19 History Ezetimibe [Zetia] 10 mg PO DAILY 09/08/19 09/14/19 History Fenofibrate Nanocrystallized 145 mg PO DAILY 09/08/19 09/14/19 History [Fenofibrate] Venlafaxine HCl [Effexor] 37.5 mg PO DAILY@1200 09/08/19 09/14/19 History Allergies Allergy/AdvReac Type Severity Reaction Status Date / Time Penicillins Allergy Unknown Verified 09/14/19 11:16 Childhood Physical Exam Vitals: Vital Signs Temp Pulse Pulse Resp BP Pulse Ox 09/16/19 15:00 97.9 F 80 17 128/43 98 09/16/19 08:04 100.6 F H 95 12 110/56 92 L 09/16/19 00:09 99.5 F 95 15 132/61 93 L 09/15/19 19:43 98.4 F 88 15 100/60 94 L 09/15/19 15:46 98.3 F 71 16 106/63 97 Intake and Output 09/16/19 09/16/19 09/16/19 06:59 14:59 22:59 Intake Total 700 Output Total 400 1125 Balance -400 -425 Intake: Intake, IV Titration 700 Amount Dextrose 5%-0.45% NaCl 1, 700 000 ml @ 100 mls/hr IV . Q10H [facility] Rx#:[id number] Output: Urine 400 1125 Uretheral (Munoz) 175 Other: Voiding Method Indwelling Catheter Results 09/16/19 07:19 09/16/19 07:19 CBC 09/16/19 Range/Units 07:19 WBC 10.6 (3.8-10.6) k/uL RBC 3.37 L (3.80-5.40) m/uL Hgb 10.6 L (11.4-16.0) gm/dL Hct 31.4 L (34.0-46.0) % Plt Count 174 (150-450) k/uL Comprehensive Metabolic Panel 09/16/19 Range/Units 07:19 Sodium 130 L (137-145) mmol/L Potassium 4.1 (3.5-5.1) mmol/L Chloride 106 (98-107) mmol/L Carbon Dioxide 19 L (22-30) mmol/L BUN 16 (7-17) mg/dL Creatinine 1.23 H (0.52-1.04) mg/dL Glucose 145 H (74-99) mg/dL Calcium 8.1 L (8.4-10.2) mg/dL Current Medications Generic Name Dose Route Start Last Admin Trade Name Araceli PRN Reason Stop Dose Admin Aspirin 81 mg 09/15/19 09:00 09/16/19 08:48 Aspirin PO 81 mg DAILY [facility] Administration Atorvastatin Calcium 40 mg 09/15/19 09:00 09/16/19 08:53 Lipitor PO 40 mg DAILY [facility] Administration Ezetimibe 10 mg 09/15/19 09:00 09/16/19 08:48 Zetia PO Not Given DAILY [facility] Furosemide 20 mg 09/15/19 09:00 09/16/19 08:50 Lasix PO Not Given DAILY [facility] Ropivacaine 250 mg/ 250 mls @ 0 mls/hr 09/14/19 13:47 09/15/19 18:41 Hydromorphone HCl 5 mg/ Sodium EPIDURAL 4 mls/hr Chloride .Q0M PRN Administration Pain Control Protocol Per Protocol Dextrose/Sodium Chloride 1,000 mls @ 100 mls/hr 09/14/19 17:15 09/16/19 08:51 Dextrose 5%-1/2ns Iv Soln IV Not Given .Q10H [facility] Lidocaine HCl 0.1 ml 09/14/19 05:48 09/14/19 11:30 .Xylocaine 1% Inj (10mg/Ml) For Iv Start INTRADERMA 0.1 ml PER PROTOCOL PRN Administration IV Start Lisinopril 5 mg 09/14/19 21:00 09/16/19 08:50 Zestril PO Not Given BID [facility] Metoprolol Tartrate 50 mg 09/14/19 21:00 09/16/19 08:50 Lopressor PO Not Given BID [facility] Morphine Sulfate 2 mg 09/15/19 06:15 09/15/19 08:57 Morphine Sulfate (Inj) IVP 2 mg Q4H PRN Administration Pain/Discomfort Naloxone HCl 0.2 mg 09/14/19 13:47 Narcan IV Q2M PRN Opioid Reversal Nitroglycerin 0.4 mg 09/14/19 17:11 Nitrostat SUBLINGUAL Q5M PRN Chest Pain Spironolactone 25 mg 09/15/19 09:00 09/16/19 08:50 Aldactone PO Not Given DAILY [facility] Venlafaxine HCl 37.5 mg 09/15/19 12:00 09/16/19 08:48 Effexor PO 37.5 mg DAILY@1200 [facility] Administration Intake and Output 09/16/19 09/16/19 09/16/19 06:59 14:59 22:59 Intake Total 700 Output Total 400 1125 Balance -400 -425 Intake: Intake, IV Titration 700 Amount Dextrose 5%-0.45% NaCl 1, 700 000 ml @ 100 mls/hr IV . Q10H [facility] Rx#:[id number] Output: Urine 400 1125 Uretheral (Munoz) 175 Other: Voiding Method Indwelling Catheter 09/16/19 07:19 09/16/19 07:19
[2019-09-16] MEDS: METOPROLOL TARTRATE 25 MG TAB PO SCH (20:36)
[2019-09-17] MEDS: ATORVASTATIN 40 MG TAB PO SCH (08:04)
[2019-09-17] MEDS: ASPIRIN 81 MG PO SCH (08:04)
[2019-09-17] MEDS: FUROSEMIDE 20 MG TAB PO SCH (08:04)
[2019-09-17] MEDS: EZETIMIBE 10 MG TAB PO SCH (08:04)
[2019-09-17] MEDS: VENLAFAXINE HCL 37.5 MG TAB PO SCH (08:04)
[2019-09-17] MEDS: LISINOPRIL 5 MG TAB PO SCH ×2 (08:04→20:52)
[2019-09-17] MEDS: METOPROLOL TARTRATE 25 MG TAB PO SCH ×2 (08:05→20:52)
[2019-09-17] MEDS: DEXTROSE 5%-0.45% NACL 1,000 ML IV SCH ×2 (08:06→13:05)
[2019-09-17] MEDS: SPIRONOLACTONE 25 MG TAB PO SCH (08:06)
--- NOTE | 2019-09-17 11:21 | P.PN ---
Subjective Progress Note Date: 09/17/19 Principal diagnosis: POD #3, s/p left radical nephrectomy The patient is afebrile with stable vital signs. She is tolerating liquids. She denies nausea and vomiting but has no appetite. She is passing flatus. She is ambulating and voiding without difficulty. The epidural catheter was removed earlier today. Objective - Vital Signs Vital signs: Vital Signs Temp 100.2 F H 09/17/19 06:47 Pulse 84 09/17/19 06:47 Resp 14 09/17/19 06:47 BP 96/56 09/17/19 06:47 Pulse Ox 90 L 09/17/19 06:47 Intake & Output 09/16/19 09/17/19 09/17/19 18:59 06:59 18:59 Intake Total 700 240 Output Total 1125 Balance -425 240 Intake: Intake, IV Titration 700 Amount Dextrose 5%-0.45% NaCl 1, 700 000 ml @ 100 mls/hr IV . Q10H [facility] Rx#:[id number] Oral 240 Output: Urine 1125 Uretheral (Munoz) 175 Other: Voiding Method Indwelling Catheter Toilet Toilet # Voids 1 1 - Constitutional General appearance: Present: average body habitus, no acute distress - Gastrointestinal Gastrointestinal Comment(s): Soft, non-distended. Incision clean, dry, and intact. - Psychiatric Psychiatric: Present: A&O x's 3, appropriate affect - Labs CBC & Chem 7: 09/16/19 07:19 09/16/19 07:19 Assessment and Plan (1) Left renal mass Current Visit: No Status: Acute Code(s): N28.89 - OTHER SPECIFIED DISORDERS OF KIDNEY AND URETER SNOMED Code(s): 561016128 Plan: IV and oral analgesics have been ordered. Advance diet as tolerated. Anticipate discharge home in 1-2 days.
[2019-09-17] MEDS: HYDROcodone/APAP 5-325MG 1 EACH TAB PO PRN ×3 (12:04→20:52)
[2019-09-18] MEDS: HYDROcodone/APAP 5-325MG 1 EACH TAB PO PRN ×3 (01:16→10:28)
[2019-09-18 07:38] VITALS: BP 116/67; PULSE 69; RESP 16; TEMP 98.1
--- NOTE | 2019-09-18 09:01 | P.DS ---
Providers Date of admission: 09/14/19 10:58 Expected date of discharge: 09/18/19 Attending physician: Jose Ibarra Consults: 09/15/19 18:29 Consult Physician Routine Consulting Provider: [facility] Consult Reason/Comments: low BP cardiac history Do you want consulting provider notified?: Yes, Notify in am Primary care physician: Linden Dejesus - Discharge Diagnosis(es) (1) Left renal mass Current Visit: No Status: Acute Hospital Course: On the day of admission, the patient underwent a left radical nephrectomy. The procedure was difficult in view of the size of the mass and the fact that the patient was taking aspirin at the time of surgery. This resulted in higher than anticipated blood loss. On the first postoperative night, she was hypotensive and received several fluid boluses. Her lactic acid level was elevated. The epidural catheter was not utilized due to the low blood pressure. However, the following day the blood pressure had improved and the epidural catheter was utilized. Her blood pressure normalized, as did the serum lactic acid level. The Munoz catheter was removed on the second postoperative day, and the epidural catheter was removed on the third postoperative day. At the time of discharge, the patient reported passing flatus and had a bowel movement. She was tolerating liquids, and was eating small amounts of food. She denied nausea. She was ambulating without difficulty. The abdomen was soft, and the incision was healing well. At the time of this dictation, she is scheduled to undergo a 2-D echocardiogram. Procedures: Left radical nephrectomy on 09/14/2019 Patient Condition at Discharge: Good Plan - Discharge Summary Discharge Rx Participant: Yes New Discharge Prescriptions: New Hydrocodone/Acetaminophen [[place] 5-325] 1 - 2 each PO Q4HR PRN #10 tab PRN Reason: Pain No Action Spironolactone [Aldactone] 25 mg PO DAILY #90 tab Atorvastatin [Lipitor] 40 mg PO DAILY #90 tab Metoprolol Tartrate [Lopressor] 50 mg PO BID #180 tab Nitroglycerin Sl Tabs [Nitrostat] 0.4 mg SUBLINGUAL Q5M PRN #25 tab PRN Reason: Chest Pain Clopidogrel [Plavix] 75 mg PO DAILY #90 tab Lisinopril [Zestril] 5 mg PO BID #180 tab Aspirin 81 mg PO DAILY chew Furosemide [Lasix] 20 mg PO DAILY hydrOXYzine HCL [Atarax] 50 mg PO HS Venlafaxine HCl [Effexor] 37.5 mg PO DAILY@1200 Ezetimibe [Zetia] 10 mg PO DAILY Fenofibrate Nanocrystallized [Fenofibrate] 145 mg PO DAILY Discharge Medication List Aspirin 81 mg PO DAILY chew 03/29/19 [Rx] Atorvastatin [Lipitor] 40 mg PO DAILY #90 tab 03/29/19 [Rx] Clopidogrel [Plavix] 75 mg PO DAILY #90 tab 03/29/19 [Rx] Lisinopril [Zestril] 5 mg PO BID #180 tab 03/29/19 [Rx] Metoprolol Tartrate [Lopressor] 50 mg PO BID #180 tab 03/29/19 [Rx] Nitroglycerin Sl Tabs [Nitrostat] 0.4 mg SUBLINGUAL Q5M PRN #25 tab 03/29/19 [Rx] Spironolactone [Aldactone] 25 mg PO DAILY #90 tab 03/29/19 [Rx] Furosemide [Lasix] 20 mg PO DAILY 04/26/19 [History] hydrOXYzine HCL [Atarax] 50 mg PO HS 04/26/19 [History] Ezetimibe [Zetia] 10 mg PO DAILY 09/08/19 [History] Fenofibrate Nanocrystallized [Fenofibrate] 145 mg PO DAILY 09/08/19 [History] Venlafaxine HCl [Effexor] 37.5 mg PO DAILY@1200 09/08/19 [History] Hydrocodone/Acetaminophen [[place] 5-325] 1 - 2 each PO Q4HR PRN #10 tab 09/18/19 [Rx] Follow up Appointment(s)/Referral(s): Jose Ibarra MD [STAFF PHYSICIAN] - 09/22/19 Activity/Diet/Wound Care/Special Instructions: Diet as tolerated. Okay to shower. No lifting, driving, or strenuous activity. [facility] [place] may have toilet risers. Please call to inquire. #[phone]. Discharge Disposition: HOME SELF-CARE
[2019-09-18] MEDS: DEXTROSE 5%-0.45% NACL 1,000 ML IV SCH (09:25)
[2019-09-18] MEDS: EZETIMIBE 10 MG TAB PO SCH ×2 (09:37→09:40)
[2019-09-18] MEDS: FUROSEMIDE 20 MG TAB PO SCH (09:37)
[2019-09-18] MEDS: ASPIRIN 81 MG PO SCH (09:37)
[2019-09-18] MEDS: METOPROLOL TARTRATE 25 MG TAB PO SCH (09:37)
[2019-09-18] MEDS: SPIRONOLACTONE 25 MG TAB PO SCH (09:37)
[2019-09-18] MEDS: ATORVASTATIN 40 MG TAB PO SCH (09:37)
[2019-09-18] MEDS: LISINOPRIL 5 MG TAB PO SCH (09:37)
--- NOTE | 2019-09-18 10:12 | ECHOF ---
Referral Reason:LV assessment / Low EF at 20% MEASUREMENTS -------- HEIGHT: 162.6 cm WEIGHT: 109.3 kg BP: 118/72 IVSd: 1.4 cm (0.6 - 1.1) LVIDd: 5.3 cm (3.9 - 5.3) LVPWd: 1.4 cm (0.6 - 1.1) IVSs: 1.7 cm LVIDs: 3.8 cm LVPWs: 1.6 cm LA Diam: 4.8 cm (2.7 - 3.8) LAESV Index (A-L): 37.72 ml/m Ao Diam: 2.8 cm (2.0 - 3.7) AV Cusp: 2.0 cm (1.5 - 2.6) LA Diam: 5.3 cm (2.7 - 3.8) MV EXCURSION: 23.818 mm (> 18.000) MV EF SLOPE: 72 mm/s (70 - 150) EPSS: 1.7 cm MV E Flavio: 0.99 m/s MV DecT: 238 ms MV A Flavio: 0.97 m/s MV E/A Ratio: 1.02 RAP: 5.00 mmHg RVSP: 23.13 mmHg FINDINGS -------- Sinus rhythm. This was a technically adequate study. The left ventricular size is normal. There is mild concentric left ventricular hypertrophy. Overa ll left ventricular systolic function is low-normal with, an EF between 50 - 55 %. The diastolic fi lling pattern is normal for the age of the patient 11.37. The right ventricle is normal in size. The left atrium is moderately dilated. LA is moderately dilated 34-39 ml/m2 The right atrial size is normal. There is mild aortic valve sclerosis. Trace amount of aortic regurgitation. Mild mitral annular calcification present. Mild mitral regurgitation is present. Mild tricuspid regurgitation present. Right ventricular systolic pressure is normal at < 35 mmHg. There is no evidence of pulmonary hypertension. There is no pulmonic regurgitation present. The aortic root size is normal. Echo free space represents a pericardial fat pad. CONCLUSIONS -------- 1. Sinus rhythm. 2. This was a technically adequate study. 3. The left ventricular size is normal. 4. Overall left ventricular systolic function is low-normal with, an EF between 50 - 55 %. 5. The diastolic filling pattern is normal for the age of the patient 11.37 6. The right ventricle is normal in size. 7. The left atrium is moderately dilated. 8. LA is moderately dilated 34-39 ml/m2 9. The right atrial size is normal. 10. There is mild aortic valve sclerosis. 11. Trace amount of aortic regurgitation. 12. Mild mitral annular calcification present. 13. Mild mitral regurgitation is present. 14. Mild tricuspid regurgitation present. 15. Right ventricular systolic pressure is normal at < 35 mmHg. 16. There is no evidence of pulmonary hypertension. 17. There is no pulmonic regurgitation present. 18. The aortic root size is normal. 19. Echo free space represents a pericardial fat pad. BUTTON PUNCHER: Janet Johnson RDCS
[2019-09-18] MEDS: VENLAFAXINE HCL 37.5 MG TAB PO SCH (13:25)
== END 2019-09-18 13:30 | disposition home or self-care (01) | DRG 657 ==
LOC: 2ORMAIN 10:58 → 4SSUR 17:05
PROVIDERS: ADMIT Urology; ATTEND Urology
PROC: 0TT10ZZ Resection of Left Kidney, Open Approach (ICD-10-PCS; principal; 2019-09-14 12:30)
DX: C64.2 Malignant neoplasm of left kidney, except renal pelvis (principal); I42.9 Cardiomyopathy, unspecified; E78.5 Hyperlipidemia, unspecified; E86.9 Volume depletion, unspecified; F17.200 Nicotine dependence, unspecified, uncomplicated; I95.9 Hypotension, unspecified; F32.9 Major depressive disorder, single episode, unspecified; F41.9 Anxiety disorder, unspecified; I10 Essential (primary) hypertension; N20.9 Urinary calculus, unspecified; I25.10 Atherosclerotic heart disease of native coronary artery without angina pectoris; Z79.02 Long term (current) use of antithrombotics/antiplatelets; Z79.82 Long term (current) use of aspirin; Z79.899 Other long term (current) drug therapy; Z86.73 Personal history of transient ischemic attack (TIA), and cerebral infarction without residual deficits; Z87.442 Personal history of urinary calculi; Z95.5 Presence of coronary angioplasty implant and graft
CPT/HCPCS: 80048; 80053; 83605; 85025; 85027; 86850; 86900; 86901; 86920; 88305; 88307; 93005; 93306

== ENCOUNTER 2019-10-11 14:49 | Inpatient (IN) | payer OTHER ==
[2019-10-11] MEDS ORDERED: SODIUM CHLORIDE 0.9% 1,000 ML IV STA (15:39)
[2019-10-11] MEDS ORDERED: ONDANSETRON 4 MG/2 ML VIAL IVP STA (15:49)
--- NOTE | 2019-10-11 15:50 | ED ---
General Adult HPI - General Chief complaint: Headache Stated complaint: fever, bed sore, weakness Time Seen by Provider: 10/11/19 15:20 Source: patient Mode of arrival: ambulatory Limitations: no limitations - History of Present Illness Initial comments: Dictation was produced using [employer] dictation software. please excuse any grammatical, word or spelling errors. Chief Complaint: 54-year-old female with past medical history of renal cell carcinoma status post nephrectomy, coronary artery disease and hypertension presents with dizziness. History of Present Illness: 54-year-old female she has multiple comorbidities she states that she is having dizziness over the last several days. Patient was at the wound center today where she had her bedsore debrided. States was painful. On her way out she had episode of back spasms and back tightening while walking. Over the last several days she has lost approximately 10 pounds. Patient developed this bedsore after the surgery that was approximately 1 month ago. She nephrectomy for obtained renal cell carcinoma. There is no known spread. She has not received any cancer treatment. Patient does complain of some mild headache located to the superior portion of her head. Headache is not throbbing. She reports that she measured her blood pressure at home a systolic pressure in the 60s. The ROS documented in this emergency department record has been reviewed and confirmed by me. Those systems with pertinent positive or negative responses have been documented in the HPI. All other systems are other negative and/or noncontributory. PHYSICAL EXAM: General Impression: Alert and oriented x3, not in acute distress HEENT: Normocephalic atraumatic, extra-ocular movements intact, pupils equal and reactive to light bilaterally, mucous membranes moist. Cardiovascular: Heart regular rate and rhythm, S1&S2 audible, no murmurs, rubs or gallops Chest: Lungs clear to auscultation bilaterally, no rhonchi, no wheeze, no rales Abdomen: Bowel sounds present, abdomen soft, non-tender, non-distended, no organomegaly Musculoskeletal: Pulses present and equal in all extremities, no peripheral edema Motor: no focal deficits noted Neurological: CN II-XII grossly intact, no focal motor or sensory deficits noted Skin: Large decubitus ulcer that is approximately 2 inches deep. There is good granulation tissue. No surrounding erythema no drainage Psych: Normal affect and mood ED course: 54-year-old presents with chief complaint of dizziness and recent weight loss. Vital signs upon arrival shows blood pressure 92/62. Laboratory evaluation obtained. Leukocytosis of 11.8 likely secondary to stress. Metabolic panel shows sodium of 134. Potassium 5.4. He is mild anion gap acidosis with a bicarb of 16 and gap 13. Creatinine is elevated at 2.5. Observers unremarkable. Patient's clinical presentation consistent with acute kidney injury. Patient's hyperkalemia is mild. Patient be admitted and that she should be rechecked tomorrow. EKG interpretation: Ventricular rate 77, sinus rhythm,. 132, QRS 94, QTC 434. No DE prolongation, no QTC prolongation, no ST or T-wave changes noted. Overall, this EKG is unremarkable - Related Data Home Medications Medication Instructions Recorded Confirmed Furosemide [Lasix] 20 mg PO DAILY 04/26/19 09/14/19 hydrOXYzine HCL [Atarax] 50 mg PO HS 04/26/19 09/14/19 Ezetimibe [Zetia] 10 mg PO DAILY 09/08/19 09/14/19 Fenofibrate Nanocrystallized 145 mg PO DAILY 09/08/19 09/14/19 [Fenofibrate] Venlafaxine HCl [Effexor] 37.5 mg PO DAILY@1200 09/08/19 09/14/19 Previous Rx's Medication Instructions Recorded Aspirin 81 mg PO DAILY chew 03/29/19 Atorvastatin [Lipitor] 40 mg PO DAILY #90 tab 03/29/19 Clopidogrel [Plavix] 75 mg PO DAILY #90 tab 03/29/19 Lisinopril [Zestril] 5 mg PO BID #180 tab 03/29/19 Nitroglycerin Sl Tabs [Nitrostat] 0.4 mg SUBLINGUAL Q5M PRN #25 tab 03/29/19 Spironolactone [Aldactone] 25 mg PO DAILY #90 tab 03/29/19 Hydrocodone/Acetaminophen [[place] 1 - 2 each PO Q4HR PRN #10 tab 09/18/19 5-325] Metoprolol Succinate [Toprol XL] 25 mg PO BID 1 Days tab 09/18/19 Allergies Allergy/AdvReac Type Severity Reaction Status Date / Time Penicillins Allergy Unknown Verified 10/11/19 15:07 Childhood Review of Systems ROS Statement: Those systems with pertinent positive or pertinent negative responses have been documented in the HPI. ROS Other: All systems not noted in ROS Statement are negative. Past Medical History Past Medical History: Coronary Artery Disease (CAD), Cancer, Hypertension, Renal Disease Additional Past Medical History / Comment(s): kidney cancer, kidney stones History of Any Multi-Drug Resistant Organisms: None Reported Past Surgical History: Section, Heart Catheterization With Stent, Tonsillectomy Additional Past Surgical History / Comment(s): kidney stent Past Anesthesia/Blood Transfusion Reactions: No Reported Reaction Additional Past Anesthesia/Blood Transfusion Reaction / Comment(s): STATES SHE WAS TOLD THEY HAD DIFFICULTY SEDATING HER-HAD TO GIVE HER A LOT OF MEDICATION Date of Last Stent Placement:: 03/2019 Past Psychological History: No Psychological Hx Reported Smoking Status: Heavy tobacco smoker Past Alcohol Use History: None Reported Past Drug Use History: None Reported - Past Family History Mother Family Medical History: Unable to Obtain Additional Family Medical History / Comment(s): adopted General Exam Limitations: no limitations Course Vital Signs 10/11/19 10/11/19 15:02 17:57 Temperature 98.2 F Pulse Rate 90 75 Respiratory 20 17 Rate Blood Pressure 92/62 90/46 O2 Sat by Pulse 98 99 Oximetry Medical Decision Making - Lab Data Result diagrams: 10/11/19 17:10 10/11/19 17:10 Lab Results 10/11/19 10/11/19 10/11/19 Range/Units 17:10 17:10 17:10 WBC 11.8 H (3.8-10.6) k/uL RBC 4.70 (3.80-5.40) m/uL Hgb 14.4 D (11.4-16.0) gm/dL Hct 42.9 (34.0-46.0) % MCV 91.3 (80.0-100.0) fL MCH 30.7 (25.0-35.0) pg MCHC 33.6 (31.0-37.0) g/dL RDW 12.8 (11.5-15.5) % Plt Count 419 D (150-450) k/uL Neutrophils % 59 % Lymphocytes % 31 % Monocytes % 7 % Eosinophils % 2 % Basophils % 1 % Neutrophils # 6.9 (1.3-7.7) k/uL Lymphocytes # 3.7 (1.0-4.8) k/uL Monocytes # 0.8 (0-1.0) k/uL Eosinophils # 0.2 (0-0.7) k/uL Basophils # 0.1 (0-0.2) k/uL Sodium 134 L (137-145) mmol/L Potassium 5.4 H (3.5-5.1) mmol/L Chloride 105 (98-107) mmol/L Carbon Dioxide 16 L (22-30) mmol/L Anion Gap 13 mmol/L BUN 53 H (7-17) mg/dL Creatinine 2.50 H (0.52-1.04) mg/dL Est GFR (CKD-EPI)AfAm 25 (>60 ml/min/1.73 sqM) Est GFR (CKD-EPI)NonAf 21 (>60 ml/min/1.73 sqM) Glucose 96 (74-99) mg/dL Plasma Lactic Acid Bryn 1.3 (0.7-2.0) mmol/L Calcium 10.3 H (8.4-10.2) mg/dL Ionized Calcium [place] 5.3 (4.5-5.3) mg/dL Phosphorus 5.9 H (2.5-4.5) mg/dL Magnesium 2.5 H (1.6-2.3) mg/dL Total Bilirubin 0.3 (0.2-1.3) mg/dL AST 23 (14-36) U/L ALT 13 (4-34) U/L Alkaline Phosphatase 51 (38-126) U/L Total Protein 8.2 (6.3-8.2) g/dL Albumin 4.8 (3.5-5.0) g/dL Disposition Clinical Impression: IVIS (acute kidney injury) Disposition: ADMITTED IP TO THIS HOSP Condition: Fair Referrals: Linden Dejesus MD [Primary Care Provider] - 1-2 days Decision Time: 19:00
[2019-10-11 17:31] LABS: Basophils # (A) 0.1 k/uL (0-0.2); Basophils % (A) 1 %; Eosinophils # (A) 0.2 k/uL (0-0.7); Eosinophils % (A) 2 %; HCT 42.9 % (34.0-46.0); Lymphocytes # (A) 3.7 k/uL (1.0-4.8); Lymphocytes % (A) 31 %; MCH 30.7 pg (25.0-35.0); MCHC 33.6 g/dL (31.0-37.0); MCV 91.3 fL (80.0-100.0); Mean Platelet Volume 9.2; Monocytes # (A) 0.8 k/uL (0-1.0); Monocytes % (A) 7 %; Neutrophils # (A) 6.9 k/uL (1.3-7.7); Neutrophils % (A) 59 %; RDW 12.8 % (11.5-15.5); WBC 11.8 k/uL (3.8-10.6)
[2019-10-11 17:36] LABS: Ionized Calcium 5.3 mg/dL (4.5-5.3)
[2019-10-11 17:45] LABS: HGB 14.4 gm/dL (11.4-16.0); Platelet Count 419 k/uL (150-450)
[2019-10-11 17:48] LABS: Albumin 4.8 g/dL (3.5-5.0); Calcium 10.3 mg/dL (8.4-10.2); Magnesium 2.5 mg/dL (1.6-2.3); Phosphorus 5.9 mg/dL (2.5-4.5); Potassium 5.4 mmol/L (3.5-5.1); Total Bilirubin 0.3 mg/dL (0.2-1.3); Total Protein 8.2 g/dL (6.3-8.2)
[2019-10-11] MEDS ORDERED: NALOXONE 0.4 MG/ML 1 ML VIAL IV PRN (18:56)
[2019-10-11] MEDS ORDERED: ONDANSETRON 4 MG/2 ML VIAL IVP PRN (18:56)
[2019-10-11] MEDS ORDERED: ACETAMINOPHEN TAB 325 MG TAB PO PRN (18:56)
[2019-10-11] MEDS: SODIUM CHLORIDE 0.9% 1,000 ML IV SCH (21:03)
[2019-10-12 04:40] LABS: Appearance,Urine Clear (Clear); Bacteria,Urine Occasional /hpf; Bilirubin,Urine Negative (Negative); Blood,Urine Negative (Negative); Color,Urine Yellow; Glucose,Urine (UA) Negative (Negative); Hyaline Casts,Urine 12 /lpf (0-2); Ketones,Urine Negative (Negative); Leukocyte Esterase,Urine Moderate (Negative); Mucus,Urine Rare /hpf; Nitrite,Urine Positive (Negative); Protein,Urine Trace (Negative); RBC,Urine 2 /hpf (0-5); Specific Gravity,Urine 1.015 (1.001-1.035); Squamous Epithelial Cell,Urine 1 /hpf (0-4); Urobilinogen,Urine <2.0 mg/dL (<2.0); WBC,Urine 30 /hpf (0-5)
[2019-10-12] MEDS: SODIUM CHLORIDE 0.9% 1,000 ML IV SCH ×2 (04:47→05:28)
[2019-10-12 09:22] LABS: Albumin 3.6 g/dL (3.5-5.0); Potassium 4.4 mmol/L (3.5-5.1); Total Bilirubin 0.1 mg/dL (0.2-1.3); Total Protein 6.4 g/dL (6.3-8.2)
[2019-10-12] MEDS ORDERED: NITROGLYCERIN SL TABS 0.4 MG TAB SUBLINGUAL PRN (10:17)
[2019-10-12] MEDS ORDERED: METOPROLOL SUCCINATE (ER) 25 MG TAB.ER.24H PO SCH (10:30)
[2019-10-12] MEDS ORDERED: SPIRONOLACTONE 25 MG TAB PO SCH (10:30)
[2019-10-12] MEDS ORDERED: SODIUM CHLORIDE 0.9% 1,000 ML IV SCH (10:30)
[2019-10-12] MEDS ORDERED: COLLAGENASE 250 UNIT/GM OINTMENT 30 GM TUBE TOPICAL SCH (10:30)
--- NOTE | 2019-10-12 10:55 | P.CONS ---
History of Present Illness - Reason for Consult Consult date: 10/12/19 Wound care - History of Present Illness This is a 54-year-old pleasant female who is known to the wound care center being seen on [address]. for wound care instructions. Patient has a stage III pressure ulcer of the sacral region. She has been utilizing Santyl. She underwent a subcu debridement yesterday with Dr. Reno. A significant amount of slough and debris was removed. However a pedicle of necrosis tissue still present. Patient was instructed the importance of offloading and smoking sensation. Ulceration was caused during hospitalization for left nephrectomy. Patient's past medical history significant skin for kidney cancer, coronary artery disease, hypertension acute kidney injury. Patient is a 1 pack a day smoker since 1987. Review of Systems Review Of Systems: Constitutional: No fever, no chills, no night sweats. No weight change. No weakness, fatigue or lethargy. No daytime sleepiness. Integumentary:reports wounds, no lesions. No rash or pruritus. No unusual bruising. No change in hair or nails. Past Medical History Past Medical History: Coronary Artery Disease (CAD), Cancer, Hypertension, Renal Disease Additional Past Medical History / Comment(s): kidney cancer, kidney stones, gallbladder stone, sepsis with medically induced a coma related to ecoli. Decubitus sacral ulcer goes to wound clinic History of Any Multi-Drug Resistant Organisms: None Reported Past Surgical History: Section, Heart Catheterization With Stent, Tonsillectomy Additional Past Surgical History / Comment(s): kidney stent, left kidney removal due to cancer Past Anesthesia/Blood Transfusion Reactions: No Reported Reaction Additional Past Anesthesia/Blood Transfusion Reaction / Comm: STATES SHE WAS TOLD THEY HAD DIFFICULTY SEDATING HER-HAD TO GIVE HER A LOT OF MEDICATION Date of Last Stent Placement:: 03/2019 Past Psychological History: No Psychological Hx Reported Smoking Status: Heavy tobacco smoker Past Alcohol Use History: None Reported Additional Past Alcohol Use History / Comment(s): SMOKES 1PPD, STARTED SMOKING IN 1987 Past Drug Use History: None Reported - Past Family History Mother Family Medical History: Unable to Obtain Additional Family Medical History / Comment(s): adopted Medications and Allergies Home Medications Medication Instructions Recorded Confirmed Type Aspirin 81 mg PO DAILY chew 03/29/19 10/11/19 Rx Atorvastatin [Lipitor] 40 mg PO DAILY #90 tab 03/29/19 10/11/19 Rx Clopidogrel [Plavix] 75 mg PO DAILY #90 tab 03/29/19 10/11/19 Rx Nitroglycerin Sl Tabs [Nitrostat] 0.4 mg SUBLINGUAL Q5M PRN #25 tab 03/29/19 10/11/19 Rx Spironolactone [Aldactone] 25 mg PO DAILY #90 tab 03/29/19 10/11/19 Rx hydrOXYzine HCL [Atarax] 50 mg PO HS 04/26/19 10/11/19 History Fenofibrate Nanocrystallized 145 mg PO DAILY 09/08/19 10/11/19 History [Fenofibrate] Metoprolol Succinate [Toprol XL] 25 mg PO BID 1 Days tab 09/18/19 10/11/19 Rx Collagenase [Santyl] 1 applic TOPICAL DAILY 10/11/19 10/11/19 History Venlafaxine HCl ER [Effexor Xr] 75 mg PO DAILY 10/11/19 10/11/19 History Allergies Allergy/AdvReac Type Severity Reaction Status Date / Time Penicillins Allergy Unknown Verified 10/11/19 21:35 Childhood Physical Exam Vitals: Vital Signs Temp Pulse Pulse Resp BP BP Pulse Ox 10/12/19 05:26 98.4 F 71 20 96/54 99 10/11/19 23:00 96.2 F L 74 16 131/59 97 10/11/19 20:52 98.1 F 77 18 101/44 98 10/11/19 17:57 75 17 90/46 99 10/11/19 15:02 98.2 F 90 20 92/62 98 Intake and Output 10/11/19 10/12/19 10/12/19 22:59 06:59 14:59 Intake Total 790 1080 Output Total 400 Balance 790 680 Intake: Intake, IV Titration 1080 Amount Sodium Chloride 0.9% 1, 1080 000 ml @ 120 mls/hr IV . Q8H20M [facility] Rx#:[id number] Oral 790 Output: Urine 400 Other: Voiding Method Toilet # Voids 2 1 # Bowel Movements 1 Weight 97.976 kg Physical exam: General Appearance: Alert, cooperative, no distress, appears stated age. Skin: See HPI sacral ulceration measuring approximately 7.7 x 5.1 x 0.5 cm, ulceration has fat layer exposure, medial amount of serous drainage, wound margin is indistinct isn't visible, no granulation seen within the wound bed. Significant amount of necrotic tissue within the wound bed included adherent Slough. Left calcaneus lateral aspect shows ecchymosis dry scaly appearance. all other Skin color, texture, tugor normal, no rashes or lesions. Neurologic: Alert oriented x3 Results CBC & Chem 7: 10/11/19 17:10 10/12/19 08:47 Labs: Abnormal Lab Results - Last 24 Hours (Table) 10/11/19 10/11/19 10/12/19 Range/Units 17:10 17:10 04:30 WBC 11.8 H (3.8-10.6) k/uL Sodium 134 L (137-145) mmol/L Potassium 5.4 H (3.5-5.1) mmol/L Chloride (98-107) mmol/L Carbon Dioxide 16 L (22-30) mmol/L BUN 53 H (7-17) mg/dL Creatinine 2.50 H (0.52-1.04) mg/dL Glucose (74-99) mg/dL Calcium 10.3 H (8.4-10.2) mg/dL Phosphorus 5.9 H (2.5-4.5) mg/dL Magnesium 2.5 H (1.6-2.3) mg/dL Total Bilirubin (0.2-1.3) mg/dL AST (14-36) U/L Urine Protein Trace H (Negative) Urine Nitrite Positive H (Negative) Ur Leukocyte Esterase Moderate H (Negative) Urine WBC 30 H (0-5) /hpf Urine Bacteria Occasional H (None) /hpf Hyaline Casts 12 H (0-2) /lpf Urine Mucus Rare H (None) /hpf 10/12/19 Range/Units 08:47 WBC (3.8-10.6) k/uL Sodium 135 L (137-145) mmol/L Potassium (3.5-5.1) mmol/L Chloride 111 H (98-107) mmol/L Carbon Dioxide 16 L (22-30) mmol/L BUN 51 H (7-17) mg/dL Creatinine 1.97 H (0.52-1.04) mg/dL Glucose 135 H (74-99) mg/dL Calcium (8.4-10.2) mg/dL Phosphorus (2.5-4.5) mg/dL Magnesium (1.6-2.3) mg/dL Total Bilirubin 0.1 L (0.2-1.3) mg/dL AST 13 L (14-36) U/L Urine Protein (Negative) Urine Nitrite (Negative) Ur Leukocyte Esterase (Negative) Urine WBC (0-5) /hpf Urine Bacteria (None) /hpf Hyaline Casts (0-2) /lpf Urine Mucus (None) /hpf Assessment and Plan (1) Pressure ulcer of sacral region, stage 3 Current Visit: Yes Status: Acute Code(s): L89.153 - PRESSURE ULCER OF SACRAL REGION, STAGE 3 SNOMED Code(s): 648461407 (2) Pressure ulcer of left heel, stage 1 Current Visit: Yes Status: Acute Code(s): L89.621 - PRESSURE ULCER OF LEFT HEEL, STAGE 1 SNOMED Code(s): 277872551 Plan: Discussed with patient the importance of offloading. Discussed with patient the importance of continuing her wound care appointments. In the importance of smoking cessation. Sacral ulceration cleanse with normal saline, apply Santyl edged edge a nickel in depth, saline moistened gauze, dry gauze, ABDs and secured with paper tape. Utilize Skin-Prep to avoid further skin breakdown. Discussed with patient the importance of offloading to the left calcaneus. May apply hydrating lotion to the site. Continue to monitor. Utilize foam boot as necessary. Patient verbalized understanding questions were answered. Wound Care appointment 10/18/2019 at 10 AM. Thank you kindly for the consultation any questions please contact the wound care center DNP note has been reviewed and discussed with Dr. Reno and the impression and plan of care has been directed as dictated.
[2019-10-12] MEDS: ASPIRIN 81 MG PO SCH (12:24)
[2019-10-12] MEDS: CLOPIDOGREL 75 MG TAB PO SCH (12:24)
[2019-10-12] MEDS: ENOXAPARIN 40 MG/0.4 ML SYRINGE SQ SCH (12:25)
[2019-10-12] MEDS: VENLAFAXINE HCL ER 75 MG CAP PO SCH (12:25)
[2019-10-12] MEDS: ATORVASTATIN 40 MG TAB PO SCH (12:25)
[2019-10-12] MEDS: FENOFIBRATE 160 MG TAB PO SCH (12:35)
[2019-10-12 14:10] VITALS: BMI 30.1
[2019-10-12] MEDS: COLLAGENASE 250 UNIT/GM OINTMENT 30 GM TUBE TOPICAL SCH (15:40)
--- NOTE | 2019-10-12 20:45 | P.HPIM ---
History of Present Illness H&P Date: 10/12/19 Chief Complaint: buttock wound History of presenting complaint: This is a pleasant 54-year-old patient of Dr. Lamberto Dejesus. Chronic stable medical conditions include coronary artery disease with stent, hypertension, kidney stones. 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 It was contained. Patient states when she left the hospital she had developed a wound on the buttock and felt progressively gotten worse. She does follow the wound care center per Dr. barlow. It is starting to drain. Had gone to the wound care center. Blood pressure drop. Patient having more back spasms. Patient also getting dizzy. Also be having nausea and some vomiting. Decreased oral intake. Admitted for the same. Patient's finances been doing dressing changes at home. Patient continues to smoke. 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 Smokes a pack a day for over 30 years. No alcohol. Family history: Patient is adopted Physical examination: VITAL SIGNS: 98.2, 90, 20, blood pressure 92/62, 98% on room air GENERAL: BMI 30.1, laying in bed, awake. EYES: Pupils equal. Conjunctiva normal. HEENT: External appearance of nose and ears normal, oral cavity grossly normal. NECK: JVD not raised; masses not palpable. HEART: First and second heart sounds are normal; no edema. LUNGS: Respiratory rate normal; decreased breath sounds. ABDOMEN: Soft, nontender, liver spleen not palpable, no masses palpable. BUTTOCKS: There is kissing wound on the middle of the buttock and posterior sides that is draining PSYCH: Alert and oriented x3; mood and affect tiredl. NEUROLOGICAL: Cranial nerves grossly intact; no facial asymmetry, power and sensation grossly intact. LYMPHATICS: No lymph nodes palpable in the axilla and neck INVESTIGATIONS, reviewed in the clinical context: White count 11.8 hemoglobin 14.4 potassium 5. 4 repeat 4.4 bun 53 creatinine 2.50 Patient labs from September 16 showed a bun of 16 creatinine 1.23 Assessment: -Acute kidney injury, in a patient with decreased oral intake and also on Aldactone. -Hypotension leading to his near-syncope from volume loss dehydration -Decubitus ulcer infected on the buttocks bilaterally kissing ulcer-infected -Coronary artery disease with stent -Depression otherwise specified -Recent left nephrectomy Plan: We'll consult wound care nurse and Dr. Kimble from infectious disease. Patient be given IV fluids. We'll hold off Aldactone for now. Fall precautions. Lovenox for DVT prophylaxis. Other home medications to be continued. Care was discussed with the patient. Questions were answered. We'll hold her beta arianna for till the blood pressure comes up. Past Medical History Past Medical History: Coronary Artery Disease (CAD), Cancer, Hypertension, Renal Disease Additional Past Medical History / Comment(s): kidney cancer, kidney stones, gallbladder stone, sepsis with medically induced a coma related to ecoli. Decubitus sacral ulcer goes to wound clinic History of Any Multi-Drug Resistant Organisms: None Reported Past Surgical History: Section, Heart Catheterization With Stent, Tonsillectomy Additional Past Surgical History / Comment(s): kidney stent, left kidney removal due to cancer Past Anesthesia/Blood Transfusion Reactions: No Reported Reaction Additional Past Anesthesia/Blood Transfusion Reaction / Comment(s): STATES SHE WAS TOLD THEY HAD DIFFICULTY SEDATING HER-HAD TO GIVE HER A LOT OF MEDICATION Date of Last Stent Placement:: 03/2019 Past Psychological History: No Psychological Hx Reported Smoking Status: Heavy tobacco smoker Past Alcohol Use History: None Reported Additional Past Alcohol Use History / Comment(s): SMOKES 1PPD, STARTED SMOKING IN 1987 Past Drug Use History: None Reported - Past Family History Mother Family Medical History: Unable to Obtain Additional Family Medical History / Comment(s): adopted Medications and Allergies Home Medications Medication Instructions Recorded Confirmed Type Aspirin 81 mg PO DAILY chew 03/29/19 10/11/19 Rx Atorvastatin [Lipitor] 40 mg PO DAILY #90 tab 03/29/19 10/11/19 Rx Clopidogrel [Plavix] 75 mg PO DAILY #90 tab 03/29/19 10/11/19 Rx Nitroglycerin Sl Tabs [Nitrostat] 0.4 mg SUBLINGUAL Q5M PRN #25 tab 03/29/19 10/11/19 Rx Spironolactone [Aldactone] 25 mg PO DAILY #90 tab 03/29/19 10/11/19 Rx hydrOXYzine HCL [Atarax] 50 mg PO HS 04/26/19 10/11/19 History Fenofibrate Nanocrystallized 145 mg PO DAILY 09/08/19 10/11/19 History [Fenofibrate] Collagenase [Santyl] 1 applic TOPICAL DAILY 10/11/19 10/11/19 History Venlafaxine HCl ER [Effexor Xr] 75 mg PO DAILY 10/11/19 10/11/19 History Metoprolol Tartrate [Lopressor] 50 mg PO BID 10/12/19 10/12/19 History Allergies Allergy/AdvReac Type Severity Reaction Status Date / Time Penicillins Allergy Unknown Verified 10/12/19 12:06 Childhood Physical Exam Vitals: Vital Signs Temp Pulse Pulse Resp BP BP Pulse Ox 10/12/19 05:26 98.4 F 71 20 96/54 99 10/11/19 23:00 96.2 F L 74 16 131/59 97 10/11/19 20:52 98.1 F 77 18 101/44 98 10/11/19 17:57 75 17 90/46 99 10/11/19 15:02 98.2 F 90 20 92/62 98 Intake and Output 10/11/19 10/12/19 10/12/19 22:59 06:59 14:59 Intake Total 790 1080 Output Total 400 Balance 790 680 Intake: Intake, IV Titration 1080 Amount Sodium Chloride 0.9% 1, 1080 000 ml @ 120 mls/hr IV . Q8H20M [facility] Rx#:[id number] Oral 790 Output: Urine 400 Other: Voiding Method Toilet # Voids 2 1 # Bowel Movements 1 Weight 97.976 kg Results CBC & Chem 7: 10/11/19 17:10 10/12/19 08:47 Labs: Abnormal Lab Results - Last 24 Hours (Table) 10/11/19 10/11/19 10/12/19 Range/Units 17:10 17:10 04:30 WBC 11.8 H (3.8-10.6) k/uL Sodium 134 L (137-145) mmol/L Potassium 5.4 H (3.5-5.1) mmol/L Chloride (98-107) mmol/L Carbon Dioxide 16 L (22-30) mmol/L BUN 53 H (7-17) mg/dL Creatinine 2.50 H (0.52-1.04) mg/dL Glucose (74-99) mg/dL Calcium 10.3 H (8.4-10.2) mg/dL Phosphorus 5.9 H (2.5-4.5) mg/dL Magnesium 2.5 H (1.6-2.3) mg/dL Total Bilirubin (0.2-1.3) mg/dL AST (14-36) U/L Urine Protein Trace H (Negative) Urine Nitrite Positive H (Negative) Ur Leukocyte Esterase Moderate H (Negative) Urine WBC 30 H (0-5) /hpf Urine Bacteria Occasional H (None) /hpf Hyaline Casts 12 H (0-2) /lpf Urine Mucus Rare H (None) /hpf 10/12/19 Range/Units 08:47 WBC (3.8-10.6) k/uL Sodium 135 L (137-145) mmol/L Potassium (3.5-5.1) mmol/L Chloride 111 H (98-107) mmol/L Carbon Dioxide 16 L (22-30) mmol/L BUN 51 H (7-17) mg/dL Creatinine 1.97 H (0.52-1.04) mg/dL Glucose 135 H (74-99) mg/dL Calcium (8.4-10.2) mg/dL Phosphorus (2.5-4.5) mg/dL Magnesium (1.6-2.3) mg/dL Total Bilirubin 0.1 L (0.2-1.3) mg/dL AST 13 L (14-36) U/L Urine Protein (Negative) Urine Nitrite (Negative) Ur Leukocyte Esterase (Negative) Urine WBC (0-5) /hpf Urine Bacteria (None) /hpf Hyaline Casts (0-2) /lpf Urine Mucus (None) /hpf Thrombosis Risk Factor Assmnt - Choose All That Apply Each Factor Represents 1 point: Age 41-60 years, Obesity (BMI >25) Other Risk Factors: Yes Each Risk Factor Represents 2 Points: Malignancy Other congenital or acquired thrombophilia - If yes, enter type in comment: No Thrombosis Risk Factor Assessment Total Risk Factor Score: 4 Thrombosis Risk Factor Assessment Level: Moderate Risk
[2019-10-12] MEDS ORDERED: hydrOXYzine HCL 25 MG TAB PO SCH (21:00)
[2019-10-12] MEDS: CLINDAMYCIN 600 MG in DEXTROSE 5% IN WATER 50 ML IVPB SCH ×4 (21:47→22:01)
[2019-10-12] MEDS: SODIUM BICARBONATE TAB 650 MG TAB PO SCH (21:47)
[2019-10-12] MEDS: CALCIUM CARBONATE LIQUID 500 MG/5 ML CUP PO SCH (21:47)
[2019-10-12] MEDS: LACTATED RINGERS 1,000 ML IV SCH (21:51)
[2019-10-13] MEDS: LACTATED RINGERS 1,000 ML IV SCH ×2 (06:12→08:51)
[2019-10-13] MEDS: VENLAFAXINE HCL ER 75 MG CAP PO SCH (08:52)
[2019-10-13] MEDS: CALCIUM CARBONATE LIQUID 500 MG/5 ML CUP PO SCH ×2 (08:52→13:34)
[2019-10-13] MEDS: FENOFIBRATE 160 MG TAB PO SCH (08:52)
[2019-10-13] MEDS: ASPIRIN 81 MG PO SCH (08:52)
[2019-10-13] MEDS: SODIUM BICARBONATE TAB 650 MG TAB PO SCH (08:52)
[2019-10-13] MEDS: ATORVASTATIN 40 MG TAB PO SCH (08:52)
[2019-10-13] MEDS: ENOXAPARIN 40 MG/0.4 ML SYRINGE SQ SCH (08:52)
[2019-10-13] MEDS: CLOPIDOGREL 75 MG TAB PO SCH (08:52)
--- NOTE | 2019-10-13 09:16 | CONS ---
CONSULTATION DATE OF SERVICE: 10/12/2019. REASON FOR CONSULTATION: Infected sacral pressure ulcer. HISTORY OF PRESENT ILLNESS: The patient is a 54-year-old female who is status post a left radical nephrectomy for a left renal mass that was done by Dr. Ibarra on September 14, 2019. Patient stayed in the hospital for about 5 days and was discharged home on September 18, 2019. The patient said when she was in the hospital, apparently she has not been moved around and subsequently developing a necrotic wound to her sacral area for which the patient has been evaluated in the outpatient setting by her primary care physician had been treated with oral antibiotic. However, in view of continuous Zosyn, she has been sent to the [facility] where the patient was evaluated yesterday. Patient did have debridement of the wound, done postprocedure. The patient has been complaining of having dizziness that apparently has been going on for the last few days, but did get worse yesterday. The patient was complaining of feeling weak, tired and no energy. She did have some pain in the sacral wound area. However, only when the wound is touched or manipulated then the intensity is about 7 to 8/10 and lying down, pain is down to about 2/10 and no radiation. Patient denies any purulent drainage from it. Denies having any fever or chills. No chest pain, shortness of breath or cough. No nausea, vomiting, abdominal pain, diarrhea. With these symptoms, the patient was also evaluated by the ER physician. On arrival to the ER, the patient has been afebrile. The patient did have a minute white count of 11.8, creatinine was elevated to 0.50. The patient has been admitted in the hospital and started on IV fluid in this patient who did have some clinical response to it with sacral wound and concern for possible diskitis with wound, Infectious Disease was consulted for further recommendations of antibiotic therapy. The patient apparently did not have any purulent drainage at the time of surgical drainage in the Wound Care Center. REVIEW OF SYSTEMS: 1. Positive points have been mentioned in HPI. Rest of systems are negative. PAST MEDICAL HISTORY: 1. Recent admission to the hospital for E coli sepsis from urinary source contributing to left renal mass. 2. Wound colon disease hypertension and kidney stone, possible increase. 3. Patient with heart catheterization with stent, tonsillectomy, and left nephrectomy. SOCIAL HISTORY: The patient did have history of smoking. No drinking or drug use. FAMILY HISTORY: Unavailable as the patient was adopted. ALLERGIES: To PENICILLINS; however, has tolerated . MEDICATIONS: Medications include the patient currently on Tylenol, aspirin, Lipitor, Tums, clindamycin, Plavix, Centrum, Lovenox, Atarax; Marcaine, Nitrostat, Zofran, FX. PHYSICAL EXAMINATION: Blood pressure is 103/50 with a pulse of 73, temperature 98.4. She is 92% we description is a middle-aged female lying in bed in no distress. No tachypnea or accessory muscle of respiration use. HEENT: Shows slight pallor. No scleral icterus. Oral mucosa is dry. No pharyngeal erythema. NECK: Trachea central, no thyromegaly. LUNGS: Unlabored breathing, clear to auscultation anteriorly. No wheeze or crackle heart S1, S2. Regular rate and rhythm. ABDOMEN: Soft, no tenderness, no guarding or rigidity. EXTREMITIES: Examination of sacral wound repeated, did show stage III sacral pressure ulcer with some slough tissue at the base. There is no surrounding swelling, redness or any foul-smelling drainage. NEUROLOGICAL Patient is awake, alert, oriented x3. Mood and affect normal. LABS: Hemoglobin 14.4, white count 11.8, creatinine was 2.5, white count 1.97. DIAGNOSTIC IMPRESSION: 1. Patient admitted to the hospital with generalized weakness, no energy, more likely due to dehydration and the patient did have elevated creatinine on admission. Clinically doubt any infectious etiology. 2. The patient with stage III sacral pressure ulcer with no cellulitis. Recommend local wound care. PLAN: 1. No need for systemic antibiotic therapy as the patient's sacral wound currently does not look infected /wound. 2. One local wound care to the sacral wound with Santyl followed by moist dressing, keep the area off the pressure. 3. Will follow on clinical condition and culture to further adjust medication, if needed. Thank you for this consultation. Will follow this patient along with you. MMODL / IJN: [id number] /
[2019-10-13 09:56] LABS: Basophils # (A) 0.1 k/uL (0-0.2); Basophils % (A) 1 %; Eosinophils # (A) 0.2 k/uL (0-0.7); Eosinophils % (A) 4 %; HCT 36.8 % (34.0-46.0); HGB 12.3 gm/dL (11.4-16.0); Lymphocytes % (A) 34 %; MCH 30.9 pg (25.0-35.0); MCHC 33.4 g/dL (31.0-37.0); MCV 92.5 fL (80.0-100.0); Mean Platelet Volume 9.4; Monocytes # (A) 0.5 k/uL (0-1.0); Monocytes % (A) 8 %; Neutrophils # (A) 3.1 k/uL (1.3-7.7); Neutrophils % (A) 52 %; Platelet Count 308 k/uL (150-450); RBC 3.98 m/uL (3.80-5.40)
[2019-10-13 09:57] LABS: Calcium 9.4 mg/dL (8.4-10.2); Potassium 4.3 mmol/L (3.5-5.1)
[2019-10-13] MEDS: COLLAGENASE 250 UNIT/GM OINTMENT 30 GM TUBE TOPICAL SCH (12:04)
--- NOTE | 2019-10-13 13:09 | P.CRDCN ---
History of Present Illness History of present illness: HISTORY OF PRESENTING ILLNESS This is a pleasant 54-year-old female past medical history significant for coronary artery disease status post PCI, hypertension, dyslipidemia, renal carcinoma status post right nephrectomy and ischemic cardiomyopathy. She follows in the office with Dr. Horowitz. We have been asked to see in consultation for frequent PVCs and low heart rate. She presented to the hospital with symptoms of dizziness, poor oral intake and dehydration. She states she has lost 10 pounds in the last 1 month. She is following in the wound center for a pressure ulcer since undergoing nephrectomy. She was noted to be hypotensive on arrival blood pressure 92/62 and 90/46. Lisinopril, Aldactone and Lopressor have been held since admission. DIAGNOSTICS EKG reveals sinus mechanism with PVC's. Laboratory reviewed, WBC on admission 11.8 repeat today 6.0, hgb 12.3, plt 308, sodium 139, potassium 4.3, creatinine on admission 2.5 repeat today 1.3, magnesium 2.5 with evidence of urinary tract infection. Current cardiac medications include aspirin 81 mg daily, atorvastatin 40 mg daily, plavix 75 mg daily, fenofibrate 145 mg daily, aldactone 25 mg daily and lopressor 25 mg BID. (Home med list here states 50 mg BID however she states on advice of Dr. Horowitz she is cutting the pills in half taking only 25 mg BID) Recent echocardiogram obtained September 2019 reveals preserved LV systolic function with ejection fraction 50-55%, normal diastolic filling pattern, mild aortic valve sclerosis, mild MR and mild TR. Recent cardiac catheterization March 2019 revealed a 70% stenosis of the LAD, 89% stenosis of the first OM branch and a 70% stenosis of the RCA. She u nderwent successful stent placement to the RCA times one and LAD 2. At that time her ejection fraction was 45% by catheterization but less than 20% by transthoracic echocardiogram. REVIEW OF SYSTEMS At the time of my exam: CONSTITUTIONAL: Denies fever or chills. CARDIOVASCULAR: Denies chest pain, shortness of breath, orthopnea, PND or palpitations. RESPIRATORY: Denies cough. GASTROINTESTINAL: Denies abdominal pain, diarrhea, constipation, nausea or vomiting. MUSCULOSKELETAL: Denies myalgias. NEUROLOGIC: Denies numbness, tingling or weakness. ENDOCRINE: Denies fatigue, weight change, polydipsia or polyurina. GENITOURINARY: Denies burning, hematuria or urgency with micturation. HEMATOLOGIC: Denies history of anemia or bleeding. PHYSICAL EXAMINATION Blood pressure 102/68 heart rate 71 afebrile and maintaining oxygen saturation on room air. CONSTITUTIONAL: No apparent distress. HEENT: Head is normocephalic. Pupils are equal, round. Sclerae anicteric. Mucous membranes of the mouth are moist. No JVD. No carotid bruit. CHEST EXAMINATION: Lungs are clear to auscultation. No chest wall tenderness is noted on palpation or with deep breathing. HEART EXAMINATION: Regular rate and rhythm. S1, S2 heard. No murmurs, gallops or rub. ABDOMEN: Soft, nontender. Positive bowel sounds. EXTREMITIES: 2+ peripheral pulses, no lower extremity edema and no calf tenderness. NEUROLOGIC EXAMINATION: Patient is awake, alert and oriented x3. ASSESSMENT Acute kidney injury secondary to poor oral intake and dehydration History of coronary artery disease status post recent PCI maintained on dual antiplatelet therapy Ischemic cardiomyopathy has improved since revascularization Renal carcinoma status post right nephrectomy Hypertension Dyslipidemia PLAN Resume metoprolol 25 mg twice a day with parameters to hold for systolic blood pressure less than 90 and heart rate less than 55. Continue aspirin, atorvastatin, fenofibrate and Plavix as previously ordered. Continue to hold Aldactone and lisinopril until renal function normalizes. Thank you kindly for this consultation. Nurse Practitioner note has been reviewed, I agree with a documented findings and plan of care. Patient was seen and examined. Past Medical History Past Medical History: Coronary Artery Disease (CAD), Cancer, Hypertension, Renal Disease Additional Past Medical History / Comment(s): kidney cancer, kidney stones, gallbladder stone, sepsis with medically induced a coma related to ecoli. Decubitus sacral ulcer goes to wound clinic History of Any Multi-Drug Resistant Organisms: None Reported Past Surgical History: Section, Heart Catheterization With Stent, Tonsillectomy Additional Past Surgical History / Comment(s): kidney stent, left kidney removal due to cancer Past Anesthesia/Blood Transfusion Reactions: No Reported Reaction Additional Past Anesthesia/Blood Transfusion Reaction / Comment(s): STATES SHE WAS TOLD THEY HAD DIFFICULTY SEDATING HER-HAD TO GIVE HER A LOT OF MEDICATION Date of Last Stent Placement:: 03/2019 Past Psychological History: No Psychological Hx Reported Smoking Status: Heavy tobacco smoker Past Alcohol Use History: None Reported Additional Past Alcohol Use History / Comment(s): SMOKES 1PPD, STARTED SMOKING IN 1987 Past Drug Use History: None Reported - Past Family History Mother Family Medical History: Unable to Obtain Additional Family Medical History / Comment(s): adopted Medications and Allergies Home Medications Medication Instructions Recorded Confirmed Type Aspirin 81 mg PO DAILY chew 03/29/19 10/11/19 Rx Atorvastatin [Lipitor] 40 mg PO DAILY #90 tab 03/29/19 10/11/19 Rx Clopidogrel [Plavix] 75 mg PO DAILY #90 tab 03/29/19 10/11/19 Rx Nitroglycerin Sl Tabs [Nitrostat] 0.4 mg SUBLINGUAL Q5M PRN #25 tab 03/29/19 10/11/19 Rx Spironolactone [Aldactone] 25 mg PO DAILY #90 tab 03/29/19 10/11/19 Rx hydrOXYzine HCL [Atarax] 50 mg PO HS 04/26/19 10/11/19 History Fenofibrate Nanocrystallized 145 mg PO DAILY 09/08/19 10/11/19 History [Fenofibrate] Collagenase [Santyl] 1 applic TOPICAL DAILY 10/11/19 10/11/19 History Venlafaxine HCl ER [Effexor Xr] 75 mg PO DAILY 10/11/19 10/11/19 History Metoprolol Tartrate [Lopressor] 50 mg PO BID 10/12/19 10/12/19 History Allergies Allergy/AdvReac Type Severity Reaction Status Date / Time Penicillins Allergy Unknown Verified 10/12/19 12:06 Childhood Physical Exam Vitals: Vital Signs Temp Pulse Resp BP Pulse Ox 10/13/19 05:34 98.0 F 71 18 102/62 99 10/12/19 22:50 69 10/12/19 20:50 98.4 F 37 L 16 103/57 96 10/12/19 15:20 20 Intake and Output 10/12/19 10/13/19 10/13/19 22:59 06:59 14:59 Intake Total 350 1025 Output Total 700 Balance 350 325 Intake: Intake, IV Titration 1025 Amount Lactated Ringers 1,000 ml 875 @ 125 mls/hr IV .Q8H [facility] Rx#:[id number] Sodium Chloride 0.9% 1, 150 000 ml @ 75 mls/hr IV . [id number] [facility] Rx#:[id number] Oral 350 Output: Urine 700 Other: Voiding Method Toilet Toilet Toilet # Voids 1 1 Results 10/13/19 09:09 10/13/19 09:09 CBC 10/13/19 Range/Units 09:09 WBC 6.0 (3.8-10.6) k/uL RBC 3.98 (3.80-5.40) m/uL Hgb 12.3 (11.4-16.0) gm/dL Hct 36.8 (34.0-46.0) % Plt Count 308 (150-450) k/uL Comprehensive Metabolic Panel 10/13/19 Range/Units 09:09 Sodium 139 (137-145) mmol/L Potassium 4.3 (3.5-5.1) mmol/L Chloride 112 H (98-107) mmol/L Carbon Dioxide 17 L (22-30) mmol/L BUN 33 H (7-17) mg/dL Creatinine 1.30 H (0.52-1.04) mg/dL Glucose 132 H (74-99) mg/dL Calcium 9.4 (8.4-10.2) mg/dL Current Medications Generic Name Dose Route Start Last Admin Trade Name Freq PRN Reason Stop Dose Admin Acetaminophen 650 mg 10/11/19 18:56 Tylenol Tab PO Q6HR PRN Mild Pain or Fever > 100.5 Aspirin 81 mg 10/12/19 10:30 10/13/19 08:52 Aspirin PO 81 mg DAILY [facility] Administration Atorvastatin Calcium 40 mg 10/12/19 10:30 10/13/19 08:52 Lipitor PO 40 mg DAILY [facility] Administration Calcium Carbonate/Glycine 500 mg 10/12/19 21:20 10/13/19 08:52 Tums Liquid PO 500 mg TID-W/MEALS [facility] Administration Clopidogrel Bisulfate 75 mg 10/12/19 10:30 10/13/19 08:52 Plavix PO 75 mg DAILY [facility] Administration Collagenase 1 applic 10/12/19 10:45 10/13/19 12:04 Santyl TOPICAL 1 applic DAILY [facility] Administration Enoxaparin Sodium 40 mg 10/12/19 10:30 10/13/19 08:52 Lovenox SQ 40 mg DAILY [facility] Administration Fenofibrate 160 mg 10/12/19 10:30 10/13/19 08:52 Lofibra PO 160 mg DAILY [facility] Administration Hydroxyzine HCl 50 mg 10/12/19 21:00 10/12/19 22:40 Atarax PO 50 mg HS [facility] Administration Lactated Ringer's 1,000 mls @ 125 mls/hr 10/12/19 20:45 10/13/19 08:51 Lactated Ringers IV 125 mls/hr .Q8H [facility] Administration Naloxone HCl 0.2 mg 10/11/19 18:56 Narcan IV Q2M PRN Opioid Reversal Nitroglycerin 0.4 mg 10/12/19 10:17 Nitrostat SUBLINGUAL Q5M PRN Chest Pain Ondansetron HCl 4 mg 10/11/19 18:56 Zofran IVP Q8HR PRN Nausea And Vomiting Sodium Bicarbonate 650 mg 10/12/19 22:00 10/13/19 08:52 Sodium Bicarbonate Tab PO 650 mg TID [facility] Administration Venlafaxine HCl 75 mg 10/12/19 10:30 10/13/19 08:52 Effexor Xr PO 75 mg DAILY [facility] Administration Intake and Output 10/12/19 10/13/19 10/13/19 22:59 06:59 14:59 Intake Total 350 1025 Output Total 700 Balance 350 325 Intake: Intake, IV Titration 1025 Amount Lactated Ringers 1,000 ml 875 @ 125 mls/hr IV .Q8H [facility] Rx#:[id number] Sodium Chloride 0.9% 1, 150 000 ml @ 75 mls/hr IV . [id number] [facility] Rx#:[id number] Oral 350 Output: Urine 700 Other: Voiding Method Toilet Toilet Toilet # Voids 1 1 10/13/19 09:09 10/13/19 09:09
[2019-10-13] MEDS ORDERED: METOPROLOL TARTRATE 25 MG TAB PO SCH (13:15)
[2019-10-13 13:44] VITALS: BP 110/56; PULSE 78; RESP 16; TEMP 97.7
--- NOTE | 2019-10-13 17:09 | PN ---
PROGRESS NOTE DATE OF SERVICE: 10/13/2019 REASON FOR FOLLOWUP: Sacral pressure ulcer, stage III. INTERVAL HISTORY: The patient is currently afebrile. The patient has been breathing comfortably. The patient denies having any chest pain or shortness of breath or cough. No nausea, vomiting, abdominal pain or any worsening pain to the sacral wound area. PHYSICAL EXAMINATION: Blood pressure 110/56, pulse of 70, temperature 97.7. She is 98% on room air. General description is a middle-aged female up in the chair in no distress. RESPIRATORY SYSTEM: Unlabored breathing. Clear to auscultation anteriorly. HEART: S1, S2. Regular rate and rhythm. ABDOMEN: Soft. No tenderness. LABS: Hemoglobin is 12.3, white count 6.0, creatinine 1.30. DIAGNOSTIC IMPRESSION AND PLAN: 1. Patient admitted to hospital with a sacral pressure ulcer, post debridement. The patient did have some significant dizziness, more likely dehydration, and the patient had elevated BUN and creatinine, with overall improvement on the IV hydration. Patient's sacral wound looks clean with no evidence of any secondary cellulitis. Recommend continued local wound care with Santyl followed by moist dressing and outpatient followup in the wound care center. 2. Patient did have positive urinalysis. Urine showing a Gram-negative with recent nephrectomy. Will consider a short course of oral Ceftin with close outpatient followup. MMODL / IJN: [id number] /
--- NOTE | 2019-10-13 18:23 | P.DS ---
Providers Date of admission: 10/11/19 18:56 Expected date of discharge: 10/13/19 Attending physician: Alton Conway Consults: 10/12/19 17:52 Consult Physician Routine Consulting Provider: Thai Kimble Consult Reason/Comments: coccyx wound Do you want consulting provider notified?: Already Contacted 10/12/19 20:36 Consult Physician Routine Consulting Provider: Jose Ibarra Consult Reason/Comments: Reason nephrectomy Do you want consulting provider notified?: Yes 10/12/19 21:15 Consult Physician Routine Consulting Provider: Gideon Horowitz Consult Reason/Comments: frequent pvc's, low heart rate Do you want consulting provider notified?: Yes Primary care physician: Linden Dejesus [facility] Course: Chief Complaint: buttock wound History of presenting complaint: This is a pleasant 54-year-old patient of Dr. Lamberto Dejesus. Chronic stable medical conditions include coronary artery disease with stent, hypertension, kidney stones. 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 It was contained. Patient states when she left the hospital she had developed a wound on the buttock and felt progressively gotten worse. She does follow the wound care center per Dr. barlow. It is starting to drain. Had gone to the wound care center. Blood pressure drop. Patient having more back spasms. Patient also getting dizzy. Also be having nausea and some vomiting. Decreased oral intake. Admitted for the same. Patient's finances been doing dressing changes at home. Patient continues to smoke. Admitted with acute kidney injury with hypotension. Responded well to IV fluids. Creatinine did drop gone from 2.5 down to 1.3. Discussed with Dr. Kimble from [facility] today. Buttock wound is not infected. Also seen by the wound care team. Discussed with the patient. 15 to gone. Feeling much better. Discussion and discharge planning more than 35 minutes Consultation: Wound care team Dr. Guevara from [place] Physical examination: VITAL SIGNS: 97.7, 78, 16, blood pressure 110/56, 98% on room air GENERAL: Laying in bed, comfortable EYES: Pupils equal. Conjunctiva normal. HEENT: External appearance of nose and ears normal, oral cavity grossly normal. NECK: JVD not raised; masses not palpable. HEART: First and second heart sounds are normal; no edema. LUNGS: Respiratory rate normal; decreased breath sounds. ABDOMEN: Soft, nontender, liver spleen not palpable, no masses palpable. BUTTOCKS: There is kissing wound on the middle of the buttock and posterior si bertram that is draining PSYCH: Alert and oriented x3; mood and affect tiredl. INVESTIGATIONS, reviewed in the clinical context: Potassium 4.3 bun 33 creatinine 1.30 Previous testing White count 11.8 hemoglobin 14.4 potassium 5. 4 repeat 4.4 bun 53 creatinine 2.50 Patient labs from September 16 showed a bun of 16 creatinine 1.23 Assessment: -Acute kidney injury, in a patient with decreased oral intake and also on Aldactone. -Hypotension leading to his near-syncope from volume loss dehydration -Decubitus ulcer infected on the buttocks bilaterally kissing ulcer-infected -Coronary artery disease with stent -Depression otherwise specified -Recent left nephrectomy Disposition: Home Patient Condition at Discharge: Fair Plan - Discharge Summary Discharge Rx Participant: Yes New Discharge Prescriptions: New Metoprolol Tartrate [Lopressor] 12.5 mg PO BID #60 tab Sodium Bicarbonate Tab 650 mg PO TID #30 tab Cefuroxime Axetil [Ceftin] 500 mg PO BID 3 Days #6 tab Continue Atorvastatin [Lipitor] 40 mg PO DAILY #90 tab Nitroglycerin Sl Tabs [Nitrostat] 0.4 mg SUBLINGUAL Q5M PRN #25 tab PRN Reason: Chest Pain Clopidogrel [Plavix] 75 mg PO DAILY #90 tab Aspirin 81 mg PO DAILY chew Fenofibrate Nanocrystallized [Fenofibrate] 145 mg PO DAILY Venlafaxine HCl ER [Effexor XR] 75 mg PO DAILY Collagenase [Santyl] 1 applic TOPICAL DAILY Changed Spironolactone [Aldactone] 12.5 mg PO DAILY #90 tab Discontinued hydrOXYzine HCL [Atarax] 50 mg PO HS Metoprolol Tartrate [Lopressor] 50 mg PO BID Discharge Medication List Aspirin 81 mg PO DAILY chew 03/29/19 [Rx] Atorvastatin [Lipitor] 40 mg PO DAILY #90 tab 03/29/19 [Rx] Clopidogrel [Plavix] 75 mg PO DAILY #90 tab 03/29/19 [Rx] Nitroglycerin Sl Tabs [Nitrostat] 0.4 mg SUBLINGUAL Q5M PRN #25 tab 03/29/19 [R x] Fenofibrate Nanocrystallized [Fenofibrate] 145 mg PO DAILY 09/08/19 [History] Collagenase [Santyl] 1 applic TOPICAL DAILY 10/11/19 [History] Venlafaxine HCl ER [Effexor XR] 75 mg PO DAILY 10/11/19 [History] Cefuroxime Axetil [Ceftin] 500 mg PO BID 3 Days #6 tab 10/13/19 [Rx] Metoprolol Tartrate [Lopressor] 12.5 mg PO BID #60 tab 10/13/19 [Rx] Sodium Bicarbonate Tab 650 mg PO TID #30 tab 10/13/19 [Rx] Spironolactone [Aldactone] 12.5 mg PO DAILY #90 tab 10/13/19 [Rx] Follow up Appointment(s)/Referral(s): Linden Dejesus MD [Primary Care Provider] - 10/17/19 2:00 pm Gideon Horowitz MD [STAFF PHYSICIAN] - 10/25/19 10:15 am Thai Kimble MD [STAFF PHYSICIAN] - 1 Week ( will see patient in [facility] ,they will call patient to schedule appt) Patient Instructions/Handouts: Metoprolol (By mouth), Sodium Bicarbonate (By mouth), Acute Kidney Injury (DC), Pressure Injury (DC) Discharge Disposition: HOME SELF-CARE
== END 2019-10-13 16:55 | disposition home or self-care (01) | DRG 682 ==
LOC: EC 14:49 → 5NMEDONC 18:56
PROVIDERS: ADMIT Hospitalist; ATTEND Hospitalist
DX: N17.9 Acute kidney failure, unspecified (principal); L89.153 Pressure ulcer of sacral region, stage 3; N39.0 Urinary tract infection, site not specified; E87.2 Acidosis; E86.0 Dehydration; L89.621 Pressure ulcer of left heel, stage 1; I95.9 Hypotension, unspecified; M62.830 Muscle spasm of back; E87.5 Hyperkalemia; F32.9 Major depressive disorder, single episode, unspecified; I08.3 Combined rheumatic disorders of mitral, aortic and tricuspid valves; I49.3 Ventricular premature depolarization; I10 Essential (primary) hypertension; I25.5 Ischemic cardiomyopathy; E78.5 Hyperlipidemia, unspecified; I25.10 Atherosclerotic heart disease of native coronary artery without angina pectoris; K80.20 Calculus of gallbladder without cholecystitis without obstruction; F17.210 Nicotine dependence, cigarettes, uncomplicated; Z71.6 Tobacco abuse counseling; Z79.82 Long term (current) use of aspirin; Z79.02 Long term (current) use of antithrombotics/antiplatelets; Z79.899 Other long term (current) drug therapy; Z95.5 Presence of coronary angioplasty implant and graft; Z90.5 Acquired absence of kidney; Z98.890 Other specified postprocedural states; Z87.442 Personal history of urinary calculi; Z85.528 Personal history of other malignant neoplasm of kidney; Z88.0 Allergy status to penicillin
CPT/HCPCS: 36415; 80048; 80053; 81001; 82330; 83605; 83735; 84100; 85025; 87077; 87086; 87186; 87324; 93005; 96361; 96374; 99284

== ENCOUNTER → 2020-05-13 | Outpatient (CLI) | payer OTHER ==
[2020-05-13 15:28] LABS: African American GFR (CKD) 60.2 (60.0-200.0); Albumin 4.8 g/dL (3.80-4.90); Anion Gap 6.7 mmol/L (4.00-12.00); BUN/Creat Ratio 19.17 Ratio (12.00-20.00); Calcium 9.9 mg/dL (8.7-10.3); Carbon Dioxide 25.3 mmol/L (21.6-31.8); Chol/HDL Ratio 6.25; Globulin 2.4 g/dL (1.6-3.3); Non-African American GFR(CKD) 51.9 (60.0-200.0); Potassium 4.9 mmol/L (3.5-5.5); Total Bilirubin 0.3 mg/dL (0.2-1.2); Total Protein 7.2 g/dL (6.2-8.2)
== END | disposition home or self-care (01) ==
LOC: LABWHC1 10:09
PROVIDERS: ATTEND Nurse Practitioner Adult Health
DX: I10 Essential (primary) hypertension (principal); E78.2 Mixed hyperlipidemia
CPT/HCPCS: 36415; 80053; 80061; 83721

== ENCOUNTER 2024-07-04 03:04 | Inpatient (IN) | payer OTHER ==
[2024-07-04 03:12] LABS: Glucose,Whole Blood 343 mg/dL (70-110)
[2024-07-04 03:52] LABS: Basophils # (A) 0.2 k/uL (0-0.2); Basophils % (A) 1 %; Eosinophils # (A) 0.5 k/uL (0-0.7); Eosinophils % (A) 3 %; HCT 43.8 % (34.0-46.0); HGB 14.2 gm/dL (11.4-16.0); Lymphocytes # (A) 7.9 k/uL (1.0-4.8); Lymphocytes % (A) 52 %; MCH 31.2 pg (25.0-35.0); MCHC 32.4 g/dL (31.0-37.0); MCV 96.1 fL (80.0-100.0); Mean Platelet Volume 9.8; Monocytes # (A) 0.6 k/uL (0-1.0); Monocytes % (A) 4 %; Neutrophils # (A) 5.6 k/uL (1.3-7.7); Neutrophils % (A) 37 %; Platelet Count 352 k/uL (150-450); RBC 4.56 m/uL (3.80-5.40); RDW 13.1 % (11.5-15.5); WBC 15.2 k/uL (3.8-10.6)
[2024-07-04 03:59] LABS: ALT 23 U/L (4-34); AST 40 U/L (14-36); African American GFR (CKD) 81 (>60 ml/min/1.73 sqM); Albumin 3.8 g/dL (3.5-5.0); Alkaline Phosphatase 64 U/L (38-126); Anion Gap 10 mmol/L; Blood Urea Nitrogen 14 mg/dL (7-17); Calcium 8.9 mg/dL (8.4-10.2); Carbon Dioxide 14 mmol/L (22-30); Chloride 111 mmol/L (98-107); Glucose 340 mg/dL (74-99); Non-African American GFR(CKD) 70 (>60 ml/min/1.73 sqM); Potassium 3.4 mmol/L (3.5-5.1); Sodium 135 mmol/L (137-145); Total Bilirubin 0.6 mg/dL (0.2-1.3); Total Protein 6.5 g/dL (6.3-8.2)
[2024-07-04 04:07] LABS: NT-Pro-B-Type Natriuretic Pept 5970 pg/mL
[2024-07-04 04:28] LABS: INR 0.8 (<1.2); Partial Thromboplastin Time 22.4 sec (22.0-30.0); Prothrombin Time 9.6 sec (10.0-12.5)
--- NOTE | 2024-07-04 04:57 | ED ---
SOB HPI - General Chief Complaint: Shortness of Breath Stated Complaint: Difficulty Breathing Time Seen by Provider: 07/04/24 03:05 Source: EMS Mode of arrival: EMS Limitations: no limitations - History of Present Illness Initial Comments: 58-year-old female past medical history of coronary artery disease, hypertension who presents to the emergency department with respiratory failure. EMS picked up the patient from her house. She was reporting shortness of breath. Patient is a heavy smoker. Denies a diagnosis of COPD. No history of congestive heart failure EMS found her to have an oxygen saturation of 70%. They placed her on a nonrebreather and then progressed to a CPAP. They did give her 50 mg of prednisone orally, 2 nitro sublingually as patient's blood pressure was over 200 systolic. They also provided her with an IM epi. Patient reports that she has had some shortness of breath for the past week. She denies history of COPD or asthma. Does not use inhalers. Patient does have 2 stents in her heart which were placed in 2019. She denies chest pain at this time. Patient has not followed with a clinic coordinator since 2019. Admits to a nonproductive cough and a fever for one day. She denies any leg swelling. No calf pain. No history of DVT or PE. No sick contacts no other alleviating, precipitating or modifying factors - Related Data Previous Rx's Medication Instructions Recorded Apixaban [Eliquis] 5 mg PO BID 30 Days #60 tab 07/06/24 Aspirin EC [Ecotrin Low Dose] 81 mg PO DAILY 30 Days #30 tab 07/06/24 Atorvastatin [Lipitor] 80 mg PO DAILY 30 Days #30 tab 07/06/24 Dapagliflozin Propanediol [Farxiga] 5 mg PO DAILY 30 Days #30 tab 07/06/24 Furosemide [Lasix] 40 mg PO DAILY 30 Days #30 tab 07/06/24 Losartan [Cozaar] 25 mg PO DAILY 30 Days #30 tab 07/06/24 Metoprolol Tartrate [Lopressor] 25 mg PO BID 30 Days #60 tab 07/06/24 Nicotine 14Mg/24Hr Patch [Habitrol] 1 patch TRANSDERM DAILY 28 Days 07/06/24 #28 patch Nitroglycerin Sl Tabs [Nitrostat] 0.4 mg SUBLINGUAL Q5M PRN 30 Days 07/06/24 #30 tab Ticagrelor [Brilinta] 90 mg PO BID 30 Days #60 tab 07/06/24 Venlafaxine HCl ER [Effexor Xr] 150 mg PO DAILY 30 Days #30 cap 07/06/24 metFORMIN HCL [Glucophage] 500 mg PO BID-W/MEALS 30 Days #60 07/06/24 tab Allergies Allergy/AdvReac Type Severity Reaction Status Date / Time Penicillins Allergy Unknown Verified 07/04/24 10:12 Childhood Review of Systems ROS Statement: Those systems with pertinent positive or pertinent negative responses have been documented in the HPI. ROS Other: All systems not noted in ROS Statement are negative. Past Medical History Past Medical History: Coronary Artery Disease (CAD), Cancer, Hypertension, Renal Disease Additional Past Medical History / Comment(s): kidney cancer, kidney stones, gallbladder stone, sepsis with medically induced a coma related to ecoli. Decubitus sacral ulcer goes to wound clinic History of Any Multi-Drug Resistant Organisms: None Reported Past Surgical History: Section, Heart Catheterization With Stent, Tonsillectomy Additional Past Surgical History / Comment(s): kidney stent, left kidney removal due to cancer Past Anesthesia/Blood Transfusion Reactions: No Reported Reaction Additional Past Anesthesia/Blood Transfusion Reaction / Comment(s): STATES SHE WAS TOLD THEY HAD DIFFICULTY SEDATING HER-HAD TO GIVE HER A LOT OF MEDICATION Date of Last Stent Placement:: 03/2019 Past Psychological History: No Psychological Hx Reported Smoking Status: Current every day smoker, Vaper Past Alcohol Use History: None Reported Past Drug Use History: None Reported - Past Family History Mother Family Medical History: Unable to Obtain Additional Family Medical History / Comment(s): adopted General Exam Limitations: physical limitation General appearance: in distress Head exam: Present: atraumatic, normocephalic, normal inspection Eye exam: Present: normal appearance, PERRL, EOMI. Absent: scleral icterus, conjunctival injection, periorbital swelling ENT exam: Present: normal exam, mucous membranes moist Neck exam: Present: normal inspection Respiratory exam: Present: respiratory distress, rales, accessory muscle use, decreased breath sounds Cardiovascular Exam: Present: normal rhythm, tachycardia GI/Abdominal exam: Present: soft, normal bowel sounds. Absent: distended, tenderness, guarding, rebound, rigid Neurological exam: Present: alert Psychiatric exam: Present: normal affect, normal mood Skin exam: Present: warm, dry, intact, normal color. Absent: rash Course Vital Signs 07/04/24 07/04/24 07/04/24 03:05 03:11 03:12 Temperature 97.2 F L Pulse Rate 128 H Respiratory 30 H 29 H Rate Blood Pressure 185/106 O2 Sat by Pulse 98 Oximetry Fraction of 60 Inspired Oxygen (FIO2) 07/04/24 07/04/24 07/04/24 03:13 03:30 04:00 Temperature Pulse Rate 106 H 97 Respiratory 20 18 Rate Blood Pressure 154/94 154/79 O2 Sat by Pulse 98 99 Oximetry Fraction of 60 Inspired Oxygen (FIO2) 07/04/24 07/04/24 07/04/24 04:30 04:45 04:50 Temperature Pulse Rate 98 93 90 Respiratory 18 18 19 Rate Blood Pressure 136/75 145/76 145/76 O2 Sat by Pulse 100 98 99 Oximetry Fraction of Inspired Oxygen (FIO2) 07/04/24 07/04/24 07/04/24 04:55 05:00 05:04 Temperature Pulse Rate 89 90 Respiratory 18 16 Rate Blood Pressure 145/76 145/76 O2 Sat by Pulse 97 99 99 Oximetry Fraction of Inspired Oxygen (FIO2) 07/04/24 07/04/24 07/04/24 05:10 05:25 05:30 Temperature Pulse Rate 107 H 106 H Respiratory 14 18 11 L Rate Blood Pressure 136/74 169/95 169/95 O2 Sat by Pulse 98 99 100 Oximetry Fraction of Inspired Oxygen (FIO2) 07/04/24 07/04/24 07/04/24 05:35 05:37 05:40 Temperature 97.8 F Pulse Rate 104 H 103 H Respiratory 14 16 Rate Blood Pressure 162/102 158/91 O2 Sat by Pulse 98 98 Oximetry Fraction of Inspired Oxygen (FIO2) - Reevaluation(s) Reevaluation #1: Patient is admitted to the hospital. She does begin to have some chest pain. EKG is performed which demonstrates ST segment elevation. STEMI is called at this time. Spoke with Dr. Frazier 07/04/24 05:23 Medical Decision Making - Medical Decision Making Was pt. sent in by a medical professional or institution (, PA, COURSE INSTRUCTOR, urgent care, hospital, or prison...) When possible be specific @ -No Did you speak to anyone other than the patient for history (EMS, parent, family, police, friend...)? What history was obtained from this source @ -Spoke with EMS for history Did you review nursing and triage notes (agree or disagree)? Why? @ -I reviewed and agree with nursing and triage notes Were old charts reviewed (outside hosp., previous admission, EMS record, old EKG, old radiological studies, urgent care reports/EKG's, prison records)? Report findings @ -I reviewed a heart cath from 2019 where it was found that the patient had additional coronary disease that was not stented Differential Diagnosis (chest pain, altered mental status, abdominal pain women, abdominal pain men, vaginal bleeding, weakness, fever, dyspnea, syncope, headache, dizziness, GI bleed, back pain, seizure, CVA, palpatations, mental health, musculoskeletal)? @ -Differential Dyspnea: Coronary syndrome, arrhythmia, tamponade, asthma, COPD, pulmonary embolism, pneumonia, pneumothorax, pulmonary effusion, anaphylaxis, diabetic ketoacidosis, flailed chest, pulmonary contusion, diaphragmatic rupture, anemia, neuromuscular, this is not meant to be an all-inclusive list. EKG interpreted by me (3pts min.). @ -First EKG done at 3:11 AM straight sinus tachycardia with a rate of 112. WA interval 155. QRS 95. QTc of 380. No acute ST segment elevation. There is a rtifact in V5 and V6 limiting evaluation Patient admitted to having chest pressure at this time and therefore repeat EKG was done at [address] elevation V3 through V5. X-rays interpreted by me (1pt min.). @ -Yes and demonstrated pulmonary vascular congestion. Disagreement with radiology interpretation as pneumonia CT interpreted by me (1pt min.). @ -None done U/S interpreted by me (1pt. min.). @ -None done What testing was considered but not performed or refused? (CT, X-rays, U/S, labs)? Why? @ -None What meds were considered but not given or refused? Why? @ -None Did you discuss the management of the patient with other professionals (professionals i.e. , PA, COURSE INSTRUCTOR, lab, RT, psych nurse, social media marketing specialist, manager personal, teacher, electronic intelligence officer, wrapper caser)? Give summary @ -Spoke with Dr. Horowitz when I receive the second EKG. Also spoke with Dr. May for admission Was smoking cessation discussed for >3mins.? @ -No Was critical care preformed (if so, how long)? @ -Yes, 35 minutes for management of BiPAP respiratory failure NSTEMI Were there social determinants of health that impacted care today? How? (Homelessness, low income, unemployed, alcoholism, drug addiction, transportation, low edu. Level, literacy, decrease access to med. care, senior care, rehab)? @ -Patient does not follow regularly with her doctors Was there de-escalation of care discussed even if they declined (Discuss DNR or withdrawal of care, Hospice)? DNR status @ -No What co-morbidities impacted this encounter? (DM, HTN, Smoking, COPD, CAD, Cancer, CVA, ARF, Chemo, Hep., AIDS, mental health diagnosis, sleep apnea, morbid obesity)? @ -Coronary disease, nicotine abuse Was patient admitted / discharged? Hospital course, mention meds given and route, prescriptions, significant lab abnormalities, going to OR and other pertinent info. @ -Upon arrival patient seen and evaluated in trauma 1. EMS reported that the patient was in respiratory distress. She is on a CPAP and transition to a BiPAP in the trauma bay. She is tachypneic with significant work of breathing. IV was established and laboratory studies are conducted. Initial EKG was performed. Chest x-ray was completed which demonstrates concern for heart failure. Patient denied having any chest pain. Patient is allowed to stabilize on the BiPAP. I do receive lab results which demonstrate an elevated troponin therefore heparin was initiated. I did review the patient's records which indicate that she does have coronary disease and additional vessels at the time of her heart cath were concerning for some disease. I did inform the patient of this. She additionally continues to refuse that she is having chest pain however I do ask her to be honest and think as to whether she has had any chest pain within the past week. This may include chest pressure, some shortness of breath when exerting herself. Patient does finally admit that she has had some chest pressure for the past couple of days. I asked her if she is having some active chest pressure and she does finally agree that she is. We did remove the BiPAP. Patient is breathing more comfortably and therefore we do complete another EKG without the previous artifact that had been seen. This does demonstrate significant evolution of an anterior wall OR. I had informed the patient previously that she would be evaluated by cardiology and possibly have a heart cath tomorrow however I did activate the Power System Electrical Engineer at this time. Patient is somewhat resistive to heart cath at this time as she states "I am feeling better" however I am able to convince the patient that her EKG is concerning. I did speak with on-call cardiology. I spoke with Dr. May from [facility], [place]. Patient will be taken to the Power System Electrical Engineer at this time Undiagnosed new problem with uncertain prognosis? @ -No Drug Therapy requiring intensive monitoring for toxicity (Heparin, Nitro, Insu carmelo, Cardizem)? @ -Heparin Were any procedures done? @ -No Diagnosis/symptom? @ -Acute hypoxic respiratory failure, acute BiPAP dependence, acute CHF, NSTEMI to STEMI progression, hypertensive emergency, nicotine abuse, history of coronary artery disease Acute, or Chronic, or Acute on Chronic? @ -Acute on chronic Uncomplicated (without systemic symptoms) or Complicated (systemic symptoms)? @ -Complicated Side effects of treatment? @ -No Exacerbation, Progression, or Severe Exacerbation? @ -Yes Poses a threat to life or bodily function? How? (Chest pain, USA, OR, pneumonia, PE, COPD, DKA, ARF, appy, cholecystitis, CVA, Diverticulitis, Homicidal, Suicidal, threat to staff... and all critical care pts) @ -Yes as patient evolved into a STEMI - Lab Data Result diagrams: 07/07/24 10:06 07/07/24 10:06 Lab Results 07/04/24 07/04/24 07/04/24 Range/Units 03:11 03:11 03:11 WBC 15.2 H (3.8-10.6) k/uL RBC 4.56 (3.80-5.40) m/uL Hgb 14.2 (11.4-16.0) gm/dL Hct 43.8 (34.0-46.0) % MCV 96.1 (80.0-100.0) fL MCH 31.2 (25.0-35.0) pg MCHC 32.4 (31.0-37.0) g/dL RDW 13.1 (11.5-15.5) % Plt Count 352 (150-450) k/uL MPV 9.8 Neutrophils % 37 % Lymphocytes % 52 % Monocytes % 4 % Eosinophils % 3 % Basophils % 1 % Neutrophils # 5.6 (1.3-7.7) k/uL Lymphocytes # 7.9 H (1.0-4.8) k/uL Monocytes # 0.6 (0-1.0) k/uL Eosinophils # 0.5 (0-0.7) k/uL Basophils # 0.2 (0-0.2) k/uL Manual Slide Review Performed RBC Morphology Normal PT 9.6 L (10.0-12.5) sec INR 0.8 (<1.2) APTT 22.4 (22.0-30.0) sec Sodium (137-145) mmol/L Potassium (3.5-5.1) mmol/L Chloride (98-107) mmol/L Carbon Dioxide (22-30) mmol/L Anion Gap mmol/L BUN (7-17) mg/dL Creatinine (0.52-1.04) mg/dL Est GFR (CKD-EPI)AfAm (>60 ml/min/1.73 sqM) Est GFR (CKD-EPI)NonAf (>60 ml/min/1.73 sqM) Glucose (74-99) mg/dL POC Glucose (mg/dL) 343 H (70-110) mg/dL POC Glu Agriculture Worker ID Kristian Amenda Lactic Ac Sepsis Rflx Plasma Lactic Acid Bryn (0.7-2.0) mmol/L Calcium (8.4-10.2) mg/dL Magnesium (1.6-2.3) mg/dL Total Bilirubin (0.2-1.3) mg/dL AST (14-36) U/L ALT (4-34) U/L Alkaline Phosphatase (38-126) U/L Troponin I (0.000-0.034) ng/mL NT-Pro-B Natriuret Pep pg/mL Total Protein (6.3-8.2) g/dL Albumin (3.5-5.0) g/dL Urine Color Urine Appearance (Clear) Urine pH (5.0-8.0) Ur Specific [place] (1.001-1.035) Urine Protein (Negative) Urine Glucose (UA) (Negative) Urine Ketones (Negative) Urine Blood (Negative) Urine Nitrite (Negative) Urine Bilirubin (Negative) Urine Urobilinogen (<2.0) mg/dL Ur Leukocyte Esterase (Negative) Urine RBC (0-5) /hpf Urine WBC (0-5) /hpf Ur Squamous Epith Cells (0-4) /hpf Influenza Type A (PCR) (Not Detectd) Influenza Type B (PCR) (Not Detectd) RSV (PCR) (Not Detectd) SARS-CoV-2 (PCR) (Not Detectd) 07/04/24 07/04/24 07/04/24 Range/Units 03:11 03:11 03:11 WBC (3.8-10.6) k/uL RBC (3.80-5.40) m/uL Hgb (11.4-16.0) gm/dL Hct (34.0-46.0) % MCV (80.0-100.0) fL MCH (25.0-35.0) pg MCHC (31.0-37.0) g/dL RDW (11.5-15.5) % Plt Count (150-450) k/uL MPV Neutrophils % % Lymphocytes % % Monocytes % % Eosinophils % % Basophils % % Neutrophils # (1.3-7.7) k/uL Lymphocytes # (1.0-4.8) k/uL Monocytes # (0-1.0) k/uL Eosinophils # (0-0.7) k/uL Basophils # (0-0.2) k/uL Manual Slide Review RBC Morphology PT (10.0-12.5) sec INR (<1.2) APTT (22.0-30.0) sec Sodium 135 L (137-145) mmol/L Potassium 3.4 L (3.5-5.1) mmol/L Chloride 111 H (98-107) mmol/L Carbon Dioxide 14 L (22-30) mmol/L Anion Gap 10 mmol/L BUN 14 (7-17) mg/dL Creatinine 0.92 (0.52-1.04) mg/dL Est GFR (CKD-EPI)AfAm 81 (>60 ml/min/1.73 sqM) Est GFR (CKD-EPI)NonAf 70 (>60 ml/min/1.73 sqM) Glucose 340 H (74-99) mg/dL POC Glucose (mg/dL) (70-110) mg/dL POC Glu Agriculture Worker ID Lactic Ac Sepsis Rflx Plasma Lactic Acid Bryn 3.7 H* (0.7-2.0) mmol/L Calcium 8.9 (8.4-10.2) mg/dL Magnesium (1.6-2.3) mg/dL Total Bilirubin 0.6 (0.2-1.3) mg/dL AST 40 H (14-36) U/L ALT 23 (4-34) U/L Alkaline Phosphatase 64 (38-126) U/L Troponin I 0.101 H* (0.000-0.034) ng/mL NT-Pro-B Natriuret Pep 5970 pg/mL Total Protein 6.5 (6.3-8.2) g/dL Albumin 3.8 (3.5-5.0) g/dL Urine Color Urine Appearance (Clear) Urine pH (5.0-8.0) Ur Specific [place] (1.001-1.035) Urine Protein (Negative) Urine Glucose (UA) (Negative) Urine Ketones (Negative) Urine Blood (Negative) Urine Nitrite (Negative) Urine Bilirubin (Negative) Urine Urobilinogen (<2.0) mg/dL Ur Leukocyte Esterase (Negative) Urine RBC (0-5) /hpf Urine WBC (0-5) /hpf Ur Squamous Epith Cells (0-4) /hpf Influenza Type A (PCR) (Not Detectd) Influenza Type B (PCR) (Not Detectd) RSV (PCR) (Not Detectd) SARS-CoV-2 (PCR) (Not Detectd) 07/04/24 07/04/24 07/04/24 Range/Units 03:11 03:55 04:33 WBC (3.8-10.6) k/uL RBC (3.80-5.40) m/uL Hgb (11.4-16.0) gm/dL Hct (34.0-46.0) % MCV (80.0-100.0) fL MCH (25.0-35.0) pg MCHC (31.0-37.0) g/dL RDW (11.5-15.5) % Plt Count (150-450) k/uL MPV Neutrophils % % Lymphocytes % % Monocytes % % Eosinophils % % Basophils % % Neutrophils # (1.3-7.7) k/uL Lymphocytes # (1.0-4.8) k/uL Monocytes # (0-1.0) k/uL Eosinophils # (0-0.7) k/uL Basophils # (0-0.2) k/uL Manual Slide Review RBC Morphology PT (10.0-12.5) sec INR (<1.2) APTT (22.0-30.0) sec Sodium (137-145) mmol/L Potassium (3.5-5.1) mmol/L Chloride (98-107) mmol/L Carbon Dioxide (22-30) mmol/L Anion Gap mmol/L BUN (7-17) mg/dL Creatinine (0.52-1.04) mg/dL Est GFR (CKD-EPI)AfAm (>60 ml/min/1.73 sqM) Est GFR (CKD-EPI)NonAf (>60 ml/min/1.73 sqM) Glucose (74-99) mg/dL POC Glucose (mg/dL) (70-110) mg/dL POC Glu Agriculture Worker ID Lactic Ac Sepsis Rflx Y Plasma Lactic Acid Bryn (0.7-2.0) mmol/L Calcium (8.4-10.2) mg/dL Magnesium 2.0 (1.6-2.3) mg/dL Total Bilirubin (0.2-1.3) mg/dL AST (14-36) U/L ALT (4-34) U/L Alkaline Phosphatase (38-126) U/L Troponin I (0.000-0.034) ng/mL NT-Pro-B Natriuret Pep pg/mL Total Protein (6.3-8.2) g/dL Albumin (3.5-5.0) g/dL Urine Color Urine Appearance (Clear) Urine pH (5.0-8.0) Ur Specific [place] (1.001-1.035) Urine Protein (Negative) Urine Glucose (UA) (Negative) Urine Ketones (Negative) Urine Blood (Negative) Urine Nitrite (Negative) Urine Bilirubin (Negative) Urine Urobilinogen (<2.0) mg/dL Ur Leukocyte Esterase (Negative) Urine RBC (0-5) /hpf Urine WBC (0-5) /hpf Ur Squamous Epith Cells (0-4) /hpf Influenza Type A (PCR) Not Detected (Not Detectd) Influenza Type B (PCR) Not Detected (Not Detectd) RSV (PCR) Not Detected (Not Detectd) SARS-CoV-2 (PCR) Not Detected (Not Detectd) 07/04/24 Range/Units 05:06 WBC (3.8-10.6) k/uL RBC (3.80-5.40) m/uL Hgb (11.4-16.0) gm/dL Hct (34.0-46.0) % MCV (80.0-100.0) fL MCH (25.0-35.0) pg MCHC (31.0-37.0) g/dL RDW (11.5-15.5) % Plt Count (150-450) k/uL MPV Neutrophils % % Lymphocytes % % Monocytes % % Eosinophils % % Basophils % % Neutrophils # (1.3-7.7) k/uL Lymphocytes # (1.0-4.8) k/uL Monocytes # (0-1.0) k/uL Eosinophils # (0-0.7) k/uL Basophils # (0-0.2) k/uL Manual Slide Review RBC Morphology PT (10.0-12.5) sec INR (<1.2) APTT (22.0-30.0) sec Sodium (137-145) mmol/L Potassium (3.5-5.1) mmol/L Chloride (98-107) mmol/L Carbon Dioxide (22-30) mmol/L Anion Gap mmol/L BUN (7-17) mg/dL Creatinine (0.52-1.04) mg/dL Est GFR (CKD-EPI)AfAm (>60 ml/min/1.73 sqM) Est GFR (CKD-EPI)NonAf (>60 ml/min/1.73 sqM) Glucose (74-99) mg/dL POC Glucose (mg/dL) (70-110) mg/dL POC Glu Agriculture Worker ID Lactic Ac Sepsis Rflx Plasma Lactic Acid Bryn (0.7-2.0) mmol/L Calcium (8.4-10.2) mg/dL Magnesium (1.6-2.3) mg/dL Total Bilirubin (0.2-1.3) mg/dL AST (14-36) U/L ALT (4-34) U/L Alkaline Phosphatase (38-126) U/L Troponin I (0.000-0.034) ng/mL NT-Pro-B Natriuret Pep pg/mL Total Protein (6.3-8.2) g/dL Albumin (3.5-5.0) g/dL Urine Color Colorless Urine Appearance Clear (Clear) Urine pH 6.5 (5.0-8.0) Ur Specific [place] 1.028 (1.001-1.035) Urine Protein 2+ H (Negative) Urine Glucose (UA) 3+ H (Negative) Urine Ketones Negative (Negative) Urine Blood Small H (Negative) Urine Nitrite Negative (Negative) Urine Bilirubin Negative (Negative) Urine Urobilinogen <2.0 (<2.0) mg/dL Ur Leukocyte Esterase Negative (Negative) Urine RBC 2 (0-5) /hpf Urine WBC 3 (0-5) /hpf Ur Squamous Epith Cells 1 (0-4) /hpf Influenza Type A (PCR) (Not Detectd) Influenza Type B (PCR) (Not Detectd) RSV (PCR) (Not Detectd) SARS-CoV-2 (PCR) (Not Detectd) Disposition Clinical Impression: NSTEMI (non-ST elevated myocardial infarction), BiPAP (biphasic positive airway pressure) dependence, Hypoxia, Pulmonary edema, STEMI (ST elevation myocardial infarction) Disposition: ADMITTED IP TO THIS HOSP Condition: Fair Is patient prescribed a controlled substance at d/c from ED?: No Time of Disposition: 05:07 Decision to Admit Reason: Admit from EC Decision Date: 07/04/24 Decision Time: 05:07
[2024-07-04] MEDS ORDERED: HEPARIN SODIUM 1,000 UN/ML (10ML VL) IV PRN (05:04)
[2024-07-04] MEDS ORDERED: NALOXONE 0.4 MG/ML 1 ML VIAL IV PRN (05:08)
[2024-07-04] MEDS: ASPIRIN 81 MG PO STA (05:13)
[2024-07-04] MEDS: HEPARIN SODIUM 1,000 UN/ML (10ML VL) IV ONE ×4 (05:17→07:24)
[2024-07-04] MEDS: HEPARIN SOD,PORK IN 0.45% NACL 25,000 UNIT in 0.45% NACL 1 250ML.BAG IV SCH (05:19)
[2024-07-04] MEDS: FUROSEMIDE 10 MG/ML 4 ML VIAL IV STA ×2 (05:22→10:07)
--- NOTE | 2024-07-04 05:27 | XR ---
EXAM: XR Chest, 1 View CLINICAL HISTORY: Pt arrives with CARLIE, found at 70% on room air. Pt arrives on CPAP. TECHNIQUE: Frontal view of the chest. COMPARISON: CTA chest from 02/21/2023 FINDINGS: Lungs: Mild amount of patchy space opacities or bilateral middle and lower lung zones. Pleural space: Unremarkable. Heart: Mild cardiomegaly. Mediastinum: Unremarkable. Normal mediastinal contour. Bones/joints: No acute findings. IMPRESSION: Bilateral pneumonia.
[2024-07-04] MEDS: ATORVASTATIN 80 MG TAB PO STA (05:30)
[2024-07-04 05:34] LABS: RBC Morphology Normal
--- NOTE | 2024-07-04 05:56 | P.CRDCN ---
History of Present Illness History of present illness: HISTORY OF PRESENTING ILLNESS This is a pleasant 58-year-old with past medical history significant for hypertension, hyperlipidemia, renal cell carcinoma status post nephrectomy, ischemic cardiomyopathy, CAD status post PCI. Patient follows with Dr. Horowitz previously. She presents to the hospital secondary to shortness breath and EMS found patient severely hypoxic with oxygen saturation in the 70% range and was placed on CPAP. They gave patient nitro with systolic blood pressure in the 200 range there was concern regarding her respiratory status and therefore given IM epinephrine. She has been having some shortness breath over the last week. She also has been having intermittent chest heaviness at times over the last week however mainly presented with shortness of breath. She did develop more chest heaviness throughout ER admission however initial presentation was more due to shortness of breath. EKG initially shows sinus tachycardia with poor R-wave progression with minimal elevation V4, V5. Repeat EKG at [address] elevation in V3 through V6. Chest x-ray shows bilateral patchy opacities concerning for pneumonia however more likely pulmonary edema. Heart shows white blood cell count 15.2, hemoglobin 14.2, bicarb 14, creatinine 0.9, lactic acid 3.7, troponin 0.1, proBNP 5970. Last echo from 2020 showed EF 50-55%. REVIEW OF SYSTEMS At the time of my exam: CONSTITUTIONAL: Denies fever or chills. CARDIOVASCULAR: Denies chest pain, +shortness of breath, +orthopnea, no PND or palpitations. RESPIRATORY: Denies cough. GASTROINTESTINAL: Denies abdominal pain, diarrhea, constipation, nausea or vomiting. MUSCULOSKELETAL: Denies myalgias. NEUROLOGIC: Denies numbness, tingling or weakness. ENDOCRINE: Denies fatigue, weight change, polydipsia or polyurina. GENITOURINARY: Denies burning, hematuria or urgency with micturation. HEMATOLOGIC: Denies history of anemia or bleeding. PHYSICAL EXAMINATION Vital signs reviewed. CONSTITUTIONAL: No apparent distress. HEENT: Head is normocephalic. Pupils are equal, round. Sclerae anicteric. Mucous membranes of the mouth are moist. No JVD. No carotid bruit. CHEST EXAMINATION: Lungs are clear to auscultation. No chest wall tenderness is noted on palpation or with deep breathing. HEART EXAMINATION: Regular rate and rhythm. S1, S2 heard. No murmurs, gallops or rub. ABDOMEN: Soft, nontender. Positive bowel sounds. EXTREMITIES: 2+ peripheral pulses, no lower extremity edema and no calf tenderness. NEUROLOGIC EXAMINATION: Patient is awake, alert and oriented x3. ASSESSMENT Anterior STEMI with progressive ST elevations CAD with history of PCI of RCA and LAD 03/2019 Hypertension Hyperlipidemia Acute on chronic respiratory failure most likely related to pulmonary edema, heart failure Acute on chronic heart failure, presumed diastolic History of cardiomyopathy with recovered EF last 50-55% Tobacco abuse Lactic acidosis PLAN Discussed urgent heart catheterization and patient is agreeable. Discussed tobacco cessation. Majority of presentation appears more cardiac and chest x- ray showing bilateral pneumonia however more consistent with heart failure. Diuresis as needed. Check 2-D echo. Further recommendations to follow. Past Medical History Past Medical History: Coronary Artery Disease (CAD), Cancer, Hypertension, Renal Disease Additional Past Medical History / Comment(s): kidney cancer, kidney stones, gallbladder stone, sepsis with medically induced a coma related to ecoli. Decubitus sacral ulcer goes to wound clinic History of Any Multi-Drug Resistant Organisms: None Reported Past Surgical History: Section, Heart Catheterization With Stent, Tonsillectomy Additional Past Surgical History / Comment(s): kidney stent, left kidney removal due to cancer Past Anesthesia/Blood Transfusion Reactions: No Reported Reaction Additional Past Anesthesia/Blood Transfusion Reaction / Comment(s): STATES SHE WAS TOLD THEY HAD DIFFICULTY SEDATING HER-HAD TO GIVE HER A LOT OF MEDICATION Date of Last Stent Placement:: 03/2019 Past Psychological History: No Psychological Hx Reported Smoking Status: Current every day smoker, Vaper Past Alcohol Use History: None Reported Past Drug Use History: None Reported - Past Family History Mother Family Medical History: Unable to Obtain Additional Family Medical History / Comment(s): adopted Medications and Allergies Home Medications Medication Instructions Recorded Confirmed Type Aspirin 81 mg PO DAILY chew 03/29/19 10/11/19 Rx Atorvastatin [Lipitor] 40 mg PO DAILY #90 tab 03/29/19 10/11/19 Rx Clopidogrel [Plavix] 75 mg PO DAILY #90 tab 03/29/19 10/11/19 Rx Nitroglycerin Sl Tabs [Nitrostat] 0.4 mg SUBLINGUAL Q5M PRN #25 tab 03/29/19 10/11/19 Rx Fenofibrate Nanocrystallized 145 mg PO DAILY 09/08/19 10/11/19 History [Fenofibrate] Collagenase [Santyl Ointment] 1 applic TOPICAL DAILY 10/11/19 10/11/19 History Venlafaxine HCl ER [Effexor XR] 75 mg PO DAILY 10/11/19 10/11/19 History Metoprolol Tartrate [Lopressor] 12.5 mg PO BID #60 tab 10/13/19 Rx Sodium Bicarbonate Tab 650 mg PO TID #30 tab 10/13/19 Rx Spironolactone [Aldactone] 12.5 mg PO DAILY #90 tab 10/13/19 10/11/19 Rx cefuroxime axetiL [Ceftin] 500 mg PO BID 3 Days #6 tab 10/13/19 Rx Allergies Allergy/AdvReac Type Severity Reaction Status Date / Time Penicillins Allergy Unknown Verified 02/21/23 07:22 Childhood Physical Exam Vitals: Vital Signs Temp Pulse Resp BP Pulse Ox FiO2 07/04/24 05:37 97.8 F 07/04/24 05:35 104 H 14 162/102 98 07/04/24 05:30 106 H 11 L 169/95 100 07/04/24 05:25 107 H 18 169/95 99 07/04/24 05:10 14 136/74 98 07/04/24 05:04 99 07/04/24 05:00 90 16 145/76 99 07/04/24 04:55 89 18 145/76 97 07/04/24 04:50 90 19 145/76 99 07/04/24 04:45 93 18 145/76 98 07/04/24 04:30 98 18 136/75 100 07/04/24 04:00 97 18 154/79 99 07/04/24 03:30 106 H 20 154/94 98 07/04/24 03:13 60 07/04/24 03:12 60 07/04/24 03:11 29 H 07/04/24 03:05 97.2 F L 128 H 30 H 185/106 98 Intake and Output 07/03/24 07/03/24 07/04/24 14:59 22:59 06:59 Other: Weight 95.708 kg Results 07/04/24 03:11 07/04/24 03:11 Cardiac Enzymes 07/04/24 07/04/24 Range/Units 03:11 03:11 AST 40 H (14-36) U/L Troponin I 0.101 H* (0.000-0.034) ng/mL Coagulation 07/04/24 Range/Units 03:11 PT 9.6 L (10.0-12.5) sec APTT 22.4 (22.0-30.0) sec CBC 07/04/24 Range/Units 03:11 WBC 15.2 H (3.8-10.6) k/uL RBC 4.56 (3.80-5.40) m/uL Hgb 14.2 (11.4-16.0) gm/dL Hct 43.8 (34.0-46.0) % Plt Count 352 (150-450) k/uL Comprehensive Metabolic Panel 07/04/24 Range/Units 03:11 Sodium 135 L (137-145) mmol/L Potassium 3.4 L (3.5-5.1) mmol/L Chloride 111 H (98-107) mmol/L Carbon Dioxide 14 L (22-30) mmol/L BUN 14 (7-17) mg/dL Creatinine 0.92 (0.52-1.04) mg/dL Glucose 340 H (74-99) mg/dL Calcium 8.9 (8.4-10.2) mg/dL AST 40 H (14-36) U/L ALT 23 (4-34) U/L Alkaline Phosphatase 64 (38-126) U/L Total Protein 6.5 (6.3-8.2) g/dL Albumin 3.8 (3.5-5.0) g/dL Current Medications Generic Name Dose Route Start Last Admin Trade Name Freq PRN Reason Stop Dose Admin Heparin Sodium (Porcine) 0 unit 07/04/24 05:04 Heparin Sodium 1,000 Un/Ml (10ml Vl) IV PER PROTOCOL PRN Low PTT Protocol Heparin Sodium/Sodium Chloride 250 mls @ 10.049 mls/hr 07/04/24 05:15 07/04/24 05:19 25,000 unit/ Sodium Chloride IV 10.5 units/kg/hr .Q24H MARIA LUZ 10.049 mls/hr Administration Protocol 10.5 UNITS/KG/HR Naloxone HCl 0.2 mg 07/04/24 05:08 Naloxone 0.4 Mg/Ml 1 Ml Vial IV Q2M PRN Opioid Reversal Intake and Output 07/03/24 07/03/24 07/04/24 14:59 22:59 06:59 Other: Weight 95.708 kg Patient Weight 07/04/24 06:59 Weight 95.708 kg 07/04/24 03:11 07/04/24 03:11
[2024-07-04] MEDS: SODIUM CHLORIDE 0.9% 1,000 ML IV ONE (06:00)
[2024-07-04] MEDS: fentaNYL (PF) 50 MCG/ML 2 ML AMP IVP ONE (06:01)
[2024-07-04] MEDS: MIDAZOLAM 2 MG/2 ML VIAL IVP ONE (06:01)
[2024-07-04] MEDS: LIDOCAINE 1% INJ 10MG/ML (20 ML MDV) SQ ONE (06:02)
[2024-07-04] MEDS: VERAPAMIL SYRINGE (5 MG/10 ML) INTRAARTER ONE (06:03)
[2024-07-04] MEDS: TICAGRELOR 90 MG TAB PO ONE (06:10)
[2024-07-04] MEDS: IOPAMIDOL-370 100ML BTL INJ ONE ×2 (06:37→07:09)
[2024-07-04] MEDS: NITROGLYCERIN 1000MCG/10ML SYRINGE INTRACORON ONE (06:55)
--- NOTE | 2024-07-04 07:26 | P.PRCINT ---
Percutaneous Coronary Int. - Percutaneous Coronary Intervention Percutaneous Coronary Intervention: PROCEDURES PERFORMED: Left heart catheterization, bilateral coronary angiography, ultrasound guided arterial access, PCI mid to distal LAD with a 2.5 x 15mm Xience AURELIO INDICATION: Anterior STEMI CONSENT:I have discussed the risks, benefits and alternative therapies for the above-mentioned procedure and for both sedation/analgesia as well as necessary blood product administration, if indicated, as they pertain to this patient. The patient has indicated understanding and acceptance of the risks and procedures discussed. PROCEDURE: After the risks, benefits and alternatives of the above mentioned procedure explained in detail with the patient, informed consent was obtained. Patient was taken to the catheterization lab and prepped and draped in usual fashion. Ultrasound guidance was used to assess for arterial access. 1% lidocaine was used to anesthetize the right radial artery. A 6-[place] Lucian sheath was placed in the right radial artery using modified Seldinger technique and ultrasound guidance. Left coronary angiography was performed with a 6-[place] Lucian CLS 4.0 catheter and right coronary angiography was performed with a 5-[place] Lucian AR2 catheter in various views. A 5-[place] Lucian AR2 catheter was inserted into the left ventricle and pressure measurements were obtained. The decision was made to perform PCI of LAD. Using a 6-[place] Lucian CLS 4.0 guide, angiograms were performed. Initially 0.014 BMW wire was advanced past the more proximal lesion however difficulty wiring the distal, apical LAD. There was some tortuosity and appeared to be subtotally occluded at a torturous segment. Attempts were made at with a whisper wire, a 45 micro catheter and a chief pilot 200 wire with inability to wire the more distal lesion. This was behaving more like a PLAYGROUND OFFICIAL and therefore decision made to treat the more proximal portion. Additionally there were right to left collaterals. The balloon angioplasty was performed with a 2.5 x 12 mm balloon and then a 2.25 x 15 mm noncompliant balloon. Next a 2.5 x 15 mm drug-eluting stent was placed in the mid to distal LAD. There was diffuse disease noted and more distal 30-40% stenosis and then a subtotal occlusion however improved flow and therefore decision made to treat the rest medically. Final angiograms were performed. Preintervention there was 100% stenosis and ANNABELLE 0 flow. Postintervention there was less than 10% stenosis with ANNABELLE 2 flow. The right radial sheath was removed and a TR band was placed with hemostasis achieved. The patient tolerated the procedure well. Patient was transported back to the post catheterization holding area in stable condition. Conscious Sedation: Patient was monitored under the direct supervision of myself for conscious sedation using Versed and fentanyl for a total duration of 63 minutes HEMODYNAMICS: Aorta: 147/85 LV: 136/14, LVEDP 33 SELECTIVE CORONARY ARTERIOGRAPHY: LEFT MAIN: The left main is a large caliber vessel which trifurcates into the LAD, ramus and circumflex. There is no significant stenosis. LEFT ANTERIOR DESCENDING CORONARY ARTERY: LAD is a large caliber vessel which wraps around to the apex. There is a mid LAD stent which is patent. There is a mid to distal LAD 100% stenosis with some left to left collaterals to the apical LAD. There is apical LAD 100% stenosis at a tortuous segment. RAMUS INTERMEDIUS: There is a small caliber ramus which is subtotally occluded proximally. LEFT CIRCUMFLEX CORONARY ARTERY: There is a small to moderate circumflex which gives off a small caliber OM1 branch which is 100% occluded. It OM 2 branch is small caliber with mild disease. There is a proximal circumflex 50-60% stenosis. RIGHT CORONARY ARTERY: The RCA is a large caliber with a proximal 30-40% stenosis, mid to distal RCA stent which has diffuse 40-50% in-stent stenosis. There is 100% proximal PDA stenosis. FINAL IMPRESSION: 1. Diffuse CAD as described above including 100% mid LAD, 100% distal LAD, 100% ramus, 100% OM1, 100% PDA stenosis, 50-60% circumflex, 40-50% mid RCA in-stent stenosis 2. Status post PCI mid to distal LAD 2.5 x 15 mm Xience AURELIO 3. Elevated left sided filling pressures PLAN: 1. Aggressive risk factor modification per most recent ACC/AHA guidelines. 2. Continue dual antiplatelets with aspirin and Brillinta for 12 months 3. Apical LAD behaving more like a PLAYGROUND OFFICIAL. May consider PLAYGROUND OFFICIAL PCI of apical LAD, PDA if clinically indicated however attempt medical therapy 4. Tobacco cessation discussed in detail with patient. Patient given information for [facility] quit line program.
[2024-07-04 07:42] LABS: Glucose,Whole Blood 232 mg/dL (70-110)
[2024-07-04] MEDS ORDERED: DEXTROSE 50% SYRINGE 50 ML IVP PRN ×2 (07:56)
[2024-07-04] MEDS ORDERED: Potassium Replacement Protocol 1 EACH MISC MISCELLANE PRN (09:13)
[2024-07-04 09:49] LABS: Appearance,Urine Clear (Clear); Bilirubin,Urine Negative (Negative); Blood,Urine Small (Negative); Color,Urine Colorless; Glucose,Urine (UA) 3+ (Negative); Ketones,Urine Negative (Negative); Leukocyte Esterase,Urine Negative (Negative); Nitrite,Urine Negative (Negative); PH, Urine 6.5 (5.0-8.0); Protein,Urine 2+ (Negative); RBC,Urine 2 /hpf (0-5); Specific Gravity,Urine 1.028 (1.001-1.035); Squamous Epithelial Cell,Urine 1 /hpf (0-4); Urobilinogen,Urine <2.0 mg/dL (<2.0); WBC,Urine 3 /hpf (0-5)
--- NOTE | 2024-07-04 09:59 | P.HPIM ---
History of Present Illness H&P Date: 07/04/24 Chief Complaint: SOB Patient is a 58-year-old female with past medical history of hypertension, chronic tobacco use, hyperlipidemia, prediabetes, history of septic shock secondary to UTI with E. coli bacteremia 03/2019 complicated by acute tubular necrosis, respiratory failure requiring intubation, cardiogenic pulmonary edema, severe cardiomyopathy,, cardiac catheterization 2018 with critical stenosis involving LAD and RCA with stenting of the mid right coronary artery and proximal and mid left anterior descending artery, renal cell carcinoma status post right nephrectomy, who presented to the ER on 09/04/2023 due to shortness of breath. Patient called EMS and was found to be hypoxic and 70s and was placed on CPAP, patient was also noted to have significantly elevated systolic blood pressure in 200s. Patient complains of ongoing shortness of breath over the last week with 1 episode of subjective fever 5 or 6 days ago along with intermittent chest heaviness. She did not check her temperature, she does have nonproductive cough. Patient's repeated EKG in the ER showed progressive elevation of ST V3 through V6, chest x-ray was obtained and revealed patchy opacities edema versus bilateral pneumonia. Blood work was significant for leukocytosis at 15.2, normal hemoglobin, elevated lactic acid 2.7, bicarb of 14, normal kidney function, proBNP 5970, initial troponin 0.1. STEMI was activated, patient was seen by cardiology taken for heart cath immed iately, patient has diffuse coronary artery disease with 100% mid LAD, 100% distal LAD, 100% ramus, 100% OM1, 100% PDA stenosis, 50 to 60% circumflex, 40 to 50% mid RCA in-stent stenosis, status post PCI mid to distal LAD AURELIO. Patient was started on dual antiplatelet with aspirin and Brilinta, tobacco cessation emphasized multiple times. She was also started back on high intensity atorvastatin, A1c and lipid panel ordered along with TTE. 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 She did mention that she last 50-60 elbow with diet control, she states that she is very active through her workday. Pertinent positives and negatives as discussed in HPI, a complete review of systems was performed and all other systems are negative. Patient seen and examined at bedside in the ICU. Patient's daughters present at bedside Vital signs reviewed General: nontoxic, no distress, appears at stated age Derm: warm, dry Head: atraumatic, normocephalic, symmetric Eyes: EOMI, no lid lag, anicteric sclera, pupils equal round reactive to light ENT: Nose and ears atraumatic Neck: No thyromegaly, supple Mouth: no lip lesion, mucus membranes moist Cardiovascular: S1S2 reg, no murmur, no edema Lungs: clear to auscultation bilateral, bilateral lower lobes rhonchi , no rales, no wheeze. Patient is on 2 L NC, conversational dyspnea present Abdominal: soft, nontender to palpation, no guarding, no appreciable organomegaly Ext: no gross muscle atrophy, muscle strength muscle strength 5 out of 5 in all 4 extremities, no contractures Neuro: CN II-XII grossly intact Psych: Alert, oriented, appropriate affect Assessment/Plan: NSTEMI status post AURELIO mid to distal LAD 09/04/2023 Lactic acidosis secondary to above, resolved Diffuse CAD Hx of critical stenosis involving LAD and RCA with stenting of the mid right coronary artery and proximal and mid left anterior descending artery -Cardiology on board, appreciate recommendations -Continue with dual antiplatelet aspirin and Brilinta -Continue high intensity statins -Continue beta-blockers, no RAKAN inhibitor's will be started at this time pending TTE result and potential need for initiation of Entresto -Ordered A1c and lipid panel -Recommend smoking cessation -Continue telemetry Acute hypoxic respiratory failure Acute CHF Leukocytosis, likely reactive History of ischemic and nonischemic severe cardiomyopathy -Patient initially required BiPAP -Now on nasal cannula, satting at 97 on 2 L -IV Lasix 40 daily, strict I's and O's, daily weight -TTE ordered -Cardiology following -Ordered procalcitonin, no left shift on differential, no fever, chest x-ray findings appear to be caused by pulmonary edema, patient's respiratory status improved after PCI. Lactic acid level back to normal after PCI, respiratory panel negative Hypertensive emergency Hypertension -Per ER note, EMS noted patient's blood pressure to be in systolic 200s -Patient was only on metoprolol 25 twice daily at home, previously was also on Aldactone and lisinopril -Will resume metoprolol 25 twice daily Hyperlipidemia: Check lipid panel, start high intensity statin with atorvastatin 80 Hyperglycemia with reported history of prediabetes: Accu-Cheks, low intensity SSI, A1c ordered Proteinuria Glucosuria: Suspect patient has diabetes, might benefit from SGLT 2 Tobacco dependence: Recommend tobacco cessation Medications noncompliance, discussed in length with family and the patient importance of medication compliance [Chronic:] renal cell carcinoma status post right nephrectomy, The patient is admitted with an anticipated [greater] than 2 midnight stay as DVT prophylaxis: heparin Anticipated discharge date: 1-[address]: home A total of 35 minutes was spent on the care of this complex patient more than 50% of the time was spent in counseling and care coordination. Past Medical History Past Medical History: Coronary Artery Disease (CAD), Cancer, Hypertension, Renal Disease Additional Past Medical History / Comment(s): kidney cancer, kidney stones, gallbladder stone, sepsis with medically induced a coma related to ecoli. Decubitus sacral ulcer goes to wound clinic History of Any Multi-Drug Resistant Organisms: None Reported Past Surgical History: Section, Heart Catheterization With Stent, Tonsillectomy Additional Past Surgical History / Comment(s): kidney stent, left kidney removal due to cancer Past Anesthesia/Blood Transfusion Reactions: No Reported Reaction Additional Past Anesthesia/Blood Transfusion Reaction / Comment(s): STATES SHE WAS TOLD THEY HAD DIFFICULTY SEDATING HER-HAD TO GIVE HER A LOT OF MEDICATION Date of Last Stent Placement:: 03/2019 Past Psychological History: No Psychological Hx Reported Smoking Status: Current every day smoker, Vaper Past Alcohol Use History: None Reported Past Drug Use History: None Reported - Past Family History Mother Family Medical History: Unable to Obtain Additional Family Medical History / Comment(s): adopted Medications and Allergies Allergies Allergy/AdvReac Type Severity Reaction Status Date / Time Penicillins Allergy Unknown Verified 02/21/23 07:22 Childhood Physical Exam Vitals: Vital Signs Temp Pulse Resp BP Pulse Ox FiO2 07/04/24 09:00 98 19 133/82 97 07/04/24 08:30 94 17 133/82 97 07/04/24 08:15 95 12 133/82 98 07/04/24 08:00 97.7 F 88 20 140/82 97 07/04/24 07:45 97.7 F 93 16 140/82 96 07/04/24 05:45 101 H 16 158/93 98 07/04/24 05:40 103 H 16 158/91 98 07/04/24 05:37 97.8 F 07/04/24 05:35 104 H 14 162/102 98 07/04/24 05:30 106 H 11 L 169/95 100 07/04/24 05:25 107 H 18 169/95 99 07/04/24 05:10 14 136/74 98 07/04/24 05:04 99 07/04/24 05:00 90 16 145/76 99 07/04/24 04:55 89 18 145/76 97 07/04/24 04:50 90 19 145/76 99 07/04/24 04:45 93 18 145/76 98 07/04/24 04:30 98 18 136/75 100 07/04/24 04:00 97 18 154/79 99 07/04/24 03:30 106 H 20 154/94 98 07/04/24 03:13 60 07/04/24 03:12 60 07/04/24 03:11 29 H 07/04/24 03:05 97.2 F L 128 H 30 H 185/106 98 Intake and Output 07/03/24 07/04/24 07/04/24 22:59 06:59 14:59 Intake Total 500 20 Output Total 650 Balance 500 -630 Intake: IV 500 20 KVO 20 Output: Urine 650 Other: # Voids 1 Weight 95.708 kg Results CBC & Chem 7: 07/04/24 03:11 07/04/24 03:11 Labs: Abnormal Lab Results - Last 24 Hours (Table) 07/04/24 07/04/24 07/04/24 Range/Units 03:11 03:11 03:11 WBC 15.2 H (3.8-10.6) k/uL Lymphocytes # 7.9 H (1.0-4.8) k/uL PT 9.6 L (10.0-12.5) sec Sodium (137-145) mmol/L Potassium (3.5-5.1) mmol/L Chloride (98-107) mmol/L Carbon Dioxide (22-30) mmol/L Glucose (74-99) mg/dL POC Glucose (mg/dL) 343 H (70-110) mg/dL Plasma Lactic Acid Bryn (0.7-2.0) mmol/L AST (14-36) U/L Troponin I (0.000-0.034) ng/mL Urine Protein (Negative) Urine Glucose (UA) (Negative) Urine Blood (Negative) 07/04/24 07/04/24 07/04/24 Range/Units 03:11 03:11 03:11 WBC (3.8-10.6) k/uL Lymphocytes # (1.0-4.8) k/uL PT (10.0-12.5) sec Sodium 135 L (137-145) mmol/L Potassium 3.4 L (3.5-5.1) mmol/L Chloride 111 H (98-107) mmol/L Carbon Dioxide 14 L (22-30) mmol/L Glucose 340 H (74-99) mg/dL POC Glucose (mg/dL) (70-110) mg/dL Plasma Lactic Acid Bryn 3.7 H* (0.7-2.0) mmol/L AST 40 H (14-36) U/L Troponin I 0.101 H* (0.000-0.034) ng/mL Urine Protein (Negative) Urine Glucose (UA) (Negative) Urine Blood (Negative) 07/04/24 07/04/24 07/04/24 Range/Units 05:06 07:40 07:52 WBC (3.8-10.6) k/uL Lymphocytes # (1.0-4.8) k/uL PT (10.0-12.5) sec Sodium (137-145) mmol/L Potassium (3.5-5.1) mmol/L Chloride (98-107) mmol/L Carbon Dioxide (22-30) mmol/L Glucose (74-99) mg/dL POC Glucose (mg/dL) 232 H (70-110) mg/dL Plasma Lactic Acid Bryn (0.7-2.0) mmol/L AST (14-36) U/L Troponin I 2.130 H* (0.000-0.034) ng/mL Urine Protein 2+ H (Negative) Urine Glucose (UA) 3+ H (Negative) Urine Blood Small H (Negative)
[2024-07-04] MEDS ORDERED: ACETAMINOPHEN TAB 325 MG TAB PO PRN (10:00)
[2024-07-04] MEDS ORDERED: ONDANSETRON 4 MG/2 ML VIAL IVP PRN (10:00)
[2024-07-04] MEDS: NICOTINE 14MG/24HR PATCH TRANSDERM SCH (10:08)
[2024-07-04] MEDS: POTASSIUM CHLORIDE ER 20 MEQ TAB.ER PO SCH (10:08)
[2024-07-04] MEDS: SODIUM CHLORIDE 0.9% 1,000 ML IV SCH (10:08)
[2024-07-04] MEDS: METOPROLOL TARTRATE 25 MG TAB PO SCH (11:10)
[2024-07-04] MEDS ORDERED: ZOLPIDEM 5 MG TAB PO PRN (11:43)
[2024-07-04] MEDS ORDERED: RX INFO: IV CONTRAST WAS GIVEN 1 EACH MISC MISCELLANE PRN (11:43)
[2024-07-04] MEDS ORDERED: NITROGLYCERIN SL TABS 0.4 MG TAB SUBLINGUAL PRN (11:43)
[2024-07-04] MEDS ORDERED: ATROPINE SULFATE 0.1 MG/ML 10ML SYRINGE IV PRN (11:43)
[2024-07-04 11:50] LABS: Chol/HDL Ratio 7.89 Ratio; LDL Cholesterol,Calculated 201.7 mg/dL (0.0-131.0)
[2024-07-04 12:16] LABS: Glucose,Whole Blood 269 mg/dL (70-110)
[2024-07-04] MEDS: INSULIN ASPART (NovoLOG) 100 UNIT/ML VIAL SQ SCH (12:20)
--- NOTE | 2024-07-04 13:56 | P.CNPUL ---
History of Present Illness Consult date: 07/04/24 Requesting physician: Audra May Reason for consult: other (ICU management) Chief complaint: Shortness of breath and intermittent chest heaviness over 1 week History of present illness: This is a 58-year-old female with history of multiple medical problems including hypertension, dyslipidemia, renal cell carcinoma and previous nephrectomy known history of ischemic cardiomyopathy coronary artery disease and previous PCI patient presented to the ER yesterday with 1 week history of shortness of breath and intermittent episodes of chest heaviness. PE on her presentation showed poor R wave progression with minimal ST elevation in V4 and V5. EKG showed progressive ST elevation in V3 through V6. X-ray showed evidence of pulmonary edema patient was seen by cardiology on consultation, and she was felt to have acute anterior ST elevation myocardial infarction. Patient underwent cardiac ca theterization and she was found to have1. Diffuse CAD as described above including 100% mid LAD, 100% distal LAD, 100% ramus, 100% OM1, 100% PDA stenosis, 50-60% circumflex, 40-50% mid RCA in-stent stenosi,2. Status post PCI mid to distal LAD 2.5 x 15 mm Xience AURELIO, Elevated left sided filling pressures this was done yesterday, patient was transferred to the ICU and I was asked to see her on consultation. Recommendation by cardiology is to continue aggressive risk factor modification, continue dual antiplatelets with aspirin and Brilinta for 12 months and aggressive medical therapy. I reviewed her chest x-ray this morning, noted to have evidence of pulmonary edema hence I recommended more diuretics to be given to the patient. Patient is on room air O2 saturation 97%, blood pressure is 147/88. Heart rate is 77. Echocardiogram is pending Review of Systems CONSTITUTIONAL: Negative CARDIOVASCULAR: As noted in HPI RESPIRATORY: As noted in HPI GASTROINTESTINAL: Negative MUSCULOSKELETAL: Negative NEUROLOGIC: Negative ENDOCRINE: Negative GENITOURINARY: Negative HEMATOLOGIC: Negative Past Medical History Past Medical History: Coronary Artery Disease (CAD), Cancer, Hypertension, Renal Disease Additional Past Medical History / Comment(s): kidney cancer, kidney stones, gallbladder stone, sepsis with medically induced a coma related to ecoli. Decubitus sacral ulcer goes to wound clinic Last Myocardial Infarction Date:: 07/2024 History of Any Multi-Drug Resistant Organisms: None Reported Past Surgical History: Section, Heart Catheterization With Stent, Tonsillectomy Additional Past Surgical History / Comment(s): kidney stent, left kidney removal due to cancer Past Anesthesia/Blood Transfusion Reactions: No Reported Reaction Additional Past Anesthesia/Blood Transfusion Reaction / Comment(s): STATES SHE WAS TOLD THEY HAD DIFFICULTY SEDATING HER-HAD TO GIVE HER A LOT OF MEDICATION Date of Last Stent Placement:: 03/2019 Past Psychological History: No Psychological Hx Reported Smoking Status: Current every day smoker, Vaper Past Alcohol Use History: None Reported Past Drug Use History: None Reported - Past Family History Mother Family Medical History: Unable to Obtain Additional Family Medical History / Comment(s): adopted Medications and Allergies Home Medications Medication Instructions Recorded Confirmed Type Metoprolol Tartrate [Lopressor] 12.5 mg PO DAILY@1400 07/04/24 07/04/24 History Allergies Allergy/AdvReac Type Severity Reaction Status Date / Time Penicillins Allergy Unknown Verified 07/04/24 10:12 Childhood Physical Exam Vitals: Vital Signs Temp Pulse Resp BP Pulse Ox FiO2 07/04/24 13:00 77 12 147/88 95 07/04/24 12:00 97.8 F 81 12 150/77 97 07/04/24 11:00 89 12 158/96 97 07/04/24 10:00 98 21 150/81 98 07/04/24 09:00 98 19 133/82 97 07/04/24 08:30 94 17 133/82 97 07/04/24 08:15 95 12 133/82 98 07/04/24 08:00 97.7 F 88 20 140/82 97 07/04/24 07:45 97.7 F 93 16 140/82 96 07/04/24 05:45 101 H 16 158/93 98 07/04/24 05:40 103 H 16 158/91 98 07/04/24 05:37 97.8 F 07/04/24 05:35 104 H 14 162/102 98 07/04/24 05:30 106 H 11 L 169/95 100 07/04/24 05:25 107 H 18 169/95 99 07/04/24 05:10 14 136/74 98 07/04/24 05:04 99 07/04/24 05:00 90 16 145/76 99 07/04/24 04:55 89 18 145/76 97 07/04/24 04:50 90 19 145/76 99 07/04/24 04:45 93 18 145/76 98 07/04/24 04:30 98 18 136/75 100 07/04/24 04:00 97 18 154/79 99 07/04/24 03:30 106 H 20 154/94 98 07/04/24 03:13 60 07/04/24 03:12 60 07/04/24 03:11 29 H 07/04/24 03:05 97.2 F L 128 H 30 H 185/106 98 Intake and Output 07/03/24 07/04/24 07/04/24 22:59 06:59 14:59 Intake Total 500 50 Output Total 1500 Balance 500 -1450 Intake: IV 500 50 KVO 50 Output: Urine 1500 Other: Voiding Method Toilet # Voids 1 Weight 95.708 kg 95.708 kg CONSTITUTIONAL: 58-year-old female pleasant in no distress Head: Atraumatic normocephalic HEENT: Pupils are equal, round. Sclerae anicteric. Mucous membranes of the mouth are moist. No JVD. No carotid bruit. CHEST EXAMINATION: Symmetrical chest expansion, l minimal crackles at the bases no chest wall tenderness HEART EXAMINATION: Regular rate and rhythm. S1, S2 heard. No murmurs, gallops or rub. ABDOMEN: Soft, nontender. Positive bowel sounds. EXTREMITIES: No clubbing edema or cyanosis pulses bilaterally. NEUROLOGIC EXAMINATION: Alert oriented x 3 no gross focal neurologic deficit Psychiatric: Normal mood affect and normal mental status examination Skin: No rashes Results - Laboratory Findings CBC and BMP: 07/04/24 03:11 07/04/24 12:49 PT/INR, D-dimer PT 9.6 sec (10.0-12.5) L 07/04/24 03:11 INR 0.8 (<1.2) 07/04/24 03:11 Abnormal lab findings: Abnormal Labs 07/04/24 07/04/24 07/04/24 03:11 03:11 03:11 WBC 15.2 H Lymphocytes # 7.9 H PT 9.6 L Sodium Potassium Chloride Carbon Dioxide Glucose POC Glucose (mg/dL) 343 H Plasma Lactic Acid Bryn AST Troponin I Triglycerides Cholesterol LDL Cholesterol, Calc VLDL Cholesterol, Calc HDL Cholesterol Urine Protein Urine Glucose (UA) Urine Blood 12/03/24 12/03/24 12/03/24 03:11 03:11 03:11 WBC Lymphocytes # PT Sodium 135 L Potassium 3.4 L Chloride 111 H Carbon Dioxide 14 L Glucose 340 H POC Glucose (mg/dL) Plasma Lactic Acid Bryn 3.7 H* AST 40 H Troponin I 0.101 H* Triglycerides Cholesterol LDL Cholesterol, Calc VLDL Cholesterol, Calc HDL Cholesterol Urine Protein Urine Glucose (UA) Urine Blood 07/04/24 07/04/24 07/04/24 05:06 07:40 07:52 WBC Lymphocytes # PT Sodium Potassium Chloride Carbon Dioxide Glucose POC Glucose (mg/dL) 232 H Plasma Lactic Acid Bryn AST Troponin I 2.130 H* Triglycerides Cholesterol LDL Cholesterol, Calc VLDL Cholesterol, Calc HDL Cholesterol Urine Protein 2+ H Urine Glucose (UA) 3+ H Urine Blood Small H 07/04/24 07/04/24 07/04/24 07:52 12:15 12:49 WBC Lymphocytes # PT Sodium Potassium Chloride Carbon Dioxide Glucose POC Glucose (mg/dL) 269 H Plasma Lactic Acid Bryn AST Troponin I 8.560 H* Triglycerides 201.00 H Cholesterol 277.00 H LDL Cholesterol, Calc 201.7 H VLDL Cholesterol, Calc 40.20 H HDL Cholesterol 35.10 L Urine Protein Urine Glucose (UA) Urine Blood - Diagnostic Findings Chest x-ray: image reviewed (As noted in HPI) Assessment and Plan Assessment: Impression: Acute anterior ST elevation myocardial infarction, status post stenting of LAD Acute pulmonary edema secondary Coronary artery disease with previous PCI of RCA and LAD in 2019 Dyslipidemia Possible diastolic congestive heart failure considering her last echocardiogram showed ejection fraction of 50 to 55% in the past. However she may have sustained LV dysfunction during this admission, echocardiogram is pending Tobacco dependence syndrome Benign essential hypertension Dyslipidemia History of renal cell carcinoma and previous nephrectomy Recommendation: Continue present supportive care measures Continue dual antiplatelet medication Continue diuretics/Lasix and address accordingly based on response to treatment and follow-up on chest x-ray on daily basis Continue GI prophylaxis Continue nicotine patches and counseled regarding smoking cessation Continue to monitor daily labs and daily x-rays of the chest Will continue to follow Time with Patient: Greater than 30
--- NOTE | 2024-07-04 15:06 | CA ---
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 Operator Shira Campbell RDCS Procedure CPT: Indications: re: STEMI Cardiac Hx: ME , Cath Technical Quality: Fair Contrast 1: Definity Total Dose (mL): 2 Contrast 2: Total Dose (mL): MEASUREMENTS (Male / Female) Normal Values 2D ECHO LV Diastolic Diameter PLAX 6.2 cm 4.2 - 5.9 / 3.9 - 5.3 cm LV Systolic Diameter PLAX 4.9 cm IVS Diastolic Thickness 1.3 cm 0.6 - 1.0 / 0.6 - 0.9 cm LVPW Diastolic Thickness 1.2 cm 0.6 - 1.0 / 0.6 - 0.9 cm LV Relative Wall Thickness 0.4 RV Internal Dim ED PLAX 1.6 cm LA Systolic Diameter LX 4.6 cm 3.0 - 4.0 / 2.7 - 3.8 cm M-MODE Aortic Root Diameter MM 3.1 cm LA Systolic Diameter MM 3.3 cm LA Ao Ratio MM 1.1 AV Cusp Separation MM 1.6 cm DOPPLER AV Peak Velocity 147.3 cm/s AV Peak Gradient 8.7 mmHg AV Mean Velocity 102.7 cm/s AV Mean Gradient 4.7 mmHg AV Velocity Time Integral 26.6 cm AI Peak Velocity 405.8 cm/s AI Peak Gradient 65.9 mmHg AI Pressure Half Time 848.5 ms LVOT Peak Velocity 94.3 cm/s LVOT Peak Gradient 3.6 mmHg LVOT Velocity Time Integral 20.1 cm MV Area PHT 3.3 cm??? Mitral E Point Velocity 94.4 cm/s Mitral A Point Velocity 111.9 cm/s Mitral E to A Ratio 0.8 MV Deceleration Time 228.0 ms FINDINGS Left Ventricle Left ventricular ejection fraction is estimated at 10-15%. Mildly increased septal wall thickness. Mildly increased posterior wall thickness. Severely increased left ventricular diastolic diameter. [place] akinetic. Severely reduced global left ventricular systolic function. Echodensity possibly consistent with left ventricular mural thrombus. Right Ventricle Mild right ventricular dilatation. Unable to estimate the right ventricular systolic pressure. Right Atrium Mild right atrial dilatation. Left Atrium Moderately increased left atrial diameter. Mildly increased left atrial area. Mitral Valve Structurally normal mitral valve. Mild mitral regurgitation. No mitral stenosis. Aortic Valve Trileaflet aortic valve. Mild aortic regurgitation. No aortic stenosis. Tricuspid Valve Structurally normal tricuspid valve. Trace tricuspid regurgitation. No tricuspid stenosis. Pulmonic Valve Structurally normal pulmonic valve. Trace pulmonic regurgitation. No pulmonic stenosis. Pericardium No pericardial or pleural effusion. Aorta Normal size aortic root and proximal ascending aorta. CONCLUSIONS Severe decreased left ventricular ejection fraction 10-15% Mild increased left ventricular wall thickness Mild to moderately dilated left atrium Mild mitral regurgitation Mild aortic regurgitation No pericardial effusion Echodensity possibly consistent with left Previewed by: Dr. Devin Shah DO (Electronically Signed) Final Date: 04 July 2024 15:05
[2024-07-04 16:21] LABS: Glucose,Whole Blood 161 mg/dL (70-110)
[2024-07-04] MEDS: TICAGRELOR 90 MG TAB PO SCH (20:58)
[2024-07-04 22:18] LABS: Glucose,Whole Blood 169 mg/dL (70-110)
[2024-07-05 06:03] LABS: Basophils # (A) 0.1 k/uL (0-0.2); Basophils % (A) 0 %; Eosinophils # (A) 0.1 k/uL (0-0.7); Eosinophils % (A) 1 %; HCT 35.1 % (34.0-46.0); HGB 11.6 gm/dL (11.4-16.0); INR 0.9 (<1.2); Lymphocytes # (A) 3.2 k/uL (1.0-4.8); Lymphocytes % (A) 29 %; MCH 31.3 pg (25.0-35.0); MCHC 33.1 g/dL (31.0-37.0); MCV 94.6 fL (80.0-100.0); Mean Platelet Volume 9.1; Monocytes # (A) 0.7 k/uL (0-1.0); Monocytes % (A) 6 %; Neutrophils % (A) 62 %; Platelet Count 232 k/uL (150-450); Prothrombin Time 10.3 sec (10.0-12.5); RBC 3.71 m/uL (3.80-5.40); RDW 13.1 % (11.5-15.5); WBC 11.3 k/uL (3.8-10.6)
[2024-07-05 06:20] LABS: African American GFR (CKD) 80 (>60 ml/min/1.73 sqM); Anion Gap 3 mmol/L; Blood Urea Nitrogen 19 mg/dL (7-17); Calcium 8.7 mg/dL (8.4-10.2); Carbon Dioxide 20 mmol/L (22-30); Chloride 112 mmol/L (98-107); Glucose 156 mg/dL (74-99); Magnesium 2.1 mg/dL (1.6-2.3); Non-African American GFR(CKD) 69 (>60 ml/min/1.73 sqM); Potassium 3.9 mmol/L (3.5-5.1); Sodium 135 mmol/L (137-145)
[2024-07-05 06:50] LABS: Glucose,Whole Blood 150 mg/dL (70-110)
[2024-07-05] MEDS: POTASSIUM CHLORIDE ER 20 MEQ TAB.ER PO SCH (07:34)
[2024-07-05] MEDS: APIXABAN 5 MG TAB PO SCH (08:10)
[2024-07-05] MEDS: FUROSEMIDE 10 MG/ML 4 ML VIAL IV SCH (08:10)
[2024-07-05] MEDS: ATORVASTATIN 80 MG TAB PO SCH (08:10)
[2024-07-05] MEDS: ASPIRIN 81 MG PO SCH (08:10)
[2024-07-05] MEDS: PANTOPRAZOLE 40 MG TABLET PO SCH (08:10)
[2024-07-05] MEDS: LOSARTAN 25 MG TAB PO SCH (08:12)
[2024-07-05] MEDS ORDERED: SACUBITRIL/VALSARTAN 24 MG-26 MG TABLET PO SCH (09:00)
--- NOTE | 2024-07-05 09:50 | P.PN ---
Subjective Progress Note Date: 07/05/24 Principal diagnosis: 58 Yo F who had presented to the hospital on 07/04 with chest emmanuel. EKG showing st elevation in v3-v6. underwent emergent LHC with 100% occlusion in mid and distal LAD. s/p PCI to mid and distal LAD. TTE showing lvef of 10-15% with possible left LV wall thrombus. 07/04-underwent LHC with mid to distal LAD stent 07/05- on room air. Echo showing reduced LVEF with possible LV thrombus Objective - Vital Signs Vital signs: Vital Signs Temp 97.9 F 07/05/24 08:00 Pulse 76 07/05/24 08:00 Resp 16 07/05/24 08:00 BP 128/61 07/05/24 08:00 Pulse Ox 95 07/05/24 08:00 FiO2 60 07/04/24 03:13 Intake & Output 07/04/24 07/05/24 07/05/24 18:59 06:59 18:59 Intake Total 50 250 Output Total 1500 0 Balance -1450 0 250 Weight 95.708 kg 100.2 kg Intake: IV 50 KVO 50 Intake, IV Titration 250 Amount Heparin Sod,Pork in 0.45% 250 NaCl 25,000 unit In 0.45 % NaCl 1 250ml.bag @ 10.5 UNITS/KG/HR 10.049 mls/ hr IV .Q24H [facility] Rx#: [id number] Output: Urine 1500 0 Other: Voiding Method Toilet Toilet Toilet # Voids 1 1 # Bowel Movements 1 0 - Exam General: non toxic, no distress, appears stated age pleasnt. Derm: warm, dry Head: atraumatic, normocephalic, symmetric Eyes: EOMI, no lid lag, anicteric sclera, pupils equal round reactive to light ENT: Nose and ears atraumatic, no thrush, no pharyngeal erythema Neck: No thyromegaly, no cervical lymphadenopathy, trachea midline, supple Mouth: no lip lesion, mucus membranes moist Cardiovascular: S1S2 reg, no murmur Lungs: clear to ascultation bilatera on room air Abdominal: soft, nontender to palpation, no guarding, no appreciable organomegaly, normal bowel sounds Ext: no ble edema noted - Labs CBC & Chem 7: 07/05/24 05:34 12/04/24 05:34 Labs: Abnormal Lab Results - Last 24 Hours (Table) 07/04/24 07/04/24 07/04/24 Range/Units 05:06 07:52 07:52 WBC (3.8-10.6) k/uL RBC (3.80-5.40) m/uL Sodium (137-145) mmol/L Chloride (98-107) mmol/L Carbon Dioxide (22-30) mmol/L BUN (7-17) mg/dL Glucose (74-99) mg/dL POC Glucose (mg/dL) (70-110) mg/dL Hemoglobin A1c (<=6.0) % Troponin I (0.000-0.034) ng/mL Triglycerides 201.00 H (0.00-149.00) mg/dL Cholesterol 277.00 H (0.00-200.00) mg/dL LDL Cholesterol, Calc 201.7 H (0.0-131.0) mg/dL VLDL Cholesterol, Calc 40.20 H (5.00-40.00) mg/dL HDL Cholesterol 35.10 L (40.00-60.00) mg/dL Procalcitonin 0.67 H (0.02-0.50) ng/mL Urine Protein 2+ H (Negative) Urine Glucose (UA) 3+ H (Negative) Urine Blood Small H (Negative) 07/04/24 07/04/24 07/04/24 Range/Units 12:15 12:49 16:20 WBC (3.8-10.6) k/uL RBC (3.80-5.40) m/uL Sodium (137-145) mmol/L Chloride (98-107) mmol/L Carbon Dioxide (22-30) mmol/L BUN (7-17) mg/dL Glucose (74-99) mg/dL POC Glucose (mg/dL) 269 H 161 H (70-110) mg/dL Hemoglobin A1c (<=6.0) % Troponin I 8.560 H* (0.000-0.034) ng/mL Triglycerides (0.00-149.00) mg/dL Cholesterol (0.00-200.00) mg/dL LDL Cholesterol, Calc (0.0-131.0) mg/dL VLDL Cholesterol, Calc (5.00-40.00) mg/dL HDL Cholesterol (40.00-60.00) mg/dL Procalcitonin (0.02-0.50) ng/mL Urine Protein (Negative) Urine Glucose (UA) (Negative) Urine Blood (Negative) 07/04/24 07/05/24 07/05/24 Range/Units 22:17 05:34 05:34 WBC (3.8-10.6) k/uL RBC (3.80-5.40) m/uL Sodium 135 L (137-145) mmol/L Chloride 112 H (98-107) mmol/L Carbon Dioxide 20 L (22-30) mmol/L BUN 19 H (7-17) mg/dL Glucose 156 H (74-99) mg/dL POC Glucose (mg/dL) 169 H (70-110) mg/dL Hemoglobin A1c 7.7 H (<=6.0) % Troponin I (0.000-0.034) ng/mL Triglycerides (0.00-149.00) mg/dL Cholesterol (0.00-200.00) mg/dL LDL Cholesterol, Calc (0.0-131.0) mg/dL VLDL Cholesterol, Calc (5.00-40.00) mg/dL HDL Cholesterol (40.00-60.00) mg/dL Procalcitonin (0.02-0.50) ng/mL Urine Protein (Negative) Urine Glucose (UA) (Negative) Urine Blood (Negative) 07/05/24 07/05/24 Range/Units 05:34 06:49 WBC 11.3 H (3.8-10.6) k/uL RBC 3.71 L (3.80-5.40) m/uL Sodium (137-145) mmol/L Chloride (98-107) mmol/L Carbon Dioxide (22-30) mmol/L BUN (7-17) mg/dL Glucose (74-99) mg/dL POC Glucose (mg/dL) 150 H (70-110) mg/dL Hemoglobin A1c (<=6.0) % Troponin I (0.000-0.034) ng/mL Triglycerides (0.00-149.00) mg/dL Cholesterol (0.00-200.00) mg/dL LDL Cholesterol, Calc (0.0-131.0) mg/dL VLDL Cholesterol, Calc (5.00-40.00) mg/dL HDL Cholesterol (40.00-60.00) mg/dL Procalcitonin (0.02-0.50) ng/mL Urine Protein (Negative) Urine Glucose (UA) (Negative) Urine Blood (Negative) Assessment and Plan Assessment: #) STEMI to lead V3-v6, s/p pci to mid to distal lad with 15 mm bertram -continue asa 81 mg daily and brilinta 90 mg BID #) Possible LV mural thrombus as seen on TTE - continue anticoagulation with eliquis 5 mg BID for 3 months. Defer to cardiology if they feel as if GIANNI/cardiac MRI warranted to confirm thrombus #) Acute HFrEF with LVEF noted to be 10-15%. Previous echo showing reduced LVEF in 2019 however as per cardiology noted to be later improved. euvolemic on exam currently. Continue GDMT with metoprolol tartrate 25 mg BID, losartan 25 mg daily. add farxiga 5 mg daily. Lifevest upon dicharge as per cardiology #)CAD, hx of prior pci of rca and lad in 03/2019 #) Tobacco use- tobacco cessation strongly encouraged. uses 1 PPD. nicotine patch while inpatient #) Acute hypoxic respiraotry failure on CPAP in ER, resolved. on room air. 2/2 to pulmonary edema and diuresed 1.5 L yesterday #) Hx of RCC s/p right nephrectomy - monitor renal function closely #) Hyperlipidemia- LDL of 201- continue atorvastatin 80 mg hs #) Medication nonadherance- recommend medication adherance to medications as prescribed. human services care specialist evaluation. DVT ppx: Eliquis Anticipate discharge date: 07/06 A total of 35 minutes was spent on the care of this complex patient more than 50% of the time was spent in counseling and care coordination. Time with Patient: Greater than 30
--- NOTE | 2024-07-05 11:21 | XR ---
EXAMINATION TYPE: XR chest 1V portable DATE OF EXAM: 07/05/2024 10:16 AM COMPARISON: 07/04/2024 CLINICAL INDICATION: Female, 58 years old with history of CHF, , FINDINGS: Heart is mildly enlarged. Diffuse interstitial and patchy bibasilar opacities persist. Slight interva l improvement in aeration. No pleural effusion. IMPRESSION: CHF with residual mild interstitial edema. Aeration is improving. [facility], , 07/05/2024 11:19 AM
[2024-07-05 11:30] LABS: Glucose,Whole Blood 133 mg/dL (70-110)
[2024-07-05] MEDS: DAPAGLIFLOZIN PROPANEDIOL 5 MG TABLET PO SCH (11:34)
--- NOTE | 2024-07-05 12:11 | P.PN ---
Subjective Progress Note Date: 07/05/24 Principal diagnosis: Acute ST elevation myocardial infarction This is a 58-year-old female with history of multiple medical problems including hypertension, dyslipidemia, renal cell carcinoma and previous nephrectomy known history of ischemic cardiomyopathy coronary artery disease and previous PCI patient presented to the ER yesterday with 1 week history of shortness of breath and intermittent episodes of chest heaviness. PE on her presentation showed poor R wave progression with minimal ST elevation in V4 and V5. EKG showed progressive ST elevation in V3 through V6. X-ray showed evidence of pulmonary edema patient was seen by cardiology on consultation, and she was felt to have acute anterior ST elevation myocardial infarction. Patient underwent cardiac catheterization and she was found to have1. Diffuse CAD as described above including 100% mid LAD, 100% distal LAD, 100% ramus, 100% OM1, 100% PDA stenosis, 50-60% circumflex, 40-50% mid RCA in-stent stenosi,2. Status post PCI mid to distal LAD 2.5 x 15 mm Xience AURELIO, Elevated left sided filling pressures this was done yesterday, patient was transferred to the ICU and I was asked to see her on consultation. Recommendation by cardiology is to continue aggressive risk factor modification, continue dual antiplatelets with aspirin and Brilinta for 12 months and aggressive medical therapy. I reviewed her chest x-ray this morning, noted to have evidence of pulmonary edema hence I recommended more diuretics to be given to the patient. Patient is on room air O2 saturation 97%, blood pressure is 147/88. Heart rate is 77. Echocardiogram is pending Patient was today on 07/05/2024, remains in the ICU, doing fairly well. Her echocardiogram showed severe LV dysfunction with ejection fraction of 10 to 15%. X-ray this morning showed significant improvement in her pulmonary edema patient is feeling better breathing a lot easier. No chest pain no cough no wheezing no fever no chills no hemoptysis. Echocardiogram also showed echodensity possibly consistent with left ventricular mural thrombus, cardiology is aware and started the patient on anticoagulation therapy. WBC count is 11.3 hemoglobin is 11.6 basic metabolic profile is normal and renal profile is not Objective - Vital Signs Vital signs: Vital Signs Temp 97.8 F 07/05/24 12:00 Pulse 75 07/05/24 12:00 Resp 16 07/05/24 12:00 BP 104/70 07/05/24 12:00 Pulse Ox 95 07/05/24 08:00 FiO2 60 07/04/24 03:13 Intake & Output 07/04/24 07/05/24 07/05/24 18:59 06:59 18:59 Intake Total 50 250 Output Total 1500 0 Balance -1450 0 250 Weight 95.708 kg 100.2 kg Intake: IV 50 KVO 50 Intake, IV Titration 250 Amount Heparin Sod,Pork in 0.45% 250 NaCl 25,000 unit In 0.45 % NaCl 1 250ml.bag @ 10.5 UNITS/KG/HR 10.049 mls/ hr IV .Q24H [facility] Rx#: [id number] Output: Urine 1500 0 Other: Voiding Method Toilet Toilet Toilet # Voids 1 1 # Bowel Movements 1 0 - Exam CONSTITUTIONAL: 58-year-old female pleasant in no distress, on room air Head: Atraumatic normocephalic HEENT: Pupils are equal, round. Sclerae anicteric. Mucous membranes of the mouth are moist. No JVD. No carotid bruit. CHEST EXAMINATION: Symmetrical chest expansion, no crackles rhonchi or wheezes HEART EXAMINATION: Regular rate and rhythm. S1, S2 heard. No murmurs, gallops or rub. ABDOMEN: Soft, nontender. Positive bowel sounds. EXTREMITIES: No clubbing edema or cyanosis pulses bilaterally. NEUROLOGIC EXAMINATION: Alert oriented x 3 no gross focal neurologic deficit Psychiatric: Normal mood affect and normal mental status examination Skin: No rashes - Labs CBC & Chem 7: 07/05/24 05:34 07/05/24 05:34 Labs: Abnormal Lab Results - Last 24 Hours (Table) 07/04/24 07/04/24 07/04/24 Range/Units 07:52 12:15 12:49 WBC (3.8-10.6) k/uL RBC (3.80-5.40) m/uL Sodium (137-145) mmol/L Chloride (98-107) mmol/L Carbon Dioxide (22-30) mmol/L BUN (7-17) mg/dL Glucose (74-99) mg/dL POC Glucose (mg/dL) 269 H (70-110) mg/dL Hemoglobin A1c (<=6.0) % Troponin I 8.560 H* (0.000-0.034) ng/mL Procalcitonin 0.67 H (0.02-0.50) ng/mL 07/04/24 07/04/24 07/05/24 Range/Units 16:20 22:17 05:34 WBC (3.8-10.6) k/uL RBC (3.80-5.40) m/uL Sodium (137-145) mmol/L Chloride (98-107) mmol/L Carbon Dioxide (22-30) mmol/L BUN (7-17) mg/dL Glucose (74-99) mg/dL POC Glucose (mg/dL) 161 H 169 H (70-110) mg/dL Hemoglobin A1c 7.7 H (<=6.0) % Troponin I (0.000-0.034) ng/mL Procalcitonin (0.02-0.50) ng/mL 07/05/24 07/05/24 07/05/24 Range/Units 05:34 05:34 06:49 WBC 11.3 H (3.8-10.6) k/uL RBC 3.71 L (3.80-5.40) m/uL Sodium 135 L (137-145) mmol/L Chloride 112 H (98-107) mmol/L Carbon Dioxide 20 L (22-30) mmol/L BUN 19 H (7-17) mg/dL Glucose 156 H (74-99) mg/dL POC Glucose (mg/dL) 150 H (70-110) mg/dL Hemoglobin A1c (<=6.0) % Troponin I (0.000-0.034) ng/mL Procalcitonin (0.02-0.50) ng/mL 07/05/24 Range/Units 11:29 WBC (3.8-10.6) k/uL RBC (3.80-5.40) m/uL Sodium (137-145) mmol/L Chloride (98-107) mmol/L Carbon Dioxide (22-30) mmol/L BUN (7-17) mg/dL Glucose (74-99) mg/dL POC Glucose (mg/dL) 133 H (70-110) mg/dL Hemoglobin A1c (<=6.0) % Troponin I (0.000-0.034) ng/mL Procalcitonin (0.02-0.50) ng/mL Assessment and Plan Assessment: Impression: Acute anterior ST elevation myocardial infarction, status post stenting of LAD Acute pulmonary edema secondary Coronary artery disease with previous PCI of RCA and LAD in 2019 Severe left ventricular dysfunction with left ventricular mural thrombus Tobacco dependence syndrome Benign essential hypertension Dyslipidemia History of renal cell carcinoma and previous nephrectomy Recommendation: Continue present supportive care measures Continue dual antiplatelet medication Continue diuretics/Lasix chest x-ray is showing significant improvement in her pulmonary edema Continue GI prophylaxis Continue nicotine patches and counseled regarding smoking cessation Consider transferring the patient out of the ICU to a cardiac floor/monitored bed. Will continue to follow Time with Patient: Less than 30
[2024-07-05 13:32] VITALS: BMI 30.8
[2024-07-05 16:14] LABS: Glucose,Whole Blood 166 mg/dL (70-110)
[2024-07-05 16:28] LABS: African American GFR (CKD) 78 (>60 ml/min/1.73 sqM); Non-African American GFR(CKD) 68 (>60 ml/min/1.73 sqM)
[2024-07-05 21:26] LABS: Glucose,Whole Blood 211 mg/dL (70-110)
[2024-07-06 03:22] LABS: HCT 37.1 % (34.0-46.0); HGB 12.1 gm/dL (11.4-16.0); MCHC 32.7 g/dL (31.0-37.0); MCV 94.9 fL (80.0-100.0); Mean Platelet Volume 9.6; Platelet Count 229 k/uL (150-450); RBC 3.91 m/uL (3.80-5.40); RDW 13.4 % (11.5-15.5); WBC 9.6 k/uL (3.8-10.6)
[2024-07-06 03:32] LABS: African American GFR (CKD) 74 (>60 ml/min/1.73 sqM); Anion Gap 8 mmol/L; Blood Urea Nitrogen 23 mg/dL (7-17); Calcium 8.8 mg/dL (8.4-10.2); Carbon Dioxide 19 mmol/L (22-30); Chloride 109 mmol/L (98-107); Glucose 173 mg/dL (74-99); Non-African American GFR(CKD) 64 (>60 ml/min/1.73 sqM); Potassium 3.7 mmol/L (3.5-5.1); Sodium 136 mmol/L (137-145)
[2024-07-06 06:32] LABS: Glucose,Whole Blood 130 mg/dL (70-110)
[2024-07-06] MEDS: FUROSEMIDE 40 MG TAB PO SCH (09:35)
--- NOTE | 2024-07-06 10:03 | P.DS ---
Providers Date of admission: 07/04/24 05:08 Attending physician: Audra May MD Consults: 07/04/24 05:08 Consult Physician Urgent Consulting Provider: Moose Hammond Consult Reason/Comments: nstemi, pulmonary edema Do you want consulting provider notified?: Yes 07/04/24 05:46 Consult Physician Urgent Consulting Provider: Lita Holliday Reason/Comments: bipap dependant resp failure, pulmonary edema Do you want consulting provider notified?: Yes 07/04/24 11:43 Consult Physician Routine Consulting Provider: Moose Hammond Consult Reason/Comments: Post Interventional Patient Do you want consulting provider notified?: Already Contacted Primary care physician: Linden Grossman [facility] Course: 58 Yo F who had presented to the hospital on 07/04 with chest emmanuel. EKG showing st elevation in v3-v6. underwent emergent LHC with 100% occlusion in mid and distal LAD. s/p PCI to mid and distal LAD. TTE showing lvef of 10-15% with possible left LV wall thrombus. She was started on asa 81 mg daily and brilinta 90 mg BID given her stent. She was diuresed appropraitely and was discharged home on 07/06. Needs to f/u with cardiology outpatient. Tobacco cessation recommended and nicotine patch rxed. Assessment: #) STEMI to lead V3-v6, s/p pci to mid to distal lad with 15 mm bertram -continue asa 81 mg daily and brilinta 90 mg BID #) Possible LV mural thrombus as seen on TTE - continue anticoagulation with eliquis 5 mg BID for 3 months #) Acute HFrEF with LVEF noted to be 10-15%. Previous echo showing reduced LVEF in 2019 however as per cardiology noted to be later improved. euvolemic on exam currently. Continue GDMT with metoprolol tartrate 25 mg BID, losartan 25 mg daily. Continue farxiga 5 mg daily. COntinue volume control with lasix 40 mg daily. repeat BMP in 1 month outpatient. #)CAD, hx of prior pci of rca and lad in 03/2019 #) Tobacco use- tobacco cessation strongly encouraged. uses 1 PPD prior to admission. nicotine patch rxed #) Acute hypoxic respiraotry failure on CPAP in ER, resolved. on room air. 2/2 to pulmonary edema. Diuresed appropraitely #) Hx of RCC s/p right nephrectomy - monitor renal function closely and would recommend repeat BMP in 1 month #) Hyperlipidemia- LDL of 201- continue atorvastatin 80 mg hs #) Medication nonadherance- recommend medication adherance to medications as prescribed Patient Condition at Discharge: Fair Plan - Discharge Summary Discharge Rx Participant: No New Discharge Prescriptions: New Losartan [Cozaar] 25 mg PO DAILY 30 Days #30 tab Aspirin EC [Ecotrin Low Dose] 81 mg PO DAILY 30 Days #30 tab Apixaban [Eliquis] 5 mg PO BID 30 Days #60 tab Dapagliflozin Propanediol [Farxiga] 5 mg PO DAILY 30 Days #30 tab Atorvastatin [Lipitor] 80 mg PO DAILY 30 Days #30 tab Ticagrelor [Brilinta] 90 mg PO BID 30 Days #60 tab metFORMIN HCL [Glucophage] 500 mg PO BID-W/MEALS 30 Days #60 tab Nicotine 14Mg/24Hr Patch [Habitrol] 1 patch TRANSDERM DAILY 28 Days #28 patch Furosemide [Lasix] 40 mg PO DAILY 30 Days #30 tab Metoprolol Tartrate [Lopressor] 25 mg PO BID 30 Days #60 tab Nitroglycerin Sl Tabs [Nitrostat] 0.4 mg SUBLINGUAL Q5M PRN 30 Days #30 tab PRN Reason: Chest Pain Discontinued Metoprolol Tartrate [Lopressor] 12.5 mg PO DAILY@1400 Discharge Medication List Apixaban [Eliquis] 5 mg PO BID 30 Days #60 tab 07/06/24 [Rx] Aspirin EC [Ecotrin Low Dose] 81 mg PO DAILY 30 Days #30 tab 07/06/24 [Rx] Atorvastatin [Lipitor] 80 mg PO DAILY 30 Days #30 tab 07/06/24 [Rx] Dapagliflozin Propanediol [Farxiga] 5 mg PO DAILY 30 Days #30 tab 07/06/24 [Rx] Furosemide [Lasix] 40 mg PO DAILY 30 Days #30 tab 07/06/24 [Rx] Losartan [Cozaar] 25 mg PO DAILY 30 Days #30 tab 07/06/24 [Rx] Metoprolol Tartrate [Lopressor] 25 mg PO BID 30 Days #60 tab 07/06/24 [Rx] Nicotine 14Mg/24Hr Patch [Habitrol] 1 patch TRANSDERM DAILY 28 Days #28 patch 07/06/24 [Rx] Nitroglycerin Sl Tabs [Nitrostat] 0.4 mg SUBLINGUAL Q5M PRN 30 Days #30 tab 07/06/24 [Rx] Ticagrelor [Brilinta] 90 mg PO BID 30 Days #60 tab 07/06/24 [Rx] metFORMIN HCL [Glucophage] 500 mg PO BID-W/MEALS 30 Days #60 tab 07/06/24 [Rx] Follow up Appointment(s)/Referral(s): Linden Dejesus MD [Primary Care Provider] - 1-2 days
[2024-07-06 11:17] LABS: Glucose,Whole Blood 149 mg/dL (70-110)
--- NOTE | 2024-07-06 12:10 | PN ---
PROGRESS NOTE SUBJECTIVE: Adelina is a 58-year-old lady who is admitted to hospital with anterior wall myocardial infarction, underwent emergent cardiac catheterization and angioplasty of mid LAD by my associate, Dr. Shah. An echocardiogram yesterday revealed an ejection fraction of 10% to 15%. There is an echodensity noted within the left ventricular apex suggestive of left ventricular mural thrombus. OBJECTIVE: GENERAL: She is comfortable at rest. VITAL SIGNS: Stable. CHEST: Reveals good air entry bilaterally. HEART: Reveals first and second heart sounds. No gallop. EXTREMITIES: Did not reveal any edema. Peripheral pulses are felt. Radial artery access site appears normal. LABORATORY DATA: Shows a troponin of 2 and 8.5. Potassium this morning is 3.9, creatinine is 0.9, hemoglobin is 11.6 with a platelet count of 232. CURRENT MEDICATIONS: Include: 1. Lipitor. 2. Aspirin. 3. IV heparin. 4. Cozaar. 5. Lopressor. 6. Brilinta. ASSESSMENT: 1. Ischemic cardiomyopathy with severe left ventricular systolic dysfunction. 2. Acute anterior wall myocardial infarction, status post angioplasty of left anterior descending. 3. Apical thrombus. PLAN: I will start the patient on Eliquis 5 b.i.d. given the apical thrombus noted. Continue the triple therapy for the next 4 weeks and then drop the aspirin, but continue with Brilinta and Eliquis at that time. MMODL / IJN: [id number] /
--- NOTE | 2024-07-06 14:25 | P.PN ---
Subjective Progress Note Date: 07/06/24 Principal diagnosis: Acute ST elevation myocardial infarction This is a 58-year-old female with history of multiple medical problems including hypertension, dyslipidemia, renal cell carcinoma and previous nephrectomy known history of ischemic cardiomyopathy coronary artery disease and previous PCI patient presented to the ER yesterday with 1 week history of shortness of breath and intermittent episodes of chest heaviness. PE on her presentation showed poor R wave progression with minimal ST elevation in V4 and V5. EKG showed progressive ST elevation in V3 through V6. X-ray showed evidence of pulmonary edema patient was seen by cardiology on consultation, and she was felt to have acute anterior ST elevation myocardial infarction. Patient underwent cardiac catheterization and she was found to have1. Diffuse CAD as described above including 100% mid LAD, 100% distal LAD, 100% ramus, 100% OM1, 100% PDA stenosis, 50-60% circumflex, 40-50% mid RCA in-stent stenosi,2. Status post PCI mid to distal LAD 2.5 x 15 mm Xience AURELIO, Elevated left sided filling pressures this was done yesterday, patient was transferred to the ICU and I was asked to see her on consultation. Recommendation by cardiology is to continue aggressive risk factor modification, continue dual antiplatelets with aspirin and Brilinta for 12 months and aggressive medical therapy. I reviewed her chest x-ray this morning, noted to have evidence of pulmonary edema hence I recommended more diuretics to be given to the patient. Patient is on room air O2 saturation 97%, blood pressure is 147/88. Heart rate is 77. Echocardiogram is pending Patient was today on 07/05/2024, remains in the ICU, doing fairly well. Her echocardiogram showed severe LV dysfunction with ejection fraction of 10 to 15%. X-ray this morning showed significant improvement in her pulmonary edema patient is feeling better breathing a lot easier. No chest pain no cough no wheezing no fever no chills no hemoptysis. Echocardiogram also showed echodensity possibly consistent with left ventricular mural thrombus, cardiology is aware and started the patient on anticoagulation therapy. WBC count is 11.3 hemoglobin is 11.6 basic metabolic profile is normal and renal profile is normal Patient is seen today on 07/06/2024, patient remains in the ICU as an overflow, doing great, asymptomatic, on Lasix on Eliquis and cardiology is apparently clearing the patient for discharge with LifeVest. And she will need to have close follow-up on outpatient basis with cardiology may eventually need to have AICD placement patient denies any cough no wheezing no shortness of breath and no chest pain today labs are basically unremarkable Objective - Vital Signs Vital signs: Vital Signs Temp 98.0 F 07/06/24 08:00 Pulse 65 07/06/24 10:00 Resp 18 07/06/24 10:00 BP 125/65 07/06/24 10:00 Pulse Ox 96 07/05/24 16:00 FiO2 60 07/04/24 03:13 Intake & Output 07/05/24 07/06/24 07/06/24 18:59 06:59 18:59 Intake Total 1210 240 Output Total 2300 Balance -1090 240 Weight 100.2 kg 98.2 kg Intake: Intake, IV Titration 250 Amount Heparin Sod,Pork in 0.45% 250 NaCl 25,000 unit In 0.45 % NaCl 1 250ml.bag @ 10.5 UNITS/KG/HR 10.049 mls/ hr IV .Q24H [facility] Rx#: [id number] Oral 960 240 Output: Urine 2300 Other: Voiding Method Toilet Toilet # Voids 1 - Exam CONSTITUTIONAL: 58-year-old female pleasant in no distress, on room air Head: Atraumatic normocephalic HEENT: Pupils are equal, round. Sclerae anicteric. Mucous membranes of the mouth are moist. No JVD. No carotid bruit. CHEST EXAMINATION: Symmetrical chest expansion, no crackles rhonchi or wheezes HEART EXAMINATION: Regular rate and rhythm. S1, S2 heard. No murmurs, gallops or rub. ABDOMEN: Soft, nontender. Positive bowel sounds. EXTREMITIES: No clubbing edema or cyanosis pulses bilaterally. NEUROLOGIC EXAMINATION: Alert oriented x 3 no gross focal neurologic deficit Psychiatric: Normal mood affect and normal mental status examination Skin: No rashes - Labs CBC & Chem 7: 07/06/24 02:50 07/06/24 02:50 Labs: Abnormal Lab Results - Last 24 Hours (Table) 07/05/24 07/05/24 07/06/24 Range/Units 16:12 21:24 02:50 Sodium 136 L (137-145) mmol/L Chloride 109 H (98-107) mmol/L Carbon Dioxide 19 L (22-30) mmol/L BUN 23 H (7-17) mg/dL Glucose 173 H (74-99) mg/dL POC Glucose (mg/dL) 166 H 211 H (70-110) mg/dL 07/06/24 07/06/24 Range/Units 06:31 11:15 Sodium (137-145) mmol/L Chloride (98-107) mmol/L Carbon Dioxide (22-30) mmol/L BUN (7-17) mg/dL Glucose (74-99) mg/dL POC Glucose (mg/dL) 130 H 149 H (70-110) mg/dL Assessment and Plan Assessment: Impression: Acute anterior ST elevation myocardial infarction, status post stenting of LAD Acute pulmonary edema secondary Coronary artery disease with previous PCI of RCA and LAD in 2019 Severe left ventricular dysfunction with left ventricular mural thrombus Tobacco dependence syndrome Benign essential hypertension Dyslipidemia History of renal cell carcinoma and previous nephrectomy Recommendation: Continue present supportive care measures Continue dual antiplatelet medication Continue diuretics/oral Lasix Continue GI prophylaxis Continue nicotine patches and counseled regarding smoking cessation Will clear the patient for discharge if cleared by cardiology and again cardiology is planning LifeVest at home for now Time with Patient: Less than 30
--- NOTE | 2024-07-06 14:48 | P.PN ---
Subjective Progress Note Date: 07/06/24 Principal diagnosis: 58 Yo F who had presented to the hospital on 07/04 with chest emmanuel. EKG showing st elevation in v3-v6. underwent emergent LHC with 100% occlusion in mid and distal LAD. s/p PCI to mid and distal LAD. TTE showing lvef of 10-15% with possible left LV wall thrombus. 07/04-underwent LHC with mid to distal LAD stent 07/05- on room air. Echo showing reduced LVEF with possible LV thrombus 07/06: awaiting lifevest 07/04-underwent LHC with mid to distal LAD stent 07/05- on room air. Echo showing reduced LVEF with possible LV thrombus Objective - Vital Signs Vital signs: Vital Signs Temp 98.0 F 07/06/24 08:00 Pulse 65 07/06/24 10:00 Resp 18 07/06/24 10:00 BP 125/65 07/06/24 10:00 Pulse Ox 96 07/05/24 16:00 FiO2 60 07/04/24 03:13 Intake & Output 07/05/24 07/06/24 07/06/24 18:59 06:59 18:59 Intake Total 1210 240 Output Total 2300 Balance -1090 240 Weight 100.2 kg 98.2 kg Intake: Intake, IV Titration 250 Amount Heparin Sod,Pork in 0.45% 250 NaCl 25,000 unit In 0.45 % NaCl 1 250ml.bag @ 10.5 UNITS/KG/HR 10.049 mls/ hr IV .Q24H [facility] Rx#: [id number] Oral 960 240 Output: Urine 2300 Other: Voiding Method Toilet Toilet Toilet # Voids 1 - Exam General: non toxic, no distress, appears stated age pleasnt. Derm: warm, dry Head: atraumatic, normocephalic, symmetric Eyes: EOMI, no lid lag, anicteric sclera, pupils equal round reactive to light ENT: Nose and ears atraumatic, no thrush, no pharyngeal erythema Neck: No thyromegaly, no cervical lymphadenopathy, trachea midline, supple Mouth: no lip lesion, mucus membranes moist Cardiovascular: S1S2 reg, no murmur Lungs: clear to ascultation bilatera on room air Abdominal: soft, nontender to palpation, no guarding, no appreciable organomegaly, normal bowel sounds Ext: no ble edema noted - Labs CBC & Chem 7: 07/06/24 02:50 07/06/24 02:50 Labs: Abnormal Lab Results - Last 24 Hours (Table) 07/05/24 07/05/24 07/06/24 Range/Units 16:12 21:24 02:50 Sodium 136 L (137-145) mmol/L Chloride 109 H (98-107) mmol/L Carbon Dioxide 19 L (22-30) mmol/L BUN 23 H (7-17) mg/dL Glucose 173 H (74-99) mg/dL POC Glucose (mg/dL) 166 H 211 H (70-110) mg/dL 07/06/24 07/06/24 Range/Units 06:31 11:15 Sodium (137-145) mmol/L Chloride (98-107) mmol/L Carbon Dioxide (22-30) mmol/L BUN (7-17) mg/dL Glucose (74-99) mg/dL POC Glucose (mg/dL) 130 H 149 H (70-110) mg/dL Assessment and Plan Assessment: #) STEMI to lead V3-v6, s/p pci to mid to distal lad with 15 mm bertram -continue asa 81 mg daily and brilinta 90 mg BID #) Possible LV mural thrombus as seen on TTE - continue anticoagulation with eliquis 5 mg BID for 3 months. Defer to cardiology if they feel as if GIANNI/c ardiac MRI warranted to confirm thrombus #) Acute HFrEF with LVEF noted to be 10-15%. Previous echo showing reduced LVEF in 2019 however as per cardiology noted to be later improved. euvolemic on exam currently. Continue GDMT with metoprolol tartrate 25 mg BID, losartan 25 mg daily. add farxiga 5 mg daily. Lifevest upon dicharge #)CAD, hx of prior pci of rca and lad in 03/2019 #) Tobacco use- tobacco cessation strongly encouraged. uses 1 PPD. nicotine patch while inpatient #) Acute hypoxic respiraotry failure on CPAP in ER, resolved. on room air. 2/2 to pulmonary edema and diuresed 1.5 L yesterday #) Hx of RCC s/p right nephrectomy - monitor renal function closely #) Hyperlipidemia- LDL of 201- continue atorvastatin 80 mg hs #) Medication nonadherance- recommend medication adherance to medications as prescribed. 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 DVT ppx: Eliquis Anticipate discharge date: 07/07 A total of 35 minutes was spent on the care of this complex patient more than 50% of the time was spent in counseling and care coordination. Time with Patient: Greater than 30
[2024-07-06] MEDS: VENLAFAXINE HCL ER 150 MG CAP PO SCH (15:02)
[2024-07-06 16:48] LABS: Glucose,Whole Blood 120 mg/dL (70-110)
[2024-07-06] MEDS: metFORMIN 500 MG TAB PO SCH (16:58)
[2024-07-06] MEDS: MAG HYDROX/AL HYDROX/SIMETH 30 ML CUP PO PRN (18:49)
[2024-07-06 21:03] LABS: Glucose,Whole Blood 141 mg/dL (70-110)
--- NOTE | 2024-07-06 22:28 | PN ---
PROGRESS NOTE SUBJECTIVE: A 58-year-old lady, who is admitted to hospital with acute coronary syndrome and underwent emergent cardiac catheterization and angioplasty by Dr. Shah. The patient is doing well clinically, stable hemodynamically, free of symptoms of angina and heart failure. An echocardiogram revealed severe LV systolic dysfunction. MEDICATIONS: The patient is currently on, 1. Eliquis 5 b.i.d. 2. Aspirin. 3. Lipitor. 4. Farxiga. 5. Lasix. 6. Cozaar. 7. Glucophage. 8. Lopressor. 9. Brilinta. 10.She is on Eliquis because of apical thrombus. OBJECTIVE: GENERAL: Comfortable at rest. VITAL SIGNS: Stable. NECK: There is no jugular venous distention. Carotid upstroke is normal. There is no bruit. CHEST: Good air entry bilaterally. HEART: First and second heart sounds. No gallop. EXTREMITIES: Did not reveal any edema. Peripheral pulses are felt. ASSESSMENT: 1. Status post acute coronary syndrome, status post catheterization and angioplasty. 2. Ischemic cardiomyopathy with severe LV dysfunction. PLAN: Patient can be transferred out of ICU. We will arrange for a LifeVest on her and hopefully home tomorrow. MMODL / IJN: [id number] /
[2024-07-07 06:18] LABS: Glucose,Whole Blood 127 mg/dL (70-110)
[2024-07-07 08:59] VITALS: TEMP 98.2
--- NOTE | 2024-07-07 10:16 | P.DS ---
Providers Date of admission: 07/04/24 05:08 Attending physician: Audra May MD Consults: 07/04/24 05:08 Consult Physician Urgent Consulting Provider: Moose Hammond Consult Reason/Comments: nstemi, pulmonary edema Do you want consulting provider notified?: Yes 07/04/24 05:46 Consult Physician Urgent Consulting Provider: Lita Holliday Reason/Comments: bipap dependant resp failure, pulmonary edema Do you want consulting provider notified?: Yes 07/04/24 11:43 Consult Physician Routine Consulting Provider: Moose Hammond Consult Reason/Comments: Post Interventional Patient Do you want consulting provider notified?: Already Contacted Primary care physician: Linden Grossman [facility] Hospital Course: 58 Yo F who had presented to the hospital on 07/04 with chest emmanuel. EKG showing st elevation in v3-v6. underwent emergent LHC with 100% occlusion in mid and distal LAD. s/p PCI to mid and distal LAD. TTE showing lvef of 10-15% with possible left LV wall thrombus. She was started on asa 81 mg daily and brilinta 90 mg BID given her stent. She was diuresed appropraitely and was discharged home on 07/07 with a lifevest. Needs to f/u with cardiology outpatient. Tobacco cessation recommended and nicotine patch rxed. Assessment: #) STEMI to lead V3-v6, s/p pci to mid to distal lad with 15 mm bertram -continue asa 81 mg daily and brilinta 90 mg BID #) Possible LV mural thrombus as seen on TTE - continue anticoagulation with eliquis 5 mg BID for 3 months #) Acute HFrEF with LVEF noted to be 10-15%. Previous echo showing reduced LVEF in 2018 however as per cardiology noted to be later improved. euvolemic on exam currently. Continue GDMT with metoprolol tartrate 25 mg BID, losartan 25 mg daily. Continue farxiga 5 mg daily. Continue volume control with lasix 40 mg daily. repeat BMP in 1 month outpatient. #)CAD, hx of prior pci of rca and lad in 03/2019 #) Tobacco use- tobacco cessation strongly encouraged. uses 1 PPD prior to admission. nicotine patch rxed #) Acute hypoxic respiraotry failure on CPAP in ER, resolved. on room air. 2/2 to pulmonary edema. Diuresed appropraitely #) Hx of RCC s/p right nephrectomy - monitor renal function closely and would recommend repeat BMP in 1 month #) Hyperlipidemia- LDL of 201- continue atorvastatin 80 mg hs #) Medication nonadherance- recommend medication adherance to medications as prescribed Patient Condition at Discharge: Fair Plan - Discharge Summary Discharge Rx Participant: No New Discharge Prescriptions: New Losartan [Cozaar] 25 mg PO DAILY 30 Days #30 tab Aspirin EC [Ecotrin Low Dose] 81 mg PO DAILY 30 Days #30 tab Apixaban [Eliquis] 5 mg PO BID 30 Days #60 tab Dapagliflozin Propanediol [Farxiga] 5 mg PO DAILY 30 Days #30 tab Atorvastatin [Lipitor] 80 mg PO DAILY 30 Days #30 tab Venlafaxine HCl ER [Effexor Xr] 150 mg PO DAILY 30 Days #30 cap Ticagrelor [Brilinta] 90 mg PO BID 30 Days #60 tab metFORMIN HCL [Glucophage] 500 mg PO BID-W/MEALS 30 Days #60 tab Nicotine 14Mg/24Hr Patch [Habitrol] 1 patch TRANSDERM DAILY 28 Days #28 patch Furosemide [Lasix] 40 mg PO DAILY 30 Days #30 tab Metoprolol Tartrate [Lopressor] 25 mg PO BID 30 Days #60 tab Nitroglycerin Sl Tabs [Nitrostat] 0.4 mg SUBLINGUAL Q5M PRN 30 Days #30 tab PRN Reason: Chest Pain Discontinued Metoprolol Tartrate [Lopressor] 12.5 mg PO DAILY@1400 Discharge Medication List Apixaban [Eliquis] 5 mg PO BID 30 Days #60 tab 07/06/24 [Rx] Aspirin EC [Ecotrin Low Dose] 81 mg PO DAILY 30 Days #30 tab 07/06/24 [Rx] Atorvastatin [Lipitor] 80 mg PO DAILY 30 Days #30 tab 07/06/24 [Rx] Dapagliflozin Propanediol [Farxiga] 5 mg PO DAILY 30 Days #30 tab 07/06/24 [Rx] Furosemide [Lasix] 40 mg PO DAILY 30 Days #30 tab 07/06/24 [Rx] Losartan [Cozaar] 25 mg PO DAILY 30 Days #30 tab 07/06/24 [Rx] Metoprolol Tartrate [Lopressor] 25 mg PO BID 30 Days #60 tab 07/06/24 [Rx] Nicotine 14Mg/24Hr Patch [Habitrol] 1 patch TRANSDERM DAILY 28 Days #28 patch 07/06/24 [Rx] Nitroglycerin Sl Tabs [Nitrostat] 0.4 mg SUBLINGUAL Q5M PRN 30 Days #30 tab 07/06/24 [Rx] Ticagrelor [Brilinta] 90 mg PO BID 30 Days #60 tab 07/06/24 [Rx] Venlafaxine HCl ER [Effexor Xr] 150 mg PO DAILY 30 Days #30 cap 07/06/24 [Rx] metFORMIN HCL [Glucophage] 500 mg PO BID-W/MEALS 30 Days #60 tab 07/06/24 [Rx] Follow up Appointment(s)/Referral(s): Linden Dejesus MD [Primary Care Provider] - 1-2 days Gideon Horowitz MD [STAFF PHYSICIAN] - 1 Week Discharge/Stand Alone Forms: [facility], Who Do I Call?, Community Resources Discharge Disposition: HOME SELF-CARE
[2024-07-07 10:30] LABS: HCT 41.4 % (34.0-46.0); HGB 13.5 gm/dL (11.4-16.0); MCH 30.8 pg (25.0-35.0); MCHC 32.5 g/dL (31.0-37.0); MCV 94.8 fL (80.0-100.0); Mean Platelet Volume 9.6; Platelet Count 246 k/uL (150-450); RBC 4.37 m/uL (3.80-5.40); WBC 8.4 k/uL (3.8-10.6)
[2024-07-07 10:40] LABS: African American GFR (CKD) 69 (>60 ml/min/1.73 sqM); Anion Gap 11 mmol/L; Blood Urea Nitrogen 27 mg/dL (7-17); Calcium 9.3 mg/dL (8.4-10.2); Carbon Dioxide 20 mmol/L (22-30); Chloride 103 mmol/L (98-107); Glucose 146 mg/dL (74-99); Non-African American GFR(CKD) 60 (>60 ml/min/1.73 sqM); Potassium 4.3 mmol/L (3.5-5.1); Sodium 134 mmol/L (137-145)
[2024-07-07 11:09] LABS: Glucose,Whole Blood 164 mg/dL (70-110)
[2024-07-07 12:35] VITALS: BP 131/74; PULSE 60; RESP 18
--- NOTE | 2024-07-07 13:10 | P.PN ---
Subjective Progress Note Date: 07/07/24 This is a 58-year-old female admitted to the hospital with acute coronary syndrome and underwent emergent cardiac catheterization and angioplasty with Dr. Shah. Patient was initially admitted into the intensive care unit and transferred today to the cardiac stepdown unit. Patient was found to have a low EF, ischemic cardiomyopathy with severe LV dysfunction and LifeVest will be ordered. Patient denies chest pain, shortness of breath, lightheadedness or dizziness. Blood pressure 131/74, heart rate 60, pulse ox 97% on room air. Repeat blood work reveals hemoglobin 13.5, BUN 27 creatinine 1.05. Physical examination: Gen: This is a 58-year-old female in no acute distress LUNGS: Clear to auscultation. No wheezes or rhonchi. No intercostal retractions. HEART: Regular rate and rhythm. No murmur. ABDOMEN: Soft No tenderness. EXTREMITIES: No pedal edema. No calf tenderness. NEUROLOGICAL: Patient is awake, alert and oriented x3. Assessment: Acute coronary syndrome status post cardiac catheterization and angioplasty of the LAD with AURELIO Ischemic cardiomyopathy Possible LV mural thrombus Tobacco use and dependence Plan: Continue patient on current cardiac medications Obtain LifeVest for ischemic cardiomyopathy, EF 10 to 15% Patient will be provided the Pulselocker quit line information at discharge Patient is cleared for discharge from cardiology after LifeVest has been obtained Nurse practitioner note has been reviewed, I agree with documented findings and plan of care. Patient was seen and examined. Objective - Vital Signs Vital signs: Vital Signs Temp 97.7 F 07/07/24 04:00 Pulse 54 L 07/07/24 04:00 Resp 15 07/07/24 04:00 BP 108/65 07/07/24 04:00 Pulse Ox 98 07/07/24 04:00 FiO2 60 07/04/24 03:13 Intake & Output 07/06/24 07/07/24 07/07/24 18:59 06:59 18:59 Intake Total 150 Balance 150 Weight 91.4 kg Intake: Oral 150 Other: Voiding Method Toilet Toilet # Voids 1 1 - Labs CBC & Chem 7: 07/07/24 10:06 07/07/24 10:06 Labs: Abnormal Lab Results - Last 24 Hours (Table) 07/06/24 07/06/24 07/06/24 Range/Units 11:15 16:47 21:01 POC Glucose (mg/dL) 149 H 120 H 141 H (70-110) mg/dL 07/07/24 Range/Units 06:16 POC Glucose (mg/dL) 127 H (70-110) mg/dL
--- NOTE | 2024-07-07 17:39 | P.PN ---
Subjective Progress Note Date: 07/07/24 Principal diagnosis: Acute ST elevation myocardial infarction This is a 58-year-old female with history of multiple medical problems including hypertension, dyslipidemia, renal cell carcinoma and previous nephrectomy known history of ischemic cardiomyopathy coronary artery disease and previous PCI patient presented to the ER yesterday with 1 week history of shortness of breath and intermittent episodes of chest heaviness. PE on her presentation showed poor R wave progression with minimal ST elevation in V4 and V5. EKG showed progressive ST elevation in V3 through V6. X-ray showed evidence of pulmonary edema patient was seen by cardiology on consultation, and she was felt to have acute anterior ST elevation myocardial infarction. Patient underwent cardiac catheterization and she was found to have1. Diffuse CAD as described above including 100% mid LAD, 100% distal LAD, 100% ramus, 100% OM1, 100% PDA stenosis, 50-60% circumflex, 40-50% mid RCA in-stent stenosi,2. Status post PCI mid to distal LAD 2.5 x 15 mm Xience AURELIO, Elevated left sided filling pressures this was done yesterday, patient was transferred to the ICU and I was asked to see her on consultation. Recommendation by cardiology is to continue aggressive risk factor modification, continue dual antiplatelets with aspirin and Brilinta for 12 months and aggressive medical therapy. I reviewed her chest x-ray this morning, noted to have evidence of pulmonary edema hence I recommended more diuretics to be given to the patient. Patient is on room air O2 saturation 97%, blood pressure is 147/88. Heart rate is 77. Echocardiogram is pending Patient was today on 07/05/2024, remains in the ICU, doing fairly well. Her echocardiogram showed severe LV dysfunction with ejection fraction of 10 to 15%. X-ray this morning showed significant improvement in her pulmonary edema patient is feeling better breathing a lot easier. No chest pain no cough no wheezing no fever no chills no hemoptysis. Echocardiogram also showed echodensity possibly consistent with left ventricular mural thrombus, cardiology is aware and started the patient on anticoagulation therapy. WBC count is 11.3 hemoglobin is 11.6 basic metabolic profile is normal and renal profile is normal Patient is seen today on 07/06/2024, patient remains in the ICU as an overflow, doing great, asymptomatic, on Lasix on Eliquis and cardiology is apparently clearing the patient for discharge with LifeVest. And she will need to have close follow-up on outpatient basis with cardiology may eventually need to have AICD placement patient denies any cough no wheezing no shortness of breath and no chest pain today labs are basically unremarkable Patient was seen today on 07/07/2024, patient is doing well, asymptomatic, being considered for discharge today by cardiology however she is waiting for her LifeVest. Hardly any pulmonary symptoms no cough no wheezing no shortness of breath Objective - Vital Signs Vital signs: Vital Signs Temp 98.2 F 07/07/24 08:58 Pulse 60 07/07/24 12:35 Resp 18 07/07/24 12:35 BP 131/74 07/07/24 12:35 Pulse Ox 97 07/07/24 12:35 FiO2 60 07/04/24 03:13 Intake & Output 07/06/24 07/07/24 07/07/24 18:59 06:59 18:59 Intake Total 150 200 Balance 150 200 Weight 91.4 kg Intake: Oral 150 200 Other: Voiding Method Toilet Toilet Toilet # Voids 1 1 - Exam CONSTITUTIONAL: 58-year-old female pleasant in no distress, on room air Head: Atraumatic normocephalic HEENT: Pupils are equal, round. Sclerae anicteric. Mucous membranes of the mouth are moist. No JVD. No carotid bruit. CHEST EXAMINATION: Symmetrical chest expansion, no crackles rhonchi or wheezes HEART EXAMINATION: Regular rate and rhythm. S1, S2 heard. No murmurs, gallops or rub. ABDOMEN: Soft, nontender. Positive bowel sounds. EXTREMITIES: No clubbing edema or cyanosis pulses bilaterally. NEUROLOGIC EXAMINATION: Alert oriented x 3 no gross focal neurologic deficit Psychiatric: Normal mood affect and normal mental status examination Skin: No rashes - Labs CBC & Chem 7: 07/07/24 10:06 07/07/24 10:06 Labs: Abnormal Lab Results - Last 24 Hours (Table) 07/06/24 07/07/24 07/07/24 Range/Units 21:01 06:16 10:06 Sodium 134 L (137-145) mmol/L Carbon Dioxide 20 L (22-30) mmol/L BUN 27 H (7-17) mg/dL Creatinine 1.05 H (0.52-1.04) mg/dL Glucose 146 H (74-99) mg/dL POC Glucose (mg/dL) 141 H 127 H (70-110) mg/dL 07/07/24 Range/Units 11:07 Sodium (137-145) mmol/L Carbon Dioxide (22-30) mmol/L BUN (7-17) mg/dL Creatinine (0.52-1.04) mg/dL Glucose (74-99) mg/dL POC Glucose (mg/dL) 164 H (70-110) mg/dL Assessment and Plan Assessment: Impression: Acute anterior ST elevation myocardial infarction, status post stenting of LAD Acute pulmonary edema secondary Coronary artery disease with previous PCI of RCA and LAD in 2019 Severe left ventricular dysfunction with left ventricular mural thrombus Tobacco dependence syndrome Benign essential hypertension Dyslipidemia History of renal cell carcinoma and previous nephrectomy Recommendation: Continue present supportive care measures Continue dual antiplatelet medication Continue diuretics/oral Lasix With discharge planning if cleared by cardiology with LifeVest will need outpatient follow-up with cardiology may eventually require AICD placement Time with Patient: Less than 30
== END 2024-07-07 16:33 | disposition home or self-care (01) | DRG 174 ==
LOC: EC 03:04 → 2SICU 05:08 → 3SCARD 07-06 14:52
PROVIDERS: ADMIT Internal Medicine; ATTEND Internal Medicine
PROC: B2111ZZ Fluoroscopy of Multiple Coronary Arteries using Low Osmolar Contrast (ICD-10-PCS; 2024-07-04)
PROC: 5A09357 Assistance with Respiratory Ventilation, Less than 24 Consecutive Hours, Continuous Positive Airway Pressure (ICD-10-PCS; 2024-07-04)
PROC: 027034Z Dilation of Coronary Artery, One Artery with Drug-eluting Intraluminal Device, Percutaneous Approach (ICD-10-PCS; principal; 2024-07-04 05:46)
PROC: 4A023N7 Measurement of Cardiac Sampling and Pressure, Left Heart, Percutaneous Approach (ICD-10-PCS; 2024-07-04 05:46)
DX: I21.09 ST elevation (STEMI) myocardial infarction involving other coronary artery of anterior wall (principal); J96.21 Acute and chronic respiratory failure with hypoxia; I50.23 Acute on chronic systolic (congestive) heart failure; I42.8 Other cardiomyopathies; I11.0 Hypertensive heart disease with heart failure; T82.855A Stenosis of coronary artery stent, initial encounter; E11.65 Type 2 diabetes mellitus with hyperglycemia; I25.82 Chronic total occlusion of coronary artery; E87.20 Acidosis, unspecified; I51.3 Intracardiac thrombosis, not elsewhere classified; I25.10 Atherosclerotic heart disease of native coronary artery without angina pectoris; D72.828 Other elevated white blood cell count; I16.1 Hypertensive emergency; F32.9 Major depressive disorder, single episode, unspecified; E78.5 Hyperlipidemia, unspecified; I25.5 Ischemic cardiomyopathy; F17.210 Nicotine dependence, cigarettes, uncomplicated; T50.916A Underdosing of multiple unspecified drugs, medicaments and biological substances, initial encounter; Z91.148 Patient's other noncompliance with medication regimen for other reason; Y83.1 Surgical operation with implant of artificial internal device as the cause of abnormal reaction of the patient, or of later complication, without mention of misadventure at the time of the procedure; Z79.01 Long term (current) use of anticoagulants; Z79.02 Long term (current) use of antithrombotics/antiplatelets; Z90.5 Acquired absence of kidney; Z79.82 Long term (current) use of aspirin; Z79.84 Long term (current) use of oral hypoglycemic drugs; Z79.899 Other long term (current) drug therapy; Z85.528 Personal history of other malignant neoplasm of kidney
CPT/HCPCS: 36415; 71045; 80048; 80053; 80061; 81001; 82565; 83036; 83605; 83735; 83880; 84132; 84145; 84484; 85025; 85027; 85610; 85730; 87636; 93005; 93306; 93458; 94660; 96365; 99291